=== PATIENT | male | born 1975 | race Caucasian/White ===

== ENCOUNTER 2024-02-19 11:05 | Inpatient (IN) | payer OTHER, SELFPAY ==
[2024-02-19 11:46] VITALS: BP 136/78; PULSE 113; RESP 20; TEMP 37.1; O2SAT 96; BMI 32.1
--- NOTE | 2024-02-19 11:53 | ED_ITS ---
HPI - General Adult General Chief complaint: ETOH/Substance Use Stated complaint: detox Time Seen by Provider: 02/19/24 12:29 Source: patient Mode of arrival: ambulatory Limitations: no limitations History of Present Illness HPI narrative: 48 yo male with chronic rash, HTN here with c/o drinking several hard drinks a day - no prior seizures has been vomiting at home for the last day. Has never been to detox. Brother showed up and has been trying to help him. The patient notes he feels so unwell that he finally is reaching out for help. Last drink was yesterday averages 2 to 3L a week. complaint: ETOH withdrawal Onset (ago): day(s) (yesterday ) Radiation: non-radiation Severity: severe Relieving factors: none Exacerbating factors: none Associated symptoms: loss of appetite and nausea/vomiting Treatments prior to arrival: none Related Data Home Medications ?Medication ?Instructions ?Recorded ?Confirmed gabapentin 100 mg capsule 100 mg PO DAILY PRN Pain 02/19/24 02/19/24 lisinopril 20 mg tablet 20 mg PO DAILY 02/19/24 02/19/24 Allergies Allergy/AdvReac Type Severity Reaction Status Date / Time Penicillins Allergy Mild hives Verified 02/19/24 11:51 Review of Systems 2 Review of Systems: Constitutional : No Fever, No Chills, No Fatigue ENT/Mouth : No sore throat, No Rhinorrhea Eyes: No Eye Pain, No Swelling, No Redness Cardiovascular : No Chest Pain, No SOB, No Dyspnea on Exertion Respiratory : No Cough, No Sputum Gastrointestinal : pos Nausea, pos Vomiting, No Diarrhea, No abdominal Pain Genitourinary : No Dysuria, No Urinary Frequency, No Hematuria, Musculoskeletal : No joint pain, No Myalgias, No Joint Swelling Skin : No Skin Lesions, No rash Neuro : No Weakness, No Numbness, No Dizziness, no Headache Psych : pos Anxiety/Panic, pos Depression, no SI All other systems reviewed and are negative PMFSH Past Medical History Attestation statement: The following information was validated with the patient. Source: old records reviewed Medical History HTN (hypertension) Alcohol abuse Social History Social History Alcohol intake: current Alcohol intake frequency: 3 or more drinks per day Alcohol type: hard liquor Patient Tobacco Use Status: Never used Tobacco Physical Exam ED Vital Signs: Vital Signs - 24 hr 02/19/24 11:46 02/19/24 12:57 02/19/24 15:39 Temperature 98.8 F Pulse Rate 113 H 104 H 114 H Respiratory Rate 20 13 12 Blood Pressure 136/78 136/80 120/70 Pulse Oximetry 96 99 98 Oxygen Delivery Method Room Air Room Air 02/19/24 16:12 Temperature Pulse Rate 122 H Respiratory Rate 21 H Blood Pressure 116/91 H Pulse Oximetry 96 Oxygen Delivery Method Room Air BMI result Body Mass Index 32.1 Appearance: Alert. Oriented X3. Mild acute distress. anxious appearing Eyes: Pupils equal, round and reactive to light. ENT: Pharynx dry MM with tongue fasciculations noted atraumatic Neck: Normal inspection. Neck supple. CVS: Normal heart rate and rhythm. Pulses normal. Respiratory: No respiratory distress. Breath sounds normal. Abdomen: Soft and nontender. Skin: Skin warm and dry. Normal skin color. Plaque like rash noted on back not warm or erythematous more scaly in confluent patches Extremities: No lower extremity edema. No calf ttp bruise on L upper arm Neuro: Oriented X 3. No motor deficit. No sensory deficit. tremors in both arms noted Course Course Course Narrative: RmE: 48-year-old male history of alcohol abuse presents to ED for alcohol withdrawal. Patient having tremors and feeling shaky with nausea and vomiting. Patient last drink was last night. Patient drinks 2 L of vodka a week. Charge nurse informed for patient to be brought to the ED. Labs Ativan fluids ordered Medications Administered Generic Name Dose Route Start Last Admin Trade Name Freq PRN Reason Stop Dose Admin Acetaminophen 650 mg 02/19/24 21:45 02/19/24 21:59 Acetaminophen 325 Mg Tablet PO 650 mg Q4H PRN Administration Pain, Mild (Pain Scale 1-3) Clonidine HCl 0.05 mg 02/19/24 21:00 02/19/24 21:59 Clonidine Hcl 0.1 Mg Tablet PO 0.05 mg BID CINTIA Administration Protocol Enoxaparin Sodium 40 mg 02/19/24 17:30 02/19/24 18:26 Enoxaparin Sodium 40 Mg/0.4 Ml Syringe SUBCUT 40 mg Q24H CINTIA Administration Folic Acid 1 mg 02/19/24 17:30 02/19/24 18:27 Folic Acid 1 Mg Tablet PO 1 mg DAILY CINTIA Administration Metoclopramide HCl 5 mg 02/19/24 19:15 02/19/24 19:22 Metoclopramide Hcl 10 Mg/2 Ml Vial IVPUSH 5 mg Q6H PRN Administration Nausea and Vomiting Thiamine HCl 100 mg 02/19/24 17:30 02/19/24 18:27 Thiamine Hcl 100 Mg Tablet PO 100 mg DAILY CINTIA Administration Discontinued Medications Generic Name Dose Route Start Last Admin Trade Name Freq PRN Reason Stop Dose Admin Al Hydroxide/Mg Hydroxide 30 ml 02/19/24 21:52 02/19/24 21:59 Magnesium Hydrox/Alum Hydrox 30 Ml Oral.Susp PO 02/19/24 21:53 30 ml ONCE ONE Administration Folic Acid 1 mg 02/19/24 12:57 02/19/24 13:36 Folic Acid 1 Mg Tablet PO 02/19/24 12:58 1 mg ONCE ONE Administration Sodium Chloride 1,000 mls @ 999 mls/hr 02/19/24 11:51 02/19/24 14:13 Ns IV 02/19/24 12:51 Infused .Q1H1M STA Infusion Thiamine HCl 200 mg/ Sodium 102 mls @ 204 mls/hr 02/19/24 12:29 02/19/24 13:40 Chloride IV 02/19/24 12:58 Infused ONCE ONE Infusion Magnesium Sulfate 2 gm in 50 mls @ 25 mls/hr 02/19/24 12:29 02/19/24 14:52 Magnesium Sulfate/H2o IV 02/19/24 14:28 Infused ONCE ONE Infusion Sodium Chloride 1,000 mls @ 100 mls/hr 02/19/24 13:45 02/19/24 18:42 Ns IVCONT Infused .Q10H CINTIA Infusion Lorazepam 2 mg 02/19/24 11:51 02/19/24 12:49 Lorazepam 2 Mg/Ml Vial IVPUSH 02/19/24 11:52 2 mg ONCE ONE Administration Lorazepam 2 mg 02/19/24 12:37 02/19/24 12:54 Lorazepam 2 Mg/Ml Vial IVPUSH 02/19/24 12:38 Not Given ONCE ONE Phenobarbital Sodium 360 mg 02/19/24 13:00 02/19/24 13:37 Phenobarbital Sodium 130 Mg/Ml Im Once IM 02/19/24 13:01 360 mg ONCE ONE Administration Protocol Phenobarbital Sodium 270 mg 02/19/24 16:00 02/19/24 19:06 Phenobarbital Sodium 130 Mg/Ml Vial Im Q3hx2 IM 02/19/24 19:01 270 mg Q3H CINTIA Administration Protocol Phenobarbital Sodium 130 mg 02/19/24 16:02 02/19/24 16:06 Phenobarbital Sodium 130 Mg/Ml Vial IVPUSH 02/19/24 16:03 130 mg ONCE ONE Administration Phenobarbital Sodium 130 mg 02/19/24 21:45 02/19/24 21:59 Phenobarbital Sodium 130 Mg/Ml Vial IM 02/19/24 21:46 130 mg ONCE ONE Administration Medical Decision Making Medical Decision Making MDM Narrative: 48 yo male with alcohol abuse, HTN here with n/v tremors, HTN, tachycardia, tongue fasciculations last drink yesterday and exhibiting signs of withdrawal given presentation will start on IV ativan and then order thiamine, folic acid, IVF - start on phenobarb protocol and admit. He will need careful monitoring inpatient then can be seen by addiction medicine while admitted. Differential Diagnosis Differential Diagnoses: The differential diagnosis associated with the presentation includes alcohol withdrawal, lyte abnormality Admission/Observation Consideration of admission/observation: Escalation of care including admission/observation considered admit for alcohol withdrawal and phenobarb protocol Consult Healthcare Provider Management of the patient was discussed with: Hospitalist (will admit) Lab Data [facility] Lab Attestation statement: I reviewed the patient's lab results. 02/19/24 12:03 02/19/24 17:45 Labs: Lab Results 02/19/24 02/19/24 Range/Units 12:03 14:06 WBC 9.3 (4.8-10.8) X10*3/uL RBC 3.59 L (4.60-5.80) X10*6/uL Hgb 13.1 L (14.0-18.0) g/dl Hct 37.3 L (42.0-52.0) % MCV 103.9 H (80.0-98.0) fL MCH 36.5 H (27.0-33.0) pg MCHC 35.1 (31.0-36.0) g/dl RDW 15.1 (11.0-16.0) % Plt Count 228 (160-400) X10*3/uL MPV 8.3 L (9.4-12.4) fL Immature Gran % (Auto) 0.3 (0.0-0.4) % Neut % (Auto) 81.9 H (45-73) % Lymph % (Auto) 10.8 L (20-40) % [place] % (Auto) 6.6 (2-11) % Eos % (Auto) 0.1 (0-4) % Baso % (Auto) 0.3 (0-2) % Lymph # (Auto) 1.0 L (1.2-4.9) X10*3/uL [place] # (Auto) 0.6 (0.1-1.2) X10*3/uL Eos # (Auto) 0.0 (0.0-0.4) X10*3/uL Baso # (Auto) 0.0 (0.0-0.2) X10*3/uL Abs Immat Gran (auto) 0.03 (0.00-0.03) X10*3/uL Absolute Neuts (auto) 7.6 (2.0-8.3) x10*3/uL Absolute Nucleated RBC 0.000 (0.0-0.012) X10*3/uL Nucleated RBC % (auto) 0.0 (0.0-0.2) /100WBC PT 11.6 (11.1-13.3) SEC INR 1.0 (0.9-1.1) APTT 29.4 (26.0-36.8) SEC Sodium 128 L (135-145) mmol/L Potassium 4.4 (3.3-5.1) mmol/L Chloride 93 L (96-108) mmol/L Carbon Dioxide 20 L (22-29) mmol/L Anion Gap 19 (12-20) BUN 14 (9-16) mg/dL Creatinine 1.34 (0.5-1.4) mg/dL Estim Creat Clear Calc 81.0 Estimated GFR 56 Random Glucose 112 (60-115) mg/dL Calcium 9.0 (8.4-10.2) mg/dL Magnesium 1.7 (1.6-2.6) mg/dL Total Bilirubin 2.3 H (0.0-1.0) mg/dL AST 110 H (5-37) U/L ALT 72 H (0-40) U/L Alkaline Phosphatase 101 (39-117) U/L Total Protein 8.1 H (6.5-8.0) g/dL Albumin 4.4 (3.5-5.0) g/dL Lipase 43 (8-78) U/L Urine Opiates Screen Not Detected (Not Detect) Urine Fentanyl Screen Not Detected (Not Detect) Ur Barbiturates Screen Not Detected (Not Detect) Ur Phencyclidine Scrn Not Detected (Not Detect) Ur Amphetamines Screen Not Detected (Not Detect) U Benzodiazepines Scrn Not Detected (Not Detect) Urine Cocaine Screen Not Detected (Not Detect) U Marijuana (THC) Screen Not Detected (Not Detect) Ethyl Alcohol 267 mg/dL Influenza Type A (PCR) NEGATIVE (Negative) Influenza Type B (PCR) NEGATIVE (Negative) RSV RNA Qual (PCR) NEGATIVE (Negative) SARS-CoV-2 RNA (RT-PCR) NEGATIVE (Negative) Independent Interpretation I performed an independent interpretation of an: EKG Interpretation: Rate: 105 Rhythm: sinus tachycardia [place]: normal Normal P waves. Normal LEA. Normal QRS complex. ST T wave : normal no [place] qTC: 446 prior studies: no acute ischemia The study has been interpreted contemporaneously by me. . Independent Historian Clinical information obtained from an independent historian. History obtained from or confirmed by: Other (brother) Critical Care Time Critical Care Time Critical Care Time: Yes Total Critical Care Time: 60 Attestation: IV ativan, IV magnesium, IVF, phenobarb protocol, reassessments, admission I attest to this time spent taking care of the patient Discharge Plan Discharge Clinical Impression: Acute hyponatremia, Elevated liver enzymes Alcohol withdrawal syndrome Qualifiers: Complication of substance-induced condition: uncomplicated Qualified Code(s): F 10.930 - Alcohol use, unspecified with withdrawal, uncomplicated Patient Disposition: Admitted As Inpatient Interventions: Admission Worksheet (ED) Last Done: 02/19/24 19:47 Discharge Date/Time: 02/19/24 20:46
[2024-02-19 12:07] LABS: MANUAL DIFF FLAG NO
[2024-02-19 12:09] LABS: Basophils Percent Auto 0.3 % (0-2); Eosinophils Percent Auto 0.1 % (0-4); Hematocrit 37.3 % (42.0-52.0); Hemoglobin 13.1 g/dl (14.0-18.0); Imm Gran Abs Auto 0.03 X10*3/uL (0.00-0.03); Imm Gran Pct Auto 0.3 % (0.0-0.4); Lymphocytes Percent Auto 10.8 % (20-40); Mean Corpuscular HGB Conc 35.1 g/dl (31.0-36.0); Mean Corpuscular Hemoglobin 36.5 pg (27.0-33.0); Mean Corpuscular Volume 103.9 fL (80.0-98.0); Mean Platelet Volume 8.3 fL (9.4-12.4); Monocytes Absolute Auto 0.6 X10*3/uL (0.1-1.2); Monocytes Percent Auto 6.6 % (2-11); Neutrophils Absolute Auto 7.6 x10*3/uL (2.0-8.3); Neutrophils Percent Auto 81.9 % (45-73); Platelet Count 228 X10*3/uL (160-400); Red Blood Count 3.59 X10*6/uL (4.60-5.80); Red Cell Distribution Width 15.1 % (11.0-16.0); White Blood Count 9.3 X10*3/uL (4.8-10.8)
[2024-02-19 12:14] LABS: Prothrombin Time 11.6 SEC (11.1-13.3)
[2024-02-19 12:17] LABS: Partial Thromboplastin Time 29.4 SEC (26.0-36.8)
[2024-02-19 12:23] LABS: Alanine Aminotransferase 72 U/L (0-40); Albumin Level 4.4 g/dL (3.5-5.0); Alkaline Phosphatase 101 U/L (39-117); Anion Gap 19 (12-20); Aspartate Amino Transferase 110 U/L (5-37); Bilirubin Total 2.3 mg/dL (0.0-1.0); Blood Urea Nitrogen 14 mg/dL (9-16); Carbon Dioxide 20 mmol/L (22-29); Chloride 93 mmol/L (96-108); Estimated Glomerular Filt Rate 56; Ethanol 267 mg/dL; Glucose Random 112 mg/dL (60-115); Lipase 43 U/L (8-78); Magnesium 1.7 mg/dL (1.6-2.6); Potassium 4.4 mmol/L (3.3-5.1); Sodium 128 mmol/L (135-145); Total Protein 8.1 g/dL (6.5-8.0)
--- NOTE | 2024-02-19 12:44 | ECG_ITS ---
Test Reason : QTC, VOMITING Blood Pressure : / mmHG Vent. Rate : 105 BPM Atrial Rate : 105 BPM P-R Int : 158 ms QRS Dur : 072 ms QT Int : 338 ms P-R-T Axes : 041 012 040 degrees QTc Int : 446 ms Sinus tachycardia Otherwise normal ECG No previous ECGs available Referred By: Mary Fitch Electronically Signed By:Chele Winslow
[2024-02-19] MEDS: 0.9 % Sodium Chloride 1,000 ML 999 ML IV (12:45)
[2024-02-19] MEDS: Thiamine HCL 200 MG in 0.9 % Sodium Chloride 100 ML 204 MG IV (12:49)
[2024-02-19] MEDS: LORazepam 2 MG/ML VIAL IVPUSH (12:49)
[2024-02-19] MEDS: Magnesium Sulfate/H2O 2 GM/50 ML PIGGYBACK IV (12:49)
[2024-02-19 12:57] VITALS: BP 136/80; PULSE 104; RESP 13; O2SAT 99
[2024-02-19] MEDS: Folic Acid 1 MG TABLET PO ×2 (13:36→18:27)
[2024-02-19] MEDS: PHENobarbitaL sodium 130 MG/ML IM ONCE 360 MG IM (13:37)
--- NOTE | 2024-02-19 14:08 | PC.NURSE ---
pt assisted to stand at the bedside to void, he had approx 300ml output.
[2024-02-19 14:25] LABS: Amphetamine Screen Urine Not Detected (Not Detect); Barbiturates, Urine Not Detected (Not Detect); Benzodiazepines Screen Urine Not Detected (Not Detect); Cannabinoid Screen Urine Not Detected (Not Detect); Cocaine Screen Urine Not Detected (Not Detect); Fentanyl, urine Not Detected (Not Detect); Opiate Screen Urine Not Detected (Not Detect); Phencyclidine Screen Urine Not Detected (Not Detect)
[2024-02-19 14:50] LABS: Influenza A PCR NEGATIVE (Negative); Influenza B PCR NEGATIVE (Negative); Resp Syncy Virus RNA Qual PCR NEGATIVE (Negative); SARS COV2 PCR INHOUSE NEGATIVE (Negative)
[2024-02-19 15:39] VITALS: BP 120/70; PULSE 114; RESP 12; O2SAT 98
[2024-02-19] MEDS: 0.9 % Sodium Chloride 1,000 ML 100 ML IVCONT (15:42)
[2024-02-19] MEDS: PHENobarbitaL sodium 130 MG/ML VIAL IVPUSH (16:06)
[2024-02-19 16:12] VITALS: BP 116/91; PULSE 122; RESP 21; O2SAT 96
[2024-02-19] MEDS: PHENobarbitaL sodium 130 MG/ML VIAL IM Q3Hx2 270 MG IM ×2 (17:03→19:06)
--- NOTE | 2024-02-19 17:09 | PHA.MEDREC ---
Pharmacy Consult ? Medication Reconciliation Pharmacy has completed the medication reconciliation. Spoke to patient and confirmed medication list.
--- NOTE | 2024-02-19 17:10 | PC.NURSE ---
pt continues to insist on getting up at bedside to use urinal., recommended condom cath which at this time the pt refused. pts brother attempting to assist pt at bedside. pt in red socks, encouraged pt not getting up. 2x assist with pt standing. pt moved into a hospital bed at this time for comfort. bed alarm on.
--- NOTE | 2024-02-19 17:26 | PM.IMHP ---
History of Present Illness Date of Service: 02/19/24 Attending physician on admission: Matt Grayson Chief Complaint: alcohol withdrawals 48 yo male with chronic rash, HTN here with c/o drinking several hard drinks a day, as per the patient patient drinks 3.5 L hard liquor in 1 week, he says that he is recently as well as lost his job and feeling depressed and drinking more ,no prior seizures has been vomiting at home for the last day. Has never been to detox. Brother showed up and has been trying to help him. The patient notes he feels so unwell that he finally is reaching out for help. Patient tremulous and anxious in the emergency room. Denies any new complaint of chest pain or shortness of breath or abdominal pain or fever or chills Denies any cough Denies any weakness or numbness. Lab imaging reviewed: Sodium initially was 128 at 12:00, at 17:00 it is 130 Bicarb is 18 BUN 13 creatinine 0.84, mild elevated LFTs cbc : h/h: 13.1/37.3 in ed: Patient received phenobarb IM, also received magnesium, lorazepam, IV fluid in the ED and requested admission for alcohol withdrawal. Review of Systems Review of Systems: Yes all other systems are reviewed and are negative PMFSH Medical History HTN (hypertension) Alcohol abuse Social History Alcohol intake: current Alcohol intake frequency: 3 or more drinks per day Alcohol type: hard liquor Patient Tobacco Use Status: Never used Tobacco Smoked in Last 30 Days: No Advance Directives: No Advance Directives Information Provided: Yes Nutrition Risks: No Nutritional Risk Meds Allergies Allergy/AdvReac Type Severity Reaction Status Date / Time Penicillins Allergy Mild hives Verified 02/19/24 11:51 Active Medications: Current Medications Clonidine HCl (Clonidine Hcl 0.1 Mg Tablet) 0.05 mg PO BID CINTIA; Protocol Enoxaparin Sodium (Enoxaparin Sodium 40 Mg/0.4 Ml Syringe) 40 mg SUBCUT Q24H CINTIA Folic Acid (Folic Acid 1 Mg Tablet) 1 mg PO DAILY CINTIA Sodium Chloride (Ns) 1,000 mls @ 100 mls/hr IVCONT .Q10H CINTIA Last Admin: 02/19/24 15:42 Dose: 100 mls/hr Pharmacy Consult (Consult Rx Etoh Phenob Im/Po) 1 each MISCELLANE ONCE PRN; Protocol PRN Reason: Consult order Phenobarbital (Phenobarbital 30 Mg Tablet) 60 mg PO BID [facility]; Protocol Stop: 02/21/24 21:01 Phenobarbital (Phenobarbital 30 Mg Tablet) 30 mg PO BID [facility]; Protocol Stop: 02/23/24 21:01 Phenobarbital (Phenobarbital 30 Mg Tablet) 30 mg PO DAILY [facility]; Protocol Stop: 02/25/24 09:01 Phenobarbital Sodium (Phenobarbital Sodium 130 Mg/Ml Vial Im Q3hx2) 270 mg IM Q3H CINTIA; Protocol Stop: 02/19/24 19:01 Last Admin: 02/19/24 17:03 Dose: 270 mg Sodium Chloride (0.9 % Sodium Chloride Flush 3 Ml Syringe) 3 ml IVFLUSH QSHIFT CINTIA Thiamine HCl (Thiamine Hcl 100 Mg Tablet) 100 mg PO DAILY [facility] Home Medications ?Medication ?Instructions ?Recorded ?Confirmed ?Last Taken ?Type gabapentin 100 mg capsule 100 mg PO DAILY PRN Pain 02/19/24 02/19/24 02/18/24 History lisinopril 20 mg tablet 20 mg PO DAILY 02/19/24 02/19/24 02/18/24 History Physical Exam Vital Signs and Narrative: Vital Signs: Last Vital Signs Temp 98.8 F 02/19/24 11:46 Pulse 122 H 02/19/24 16:12 Resp 21 H 02/19/24 16:12 BP 116/91 H 02/19/24 16:12 Pulse Ox 96 02/19/24 16:12 O2 Del Method Room Air 02/19/24 16:12 BMI result Body Mass Index 32.1 Appearance: Alert.? Oriented X3.? tramulous and anxious ch skin rash Eyes: Pupils equal, round and reactive to light.? Sclera nonicteric.? ENT: Pharynx normal.? Moist mucous membranes. cvs: rrr, [id number] , no murmur res: clear to auscultation ,no rhonchii or wheezing abd: no rebound or guarding ,nt, bs present. ext pulses present , no cyanosis . neuro: axo3 , nonfocal. Results Labs 02/19/24 12:03 02/19/24 17:45 Labs: Laboratory Results - last 24 hr 02/19/24 02/19/24 12:03 14:06 MCV 103.9 H MCH 36.5 H MCHC 35.1 RDW 15.1 Plt Count 228 MPV 8.3 L Immature Gran % (Auto) 0.3 Neut % (Auto) 81.9 H Lymph % (Auto) 10.8 L [place] % (Auto) 6.6 Eos % (Auto) 0.1 Baso % (Auto) 0.3 Lymph # (Auto) 1.0 L [place] # (Auto) 0.6 Eos # (Auto) 0.0 Baso # (Auto) 0.0 Abs Immat Gran (auto) 0.03 Absolute Neuts (auto) 7.6 Absolute Nucleated RBC 0.000 Nucleated RBC % (auto) 0.0 PT 11.6 INR 1.0 APTT 29.4 Anion Gap 19 Estim Creat Clear Calc 81.0 Estimated GFR 56 Random Glucose 112 Calcium 9.0 Magnesium 1.7 Total Bilirubin 2.3 H AST 110 H ALT 72 H Alkaline Phosphatase 101 Total Protein 8.1 H Albumin 4.4 Lipase 43 Urine Opiates Screen Not Detected Urine Fentanyl Screen Not Detected Ur Barbiturates Screen Not Detected Ur Phencyclidine Scrn Not Detected Ur Amphetamines Screen Not Detected U Benzodiazepines Scrn Not Detected Urine Cocaine Screen Not Detected U Marijuana (THC) Screen Not Detected Ethyl Alcohol 267 Influenza Type A (PCR) NEGATIVE Influenza Type B (PCR) NEGATIVE RSV RNA Qual (PCR) NEGATIVE SARS-CoV-2 RNA (RT-PCR) NEGATIVE Assessment and Plan (1) Elevated liver enzymes: Status: Acute (2) Acute hyponatremia: Status: Acute (3) Alcohol withdrawal syndrome: Qualifiers: Complication of substance-induced condition: uncomplicated Qualified Code(s): F10.930 - Alcohol use, unspecified with withdrawal, uncomplicated Status: Acute Plan 48 yo male with chronic rash, HTN-patient drinks 3.5 L hard liquor in 1 week, now comes with alcohol withdrawal Acute alcohol withdrawal Tremulous anxious, tachycardic Upper extremity tremors noted, denies hx of alcohol withdrawal Drink hard liquor 3-1/2 L per week on p.o. phenobarb protocol,Daily multivitamin, folic acid, Thiamine,Famotidine 20 mg p.o.,IVF,CIWA scale, added clonidine Addiction medicine consult Monitor on telemetry Addiction consult and psych consult. Hyponatremia: Probably related to decreased p.o. intake and alcohol use Serum and urine osmolality,, urine electrolytes Sodium is already improving, monitor BMP Hypertension: Continue lisinopril DVT prophylaxis: SubQ Lovenox. Patient will benefit from 2 midnight stays: Considering alcohol withdrawal-need phenobarb protocol as well as CIWA monitoring, also electrolyte abnormalities-need electrolyte monitor closely as well as workup. Above management discussed with the patient detail length he understand and in agreement with the above plan, time spent 70 minute, patient full code. Quality Stroke Does the patient have a stroke diagnosis?: No VTE Prior VTE?: No VTE Risk Level:: Medical - moderate - high VTE Device Contraindication: N/A - Device Ordered VTE Drug Contraindication: N/A - Med Ordered
[2024-02-19 18:00] LABS: Anion Gap 18 (12-20); Blood Urea Nitrogen 13 mg/dL (9-16); Calcium 8.2 mg/dL (8.4-10.2); Carbon Dioxide 18 mmol/L (22-29); Chloride 98 mmol/L (96-108); Creatinine Clr Calc Pharmacy 129.3; Estimated Glomerular Filt Rate > 60; Glucose Random 90 mg/dL (60-115); Potassium 4.2 mmol/L (3.3-5.1); Sodium 130 mmol/L (135-145)
[2024-02-19] MEDS: Enoxaparin Sodium 40 MG/0.4 ML SYRINGE SUBCUT (18:26)
[2024-02-19] MEDS: Thiamine HCL 100 MG TABLET PO (18:27)
--- NOTE | 2024-02-19 19:12 | PC.NURSE ---
Addendum entered by Kelli Cannon RN 02/19/24 19:52: Seizure pads in place. 5mg of Reglan given with positive effect. Original Note: Assumed care of pt at 19:00, pt laying in bed, attempted to eat and did vomit a moderate amount. PT tachy at 129. Dr. Grayson made aware, clear liquid diet ordered as well as Zofran. PT reports Zofran causes him a headache and request to try something other than Zofran. Dr. Grayson made aware. Plan of care ongoing.
[2024-02-19] MEDS: Metoclopramide HCl 10 MG/2 ML VIAL 5 MG IVPUSH (19:22)
[2024-02-19 19:25] LABS: Osmolality, Serum 293 mosm/kg (281-305)
[2024-02-19 19:46] VITALS: BP 144/73; PULSE 120; RESP 14; TEMP 36.3; O2SAT 93
--- NOTE | 2024-02-19 19:53 | PC.NURSE ---
Report given to GHAZALA Velarde.
[2024-02-19 20:00] VITALS: BP 137/88; PULSE 126; RESP 20; TEMP 37.1; O2SAT 93
[2024-02-19 20:07] LABS: Potassium Urine Random 24.1 mmol/L
[2024-02-19 20:30] VITALS: BMI 32.1
[2024-02-19 20:32] LABS: Osmolality Urine 436 mosm/kg (373-1093)
[2024-02-19] MEDS: Acetaminophen 325 MG TABLET 650 MG PO (21:59)
[2024-02-19] MEDS: Magnesium Hydrox/Alum Hydrox 30 ML ORAL.SUSP PO (21:59)
[2024-02-19] MEDS: PHENobarbitaL sodium 130 MG/ML VIAL IM (21:59)
[2024-02-19] MEDS: cloNIDine HCL 0.1 MG TABLET 0.05 MG PO (21:59)
[2024-02-20] VITALS (7 sets, daily range): BP systolic 133–167; BP diastolic 79–93; PULSE 91–116; RESP 18–22; TEMP 36.4–37.1; O2SAT 93–98
[2024-02-20] MEDS: PHENobarbitaL sodium 130 MG/ML VIAL IM (01:09)
[2024-02-20] MEDS: 0.9 % Sodium Chloride Flush 3 ML SYRINGE IVFLUSH ×3 (01:10→21:20)
[2024-02-20] MEDS: Acetaminophen 325 MG TABLET 650 MG PO ×2 (03:50→16:32)
[2024-02-20] MEDS: LORazepam 2 MG/ML VIAL IVPUSH (03:51)
[2024-02-20 07:46] LABS: Alanine Aminotransferase 59 U/L (0-40); Albumin Level 3.6 g/dL (3.5-5.0); Alkaline Phosphatase 87 U/L (39-117); Anion Gap 16 (12-20); Aspartate Amino Transferase 99 U/L (5-37); Blood Urea Nitrogen 12 mg/dL (9-16); Calcium 8.8 mg/dL (8.4-10.2); Carbon Dioxide 21 mmol/L (22-29); Chloride 98 mmol/L (96-108); Estimated Glomerular Filt Rate > 60; Glucose Random 88 mg/dL (60-115); Potassium 4.8 mmol/L (3.3-5.1); Sodium 130 mmol/L (135-145); Total Protein 7.1 g/dL (6.5-8.0)
--- NOTE | 2024-02-20 09:03 | MHC.CM.PN ---
CM met with Patient at bedside. Patient lives in a house with his Parents and he is functionally independent. Home/self care vs Recovery Team intervention r/t ETOH is the tentative plan and CM has initiated and will follow for dc planning. PCP is Dr. Alex Krause. Patient's Brother and Mother will transport home. Patient declined HCP.
[2024-02-20] MEDS: Thiamine HCL 100 MG TABLET PO (09:50)
[2024-02-20] MEDS: Folic Acid 1 MG TABLET PO (09:50)
[2024-02-20] MEDS: cloNIDine HCL 0.1 MG TABLET 0.05 MG PO ×2 (09:50→21:19)
[2024-02-20] MEDS: PHENobarbitaL 30 MG TABLET 60 MG PO ×2 (09:50→21:20)
--- NOTE | 2024-02-20 10:47 | P.PNIM_ITS ---
Subjective Subjective Date of Service: 02/20/24 Interval History: alcohol withdrawals Review of Systems still has tremers , anxious seems somewhat improving nausea /vomiting -vomiting improving ,but still nauseated. Physical Exam 2 Vital Signs: Vital Signs: Last Vital Signs Temp 97.6 F 02/20/24 08:00 Pulse 104 H 02/20/24 08:00 Resp 22 H 02/20/24 08:00 BP 143/88 H 02/20/24 08:00 Pulse Ox 93 02/20/24 08:00 O2 Del Method Room Air 02/20/24 08:00 BMI result Body Mass Index 32.1 Appearance: Alert.? Oriented X3.? tramulous and anxious ch skin rash cvs: rrr, [id number] , no murmur res: clear to auscultation ,no rhonchii or wheezing abd: no rebound or guarding ,nt, bs present. ext pulses present , no cyanosis . neuro: axo3 , nonfocal. Objective Data Active Medications Acetaminophen (Acetaminophen 325 Mg Tablet) 650 mg PO Q4H PRN PRN Reason: Pain, Mild (Pain Scale 1-3) Last Admin: 02/20/24 03:50 Dose: 650 mg Documented By: JULIA Clonidine HCl (Clonidine Hcl 0.1 Mg Tablet) 0.05 mg PO BID [facility]; Protocol Last Admin: 02/20/24 09:50 Dose: 0.05 mg Documented By: JEREMIAH Enoxaparin Sodium (Enoxaparin Sodium 40 Mg/0.4 Ml Syringe) 40 mg SUBCUT Q24H [facility] Last Admin: 02/19/24 18:26 Dose: 40 mg Documented By: ESSENCE Folic Acid (Folic Acid 1 Mg Tablet) 1 mg PO DAILY [facility] Last Admin: 02/20/24 09:50 Dose: 1 mg Documented By: JEREMIAH Metoclopramide HCl (Metoclopramide Hcl 10 Mg/2 Ml Vial) 5 mg IVPUSH Q6H PRN PRN Reason: Nausea and Vomiting Last Admin: 02/19/24 19:22 Dose: 5 mg Documented By: DEMETRIUS Ondansetron HCl (Ondansetron Hcl 4 Mg/2 Ml Vial) 4 mg IVPUSH Q6H PRN PRN Reason: Nausea and Vomiting Pharmacy Consult (Consult Rx Etoh Phenob Im/Po) 1 each MISCELLANE ONCE PRN; Protocol PRN Reason: Consult order Phenobarbital (Phenobarbital 30 Mg Tablet) 60 mg PO BID [facility]; Protocol Stop: 02/21/24 21:01 Last Admin: 02/20/24 09:50 Dose: 60 mg Documented By: JEREMIAH Phenobarbital (Phenobarbital 30 Mg Tablet) 30 mg PO BID [facility]; Protocol Stop: 02/23/24 21:01 Phenobarbital (Phenobarbital 30 Mg Tablet) 30 mg PO DAILY [facility]; Protocol Stop: 02/25/24 09:01 Sodium Chloride (0.9 % Sodium Chloride Flush 3 Ml Syringe) 3 ml IVFLUSH QSHIFT [facility] Last Admin: 02/20/24 09:51 Dose: 3 ml Documented By: JEREMIAH Thiamine HCl (Thiamine Hcl 100 Mg Tablet) 100 mg PO DAILY [facility] Last Admin: 02/20/24 09:50 Dose: 100 mg Documented By: JEREMIAH Labs 02/19/24 12:03 02/20/24 06:36 Labs: Laboratory Results - last 24 hr 02/19/24 02/19/24 02/19/24 12:03 14:06 17:45 MCV 103.9 H MCH 36.5 H MCHC 35.1 RDW 15.1 Plt Count 228 MPV 8.3 L Immature Gran % (Auto) 0.3 Neut % (Auto) 81.9 H Lymph % (Auto) 10.8 L [place] % (Auto) 6.6 Eos % (Auto) 0.1 Baso % (Auto) 0.3 Lymph # (Auto) 1.0 L [place] # (Auto) 0.6 Eos # (Auto) 0.0 Baso # (Auto) 0.0 Abs Immat Gran (auto) 0.03 Absolute Neuts (auto) 7.6 Absolute Nucleated RBC 0.000 Nucleated RBC % (auto) 0.0 Hold Purple Top PT 11.6 INR 1.0 APTT 29.4 Anion Gap 19 18 Estim Creat Clear Calc 81.0 129.3 Estimated GFR 56 > 60 Random Glucose 112 90 Osmolality Calcium 9.0 8.2 L D Magnesium 1.7 Total Bilirubin 2.3 H AST 110 H ALT 72 H Alkaline Phosphatase 101 Total Protein 8.1 H Albumin 4.4 Lipase 43 Urine Osmolality Ur Random Sodium Ur Random Potassium Ur Random Chloride Urine Opiates Screen Not Detected Urine Fentanyl Screen Not Detected Ur Barbiturates Screen Not Detected Ur Phencyclidine Scrn Not Detected Ur Amphetamines Screen Not Detected U Benzodiazepines Scrn Not Detected Urine Cocaine Screen Not Detected U Marijuana (THC) Screen Not Detected Ethyl Alcohol 267 Influenza Type A (PCR) NEGATIVE Influenza Type B (PCR) NEGATIVE RSV RNA Qual (PCR) NEGATIVE SARS-CoV-2 RNA (RT-PCR) NEGATIVE 02/19/24 02/19/24 02/20/24 19:03 19:52 06:36 MCV MCH MCHC RDW Plt Count MPV Immature Gran % (Auto) Neut % (Auto) Lymph % (Auto) [place] % (Auto) Eos % (Auto) Baso % (Auto) Lymph # (Auto) [place] # (Auto) Eos # (Auto) Baso # (Auto) Abs Immat Gran (auto) Absolute Neuts (auto) Absolute Nucleated RBC Nucleated RBC % (auto) Hold Purple Top SEE NOTE PT INR APTT Anion Gap 16 Estim Creat Clear Calc 141.0 Estimated GFR > 60 Random Glucose 88 Osmolality 293 Calcium 8.8 D Magnesium Total Bilirubin 3.0 H AST 99 H ALT 59 H Alkaline Phosphatase 87 Total Protein 7.1 Albumin 3.6 Lipase Urine Osmolality 436 Ur Random Sodium 79.0 Ur Random Potassium 24.1 Ur Random Chloride 63.0 Urine Opiates Screen Urine Fentanyl Screen Ur Barbiturates Screen Ur Phencyclidine Scrn Ur Amphetamines Screen U Benzodiazepines Scrn Urine Cocaine Screen U Marijuana (THC) Screen Ethyl Alcohol Influenza Type A (PCR) Influenza Type B (PCR) RSV RNA Qual (PCR) SARS-CoV-2 RNA (RT-PCR) Assessment and Plan (1) Elevated liver enzymes: Status: Acute (2) Acute hyponatremia: Status: Acute (3) Alcohol withdrawal syndrome: Status: Acute Plan 48 yo male with chronic rash, HTN-patient drinks 3.5 L hard liquor in 1 week, now comes with alcohol withdrawal Acute alcohol withdrawal(?depression might be contributing) Tremulous anxious, tachycardic received 2 extra dose of im pheno last night Upper extremity tremors noted, denies hx of alcohol withdrawal Drink hard liquor 3-1/2 L per week on p.o. phenobarb protocol,Daily multivitamin, folic acid, Thiamine,Famotidine 20 mg p.o.,IVF,CIWA scale, added clonidine Addiction consult and psych consult. nausea/vomiting sce to alcohol use ?gastritis imrpoving with hydration andcontinue famotidine,antiemtics will give trial of full liquids if tolerate -advance diet. elevated Lft's : similar range possible related to alcohol use moniter lft's if still evelated -may need further workup. Hyponatremia: Probably related to decreased p.o. intake and alcohol use sodium improving 130's Serum and urine osmolality,, urine electrolytes Sodium is already improving, monitor BMP Hypertension: Continue lisinopril DVT prophylaxis: SubQ Lovenox. ongoing hospitlisation need for 48-72 hrs stays: Considering alcohol withdrawal-need phenobarb protocol as well as CIWA monitoring, also electrolyte abnormalities-need electrolyte monitor closely as well as workup. Quality Stroke Does the patient have a stroke diagnosis?: No VTE Prior VTE?: No VTE Risk Level:: Medical - moderate - high VTE Device Contraindication: N/A - Device Ordered VTE Drug Contraindication: N/A - Med Ordered
[2024-02-20 10:58] LABS: Adenovirus F 40/41 Not Detected (Not Detect.); Astrovirus Not Detected (Not Detect.); Campylobacter Not Detected (Not Detect.); Cryptosporidium Not Detected (Not Detect.); Cyclospora cayetanensis Not Detected (Not Detect.); E. coli EAEC Not Detected (Not Detect.); E. coli EPEC Not Detected (Not Detect.); E. coli ETEC Not Detected (Not Detect.); E. coli STEC Not Detected (Not Detect.); Entamoeba histolytica Not Detected (Not Detect.); Giardia lamblia Not Detected (Not Detect.); Norovirus GI/GII Not Detected (Not Detect.); Plesiomonas shigelloides Not Detected (Not Detect.); Rotavirus A Not Detected (Not Detect.); Salmonella Not Detected (Not Detect.); Sapovirus Not Detected (Not Detect.); Shigella sp./EIEC Not Detected (Not Detect.); Vibrio Not Detected (Not Detect.); Vibrio Cholerae Not Detected (Not Detect.); Yersinia enterocolitica Not Detected (Not Detect.)
[2024-02-20] MEDS: Famotidine 20 MG TABLET PO (11:54)
--- NOTE | 2024-02-20 15:50 | P.CNPS_ITS ---
History of Present Illness Date of Service: 02/20/2024 Chief Complaint: alcohol withdrawal, hyponatremia Reason for Consult: depression Requesting physician: Matt Grayson Sources of Information: patient interviewed and chart reviewed HPI Narrative: Patient is a 48 year old male with chronic rash, HTN; here with c/o drinking several hard drinks a day, as per the patient patient drinks 3.5 L hard liquor in 1 week. Psychiatric consult placed for: depression During psychiatric assessment, pt presents calm and cooperative; alert and oriented. Pt stated, I'm here because of the drinking. I need to make a change. The depression makes me drink; work is stressful and my personal life. I'm single and 48, living with my parents . Pt reports he has been drinking 3 handles of vodka a week ; he reports this has been going on for the past three years since his divorce. He reports being able to abstain from drinking for about 4 days before drinking again. Pt reports seeing a psychiatrist in the past but currently does not have any outpatient psychiatric providers; he would like a referral. Pt reports he is not interested in a substance abuse program because I don't want to see anyone I work with or work with ; pt reports he would like to speak with addiction medicine about resources. Pt denies SI/HI/VH/AH. Pt reports he is open to starting an antidepressant; discussed risks/benefits of Mirtazapine. Past Psychiatric History: hx of outpatient psychiatrist and therapist 3 years ago . denies hx of SIB/SA. denies hx of inpatient psychiatric hospitalizations or detox. hx of zoloft ( didn't feel like it did anything ) and Wellbutrin ( made me feel sick ). 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 Substance History: Pt reports drinking three handles of vodka a week ; denies any other substance use. Trauma History: denies Diagnostics Vital Signs (24Hr): Vital Signs - 24 hr 02/19/24 16:12 02/19/24 19:46 02/19/24 20:00 Temperature 97.3 F 98.8 F Pulse Rate 122 H 120 H 126 H Respiratory Rate 21 H 14 20 Blood Pressure 116/91 H 144/73 H 137/88 Pulse Oximetry 96 93 93 Oxygen Delivery Method Room Air Room Air Room Air 02/20/24 00:00 02/20/24 03:00 02/20/24 04:00 Temperature 98.8 F 98.2 F 98.0 F Pulse Rate 116 H 110 H 110 H Respiratory Rate 20 20 20 Blood Pressure 145/83 H 146/80 H 133/79 Pulse Oximetry 97 97 Oxygen Delivery Method Room Air Room Air Room Air 02/20/24 08:00 02/20/24 12:00 Temperature 97.6 F 97.6 F Pulse Rate 104 H 91 Respiratory Rate 22 H 20 Blood Pressure 143/88 H 136/88 Pulse Oximetry 93 95 Oxygen Delivery Method Room Air Room Air BMI result Body Mass Index 32.1 Labs 02/19/24 12:03 02/20/24 06:36 Labs: Laboratory Results - last 48 hr 02/19/24 02/19/24 02/19/24 12:03 14:06 17:45 WBC 9.3 RBC 3.59 L Hgb 13.1 L Hct 37.3 L MCV 103.9 H MCH 36.5 H MCHC 35.1 RDW 15.1 Plt Count 228 MPV 8.3 L Immature Gran % (Auto) 0.3 Neut % (Auto) 81.9 H Lymph % (Auto) 10.8 L [place] % (Auto) 6.6 Eos % (Auto) 0.1 Baso % (Auto) 0.3 Lymph # (Auto) 1.0 L [place] # (Auto) 0.6 Eos # (Auto) 0.0 Baso # (Auto) 0.0 Abs Immat Gran (auto) 0.03 Absolute Neuts (auto) 7.6 Absolute Nucleated RBC 0.000 Nucleated RBC % (auto) 0.0 Hold Purple Top PT 11.6 INR 1.0 APTT 29.4 Sodium 128 L 130 L Potassium 4.4 4.2 Chloride 93 L 98 Carbon Dioxide 20 L 18 L Anion Gap 19 18 BUN 14 13 Creatinine 1.34 0.84 Estim Creat Clear Calc 81.0 129.3 Estimated GFR 56 > 60 Random Glucose 112 90 Osmolality Calcium 9.0 8.2 L D Magnesium 1.7 Total Bilirubin 2.3 H AST 110 H ALT 72 H Alkaline Phosphatase 101 Total Protein 8.1 H Albumin 4.4 Lipase 43 Urine Osmolality Ur Random Sodium Ur Random Potassium Ur Random Chloride Stl C. cayetanensis PCR Stool Rotavirus A PCR Stl Adenov F PCR Stool Astrovirus (PCR) Stool Campylobacter PCR Stool Cryptosporidium PCR Stl Sh Tox Pr E STEC PCR Stool E coli O157 PCR Stl Enterotoxigenic E PCR Stool EPEC (PCR) Stool EAEC (PCR) Stl E. histolytica PCR Stool Giardia Lamblia PCR Stl P. shigelloides PCR Stool Salmonella PCR Stool Sapovirus (PCR) Stl Shigella/EIEC PCR St Y.enterocolitica PCR Stool Vibrio (PCR) Stl Vibrio cholerae PCR Stl Norovirus GI/GII PCR Urine Opiates Screen Not Detected Urine Fentanyl Screen Not Detected Ur Barbiturates Screen Not Detected Ur Phencyclidine Scrn Not Detected Ur Amphetamines Screen Not Detected U Benzodiazepines Scrn Not Detected Urine Cocaine Screen Not Detected U Marijuana (THC) Screen Not Detected Ethyl Alcohol 267 Influenza Type A (PCR) NEGATIVE Influenza Type B (PCR) NEGATIVE RSV RNA Qual (PCR) NEGATIVE SARS-CoV-2 RNA (RT-PCR) NEGATIVE 02/19/24 02/19/24 02/20/24 19:03 19:52 06:36 WBC RBC Hgb Hct MCV MCH MCHC RDW Plt Count MPV Immature Gran % (Auto) Neut % (Auto) Lymph % (Auto) [place] % (Auto) Eos % (Auto) Baso % (Auto) Lymph # (Auto) [place] # (Auto) Eos # (Auto) Baso # (Auto) Abs Immat Gran (auto) Absolute Neuts (auto) Absolute Nucleated RBC Nucleated RBC % (auto) Hold Purple Top SEE NOTE PT INR APTT Sodium 130 L Potassium 4.8 Chloride 98 Carbon Dioxide 21 L Anion Gap 16 BUN 12 Creatinine 0.77 Estim Creat Clear Calc 141.0 Estimated GFR > 60 Random Glucose 88 Osmolality 293 Calcium 8.8 D Magnesium Total Bilirubin 3.0 H AST 99 H ALT 59 H Alkaline Phosphatase 87 Total Protein 7.1 Albumin 3.6 Lipase Urine Osmolality 436 Ur Random Sodium 79.0 Ur Random Potassium 24.1 Ur Random Chloride 63.0 Stl C. cayetanensis PCR Stool Rotavirus A PCR Stl Adenov F PCR Stool Astrovirus (PCR) Stool Campylobacter PCR Stool Cryptosporidium PCR Stl Sh Tox Pr E STEC PCR Stool E coli O157 PCR Stl Enterotoxigenic E PCR Stool EPEC (PCR) Stool EAEC (PCR) Stl E. histolytica PCR Stool Giardia Lamblia PCR Stl P. shigelloides PCR Stool Salmonella PCR Stool Sapovirus (PCR) Stl Shigella/EIEC PCR St Y.enterocolitica PCR Stool Vibrio (PCR) Stl Vibrio cholerae PCR Stl Norovirus GI/GII PCR Urine Opiates Screen Urine Fentanyl Screen Ur Barbiturates Screen Ur Phencyclidine Scrn Ur Amphetamines Screen U Benzodiazepines Scrn Urine Cocaine Screen U Marijuana (THC) Screen Ethyl Alcohol Influenza Type A (PCR) Influenza Type B (PCR) RSV RNA Qual (PCR) SARS-CoV-2 RNA (RT-PCR) 02/20/24 08:47 WBC RBC Hgb Hct MCV MCH MCHC RDW Plt Count MPV Immature Gran % (Auto) Neut % (Auto) Lymph % (Auto) [place] % (Auto) Eos % (Auto) Baso % (Auto) Lymph # (Auto) [place] # (Auto) Eos # (Auto) Baso # (Auto) Abs Immat Gran (auto) Absolute Neuts (auto) Absolute Nucleated RBC Nucleated RBC % (auto) Hold Purple Top PT INR APTT Sodium Potassium Chloride Carbon Dioxide Anion Gap BUN Creatinine Estim Creat Clear Calc Estimated GFR Random Glucose Osmolality Calcium Magnesium Total Bilirubin AST ALT Alkaline Phosphatase Total Protein Albumin Lipase Urine Osmolality Ur Random Sodium Ur Random Potassium Ur Random Chloride Stl C. cayetanensis PCR Not Detected Stool Rotavirus A PCR Not Detected Stl Adenov F 40/41 PCR Not Detected Stool Astrovirus (PCR) Not Detected Stool Campylobacter PCR Not Detected Stool Cryptosporidium PCR Not Detected Stl Sh Tox Pr E STEC PCR Not Detected Stool E coli O157 PCR Not applicable Stl Enterotoxigenic E PCR Not Detected Stool EPEC (PCR) Not Detected Stool EAEC (PCR) Not Detected Stl E. histolytica PCR Not Detected Stool Giardia Lamblia PCR Not Detected Stl P. shigelloides PCR Not Detected Stool Salmonella PCR Not Detected Stool Sapovirus (PCR) Not Detected Stl Shigella/EIEC PCR Not Detected St Y.enterocolitica PCR Not Detected Stool Vibrio (PCR) Not Detected Stl Vibrio cholerae PCR Not Detected Stl Norovirus GI/GII PCR Not Detected Urine Opiates Screen Urine Fentanyl Screen Ur Barbiturates Screen Ur Phencyclidine Scrn Ur Amphetamines Screen U Benzodiazepines Scrn Urine Cocaine Screen U Marijuana (THC) Screen Ethyl Alcohol Influenza Type A (PCR) Influenza Type B (PCR) RSV RNA Qual (PCR) SARS-CoV-2 RNA (RT-PCR) Mental Status Exam Mental Status Exam Narrative: Pt is alert and oriented; behavior is cooperative and calm; dressed in hospital attire; mood is described as depressed ; eye contact appropriate; Speech is normal rate, volume and prosody and not pressured; thought process is organized; Thought content is on tx; otherwise pertinent to relevant topics and without any delusional content, paranoid ideations or grandiosity; denies SI/HI/VH/AH. Medications Medications Current Medications Acetaminophen (Acetaminophen 325 Mg Tablet) 650 mg PO Q4H PRN PRN Reason: Pain, Mild (Pain Scale 1-3) Last Admin: 02/20/24 03:50 Dose: 650 mg Clonidine HCl (Clonidine Hcl 0.1 Mg Tablet) 0.05 mg PO BID [facility]; Protocol Last Admin: 02/20/24 09:50 Dose: 0.05 mg Enoxaparin Sodium (Enoxaparin Sodium 40 Mg/0.4 Ml Syringe) 40 mg SUBCUT Q24H [facility] Last Admin: 02/19/24 18:26 Dose: 40 mg Famotidine (Famotidine 20 Mg Tablet) 20 mg PO DAILY [facility] Last Admin: 02/20/24 11:54 Dose: 20 mg Folic Acid (Folic Acid 1 Mg Tablet) 1 mg PO DAILY [facility] Last Admin: 02/20/24 09:50 Dose: 1 mg Metoclopramide HCl (Metoclopramide Hcl 10 Mg/2 Ml Vial) 5 mg IVPUSH Q6H PRN PRN Reason: Nausea and Vomiting Last Admin: 02/19/24 19:22 Dose: 5 mg Ondansetron HCl (Ondansetron Hcl 4 Mg/2 Ml Vial) 4 mg IVPUSH Q6H PRN PRN Reason: Nausea and Vomiting Pharmacy Consult (Consult Rx Etoh Phenob Im/Po) 1 each MISCELLANE ONCE PRN; Protocol PRN Reason: Consult order Phenobarbital (Phenobarbital 30 Mg Tablet) 60 mg PO BID [facility]; Protocol Stop: 02/21/24 21:01 Last Admin: 02/20/24 09:50 Dose: 60 mg Phenobarbital (Phenobarbital 30 Mg Tablet) 30 mg PO BID [facility]; Protocol Stop: 02/23/24 21:01 Phenobarbital (Phenobarbital 30 Mg Tablet) 30 mg PO DAILY [facility]; Protocol Stop: 02/25/24 09:01 Sodium Chloride (0.9 % Sodium Chloride Flush 3 Ml Syringe) 3 ml IVFLUSH QSHIFT [facility] Last Admin: 02/20/24 09:51 Dose: 3 ml Thiamine HCl (Thiamine Hcl 100 Mg Tablet) 100 mg PO DAILY [facility] Last Admin: 02/20/24 09:50 Dose: 100 mg Allergies Allergies Allergy/AdvReac Type Severity Reaction Status Date / Time Penicillins Allergy Mild hives Verified 02/19/24 11:51 Assessment & Plan Assessment & Plan (1) MDD (major depressive disorder): Status: Acute Code(s): F32.9 - Major depressive disorder, single episode, unspecified Plan Patient is a 48 year old male with chronic rash, HTN; here with c/o drinking several hard drinks a day, as per the patient patient drinks 3.5 L hard liquor in 1 week. Psychiatric consult placed for: depression Recommendation: Consult to addiction medicine Case management referral to outpatient psychiatrist and therapist. After patient is done with active withdrawal; start Mirtazapine 7.5mg PO bedtime Total time managing care of this patient today _30___ minutes. Patient educated on: diagnosis, medication risk/benefits and substance abuse Informed Consent: understands
[2024-02-20] MEDS: Enoxaparin Sodium 40 MG/0.4 ML SYRINGE SUBCUT (17:38)
[2024-02-20] MEDS: Lidocaine 4 % Patch ADH..PATCH 1 PATCH TRANSDERMA (21:19)
[2024-02-20] MEDS: Melatonin 3 MG TABLET 6 MG PO (21:20)
[2024-02-21] VITALS (8 sets, daily range): BP systolic 110–160; BP diastolic 61–96; PULSE 78–127; RESP 18–20; TEMP 36.1–37.1; O2SAT 95–99
[2024-02-21] MEDS: Lidocaine 4 % Patch ADH..PATCH 1 PATCH TRANSDERMA (04:51)
[2024-02-21] MEDS: PHENobarbitaL sodium 130 MG/ML VIAL 65 MG IM (07:13)
[2024-02-21] MEDS: PHENobarbitaL 30 MG TABLET 60 MG PO ×2 (08:14→20:30)
[2024-02-21] MEDS: Famotidine 20 MG TABLET PO (08:15)
[2024-02-21] MEDS: cloNIDine HCL 0.1 MG TABLET 0.05 MG PO ×2 (08:15→20:30)
[2024-02-21] MEDS: Folic Acid 1 MG TABLET PO (08:15)
[2024-02-21] MEDS: Thiamine HCL 100 MG TABLET PO (08:15)
[2024-02-21] MEDS: 0.9 % Sodium Chloride Flush 3 ML SYRINGE IVFLUSH ×3 (08:19→20:34)
--- NOTE | 2024-02-21 11:27 | MHC.CM.PN ---
PT is recommending home with services; CM will follow.
--- NOTE | 2024-02-21 12:27 | P.PNIM_ITS ---
Subjective Subjective Date of Service: 02/21/24 Interval History: needed extra phenobarb in early AM Physical Exam 2 Vital Signs: Vital Signs: Last Vital Signs Temp 98.7 F 02/21/24 11:38 Pulse 94 02/21/24 11:38 Resp 18 02/21/24 11:38 BP 135/81 02/21/24 11:38 Pulse Ox 96 02/21/24 11:38 O2 Del Method Room Air 02/21/24 11:38 BMI result Body Mass Index 32.1 General: AO X 3, jittery Resp: CTA bilateral, no accessory muscles used CVS: S1,S2,RRR GI: soft, non tender, non distended Neuro: motor grossly intact, alert, tremor Psych: appropriate affect, appropriate insight Objective Data Active Medications Acetaminophen (Acetaminophen 325 Mg Tablet) 650 mg PO Q4H PRN PRN Reason: Pain, Mild (Pain Scale 1-3) Last Admin: 02/20/24 16:32 Dose: 650 mg Documented By: NOEMI Clonidine HCl (Clonidine Hcl 0.1 Mg Tablet) 0.05 mg PO BID [facility]; Protocol Last Admin: 02/21/24 08:15 Dose: 0.05 mg Documented By: MAGNOLIA Enoxaparin Sodium (Enoxaparin Sodium 40 Mg/0.4 Ml Syringe) 40 mg SUBCUT Q24H [facility] Last Admin: 02/20/24 17:38 Dose: 40 mg Documented By: RADHA Famotidine (Famotidine 20 Mg Tablet) 20 mg PO DAILY [facility] Last Admin: 02/21/24 08:15 Dose: 20 mg Documented By: MAGNOLIA Folic Acid (Folic Acid 1 Mg Tablet) 1 mg PO DAILY [facility] Last Admin: 02/21/24 08:15 Dose: 1 mg Documented By: MAGNOLIA Melatonin (Melatonin 3 Mg Tablet) 6 mg PO BEDTIME PRN PRN Reason: Insomnia Last Admin: 02/20/24 21:20 Dose: 6 mg Documented By: JULIA Metoclopramide HCl (Metoclopramide Hcl 10 Mg/2 Ml Vial) 5 mg IVPUSH Q6H PRN PRN Reason: Nausea and Vomiting Last Admin: 02/19/24 19:22 Dose: 5 mg Documented By: DEMETRIUS Ondansetron HCl (Ondansetron Hcl 4 Mg/2 Ml Vial) 4 mg IVPUSH Q6H PRN PRN Reason: Nausea and Vomiting Pharmacy Consult (Consult Rx Etoh Phenob Im/Po) 1 each MISCELLANE ONCE PRN; Protocol PRN Reason: Consult order Phenobarbital (Phenobarbital 30 Mg Tablet) 60 mg PO BID [facility]; Protocol Stop: 02/21/24 21:01 Last Admin: 02/21/24 08:14 Dose: 60 mg Documented By: MAGNOLIA Phenobarbital (Phenobarbital 30 Mg Tablet) 30 mg PO BID [facility]; Protocol Stop: 02/23/24 21:01 Phenobarbital (Phenobarbital 30 Mg Tablet) 30 mg PO DAILY [facility]; Protocol Stop: 02/25/24 09:01 Sodium Chloride (0.9 % Sodium Chloride Flush 3 Ml Syringe) [facility] Last Admin: 02/21/24 08:19 Dose: 3 ml Documented By: MAGNOLIA Thiamine HCl (Thiamine Hcl 100 Mg Tablet) 100 mg PO DAILY [facility] Last Admin: 02/21/24 08:15 Dose: 100 mg Documented By: MAGNOLIA Labs 02/19/24 12:03 02/20/24 06:36 Assessment and Plan (1) Alcohol withdrawal syndrome: Status: Acute (2) Elevated liver enzymes: Status: Acute (3) Acute hyponatremia: Status: Acute Plan 48M PMH etoh dependence, obesity, HTN, presented with etoh withdrawal symptoms Alcohol dependence with acute withdrawal and acute alcoholic hepatitis Continue phenobarb Monitor LFTs Monitor [facility] Addiction team eval Psych appreciated - plan to start Remeron after phenobarb Acute hyponatremia Improving Monitor Obesity Weight loss recommended Hypertension Continue lisinopril DVT prophylaxis: SubQ Lovenox. Full code reason for continued hospitalization: Ongoing withdrawal Quality Stroke Does the patient have a stroke diagnosis?: No VTE Prior VTE?: No VTE Risk Level:: Medical - moderate - high VTE Device Contraindication: N/A - Device Ordered VTE Drug Contraindication: N/A - Med Ordered
[2024-02-21] MEDS: Acetaminophen 325 MG TABLET 650 MG PO ×2 (15:31→21:31)
[2024-02-21] MEDS: Enoxaparin Sodium 40 MG/0.4 ML SYRINGE SUBCUT (18:16)
[2024-02-21] MEDS: Melatonin 3 MG TABLET 6 MG PO (20:29)
[2024-02-22] VITALS (7 sets, daily range): BP systolic 113–150; BP diastolic 70–95; PULSE 78–100; RESP 16–20; TEMP 36.1–37.1; O2SAT 97–98
[2024-02-22 07:06] LABS: Hematocrit 32.9 % (42.0-52.0); Hemoglobin 11.3 g/dl (14.0-18.0); Mean Corpuscular HGB Conc 34.3 g/dl (31.0-36.0); Mean Corpuscular Hemoglobin 36.1 pg (27.0-33.0); Mean Corpuscular Volume 105.1 fL (80.0-98.0); Mean Platelet Volume 10.3 fL (9.4-12.4); Platelet Count 142 X10*3/uL (160-400); Red Blood Count 3.13 X10*6/uL (4.60-5.80); Red Cell Distribution Width 14.8 % (11.0-16.0); White Blood Count 5.1 X10*3/uL (4.8-10.8)
[2024-02-22 07:35] LABS: Alanine Aminotransferase 55 U/L (0-40); Albumin Level 3.7 g/dL (3.5-5.0); Alkaline Phosphatase 83 U/L (39-117); Anion Gap 13 (12-20); Aspartate Amino Transferase 99 U/L (5-37); Bilirubin Direct 0.9 mg/dL (0.0-0.5); Bilirubin Total 1.7 mg/dL (0.0-1.0); Blood Urea Nitrogen 9 mg/dL (9-16); Calcium 9.3 mg/dL (8.4-10.2); Chloride 96 mmol/L (96-108); Creatinine Clr Calc Pharmacy 126.3; Estimated Glomerular Filt Rate > 60; Glucose Fasting 95 mg/dL (60-99); Magnesium 1.6 mg/dL (1.6-2.6); Sodium 131 mmol/L (135-145); Total Protein 6.9 g/dL (6.5-8.0)
[2024-02-22 07:43] LABS: Carbon Dioxide 25 mmol/L (22-29); Potassium 3.8 mmol/L (3.3-5.1)
[2024-02-22] MEDS: Thiamine HCL 100 MG TABLET PO (09:17)
[2024-02-22] MEDS: cloNIDine HCL 0.1 MG TABLET 0.05 MG PO ×2 (09:17→20:43)
[2024-02-22] MEDS: Folic Acid 1 MG TABLET PO (09:17)
[2024-02-22] MEDS: 0.9 % Sodium Chloride Flush 3 ML SYRINGE IVFLUSH ×3 (09:19→20:46)
[2024-02-22] MEDS: Famotidine 20 MG TABLET PO (09:20)
[2024-02-22] MEDS: PHENobarbitaL 30 MG TABLET PO ×2 (09:20→20:42)
--- NOTE | 2024-02-22 10:58 | P.PNIM_ITS ---
Subjective Subjective Date of Service: 02/22/24 Interval History: still jittery Physical Exam 2 Vital Signs: Vital Signs: Last Vital Signs Temp 97 F 02/22/24 07:58 Pulse 91 02/22/24 07:58 Resp 20 02/22/24 07:58 BP 113/70 02/22/24 07:58 Pulse Ox 97 02/22/24 07:58 O2 Del Method Room Air 02/22/24 07:58 BMI result Body Mass Index 32.1 General: AO X 3, jittery Resp: CTA bilateral, no accessory muscles used CVS: S1,S2,RRR GI: soft, non tender, non distended Neuro: motor grossly intact, alert, tremor Psych: appropriate affect, appropriate insight Objective Data Active Medications Acetaminophen (Acetaminophen 325 Mg Tablet) 650 mg PO Q4H PRN PRN Reason: Pain, Mild (Pain Scale 1-3) Last Admin: 02/21/24 21:31 Dose: 650 mg Documented By: ANKIT Clonidine HCl (Clonidine Hcl 0.1 Mg Tablet) 0.05 mg PO BID [facility]; Protocol Last Admin: 02/22/24 09:17 Dose: 0.05 mg Documented By: JIMENEZ Enoxaparin Sodium (Enoxaparin Sodium 40 Mg/0.4 Ml Syringe) 40 mg SUBCUT Q24H [facility] Last Admin: 02/21/24 18:16 Dose: 40 mg Documented By: RADHA Famotidine (Famotidine 20 Mg Tablet) 20 mg PO DAILY [facility] Last Admin: 02/22/24 09:20 Dose: 20 mg Documented By: JIMENEZ Folic Acid (Folic Acid 1 Mg Tablet) 1 mg PO DAILY [facility] Last Admin: 02/22/24 09:17 Dose: 1 mg Documented By: JIMENEZ Melatonin (Melatonin 3 Mg Tablet) 6 mg PO BEDTIME PRN PRN Reason: Insomnia Last Admin: 02/21/24 20:29 Dose: 6 mg Documented By: ANKIT Metoclopramide HCl (Metoclopramide Hcl 10 Mg/2 Ml Vial) 5 mg IVPUSH Q6H PRN PRN Reason: Nausea and Vomiting Last Admin: 02/19/24 19:22 Dose: 5 mg Documented By: DEMETRIUS Ondansetron HCl (Ondansetron Hcl 4 Mg/2 Ml Vial) 4 mg IVPUSH Q6H PRN PRN Reason: Nausea and Vomiting Pharmacy Consult (Consult Rx Etoh Phenob Im/Po) 1 each MISCELLANE ONCE PRN; Protocol PRN Reason: Consult order Phenobarbital (Phenobarbital 30 Mg Tablet) 30 mg PO BID [facility]; Protocol Stop: 02/23/24 21:01 Last Admin: 02/22/24 09:20 Dose: 30 mg Documented By: JIMENEZ Phenobarbital (Phenobarbital 30 Mg Tablet) 30 mg PO DAILY [facility]; Protocol Stop: 02/25/24 09:01 Sodium Chloride (0.9 % Sodium Chloride Flush 3 Ml Syringe) 3 ml IVFLUSH QSHIFT [facility] Last Admin: 02/22/24 09:19 Dose: 3 ml Documented By: JIMENEZ Thiamine HCl (Thiamine Hcl 100 Mg Tablet) 100 mg PO DAILY [facility] Last Admin: 02/22/24 09:17 Dose: 100 mg Documented By: JIMENEZ Labs 02/22/24 06:53 02/22/24 06:53 Labs: Laboratory Results - last 24 hr 02/22/24 06:53 MCV 105.1 H MCH 36.1 H MCHC 34.3 RDW 14.8 Plt Count 142 L D MPV 10.3 Absolute Nucleated RBC 0.000 Nucleated RBC % (auto) 0.0 Anion Gap 13 Estim Creat Clear Calc 126.3 Estimated GFR > 60 Fasting Glucose 95 Calcium 9.3 Magnesium 1.6 Total Bilirubin 1.7 H Direct Bilirubin 0.9 H AST 99 H ALT 55 H Alkaline Phosphatase 83 Total Protein 6.9 Albumin 3.7 Assessment and Plan (1) Alcohol withdrawal syndrome: Status: Acute (2) Elevated liver enzymes: Status: Acute (3) Acute hyponatremia: Status: Acute Plan 48M PMH etoh dependence, obesity, HTN, presented with etoh withdrawal symptoms Alcohol dependence with acute withdrawal and acute alcoholic hepatitis Continue phenobarb lfts improved Monitor [facility] Addiction team eval Psych appreciated - plan to start Remeron after phenobarb Acute hyponatremia Improved Obesity Weight loss recommended Hypertension Continue lisinopril DVT prophylaxis: SubQ Lovenox. Full code reason for continued hospitalization: Ongoing withdrawal Quality Stroke Does the patient have a stroke diagnosis?: No VTE Prior VTE?: No VTE Risk Level:: Medical - moderate - high VTE Device Contraindication: N/A - Device Ordered VTE Drug Contraindication: N/A - Med Ordered
[2024-02-22] MEDS: Magnesium Sulfate/H2O 2 GM/50 ML PIGGYBACK IV (15:04)
[2024-02-22] MEDS: Enoxaparin Sodium 40 MG/0.4 ML SYRINGE SUBCUT (15:44)
[2024-02-22] MEDS: Loperamide HCl 2 MG CAPSULE PO ×2 (15:44→20:42)
[2024-02-22] MEDS: Melatonin 3 MG TABLET 6 MG PO (20:42)
[2024-02-23 03:30] VITALS: BP 132/83; PULSE 75; RESP 20; TEMP 36.4; O2SAT 98
--- NOTE | 2024-02-23 07:00 | CA_ITS ---
Transthoracic Echocardiogram Patient (Last, First, Middle): Ricco Mendez, Gender: Male Date of : 1975 Age: 48 Procedure Date: 02/23/2024 Procedure Type: Transthoracic Echocardiogram Location: [facility] [place] Height: 180.34 cm Weight: 103.87 kg BSA: 2.23 m2 Heart Rate: 93 bpm BP: 141 / 93 mmHg User Experience Lead: SB Referring MD: Refugio Purcell MD Symptoms: nsvt Study Quality: Adequate ECG Rhythm: Sinus Conclusions: - Normal left ventricular size and systolic function. The visually estimated ejection fraction is between 55-60%. - Normal right ventricular cavity size and systolic function. Findings Procedure Information The quality of the study was technically difficult. The study quality is limited by patients body habitus. Left Ventricle Normal left ventricular size and systolic function. The visually estimated ejection fraction is between 55-60%. There is no evidence of regional wall motion abnormalities. Abnormal diastolic function is noted. Spectral Doppler is indicative of a pseudonormal filling pattern. E/E prime ratio is between 8 and 15 consistent with indeterminate filling pressures. There is moderate septal asymmetric hypertrophy. Right Ventricle Normal right ventricular cavity size and systolic function. Atria The left atrium is normal in size. The right atrium is normal in size. Aortic Valve Normal aortic valve structure and function. There is no aortic valve stenosis. There is no aortic valve regurgitation. Mitral Valve The mitral valve appears normal. There is no mitral valve regurgitation. There is no mitral valve stenosis. Pulmonic Valve The pulmonic valve is likely normal. Tricuspid Valve Normal tricuspid valve structure. There is no tricuspid valve regurgitation. Tricuspid regurgitation envelope is inadequate for calculation of right ventricular systolic pressure. Normal right atrial pressure. Great Vessels There is mild dilatation of the ascending aorta measuring 3.60 cm. Venous The inferior vena cava is normal in size and collapses greater than 50% with inspiration. Pericardium/Pleural There is no evidence of pericardial effusion. Prior Study Comparison No prior study available for comparison. Measurements 2D Linear Measurements IVSd: 1.39 0.6-0.9/0.6-1.0 cm LVIDd: 4.30 3.9-5.3/4.2-5.9 cm LVIDd Index: 1.93 2.4-3.2/2.2-3.1 cm/m2 LVIDs: 2.81 2.0-3.6 cm LVPWd: 0.73 0.7-1.1 cm LA Diam: 4.00 2.7-3.8/3.0-4.0 cm LAIDs Index: 1.79 1.5-2.3 cm/m2 LV Mass: 193.02 67-162/88-224 g LV Mass Index: 86.56 43-95/49-115 g/m2 LVOT Diam: 2.20 3.0+(-)1.3 cm 2D Systolic Function EF 4C: 56.90 >55% EF 2C: 54.70 >55% EF BiP: 55.80 >55% Mitral Valve MV Pk E: 0.81 MV PK A: 0.66 MV Decel Time: 157.00 E/A: 1.20 E'Lateral: 8.38 E'Medial: 6.42 E/E' Med: 12.60 E/E' Lat: 9.70 PHT: 46.00 MVA PHT: 4.78 Decel [place]: 5.17 Aortic Valve AoV Pk David: 1.26 AoV Pk Grad: 6.00 GEORGIE: 3.56 LVOT LVOT Pk David: 1.18 LVOT Mn David: 0.71 LVOT VTI: 0.21 LVOT Pk Grad: 6.00 LVOT Mn Grad: 2.00 LVOT Diam: 2.20 LVOT Area: 3.80 Diastolic Function MV Pk E: 0.81 MV Pk A: 0.66 E/A: 1.20 E'Medial: 6.42 E/E' Med: 12.60 E' Laterial: 8.38 E/E' Lat: 9.70 Right Ventricle TAPSE (mm): 18.30 TVS' David: 14.70 Tricuspid Valve RA Press: 3.00 Great Vessels Aorta Sinus of Valsalva: 3.50 2.0-3.5 cm Ao Asc: 3.60 2.1-3.4 cm Pulmonary Veins Pulm Vein S/D 1.50 Pulmonary Valve PV Pk David: 1.23 Peak PV Grad: 6.00 Updated in Other Vendor System with Status of Final Chele Winslow MD electronically signed on 02/23/2024 4:07:22 PM with status of Final
[2024-02-23 07:38] VITALS: BP 141/93; PULSE 99; RESP 20; TEMP 36.2; O2SAT 98
--- NOTE | 2024-02-23 10:11 | HO.PM.IMPN ---
Subjective Subjective Date of Service: 02/23/24 Interval History: feeling better Physical Exam Vital Signs: Vital Signs: Last Vital Signs Temp 97.1 F 02/23/24 07:38 Pulse 99 02/23/24 07:38 Resp 20 02/23/24 07:38 BP 141/93 H 02/23/24 07:38 Pulse Ox 98 02/23/24 07:38 O2 Del Method Room Air 02/23/24 07:38 BMI result Body Mass Index 32.1 General: AO X 3, nad Resp: CTA bilateral, no accessory muscles used CVS: S1,S2,RRR GI: soft, non tender, non distended Neuro: motor grossly intact, alert, Psych: appropriate affect, appropriate insight Objective Data Active Medications Acetaminophen (Acetaminophen 325 Mg Tablet) 650 mg PO Q4H PRN PRN Reason: Pain, Mild (Pain Scale 1-3) Last Admin: 02/21/24 21:31 Dose: 650 mg Documented By: ANKIT Clonidine HCl (Clonidine Hcl 0.1 Mg Tablet) 0.05 mg PO BID [facility]; Protocol Last Admin: 02/22/24 20:43 Dose: 0.05 mg Documented By: LATRICE Enoxaparin Sodium (Enoxaparin Sodium 40 Mg/0.4 Ml Syringe) 40 mg SUBCUT Q24H [facility] Last Admin: 02/22/24 15:44 Dose: 40 mg Documented By: JIMENEZ Famotidine (Famotidine 20 Mg Tablet) 20 mg PO DAILY [facility] Last Admin: 02/22/24 09:20 Dose: 20 mg Documented By: JIMENEZ Folic Acid (Folic Acid 1 Mg Tablet) 1 mg PO DAILY [facility] Last Admin: 02/22/24 09:17 Dose: 1 mg Documented By: JIMENEZ Loperamide HCl (Loperamide Hcl 2 Mg Capsule) 2 mg PO Q4H PRN PRN Reason: Diarrhea Last Admin: 02/22/24 20:42 Dose: 2 mg Documented By: LATRICE Melatonin (Melatonin 3 Mg Tablet) 6 mg PO BEDTIME PRN PRN Reason: Insomnia Last Admin: 02/22/24 20:42 Dose: 6 mg Documented By: LATRICE Metoclopramide HCl (Metoclopramide Hcl 10 Mg/2 Ml Vial) 5 mg IVPUSH Q6H PRN PRN Reason: Nausea and Vomiting Last Admin: 02/19/24 19:22 Dose: 5 mg Documented By: DEMETRIUS Ondansetron HCl (Ondansetron Hcl 4 Mg/2 Ml Vial) 4 mg IVPUSH Q6H PRN PRN Reason: Nausea and Vomiting Pharmacy Consult (Consult Rx Etoh Phenob Im/Po) 1 each MISCELLANE ONCE PRN; Protocol PRN Reason: Consult order Phenobarbital (Phenobarbital 30 Mg Tablet) 30 mg PO BID [facility]; Protocol Stop: 02/23/24 21:01 Last Admin: 02/22/24 20:42 Dose: 30 mg Documented By: LATRICE Phenobarbital (Phenobarbital 30 Mg Tablet) 30 mg PO DAILY [facility]; Protocol Stop: 02/25/24 09:01 Sodium Chloride (0.9 % Sodium Chloride Flush 3 Ml Syringe) [facility] Last Admin: 02/22/24 20:46 Dose: 3 ml Documented By: LATRICE Thiamine HCl (Thiamine Hcl 100 Mg Tablet) 100 mg PO DAILY [facility] Last Admin: 02/22/24 09:17 Dose: 100 mg Documented By: FOSTEKR Labs 02/22/24 06:53 02/22/24 06:53 Assessment and Plan (1) Alcohol withdrawal syndrome: Status: Acute (2) Elevated liver enzymes: Status: Acute (3) Acute hyponatremia: Status: Acute Plan 48M PMH etoh dependence, obesity, HTN, presented with etoh withdrawal symptoms Alcohol dependence with acute withdrawal and acute alcoholic hepatitis Continue phenobarb lfts improved Monitor [facility] - improved Addiction team Psych appreciated - plan to start Remeron after phenobarb nsvt echo acute hypomagnesemia replace Acute hyponatremia Improved Obesity Weight loss recommended Hypertension Continue lisinopril DVT prophylaxis: SubQ Lovenox. Full code reason for continued hospitalization: awaiting echo Quality Stroke Does the patient have a stroke diagnosis?: No VTE Prior VTE?: No VTE Risk Level:: Medical - moderate - high VTE Device Contraindication: N/A - Device Ordered VTE Drug Contraindication: N/A - Med Ordered
[2024-02-23] MEDS: Thiamine HCL 100 MG TABLET PO (10:14)
[2024-02-23] MEDS: PHENobarbitaL 30 MG TABLET PO (10:14)
[2024-02-23] MEDS: cloNIDine HCL 0.1 MG TABLET 0.05 MG PO (10:15)
[2024-02-23] MEDS: Famotidine 20 MG TABLET PO (10:15)
[2024-02-23] MEDS: Folic Acid 1 MG TABLET PO (10:15)
[2024-02-23] MEDS: 0.9 % Sodium Chloride Flush 3 ML SYRINGE IVFLUSH (10:19)
--- NOTE | 2024-02-23 10:21 | MHC.CM.PN ---
Per ROUNDS discussion, Patient may be medically cleared for dc today, pending ECHO. Home is the goal and CM will continue to follow.
[2024-02-23 11:17] VITALS: BP 138/78; PULSE 88; RESP 20; TEMP 36.5; O2SAT 97
--- NOTE | 2024-02-23 12:15 | MHC.RECOVRN ---
Pt has [facility] appointment on 02/28 at 4PM. Pt and CM aware.
[2024-02-23 13:32] VITALS: BP 138/78; PULSE 88; O2SAT 97
[2024-02-23 15:33] VITALS: BP 136/74; PULSE 77; RESP 20; TEMP 36.9; O2SAT 97
--- NOTE | 2024-02-23 16:18 | P.DS_ITS ---
DS: Providers Provider Date of Service: 02/23/24 Date of admission: 02/19/24 17:16 Primary care physician: Alex Krause MD Consults: 02/19/24 11:51 Consult to Care Team Stat Comment: Reason for consultation: wants detox for alcohol withdrawal 02/19/24 17:16 Addiction Medicine Routine Consulting Provider: Addiction Covering Reason for consultation: alcohol withdrawals Consult to Psychiatry Routine Consulting Provider: Psych Covering Reason for consultation: depression DS: Diagnosis Discharge Diagnosis (1) Alcohol withdrawal syndrome: Status: Acute (2) Elevated liver enzymes: Status: Acute (3) Acute hyponatremia: Status: Acute DS: Summary Hospital Course Hospital Course: from initial hpi: 48 yo male with chronic rash, HTN here with c/o drinking several hard drinks a day, as per the patient patient drinks 3.5 L hard liquor in 1 week, he says that he is recently as well as lost his job and feeling depressed and drinking more ,no prior seizures has been vomiting at home for the last day. Has never been to detox. Brother showed up and has been trying to help him. The patient notes he feels so unwell that he finally is reaching out for help. Patient tremulous and anxious in the emergency room. Denies any new complaint of chest pain or shortness of breath or abdominal pain or fever or chills Denies any cough Denies any weakness or numbness. Lab imaging reviewed: Sodium initially was 128 at 12:00, at 17:00 it is 130 Bicarb is 18 BUN 13 creatinine 0.84, mild elevated LFTs cbc : h/h: 13.1/37.3 hospital course: Patient was admitted for alcohol dependence with acute withdrawal and acute alcoholic hepatitis. He was treated with phenobarbital protocol in his withdrawal symptoms resolved. His LFTs down trended. He was seen by [facility] team and was given information. Course complicated by 5 beats of nonsustained V- tach, echocardiogram was unremarkable. He did have acute hypomagnesemia which was replaced. Patient had some mild acute hyponatremia which resolved. For obesity weight loss recommended. For hypertension was continued on lisinopril. Patient is feeling better will be discharged home. Time Attestation Discharge Coordination Time (in mins): 35 Quality: Safe Use of Opioids Does Pt have an Active Cancer Diagnosis on the Problem List?: No Quality: Stroke Does the patient have a stroke diagnosis?: No Physical Exam Vital Signs: Vital Signs: Last Vital Signs Temp 98.5 F 02/23/24 15:33 Pulse 77 02/23/24 15:33 Resp 20 02/23/24 15:33 BP 136/74 02/23/24 15:33 Pulse Ox 97 02/23/24 15:33 O2 Del Method Room Air 02/23/24 15:33 BMI result Body Mass Index 32.1 General: AO X 3, no acute distress Resp: CTA bilateral, no accessory muscles used CVS: S1,S2,RRR GI: soft, non tender, non distended Neuro: motor grossly intact, alert Psych: appropriate affect, appropriate insight Discharge Plan Discharge Anticipated Discharge Date/Time: 02/23/24 16:15 Patient Disposition: Home, Self-Care Discharge Diagnosis: eoth withdrawal Referrals: [facility] appointment is 02/29/2024 @ 4:00PM [Other] - 1 Week Alex Krause MD [Primary Care Provider] - 1 Week Discharge Medications: New lisinopril 20 mg tablet 20 mg PO DAILY Qty: 30 0RF Continued gabapentin 100 mg Capsule 100 mg PO DAILY PRN (Reason: Pain) Discontinued lisinopril 20 mg Tablet 20 mg PO DAILY Discharge Orders: Discharge Order (Routine); Ordered 02/23/24 Ordered By: Refugio Purcell Diet: no etoh Activity on Discharge: As tolerated Stand Alone Forms: Patient Portal Discharge page Print Language: Japanese Care Plan Goals: recorvery Health Concerns: etoh Plan of Treatment: avoid etoh Assessment: see above
== END 2024-02-23 15:15 | disposition home or self-care (01) | DRG 433 ==
LOC: HO.ED 13:19 → HO.EDOVER 17:22 → HO.IMC 19:43
PROVIDERS: Physician Assistant; Student in an Organized Health Care Education/Training Program; Admitting Provider Internal Medicine; Emergency Provider Emergency Medicine; PCP Internal Medicine; Visit Provider Internal Medicine
DX: K70.10 Alcoholic hepatitis without ascites (principal); E87.1 Hypo-osmolality and hyponatremia; I47.20 Ventricular tachycardia, unspecified; F10.239 Alcohol dependence with withdrawal, unspecified; E66.9 Obesity, unspecified; Z68.32 Body mass index [BMI] 32.0-32.9, adult; F32.9 Major depressive disorder, single episode, unspecified; I10 Essential (primary) hypertension; Z20.822 Contact with and (suspected) exposure to COVID-19; Y90.8 Blood alcohol level of 240 mg/100 ml or more; Z79.899 Other long term (current) drug therapy
CPT/HCPCS: 0241U; 36415; 80048; 80053; 80076; 80307; 82436; 83690; 83735; 83930; 83935; 84133; 84300; 85025; 85027; 85610; 85730; 87507; 93005; 93306; 97116; 97162; 99285; J1650; J2060; J2560; J2765; J3411; J3475

== ENCOUNTER → 2024-02-19 12:44 | Outpatient (BNV) | payer OTHER, SELFPAY ==
--- NOTE | 2024-02-23 10:31 | AM.OFFVISNUR ---
Intake Intake Visit Reasons: alcohol withdrawal, hyponatremia Allergies Penicillins Allergy (Mild, Verified 02/19/24 11:51) hives Nursing Note 02/21/24 This typewriter repairer made contact with patient in room 446 Pt sitting up in bed, no apparent distress at this time States his etoh consumption was always social until 2011 States he [place] Described a punch card the bars gave out- 99 drinks and then 100 is free, he felt this incentives He reports his ex- was a heavy etoh utilizer, and also had some psychiatric diagnoses that were overwhelming for him He reports many nights waiting up until she passed out to make sure she was safe, and ultimately saved her life when she attempted overdose with pills. This was traumatic for him and he identifies this as a triggering time that his alcohol use began to escalate He has previously trialed naltrexone approx 5 yrs ago and didn't care for it He expressed he would be willing to try it again Has previously attended AA and felt as though it was not for him, states he is an introvert and was uncomfortable speaking in front of others Alcohol use is daily, 2-3 handles of vodka (aprox 2-3 liters) weekly Curently being detoxed with phenobarb He is interested in establishing care with the [facility], and manager recovery will follow up to make intake appt VIJAYA and recovery supports information left with patient to review Coding
== END ==
PROVIDERS: Admitting Provider Internal Medicine; Emergency Provider Emergency Medicine; PCP Internal Medicine; Visit Provider Internal Medicine Cardiovascular Disease
DX: R00.0 Tachycardia, unspecified (principal)
CPT/HCPCS: 93010

== ENCOUNTER 2024-02-19 17:16 | Outpatient (BNV) | payer OTHER, SELFPAY | END 2024-02-23 07:00 | PROVIDERS: Admitting Provider Internal Medicine; Emergency Provider Emergency Medicine; PCP Internal Medicine; Visit Provider Internal Medicine Cardiovascular Disease | DX: I47.20 Ventricular tachycardia, unspecified (principal) | CPT/HCPCS: 93306 ==

== ENCOUNTER → 2024-02-19 17:16 | Outpatient (BNV) | payer OTHER, SELFPAY | PROVIDERS: Admitting Provider Internal Medicine; Emergency Provider Emergency Medicine; PCP Internal Medicine; Visit Provider Internal Medicine | DX: F10.930 Alcohol use, unspecified with withdrawal, uncomplicated (principal); R74.8 Abnormal levels of other serum enzymes; E87.1 Hypo-osmolality and hyponatremia | CPT/HCPCS: 99222; 99232; 99233; 99239 ==

== ENCOUNTER → 2024-02-19 17:16 | Outpatient (BNV) | payer OTHER, SELFPAY | PROVIDERS: Admitting Provider Internal Medicine; Emergency Provider Emergency Medicine; PCP Internal Medicine; Visit Provider Registered Nurse | DX: F32.2 Major depressive disorder, single episode, severe without psychotic features (principal); F10.10 Alcohol abuse, uncomplicated | CPT/HCPCS: 99222 ==

== ENCOUNTER 2024-02-27 16:12 | Outpatient (AMB) | payer OTHER, SELFPAY ==
[2024-02-27 16:11] VITALS: BP 138/80; PULSE 120; O2SAT 95
--- NOTE | 2024-02-27 16:11 | A.OFFVISCC_ITS ---
Vital Signs 02/27/24 16:11 BP 138/80 Blood Pressure Location Rt brachial Position Sitting Pulse 120 H Pulse Source Pulse Oximeter Pulse Oximetry (%) 95 Oxygen Delivery Method Room Air Intake Visit Reasons: MAT intake Allergies Penicillins Allergy (Mild, Verified 02/19/24 11:51) hives HPI HPI MAT intake: Details: Patient presents to establish care at the clinic Referral from [facility] D/c from hospital 3 days prior Upset because he feels he should have been d/c with a script for naltrexone PCP: Dr. 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 Thornton No hx of SI/HI No psych hospitalizations Allergic to PCN- hives Has HTN controlled with meds No pending court cases/legal history His treatment goal is to abstain from alcohol HPI Comments Details: Patient presents for MAT visit [facility] Medical History HTN (hypertension) Alcohol abuse Social History Housing: House Alcohol intake: current Alcohol intake frequency: 3 or more drinks per day Alcohol type: hard liquor Patient Tobacco Use Status: Never used Tobacco e-Cigarette/Vaping Use: Never Used Second Hand Smoke Exposure: No service: No Review of Systems Const Reports as per HPI Physical Exam Vital Signs: Last Vital Signs Pulse 120 H 02/27/24 16:11 BP 138/80 02/27/24 16:11 Pulse Ox 95 02/27/24 16:11 Oxygen Delivery Method Room Air 02/27/24 16:11 Const General: cooperative and no acute distress Resp Effort & Inspection: normal respiratory effort and able to speak in complete sentences Psych Appearance: grossly normal Mental Status: mental status grossly normal Speech and movement: Normal speech and movement present Affect: normal affect Attitude: cooperative Thought process: Normal thought process present Assessment & Plan Assessment & Plan (1) Alcohol use disorder, severe, dependence: Code(s): F10.20 - Alcohol dependence, uncomplicated Category: Medical Plan: -Start naltrexone, med education provided -Start mirtazapine for sleep, educated him to discontinue med immediately and seek higher level of care should he develop suicidal thoughts with the start of this med -Educated him on importance of taking folic acid and thiamine for cognition post alcohol -Discussed harm reduction strategies and relapse prevention -Refilled his gabapenting, discussed with him getting on a waitlist for psych prescriber, provided him with numbers for [facility] and [facility] Psych -Follow up 1 week Medications: New mirtazapine 7.5 mg PO BEDTIME 30 tabs 0RF ibuprofen 800 mg PO Q8H 30 tabs 0RF folic acid 1 mg PO DAILY 30 tabs 0RF naltrexone Take 1/2 pill first 2 days, advance to full pill if well tolerated 50 mg PO DAILY 30 tabs 0RF Changed From gabapentin 100 mg PO DAILY PRN Pain To gabapentin 100 mg PO DAILY 30 caps 0RF Pain
== END 2024-02-27 16:49 | disposition home or self-care (01) ==
PROVIDERS: PCP Internal Medicine; Visit Provider Nurse Practitioner Family
DX: F10.20 Alcohol dependence, uncomplicated (principal)
CPT/HCPCS: 99204

== ENCOUNTER → 2024-02-27 16:12 | Outpatient (BNVA) | payer OTHER, SELFPAY | PROVIDERS: PCP Internal Medicine; Visit Provider Nurse Practitioner Family ==

== ENCOUNTER 2024-03-05 18:01 | Outpatient (AMB) | payer OTHER, SELFPAY ==
--- NOTE | 2024-03-05 18:02 | MHC.AM.SUB ---
Vital Signs 03/05/24 18:15 BP 138/98 H Blood Pressure Location Lt brachial Position Sitting Respiration 16 Pulse 110 H Pulse Source Auscultation Intake Visit Reasons: MAT Visit Allergies Penicillins Allergy (Mild, Verified 02/19/24 11:51) hives Medication List - Last Reconciled 03/05/24 by Meseret Jimenez NP amlodipine 5 mg PO DAILY folic acid 1 mg PO DAILY gabapentin 100 mg PO DAILY ibuprofen 800 mg PO Q8H lisinopril 20 mg PO DAILY mirtazapine 7.5 mg PO BEDTIME naltrexone 50 mg PO DAILY HPI HPI MAT Visit: Details: Patient presents for AUD treatment and follow up States he has drank more than he intended to in the past few days. He identifies having too much free time at this time as a trigger, he is awaiting PCP clearance to return to work States all the alcohol is now gone from the house he shares with his parents, he has been hiding his alcohol use from his parents, and is feeling shame. PFSH Medical History HTN (hypertension) Alcohol abuse Social History Housing: House Alcohol intake: current Alcohol intake frequency: 3 or more drinks per day Alcohol type: hard liquor Patient Tobacco Use Status: Never used Tobacco e-Cigarette/Vaping Use: Never Used Second Hand Smoke Exposure: No service: No Review of Systems Const Reports as per HPI Physical Exam Vital Signs: Last Vital Signs Pulse 110 H 03/05/24 18:15 Resp 16 03/05/24 18:15 BP 138/98 H 03/05/24 18:15 Const General: cooperative and no acute distress Resp Effort & Inspection: normal respiratory effort Psych Appearance: grossly normal Mental Status: mental status grossly normal Speech and movement: Normal speech and movement present Affect: Sad affect present Attitude: cooperative Thought process: Normal thought process present Assessment & Plan Assessment & Plan (1) Alcohol use disorder, severe, dependence: Code(s): F10.20 - Alcohol dependence, uncomplicated Category: Medical Plan: -Clonidine added to address anxiety, reviewed with patient it would have the additional benefit to his blood pressure as an anti-hypertensive medication. -Discussed with him not to take with mirtazipine -Recovery supports discussed -Follow up 1 week Medications: New clonidine HCl 0.1 mg PO BID 30 tabs 0RF
[2024-03-05 18:15] VITALS: BP 138/98; PULSE 110; RESP 16
== END 2024-03-06 09:25 | disposition home or self-care (01) ==
PROVIDERS: PCP Internal Medicine; Visit Provider Nurse Practitioner Family
DX: F10.20 Alcohol dependence, uncomplicated (principal)
CPT/HCPCS: 99213

== ENCOUNTER → 2024-03-05 18:01 | Outpatient (BNVA) | payer OTHER, SELFPAY | PROVIDERS: PCP Internal Medicine; Visit Provider Nurse Practitioner Family ==

== ENCOUNTER 2024-03-12 17:29 | Outpatient (AMB) | payer OTHER, SELFPAY ==
--- NOTE | 2024-03-12 17:33 | MHC.AM.SUB ---
Vital Signs 03/12/24 17:44 BP 154/108 H Blood Pressure Location Rt brachial Position Sitting Respiration 16 Pulse 108 H Pulse Source Pulse Oximeter Intake Visit Reasons: MAT Visit Allergies Penicillins Allergy (Mild, Verified 02/19/24 11:51) hives HPI HPI MAT Visit: Details: Patient presents for AUD treatment and follow up He went back to work today and is happy about this Spent the weekend with his family in the [facility] States he has had very little ETOH said he bought a small bottle (quarter pint) of fireball and drank it over the space of 3-4 days Tried a THC seltzer when he was with his family and did not care for it Has felt the clonidine has been helpful for anxiety, states his blood pressure readings have also been improved since he started taking the clonidine Would like a head wrestling coach referral HPI Comments Details: Patient presents for MAT visit [facility] Medical History HTN (hypertension) Alcohol abuse Social History Housing: House Alcohol intake: current Alcohol intake frequency: 3 or more drinks per day Alcohol type: hard liquor Patient Tobacco Use Status: Never used Tobacco e-Cigarette/Vaping Use: Never Used Second Hand Smoke Exposure: No service: No Review of Systems Const Reports as per HPI Physical Exam Vital Signs: Last Vital Signs Pulse 108 H 03/12/24 17:44 Resp 16 03/12/24 17:44 BP 154/108 H 03/12/24 17:44 Const General: cooperative and no acute distress Resp Effort & Inspection: normal respiratory effort and able to speak in complete sentences Psych Appearance: grossly normal Mental Status: mental status grossly normal Speech and movement: Normal speech and movement present Affect: normal affect Attitude: cooperative Thought process: Normal thought process present Assessment & Plan Assessment & Plan (1) Alcohol use disorder, severe, dependence: Code(s): F10.20 - Alcohol dependence, uncomplicated Category: Medical Plan: -Recovery supports discussed -RN to place head wrestling coach referral -Clonidine and gabapenting refilled -Follow up 1 week Medications: Changed From gabapentin 100 mg PO DAILY 30 caps 0RF Pain To gabapentin 100 mg PO BID 60 caps 0RF Pain Refilled clonidine HCl 0.1 mg PO BID 60 tabs 0RF
[2024-03-12 17:44] VITALS: BP 154/108; PULSE 108; RESP 16
== END 2024-03-12 18:00 | disposition home or self-care (01) ==
PROVIDERS: PCP Internal Medicine; Visit Provider Nurse Practitioner Family
DX: F10.20 Alcohol dependence, uncomplicated (principal)
CPT/HCPCS: 99213

== ENCOUNTER → 2024-03-12 17:29 | Outpatient (BNVA) | payer OTHER, SELFPAY | PROVIDERS: PCP Internal Medicine; Visit Provider Nurse Practitioner Family ==

== ENCOUNTER 2024-03-21 17:16 | Outpatient (AMB) | payer OTHER, SELFPAY ==
--- NOTE | 2024-03-21 17:18 | MHC.AM.SUB ---
Intake Visit Reasons: MAT Visit Allergies Penicillins Allergy (Mild, Verified 02/19/24 11:51) hives HPI HPI MAT Visit: Details: Patient presents via telehealth Reports today was a stressful day at work Has had only a single serving (187ml) bottle of wine over the weekend when watching the game Has gotten his HTN under control, has seen his PCP and states he is being restarted on low dose adderall He is happy about this, feels the aderrall calms things down for him, states much of his alcohol use he attributes to self-medicating for anxiety Reports sleep has been good Feels the clonidine has been helpful for anxiety PFSH Medical History HTN (hypertension) Alcohol abuse Social History Housing: House Alcohol intake: current Alcohol intake frequency: 3 or more drinks per day Alcohol type: hard liquor Patient Tobacco Use Status: Never used Tobacco e-Cigarette/Vaping Use: Never Used Second Hand Smoke Exposure: No service: No Review of Systems Const Reports as per HPI Telehealth Telehealth Telehealth Platform: Telephone Location of provider rendering services: practice address Location of patient: address on file Patient Identification confirmed using: Name, : Yes Telehealth method: voice only Patient verbally consented to treatment: Yes Patient verbally consented to billing insurance company: Yes Patient informed of any privacy concerns related to visit: Yes Minutes spent on Phone/Video with Pt.: 15 Assessment & Plan Assessment & Plan (1) Alcohol use disorder, severe, dependence: Code(s): F10.20 - Alcohol dependence, uncomplicated Category: Medical Plan: -Continue naltrexone -No refills needed at this time -Recovery support discussed -Follow up 2 weeks
== END 2024-03-21 18:00 | disposition home or self-care (01) ==
PROVIDERS: PCP Internal Medicine; Visit Provider Nurse Practitioner Family
DX: F10.20 Alcohol dependence, uncomplicated (principal)
CPT/HCPCS: 99213

== ENCOUNTER → 2024-03-21 17:16 | Outpatient (BNVA) | payer OTHER, SELFPAY | PROVIDERS: PCP Internal Medicine; Visit Provider Nurse Practitioner Family ==

== ENCOUNTER 2024-04-16 15:29 | Outpatient (AMB) | payer OTHER, SELFPAY ==
--- NOTE | 2024-04-16 15:40 | A.OFFVISCC_ITS ---
Intake Visit Reasons: MAT Tele Allergies Penicillins Allergy (Mild, Verified 02/19/24 11:51) hives HPI HPI MAT Tele: Details: Patient presents via telehealth for AUD treatment and follow up Reports things have been going well for him States work has been less stressful [place] the naltrexone daily with good effect Reports occasional cravings that he manages with distraction. He has been drinking seltzers, and for his b-day his brothers bough some NA beer for them all to drink, reports it felt good to have a cold beer on a hot day with his brothers States mood has been good, that he feels happier [facility] Medical History HTN (hypertension) Alcohol abuse Social History Housing: House Alcohol intake: current Alcohol intake frequency: 3 or more drinks per day Alcohol type: hard liquor Patient Tobacco Use Status: Never used Tobacco e-Cigarette/Vaping Use: Never Used Second Hand Smoke Exposure: No service: No Review of Systems Const Reports as per HPI Telehealth Telehealth Telehealth Platform: Telephone Location of provider rendering services: practice address Location of patient: address on file Patient Identification confirmed using: Name, : Yes Telehealth method: voice only Patient verbally consented to treatment: Yes Patient verbally consented to billing insurance company: Yes Patient informed of any privacy concerns related to visit: Yes Minutes spent on Phone/Video with Pt.: 15 Assessment & Plan Assessment & Plan (1) Alcohol use disorder, severe, dependence: Code(s): F10.20 - Alcohol dependence, uncomplicated Category: Medical Plan: -Continue naltrexone -Follow up 2 weeks Medications: Refilled gabapentin 100 mg PO BID 60 caps 0RF Pain
== END 2024-04-16 15:51 | disposition home or self-care (01) ==
PROVIDERS: PCP Internal Medicine; Visit Provider Nurse Practitioner Family
DX: F10.20 Alcohol dependence, uncomplicated (principal)
CPT/HCPCS: 99212

== ENCOUNTER → 2024-04-16 15:29 | Outpatient (BNVA) | payer OTHER, SELFPAY | PROVIDERS: PCP Internal Medicine; Visit Provider Nurse Practitioner Family ==

== ENCOUNTER 2024-07-31 15:14 | Inpatient (IN) | payer OTHER, SELFPAY ==
[2024-07-31 15:34] VITALS: BP 117/77; PULSE 112; RESP 20; TEMP 36.6; O2SAT 94; BMI 36.3
--- NOTE | 2024-07-31 15:35 | ED.GENADULT ---
HPI - General Adult General Chief complaint: ETOH/Substance Use Stated complaint: [id number] bp-alc withdrawal Time Seen by Provider: 07/31/24 21:08 Source: patient Mode of arrival: ambulatory Limitations: no limitations History of Present Illness ED Provider: german GAMEZ narrative: Patient alcoholic been drinking vodka large amounts for few months was detox 03/06 stayed sober for 2 months started again drinking feel depressed. Denied any SI or HI no history of withdrawal seizures or DTs last drink was yesterday Related Data Home Medications ?Medication ?Instructions ?Recorded ?Confirmed vitamin A 2,400 mcg capsule 2,400 mcg PO DAILY 08/01/24 08/01/24 vitamin B complex 1 tab PO DAILY 08/01/24 08/01/24 Previous Rx's ?Medication ?Instructions ?Recorded lisinopril 20 mg tablet 20 mg PO DAILY #30 tabs 02/23/24 ibuprofen 800 mg tablet 800 mg PO Q8H #30 tabs 02/27/24 clonidine HCl 0.1 mg tablet 0.1 mg PO BID #180 tabs 03/13/24 folic acid 1 mg tablet 1 mg PO DAILY #90 tabs 03/20/24 mirtazapine 7.5 mg tablet 7.5 mg PO BEDTIME #90 tabs 03/20/24 naltrexone 50 mg tablet 50 mg PO DAILY #30 tabs 03/29/24 gabapentin 100 mg capsule 100 mg PO BID Pain #60 caps 04/16/24 Allergies Allergy/AdvReac Type Severity Reaction Status Date / Time Penicillins Allergy Mild hives Verified 07/31/24 15:38 Review of Systems Review of Systems: Yes all other systems are reviewed and are negative [facility] Past Medical History Medical History HTN (hypertension) Alcohol abuse Social History Social History Household Members: Family Housing: House Do you presently have visiting nurse or other home services: No Alcohol intake: current Alcohol intake frequency: 3 or more drinks per day Alcohol type: hard liquor Patient Tobacco Use Status: Never used Tobacco e-Cigarette/Vaping Use: Never Used Second Hand Smoke Exposure: No service: No Physical Exam ED Vital Signs: Vital Signs - 24 hr 07/31/24 15:34 Temperature 97.8 F Pulse Rate 112 H Respiratory Rate 20 Blood Pressure 117/77 Pulse Oximetry 94 Oxygen Delivery Method Room Air BMI result Body Mass Index 36.3 Appearance: Alert. Oriented X3. No acute distress. Eyes: PERRLA, No Nystagmus ENT: Pharynx normal. Oral Mucosa moist Neck: Normal inspection. Neck supple. CVS: Normal heart rate and rhythm. Pulses normal. Respiratory: No respiratory distress. Equal air entry bilateral, no wheezing/rales/rhonchi Abdomen: Soft and nontender. Bowel sounds are present, no mass palpable, no CVA tenderness Skin: Skin warm and dry. Normal skin color. Normal skin turgor. Extremities: No lower extremity edema. No calf tenderness Neuro: Oriented X 3. No motor deficit. No sensory deficit.No cerebellar signs , cranial nerves II-XII intact tremors++ Course Course Course Narrative: This is a rapid medical exam performed by Onel Raymond NP: Additional HPI, ROS, PE not included below will be deferred to primary provider. Patient is a 49-year-old male with history of alcohol use disorder, MDD presenting with complaint of weakness, low BP, had not drank alcohol for 2 months, but recently relapsed, last drink was last night. Looking for help with detox. Plan: labs Medications Administered Generic Name Dose Route Start Last Admin Trade Name Freq PRN Reason Stop Dose Admin Acetaminophen 650 mg 08/01/24 01:08 08/01/24 08:17 Acetaminophen 325 Mg Tablet PO 650 mg Q6H PRN Administration Pain, Mild (Pain Scale 1-3), fever or headache Clonidine HCl 0.1 mg 08/01/24 21:00 08/01/24 20:39 Clonidine Hcl 0.1 Mg Tablet PO 0.1 mg BID CINTIA Administration Protocol Enoxaparin Sodium 40 mg 08/01/24 09:00 08/01/24 08:17 Enoxaparin Sodium 40 Mg/0.4 Ml Syringe SUBCUT 40 mg Q24H CINTIA Administration Famotidine 20 mg 08/01/24 09:00 08/01/24 20:40 Famotidine 20 Mg Tablet PO 20 mg BID CINTIA Administration Folic Acid 1 mg 08/01/24 09:00 08/01/24 08:18 Folic Acid 1 Mg Tablet PO 08/04/24 08:59 1 mg DAILY CINTIA Administration Gabapentin 100 mg 08/01/24 21:00 08/01/24 20:40 Gabapentin 100 Mg Capsule PO 100 mg BID CINTIA Administration Magnesium Oxide 400 mg 08/01/24 09:00 08/01/24 08:18 Magnesium Oxide 400 Mg Tablet PO 400 mg DAILY CINTIA Administration Melatonin 6 mg 08/01/24 01:08 08/01/24 23:46 Melatonin 3 Mg Tablet PO 6 mg BEDTIME PRN Administration Insomnia Mirtazapine 7.5 mg 08/01/24 21:00 08/01/24 20:39 Mirtazapine 7.5 Mg Tablet PO 7.5 mg BEDTIME CINTIA Administration Phenobarbital 60 mg 08/01/24 09:00 08/01/24 20:39 Phenobarbital 30 Mg Tablet PO 08/02/24 21:01 60 mg BID CINTIA Administration Protocol Sodium Chloride 3 ml 08/01/24 08:00 08/01/24 20:40 0.9 % Sodium Chloride Flush 3 Ml Syringe IVFLUSH 3 ml QSHIFT CINTIA Administration Thiamine HCl 100 mg 08/01/24 09:00 08/01/24 08:17 Thiamine Hcl 100 Mg Tablet PO 100 mg DAILY CINTIA Administration Discontinued Medications Generic Name Dose Route Start Last Admin Trade Name Kalpeshq PRN Reason Stop Dose Admin Gabapentin 100 mg 08/01/24 09:00 08/01/24 08:18 Gabapentin 100 Mg Capsule PO 100 mg BID CINTIA Administration Sodium Chloride 1,000 mls @ 999 mls/hr 07/31/24 21:14 07/31/24 22:00 Ns IV 07/31/24 22:14 Infused .Q1H1M ONE Infusion Magnesium Sulfate 2 gm in 50 mls @ 150 mls/hr 07/31/24 21:14 07/31/24 22:05 Magnesium Sulfate/H2o IV 07/31/24 21:33 Infused ONCE ONE Infusion Thiamine HCl 100 mg/ Sodium 101 mls @ 202 mls/hr 08/01/24 01:10 08/01/24 02:45 Chloride IV 08/01/24 01:39 Infused NOW STA Infusion Dextrose/Sodium Chloride 1,000 mls @ 100 mls/hr 08/01/24 01:15 08/01/24 13:35 D5ns IVCONT 08/01/24 10:35 Infused .Q10H CINTIA Infusion Lisinopril 10 mg 08/01/24 09:00 08/01/24 08:18 Lisinopril 10 Mg Tablet PO 10 mg DAILY CINTIA Administration Protocol Lorazepam 2 mg 07/31/24 21:14 07/31/24 21:44 Lorazepam 2 Mg/Ml Vial IVPUSH 07/31/24 21:15 2 mg ONCE ONE Administration Multivitamins/Vitamin C 1 tab 08/01/24 09:00 08/01/24 08:18 Multivitamin Tablet PO 1 tab DAILY CINTIA Administration Phenobarbital Sodium 300 mg 07/31/24 22:00 07/31/24 23:25 Phenobarbital Sodium 130 Mg/Ml Im Once IM 07/31/24 22:01 300 mg ONCE ONE Administration Protocol Phenobarbital Sodium 225 mg 08/01/24 01:00 08/01/24 03:23 Phenobarbital Sodium 130 Mg/Ml Vial Im Q3hx2 IM 08/01/24 04:01 225 mg Q3H CINTIA Administration Protocol Phenobarbital Sodium 65 mg 08/01/24 10:30 08/01/24 10:41 Phenobarbital Sodium 130 Mg/Ml Vial IM 08/01/24 10:31 65 mg ONCE ONE Administration Medical Decision Making Medical Decision Making MDM Narrative: Patient's alcohol abuse in withdrawal with hypomagnesemia which was replaced admit patient for alcohol withdrawal on phenobarbital protocol Differential Diagnosis Differential Diagnoses: The differential diagnosis associated with the presentation includes Admission/Observation Consideration of admission/observation: Escalation of care including admission/observation considered Consult Healthcare Provider Management of the patient was discussed with: Hospitalist Lab Data [facility] Lab Attestation statement: I reviewed the patient's lab results. 08/01/24 07:23 08/01/24 07:23 Labs: Lab Results 07/31/24 Range/Units 19:29 WBC 15.3 H (4.8-10.8) X10*3/uL RBC 4.17 L D (4.60-5.80) X10*6/uL Hgb 13.2 L (14.0-18.0) g/dl Hct 40.0 L D (42.0-52.0) % MCV 95.9 (80.0-98.0) fL MCH 31.7 (27.0-33.0) pg MCHC 33.0 (31.0-36.0) g/dl RDW 15.3 (11.0-16.0) % Plt Count 199 D (160-400) X10*3/uL MPV 9.5 (9.4-12.4) fL Immature Gran % (Auto) 0.6 H (0.0-0.4) % Neut % (Auto) 89.4 H (45-73) % Lymph % (Auto) 4.3 L (20-40) % [place] % (Auto) 5.4 (2-11) % Eos % (Auto) 0.0 (0-4) % Baso % (Auto) 0.3 (0-2) % Lymph # (Auto) 0.7 L (1.2-4.9) X10*3/uL [place] # (Auto) 0.8 (0.1-1.2) X10*3/uL Eos # (Auto) 0.0 (0.0-0.4) X10*3/uL Baso # (Auto) 0.0 (0.0-0.2) X10*3/uL Abs Immat Gran (auto) 0.09 H (0.00-0.03) X10*3/uL Absolute Neuts (auto) 13.7 H (2.0-8.3) x10*3/uL Absolute Nucleated RBC 0.000 (0.0-0.012) X10*3/uL Nucleated RBC % (auto) 0.0 (0.0-0.2) /100WBC PT 12.6 (11.1-13.3) SEC INR 1.0 (0.9-1.1) Sodium 135 (135-145) mmol/L Potassium 4.5 (3.3-5.1) mmol/L Chloride 95 L (96-108) mmol/L Carbon Dioxide 20 L (22-29) mmol/L Anion Gap 25 H (12-20) BUN 11 (9-16) mg/dL Creatinine 1.09 (0.5-1.4) mg/dL Estim Creat Clear Calc 104.7 Estimated GFR > 60 Random Glucose 136 H (60-115) mg/dL Calcium 9.2 (8.4-10.2) mg/dL Magnesium 1.5 L (1.6-2.6) mg/dL Total Bilirubin 2.8 H (0.0-1.0) mg/dL AST 198 H (5-37) U/L ALT 76 H (0-40) U/L Alkaline Phosphatase 116 (39-117) U/L Total Protein 8.0 (6.5-8.0) g/dL Albumin 3.9 (3.5-5.0) g/dL Ethyl Alcohol < 10 mg/dL Influenza Type A (PCR) NEGATIVE (Negative) Influenza Type B (PCR) NEGATIVE (Negative) RSV RNA Qual (PCR) NEGATIVE (Negative) SARS-CoV-2 RNA (RT-PCR) NEGATIVE (Negative) Discharge Plan Discharge Clinical Impression: Alcohol withdrawal syndrome Qualifiers: Complication of substance-induced condition: uncomplicated Qualified Code(s): F10.930 - Alcohol use, unspecified with withdrawal, uncomplicated Patient Disposition: Admitted As Inpatient Interventions: Admission Worksheet (ED) Last Done: 08/01/24 02:27 Discharge Date/Time: 08/01/24 05:55
--- NOTE | 2024-07-31 19:24 | MHC.EDTECH ---
Patient unable to provide urine sample. States he is super denydrated .
[2024-07-31 19:34] LABS: MANUAL DIFF FLAG NO
[2024-07-31 19:49] LABS: Basophils Percent Auto 0.3 % (0-2); Hemoglobin 13.2 g/dl (14.0-18.0); Imm Gran Abs Auto 0.09 X10*3/uL (0.00-0.03); Imm Gran Pct Auto 0.6 % (0.0-0.4); Lymphocytes Absolute Auto 0.7 X10*3/uL (1.2-4.9); Lymphocytes Percent Auto 4.3 % (20-40); Mean Corpuscular Hemoglobin 31.7 pg (27.0-33.0); Mean Corpuscular Volume 95.9 fL (80.0-98.0); Mean Platelet Volume 9.5 fL (9.4-12.4); Monocytes Absolute Auto 0.8 X10*3/uL (0.1-1.2); Monocytes Percent Auto 5.4 % (2-11); Neutrophils Absolute Auto 13.7 x10*3/uL (2.0-8.3); Neutrophils Percent Auto 89.4 % (45-73); Platelet Count 199 X10*3/uL (160-400); Red Blood Count 4.17 X10*6/uL (4.60-5.80); Red Cell Distribution Width 15.3 % (11.0-16.0); White Blood Count 15.3 X10*3/uL (4.8-10.8)
[2024-07-31 20:03] LABS: Alanine Aminotransferase 76 U/L (0-40); Albumin Level 3.9 g/dL (3.5-5.0); Alkaline Phosphatase 116 U/L (39-117); Anion Gap 25 (12-20); Aspartate Amino Transferase 198 U/L (5-37); Bilirubin Total 2.8 mg/dL (0.0-1.0); Blood Urea Nitrogen 11 mg/dL (9-16); Calcium 9.2 mg/dL (8.4-10.2); Carbon Dioxide 20 mmol/L (22-29); Chloride 95 mmol/L (96-108); Creatinine Clr Calc Pharmacy 104.7; Estimated Glomerular Filt Rate > 60; Ethanol < 10 mg/dL; Glucose Random 136 mg/dL (60-115); Magnesium 1.5 mg/dL (1.6-2.6); Potassium 4.5 mmol/L (3.3-5.1); Sodium 135 mmol/L (135-145)
[2024-07-31 20:05] LABS: Prothrombin Time 12.6 SEC (11.1-13.3)
[2024-07-31 20:27] LABS: Influenza A PCR NEGATIVE (Negative); Influenza B PCR NEGATIVE (Negative); Resp Syncy Virus RNA Qual PCR NEGATIVE (Negative); SARS COV2 PCR INHOUSE NEGATIVE (Negative)
--- OUTSIDE RECORDS SUMMARY | 2024-07-31 20:58 | XMS_ITS | Continuity of Care Document ---
Author Organization [facility] Blaise Banda Abhay lt Address [address] [place] [address]- Care Team Providers Care General Store Manager Name Role Phone Alex Krause MD Primary Care Physician [phone] Encounter [facility] Date(s): 04/17/23 - 05/17/23 [facility] Adult [address] [place] [address]- Attending Physician: Admtr, Ar8 Admitting Physician: Admtr, Ar8 Referring Physician: Admtr, Ar8 Allergies, Adverse Reactions, Alerts Substance Reaction Severity Status penicillin Hives Active Immunizations Given and Recorded Vaccine Date Status Refusal Reason tetanus-diphtheria toxoids (Td) 03/13/23 Given influenza virus vaccine, inactivated 07/28/22 Gino rded SARS-CoV-2 (COVID-19) mRNA BNT-162b2 vac 10/30/21 Recorded SARS-CoV-2 (COVID-19) mRNA BNT-162b2 vac 01/08/21 Recorded SARS-CoV-2 (COVID-19) mRNA BNT-162b2 vac 12/18/20 Recorded diphtheria/tetanus/pertussis, acel(DTaP) 12/27/12 Recorded Medications Famotidine = 20 mg, By Mouth, Daily, 0 Refills, Maintenance, 11/03/21 18:20:00 EST, Partial fill upon patient request if the prescription is for a schedule II opioid drug. Start Date: 11/03/21 Status: Ordered Gabapentin = 100 mg, By Mouth, PRN Sleep, 0 Refills, Maintenance, 11/03/21 18:18:00 EST, Partial fill upon patient request if the prescription is for a schedule II opioid drug. Start Date: 11/03/21 Status: Ordered lisinopril 20 mg oral tablet 20 mg, 1, tablet, By Mouth, Daily, # 90 tablet, Refills 3, Tot. Refills 3, Maintenance, 03/13/23 9:44:00 EDT, Route to Pharmacy Electronically, [facility]/pharmacy #[id number], Partial fill upon patient request if the prescription is for a schedule II opioid drug.... Start Date: 03/13/23 Stop Date: 03/07/24 Status: Ordered Wellbutrin XL 150 mg/24 hours oral tablet, extended release 1 tablet = 150 mg, By Mouth, Every 24 hours, # 90 tablet, 3 Refills, Maintenance, 03/13/23 9:45:00 EDT, ER Tablet, [facility]/pharmacy #[id number], Partial fill upon patient request if the prescription is for a schedule II opioid drug., 181, cm, 03/13/23 9:37:00 E... Start Date: 03/13/23 Status: Ordered Problem List Condition Confirmation Course Effective Dates Status Health St atus Informant Anxiety Confirmed Active ADD (attention deficit disorder) Confirmed Active Crohn disease Confirmed Active Alcohol use Confirmed Active Primary hypertension Confirmed Active GERD without esophagitis Confirmed Active Hx of insomnia Confirmed Active Elevated LFTs Confirmed Active Bilateral low back pain with right-sided sciatica Confirmed Active Depression, major, in partial remission Confirmed Active Hyperlipemia, mixed Confirmed Active Tinea versicolor Confirmed Active Severe obesity (BMI 35.0-39.9) with comorbidity Confirmed Active Social History Social History Type Response Smoking Status Never (less than 100 in lifetime) entered on: 03/13/23 Sex Patient Care team information Care Team Personnel Name: Meseret Nguyễn RN Position: S RN Supv Member Role: Primary Care Nurse Name: Alex Krause MD Position: S Physician - Primary Care Member Role: PCP Address: Address: [address] [place] [id number]- Name: Keyla Jang RN Position: S RN Member Role: Primary Care Nurse Care Team Related Persons Name: CANDACE DIAS Address: home [address] [place] [id number] Name: LEXI DIAS
--- OUTSIDE RECORDS SUMMARY | 2024-07-31 20:58 | XMS_ITS | Continuity of Care Document ---
Author Organization [facility] ter Address [address] [place] [id number]- Care Team Providers Care Systems Integration Manager Name Role Phone Not on Staff, PCP Primary Care Physician Unavail able [place] [facility] [place] 11/08/21 - 02/19/[address] [address]- Attending Physician: Ken Tipton MD Admitting Physician: Ken Tipton MD Allergies, Adverse Reactions, Alerts Substance Reaction Severity Status penicillin Hives Active Medications Adderall 20 mg oral tablet 1 tablet = 20 mg, By Mouth, Daily in AM, 0 Refills, Maintenance, 11/03/21 18:16:00 EST, Partial fill upon patient request if the prescription is for a schedule II opioid drug. Start Date: 11/03/21 Status: Ordered Atenolol = 50 mg, By Mouth, Daily, 0 Refills, Maintenance, 11/03/21 18:16:00 EST, Partial fill upon patient request if the prescription is for a schedule II opioid drug. Start Date: 11/03/21 Status: Ordered Chlorthalidone = 10 mg, By Mouth, Daily, 0 Refills, Maintenance, 11/03/21 18:17:00 EST, Partial fill upon patient request if the prescription is for a schedule II opioid drug. Start Date: 11/03/21 Status: Ordered Famotidine = 20 mg, By Mouth, Daily, [...] 20 mg, 1, tablet, By Mouth, Daily, Refills 0, Maintenance, 11/03/21 18:16:00 EST, Partial fill uponpatient request if the prescription is for a schedule II opioid drug. Start Date: 11/03/21 Status: Ordered [id number] with Electrolytes (Eqv-NuLYTELY) oral powder for reconstitution See Instructions, Please follow instructions from GI; NOT the instructions in the package insert., # 1 kit, 0 Refills, Maintenance, 11/05/21 15:30:00 EST, [facility]/pharmacy #[id number], Okay to substitute with any gallon bowel prep., Please follow instructions f... Start Date: 11/05/21 Status: Ordered Problem List Condition Effective Dates Status Health Status Inform ant Obese class I(Confirmed) Active Social History Social History Type Response Smoking Status Never (less than 100 in lifetime) entered on: 11/03/21 Sex
--- OUTSIDE RECORDS SUMMARY | 2024-07-31 20:58 | XMS_ITS | Continuity of Care Document ---
Author Organization [facility] Abhay Address [address] [place] [address]- Care Team Providers Care Guide Plant Name Role Phone Alex Krause MD Primary Care Physician [phone] [place] [facility] [place] 05/18/24 [facility] Adult [address] [place] [address]- Allergies, Adverse Reactions, Alerts Substance Reaction Severity Status penicillin Hives Active Immunizations Given and Recorded Vaccine Date Status Refusal Reason hepatitis B adult vaccine 03/19/24 Given Hepatitis A Adult Vaccine 03/19/24 Given tetanus-diphtheria toxoids (Td) 03/13/23 Given influenza virus vaccine, inactivated 07/28/22 Gino rded SARS-CoV-2 (COVID-19) mRNA BNT-162b2 vac 10/30/21 Recorded SARS-CoV-2 (COVID-19) mRNA BNT-162b2 vac 01/08/21 Recorded SARS-CoV-2 (COVID-19) mRNA BNT-162b2 vac 12/18/20 Recorded diphtheria/tetanus/pertussis, acel(DTaP) 12/27/12 Recorded Medications Adderall XR 20 mg oral capsule, extended release 1 capsule = 20 mg, By Mouth, Daily, # 30 tablet, 0 Refills, Maintenance, 03/19/24 12:24:00 EDT, [facility]aps[facility], [id number], Partial fill upon patient request if the prescription is for a scheduleII opioid drug., 181, cm, 03/19/24 11:48:00 EDT, He... Start Date: 03/19/24 Status: Ordered amLODIPine 5 mg oral tablet 5 mg, 1, tablet, By Mouth, Daily, # 90 tablet, Refills 3, Tot. Refills 3, Maintenance, 03/04/24 9:14:00 EDT, Route to Pharmacy Electronically, [facility]/pharmacy #[id number], Partial fill upon patient request ifthe prescription is for a schedule II opioid drug.,... Start Date: 03/04/24 Status: Ordered cloNIDine 0.1 mg oral tablet 0.1 mg, 1, tablet, By Mouth, 2 times a day, # 60 tablet, Refills 0, Maintenance, 03/19/24 12:11:00 EDT, Partial fill upon patient request if the prescription is for a schedule II opioid drug. Start Date: 03/19/24 Status: Ordered Famotidine = 20 mg, By Mouth, Daily, 0 Refills, Maintenance, 11/03/21 18:20:00 EST, Partial fill upon patient request if the prescription is for a schedule II opioid drug. Start Date: 11/03/21 Status: Ordered Folic Acid Daily, 0 Refills, Maintenance, 03/04/24 8:51:00 EDT, Partial fill upon patient request if the prescription is for a schedule II opioid drug. Start Date: 03/04/24 Status: Ordered Gabapentin = 100 mg, By Mouth, 2 times a day, 0 Refills, Maintenance, 11/03/21 18:18:00 EST, Partial fill uponpatient request if the prescription is for a schedule II opioid drug. Start Date: 11/03/21 Status: Ordered lisinopril 20 mg oral tablet 1, tablet, By Mouth, Daily, # 90 tablet, Refills 1, Maintenance, 04/18/24 11:57:00 EDT, Route to Pharmacy Electronically, [facility] STORE [id number], 181, cm, 03/19/24 11:48:00 EDT, Height Start Date: 04/18/24 Status: Ordered mirtazapine 7.5 mg oral tablet 2 tablet = 15 mg, By Mouth, Daily at bedtime, 0 Refills, Maintenance, 03/04/24 8:51:00 EDT, Partialfill upon patient request if the prescription is for a schedule II opioid drug. Start Date: 03/04/24 Status: Ordered Naltrexone Daily, 0 Refills, Maintenance, 03/04/24 8:51:00 EDT, Partial fill upon patient request if the prescription is for a schedule II opioid drug. Start Date: 03/04/24 Status: Ordered Problem List Condition Confirmation Course [...] remission Confirmed Active Hyperlipemia, mixed Confirmed Active Obese class I Confirmed Active Neuropathy, peripheral Confirmed Active Tinea versicolor Confirmed Active Social History Social History Type Response Smoking Status Never (less than 100 in lifetime) entered on: 03/13/23 Sex Patient Care team information Care Team Personnel Name: Meseret Nguyễn RN Position: [facility] RN Supv Member Role: Primary Care Nurse Name: Keyla Craig RN Position: [facility] RN Member Role: Primary Care Nurse Name: Alex Krause MD Position: [facility] Physician - Primary Care Member Role: PCP Address: Address: [address] [place] [phone]- [place] Care Team Related Persons Name: CANDACE DIAS Address: home [address] [place] [id number] Name: LEXI DIAS
--- OUTSIDE RECORDS SUMMARY | 2024-07-31 20:58 | XMS_ITS | Continuity of Care Document ---
Author Organization [facility] Abhay lt Address [address] [place] [address]- Care Team Providers Care Director Of Marketing Operations Name Role Phone Alex Krause MD Primary Care Physician [phone] [place] [facility] [place] 04/23/24 - 05/23/24 [facility] Adult [address] [place] [address]- Allergies, Adverse Reactions, Alerts Substance Reaction Severity [...] Maintenance, 03/19/24 12:24:00 EDT, [facility], [id number], Partial fill upon patient request if the prescription is for a scheduleII opioid drug., 181, cm, 03/19/24 11:48:00 EDT, He... Start Date: 03/19/24 Status: Ordered amLODIPine 5 mg oral tablet 5 mg, 1, tablet, By Mouth, Daily, # 90 tablet, Refills 3, Tot. Refills 3, Maintenance, 03/04/24 9:14:00 EDT, Route to Pharmacy Electronically, [facility]/pharmacy #[id number], Partial fill upon patient request ifthe [...] 04/18/24 11:57:00 EDT, Route to Pharmacy Electronically, [facility] STORE [id number], 181, cm, 03/19/24 11:48:00 EDT, Height Start [...] Team Personnel Name: Meseret Nguyễn RN Position: [facility] RN Supv Member Role: Primary Care Nurse Name: Keyla Craig RN Position: [facility] RN Member Role: Primary Care Nurse Name: Alex Krause MD Position: [facility] Physician - Primary Care Member Role: PCP Address: Address: [address] [place] [address]- [place] Care Team Related Persons Name: CANDACE DIAS Address: home [address] [place] [address] Name: LEXI DIAS
--- OUTSIDE RECORDS SUMMARY | 2024-07-31 20:58 | XMS_ITS | Continuity of Care Document ---
Author Organization [facility] Banda Abhay lt Address [address] [place] [address]- Care Team Providers Care Manager Business Management Name Role Phone Alex Krause MD Primary Care Physician Encounter [facility] Date(s): 03/13/23 - 05/17/23 [facility] Adult [address] [place] [address]- Attending Physician: Alex Krause MD Allergies, Adverse Reactions, Alerts Substance Reaction [...] 03/13/23 9:44:00 EDT, Route to Pharmacy Electronically, [facility]/pharmacy #[id number], Partial fill upon patient request if the prescription is for a schedule II opioid drug.... Start Date: 03/13/23 Stop Date: 03/07/24 Status: Ordered Wellbutrin XL 150 mg/24 hours oral tablet, extended release 1 tablet = 150 mg, By Mouth, Every 24 hours, # 90 tablet, 3 Refills, Maintenance, 03/13/23 9:45:00 EDT, ER Tablet, [facility]/pharmacy #[id number], Partial fill upon patient request if [...] Team Personnel Name: Meseret Nguyễn RN Position: [facility] RN Supv Member Role: Primary Care Nurse Name: Alex Krause MD Position: S Physician - Primary Care Member Role: PCP Address: Address: [address] [place] [address]- Name: Keyla Jang RN Position: S RN Member Role: Primary Care Nurse Care Team Related Persons Name: CANDACE DIAS Address: home [address] [place] [id number] Name: LEXI DIAS
--- OUTSIDE RECORDS SUMMARY | 2024-07-31 20:58 | XMS_ITS | Continuity of Care Document ---
Author Organization [facility] lt Address [address] [place] [address]- Care Team Providers Care Bluing Oven Tender Name Role Phone Alex Krause MD Primary Care Physician Encounter [place] Date(s): 03/04/24 - 03/11/24 [facility] Adult [address] [place] [address]- Encounter Diagnosis Alcohol use(Discharge Diagnosis) - 03/04/24 ADD (attention deficit disorder)(Discharge Diagnosis) - 03/04/24 Primary hypertension(Discharge Diagnosis) - 03/04/24 Attending Physician: Alex Krause MD Referring Physician: Alex Krause MD Allergies, Adverse Reactions, Alerts Substance Reaction Severity Status penicillin Hives Active Immunizations Given and Recorded Vaccine Date Status Refusal Reason tetanus-diphtheria toxoids (Td) 03/13/23 Given influenza virus vaccine, inactivated 07/28/22 Gino rded SARS-CoV-2 (COVID-19) mRNA BNT-162b2 vac 10/30/21 Recorded SARS-CoV-2 (COVID-19) mRNA BNT-162b2 vac 01/08/21 Recorded SARS-CoV-2 (COVID-19) mRNA BNT-162b2 vac 12/18/20 Recorded diphtheria/tetanus/pertussis, acel(DTaP) 12/27/12 Recorded Medications amLODIPine 5 mg oral tablet 5 mg, 1, tablet, By Mouth, Daily, # 90 tablet, Refills 3, Tot. Refills 3, Maintenance, 03/04/24 9:14:00 EDT, Route to Pharmacy Electronically, [facility]/pharmacy #[id number], Partial fill upon patient request ifthe prescription is for a schedule II opioid drug.,... Start Date: 03/04/24 Status: Ordered Famotidine = 20 mg, By [...] 03/13/23 9:44:00 EDT, Route to Pharmacy Electronically, [facility]/pharmacy #[id number], Partial fill upon patient request if the prescription is for a schedule II opioid drug.... Start Date: 03/13/23 Stop Date: 03/07/24 Status: Ordered mirtazapine 7.5 mg oral tablet [...] Confirmation Course Effective Dates Status Health St at Informant Anxiety Confirmed Active ADD (attention deficit disorder) Confirmed Active Crohn disease Confirmed Active Alcohol use Confirmed Active Primary hypertension Confirmed Active GERD without esophagitis Confirmed Active Hx of insomnia Confirmed Active Elevated LFTs Confirmed Active Bilateral low back pain with right-sided sciatica Confirmed Active Depression, major, in partial remission Confirmed Active Hyperlipemia, mixed Confirmed Active Neuropathy, peripheral Confirmed Active Tinea versicolor Confirmed Active Severe obesity (BMI 35.0-39.9) with comorbidity Confirmed Active Diagnosis Diagnosis Type Effective Dates Health Status Clinical Service Informant Alcohol use Discharge Diagnosis 03/04/24 ADD (attention deficit disorder) Discharge Diagnosis 03/04/24 Primary hypertension Discharge Diagnosis 03/04/24 Vital Signs Most recent to oldest [Reference Range]: 1 2 Height 181 cm (03/04/24 8:53 AM) 181 cm (03/04/24 8:44 AM) Oxygen Saturation [94-100 %] 98 % (03/04/24 8:44 AM) Pulse Rate [55-90 bpm] 125 bpm *H* (03/04/24 8:44 AM) Blood Pressure [90-138/55-84 mm Hg] 157/ 93mm Hg *H* (03/04/24 8:53 AM) 164/80mm Hg *H* (03/04/24 8:44 AM) Mode of Delivery (Oxygen) Room air (03/04/24 8:44 AM) Blood pressure sites Arm, left (03/04/24 8:53 AM) Arm, left (03/04/24 8:44 AM) Weight Obtained Via Standing scale (03/04/24 8:44 AM) Social History Social History Type Response Smoking Status Never (less than 100 in lifetime) entered on: 03/13/23 Sex Note * Kelli Almanza: PERFORM, SIGN, VERIFY Event Display: Patient Education/Instruction Authored Date: [id number] [facility] Clinical Summary Name CANDACE DIAS Age 48 Years 1975 PCP [phone] Visit Date 03/04/2024 08:27:00 Additional Instructions: Scheduled Appointments?? Future Appointments ?No Future Appointments Scheduled Follow-Up Instructions ?? With: Address: When: Alex Krause MD In 2 weeks Diagnosis Other specified behavioral and emotional disorders with onset usually occurring in childhood and adolescence; Essential (primary) hypertension; Polyneuropathy, unspecified; Other specified health status Medications: Please continue your medications until treatment is completed or stopped by your provider. Discuss any questions related to medications with your provider. New Medications [id number] [address], [place] [id number], [phone] Amlodipine (amLODIPine 5 mg oral tablet) 1 tab(s) Oral Daily. Refills: 3. Next Dose: Medications to Continue with No Changes These medications were not printed or sent to your pharmacy Famotidine 20 Milligram Oral Daily. Next Dose: Folic Acid Daily. Next Dose: Gabapentin 100 Milligram Oral as needed Sleep. Next Dose: Lisinopril (lisinopril 20 mg oral tablet) 1 tab(s) Oral Daily for 90 Days. Refills: 3. Next Dose: Mirtazapine (mirtazapine 7.5 mg oral tablet) 2 tab(s) Oral Daily at Bedtime. Next Dose: Naltrexone Daily. Next Dose: No Longer Take the Following Medications BuPROpion (Wellbutrin XL 150 mg/24 hours oral tablet, extended release) 1 tab(s) Oral every 24 hours. Refills: 3. Allergy Info:?? penicillin Medications Given This Visit Future Orders ?No future orders Future Orders ?Comprehensive Metabolic Panel? Order Date:03/04/24?- Complete within?CBC? Order Date:03/04/24?- Complete within?Direct LDL? Order Date:03/04/24?- Complete within?Hepatitis C Ab? Order Date:03/04/24?- Complete within?Thyroid Panel? Order Date:03/04/24?- Complete within?Syphilis Testing formerly ordered as RPR? Order Date:03/04/24?- Complete within?Vitamin B12 Level? Order Date:03/04/24?- Complete within?DARRIUS Screen? Order Date:03/04/24?- Complete within?Sedimentation Rate? Order Date:03/04/24?- Complete within?Folate Level? Order Date:03/04/24?- Complete within?Protein Electrophoresis? Order Date:03/04/24?- Complete within?Lyme Disease Ab Screen? Order Date:03/04/24?- Complete within?Iron + Iron Binding Capacity? Order Date:03/04/24?- Complete within?Ceruloplasmin? Order Date:03/04/24?- Complete within?Hepatitis B Surface Antigen? Order Date:03/04/24?- Complete within?Anti-HAV IgG? Order Date:03/04/24?- Complete within?Anti-HBS Quant? Order Date:03/04/24?- Complete within? Vital Signs Height 181 cm Weight BMI Blood Pressure 157 mm Hg/93 mm Hg Temperature Pulse Rate 125 bpm Respiratory Rate 02 Sat Mode of Delivery 98 %/Room air You can now view a summary of your hospital visit from the comfort of your home through a free online portal called [employer]. [employer] is a website that allows you to securely view your medical information including discharge summary, medications and follow-up visits. ??You can alsosend a secure electronic message to your doctor???s office to request appointments, renew medications or just ask a question. You can enroll at [email or web address] or register during your next office visit. Disclaimer:?? The information provided is of a general nature and is intended to be used in conjunction with the recommendations and advice of your health care practitioner. ??Every effort has been made to ensure that the information provided is accurate and complete at the time it is provided to you however, as your needs change, or, as new ??information becomes available, different or additional instructions may be required. If you have questions, please consult with your primary care provider or pharmacist, as appropriate. ??This information is not intended to serve as substitution for assessment and evaluation by a qualified health care provider. If you do not have a primary care provider, you may find a [facility] provider by calling [facility] [employer] at [phone]. [facility], in keeping with [facility] guidance, no longer requires face masks for staff, patientsor visitors in most situations. Similar to time spent indoors at other locations, there is the chance that you were exposed to respiratory viruses during your time with us (such as flu or COVID-19).? If you develop symptoms concerning for a viral respiratory infection, please seek testing (and treatment if indicated) from your medical provider or home test kit. For information about the plan of care including goals and instructions for your diagnosis, please see the patient education orders section of this document. Patient Education Materials?? The content of this educational material or handout may have been modified, supplemented, or adapted from its original content and format to support your individualized medical care. Patient Care team information Care Team Personnel Name: Meseret Nguyễn RN Position: [facility] RN Supv Member Role: Primary Care Nurse Name: Keyla Craig RN Position: [facility] RN Member Role: Primary Care Nurse Name: Alex Krause MD Position: [facility] Physician - Primary Care Member Role: PCP Address: Address: [address] [place] [address]- Care Team Related Persons Name: CANDACE DIAS Address: home [address] [place] [address] Name: LEXI DIAS
--- OUTSIDE RECORDS SUMMARY | 2024-07-31 20:58 | XMS_ITS | Continuity of Care Document ---
Author Organization [facility] B[facility] Abhay lt Address [address] [place] [address]- Care Team Providers Care Class B Driver Name Role Phone Alex Krause MD Primary Care Physician [facility] Date(s): 03/19/24 - 03/26/24 [facility] Adult [address] [place] [address]- Encounter Diagnosis ADD (attention deficit disorder)(Discharge Diagnosis) - 03/19/24 Hyperlipemia, mixed(Discharge Diagnosis) - 03/19/24 Primary hypertension(Discharge Diagnosis) - 03/19/24 Attending Physician: Alex Krause MD Allergies, Adverse [...] Maintenance, 03/19/24 12:24:00 EDT, [id number] Partial fill upon patient request if the prescription is for a scheduleII opioid drug., 181, cm, 03/19/24 11:48:00 EDT, He... Start Date: 03/19/24 Status: Ordered amLODIPine 5 mg oral tablet 5 mg, 1, tablet, By Mouth, Daily, # 90 tablet, Refills 3, Tot. Refills 3, Maintenance, 03/04/24 9:14:00 EDT, Route to Pharmacy Electronically, [facility]/pharmacy #[id number], Partial fill upon patient request ifthe [...] 03/13/23 9:44:00 EDT, Route to Pharmacy Electronically, [facility]/pharmacy #[id number], Partial fill upon patient request if [...] peripheral Confirmed Active Tinea versicolor Confirmed Active Diagnosis Diagnosis Type Effective Dates Health Status Clinical Service Informant ADD (attention deficit disorder) Discharge Diagnosis 03/19/24 Hyperlipemia, mixed Discharge Diagnosis 03/19/24 Primary hypertension Discharge Diagnosis 03/19/24 Vital Signs Most recent to oldest [Reference Range]: 1 Height 181 cm (03/19/24 11:48 AM) Weight 114.1 kg (03/19/24 11:48 AM) Oxygen Saturation [94-100 %] 98 % (03/19/24 11:48 AM) Pulse Rate [55-90 bpm] 110 bpm *H* (03/19/24 11:48 AM) Body Mass Index [18.5-24.99 kg/m2] 34.83 kg/m2 *>HHI* (03/19/24 11:48 AM) Blood Pressure [90-138/55-84 mm Hg] 110/ 72mm Hg (03/19/24 11:48 AM) Mode of Delivery (Oxygen) Room air (03/19/24 11:48 AM) Blood pressure sites Arm, left (03/19/24 11:48 AM) Weight Obtained Via Standing scale (03/19/24 11:48 AM) Social History Social History Type Response Smoking Status Never (less than 100 in lifetime) entered on: 03/13/23 Sex Patient Care team information Care Team Personnel Name: Meseret Nguyễn RN Position: [facility] RN Supv Member Role: Primary Care Nurse Name: Keyla Craig RN Position: S RN Member Role: Primary Care Nurse Name: Alex Krause MD Position: [facility] Physician - Primary Care Member Role: PCP Address: Address: [address] [place] [address] [place] [address]- Care Team Related Persons Name: CANDACE DIAS Address: home [address] [place] [address] Name: LEXI DIAS
--- OUTSIDE RECORDS SUMMARY | 2024-07-31 20:58 | XMS_ITS | Continuity of Care Document ---
Author Organization [facility] Abhay lt Address [address] [place] [address]- Care Team Providers Care Travel Writer Name Role Phone Alex Krause MD Primary Care Physician [phone] [place] [facility] [place] 04/25/24 - 05/25/24 [facility] Adult [address] [place] [address]- Attending Physician: Admtr, Ar8 Admitting Physician: Admtr, [...] Maintenance, 03/19/24 12:24:00 EDT, [id number] Partial fill upon patient request if the prescription is for a scheduleII opioid drug., 181, cm, 03/19/24 11:48:00 EDT, He... Start Date: 03/19/24 Status: Ordered amLODIPine 5 mg oral tablet 5 mg, 1, tablet, By Mouth, Daily, # 90 tablet, Refills 3, Tot. Refills 3, Maintenance, 03/04/24 9:14:00 EDT, Route to Pharmacy Electronically, [facility]/pharmacy #[id number], Partial fill upon patient request ifthe [...] 04/18/24 11:57:00 EDT, Route to Pharmacy Electronically, [facility] STORE [id number], 181, cm, 03/19/24 11:48:00 EDT, Height Start [...] lifetime) entered on: 03/13/23 Sex Note * Jaci Raza RN: PERFORM, SIGN, VERIFY, SIGN Jaci Raza RN: SIGN, MODIFY Jaci Raza RN: HECTOR Krause MD, Alex Mackenzie: SIGN Event Display: Case Management Discharge Plan Authored Date: [id number] Patient: CANDACE DIAS Age: 48 years Sex: Male : 1975 Associated Diagnoses: None Author: Jaci Raza RN Care Management Discharge Call Note Admit date 02/19/2024 Discharge date 02/19/2024 Date of contact 02/27/2024 Diagnosis ETOH Withdrawal If patient went for emergency services was this patient referred? Referred by self [facility] D/C Notes in cis. Discharge instructions were reviewed with the patient? Yes Medication reconciliation performed Yes Looks like you were recently discharged from the hospital (ED), how are you feeling? Pt report's; He is doing well and feels fine . From: Jaci Raza RN To: Debbie COELLO, Yanelis Perdomo; Shani West; Sent: 02/27/2024 12:31:04 EDT Subject: ERF this week go back to work forms? Caller Name: CANDACE DIAS; Caller Number: C Called pt. TCM Note complete. went to [facility] ED on 02/18 for ETOH withdrawal. pt report's he wants to go back to work. dropped off forms at our office few days ago was told may take 7 days.. wants to expedite . I feel fine want to go back to work'. Pt report's he called our office and was already alexi with [employer] on 03/04. Pt want s to be seen sooner for ERF if that will expedite his return to work. I don't see any OV ERF this week. Milady kindly assist. I am off on . Thank you Please tell me the problem or condition that brought you to the hospital (ED)? ETOH withdrawal sx Do you know what to do in case of an emergency? yes Were you given any prescriptions to fill? Yes. Do you understand how to take your medication? Yes Other diagnostic tests/procedures ordered/recommended? see PCP Do you have an appointment already scheduled with your PCP? Yes Is date appropriate: Yes. Are you able to get to that appointment: Yes. Appointment scheduled? Date 03/04/2024 Home Care Services requested? No Have there been any changes in your condition since discharge? No Do you have someone at home that is able to help you? No Is there anything else that you need addressed before your follow up appointment? No * Jaci Raza RN: PERFORM Event Display: Case Management Discharge Plan Authored Date: [id number] Addendum by Jaci Raza RN on March 01, 2024 14:11:22 EDT Noted. Thank you. Addendum by Nila Foster on March 01, 2024 14:09:36 EDT spoke to patient, re scheduled to 03/04/2024 @ 8:30 Addendum by Yanelis Lewis NP on March 01, 2024 14:01:20 EDT From: Yanelis Lewis NP To: Jaci Raza RN; [place] [facility] Adult - Admin; Sent: 03/01/2024 14:01:20 EDT Subject: RE: IPF ? Caller Name: CANDACE DIAS; Caller Number: C I believe [facility] has an opening on Monday??? Patient Care team information Care Team Personnel Name: Meseret Nguyễn RN Position: [facility] RN Supv Member Role: Primary Care Nurse Name: Keyla Craig RN Position: [facility] RN Member Role: Primary Care Nurse Name: Nelida LOPEZ, Alex Mackenzie Position: [facility] Physician - Primary Care Member Role: PCP Address: Address: [address] [place] [address]- [place] Care Team Related Persons Name: CANDACE DIAS Address: home [address] [place] [address] Name: LEXI DIAS
--- OUTSIDE RECORDS SUMMARY | 2024-07-31 20:58 | XMS_ITS | Continuity of Care Document ---
Author Organization [facility] Medicine Address [address] [place] [address]- Care Team Providers Care Tying Machine Operator Lumber Name Role Phone Alex Krause MD Primary Care Physician Encounter [facility] Date(s): 02/26/24 - 03/27/[address] [address] Allergies, Adverse Reactions, Alerts Substance Reaction Severity [...] Refills, Maintenance, 03/19/24 12:24:00 EDT, ER Capsule, [facility]/pharmacy #[id number], Partial fill upon patient request if the prescription is for a scheduleII opioid drug., 181, cm, 03/19/24 11:48:00 EDT, He... Start Date: 03/19/24 Status: Ordered amLODIPine 5 mg oral tablet 5 mg, 1, tablet, By Mouth, Daily, # 90 tablet, Refills 3, Tot. Refills 3, Maintenance, 03/04/24 9:14:00 EDT, Route to Pharmacy Electronically, [facility]/pharmacy #[id number], Partial fill upon patient [...] 03/13/23 9:44:00 EDT, Route to Pharmacy Electronically, [facility]/pharmacy #[id number], Partial fill upon patient [...] Team Personnel Name: Meseret Nguyễn RN Position: [facility] RN Supv Member Role: Primary Care Nurse Name: Keyla Craig RN Position: [facility] RN Member Role: Primary Care Nurse Name: Alex Krause MD Position: [facility] Physician - Primary Care Member Role: PCP Address: Address: [address] [place] [address]- Care Team Related Persons Name: CANDACE DIAS Address: home [address] [place] [id number] Name: LEXI DIAS
--- OUTSIDE RECORDS SUMMARY | 2024-07-31 20:58 | XMS_ITS | Continuity of Care Document ---
Author Organization [facility] Solo [facility]hay lt Address [address] [place] [address]- Care Team Providers Care Ip Architect Name Role Phone Alex Krause MD Primary Care Physician [place] [facility] [place] 04/23/24 - 05/23/24 [facility] Adult [address] [place] [address]- Allergies, Adverse Reactions, Alerts Substance Reaction Severity [...] Maintenance, 03/19/24 12:24:00 EDT, [facility], [id number], Partial fill upon patient request if the prescription is for a scheduleII opioid drug., 181, cm, 03/19/24 11:48:00 EDT, He... Start Date: 03/19/24 Status: Ordered amLODIPine 5 mg oral tablet 5 mg, 1, tablet, By Mouth, Daily, # 90 tablet, Refills 3, Tot. Refills 3, Maintenance, 03/04/24 9:14:00 EDT, Route to Pharmacy Electronically, [facility]/pharmacy #[id number], Partial fill upon patient request [...] 04/18/24 11:57:00 EDT, Route to Pharmacy Electronically, [facility] STORE [id number], 181, cm, 03/19/24 11:48:00 EDT, Height Start [...] Team Personnel Name: Meseret Nguyễn RN Position: [facility] RN Supv Member Role: Primary Care Nurse Name: Keyla Craig RN Position: [facility] RN Member Role: Primary Care Nurse Name: Alex Krause MD Position: [facility] Physician - Primary Care Member Role: PCP Address: Address: [address] [place] [address]- [place] Care Team Related Persons Name: CANDACE DIAS Address: home [address] [place] [id number] Name: LEXI DIAS
--- OUTSIDE RECORDS SUMMARY | 2024-07-31 20:58 | XMS_ITS | Continuity of Care Document ---
Author Organization [facility] ter Address [address] [place] [address]- Care Team Providers Care Prorate Clerk Name Role Phone Not on Staff, PCP Primary Care Physician Unavail able Encounter [facility] [place] Date(s): 11/04/21 - 11/08/[address] [address]- Discharge Disposition: A-D/C Home Attending Physician: Marisela Barry MD Admitting Physician: Marisela Barry MD Referring Physician: Not on Staff, Referring MD Allergies, Adverse Reactions, Alerts Substance Reaction [...] opioid drug. Start Date: 11/03/21 Status: Ordered Dilaudid Inj 0.5 mg, Injection, IV Push Slowly, Every 4 hours, PRN for Pain , Severe, Routine, 11/04/21 9:41:00 EST Start Date: 11/04/21 Stop Date: 11/08/21 Status: Discontinued Famotidine = 20 mg, By Mouth, Daily, [...] opioid drug. Start Date: 11/03/21 Status: Ordered levoFLOXacin 750 mg oral tablet 1 tablet = 750 mg, By Mouth, Every 24 hours, for 8 days, # 8 tablet, 0 Refills, Acute 11/16/21 9:10:00 EST, 11/08/21 9:10:00 EST, Tablet, [facility], Partial fill upon patient request if the prescription is for a schedule II opioid drug.... Start Date: 11/08/21 Stop Date: 11/16/21 Status: Ordered lisinopril 20 mg oral tablet 20 mg, 1, tablet, By Mouth, Daily, Refills 0, Maintenance, 11/03/21 18:16:00 EST, Partial fill uponpatient request if the prescription is for a schedule II opioid drug. Start Date: 11/03/21 Status: Ordered metroNIDAZOLE 500 mg oral tablet 1 tablet = 500 mg, By Mouth, Every 8 hours, for 8 days, # 24 tablet, 0 Refills, Acute 11/16/21 9:08:00 EST, 11/08/21 9:08:00 EST, Tablet, [facility], Partial fill upon patient request if the prescription is for a schedule II opioid drug.... Start Date: 11/08/21 Stop Date: 11/16/21 Status: Ordered PEG-3350 with Electrolytes (Eqv-NuLYTELY) oral powder for reconstitution See Instructions, Please follow instructions from GI; NOT the instructions in the package insert., # 1 kit, 0 Refills, Maintenance, 11/05/21 15:30:00 EST, [facility]/pharmacy #[id number], Okay to substitute with any gallon bowel prep., Please follow instructions f... Start Date: 11/05/21 Status: Ordered Problem List Condition Effective Dates Status Health Status Inform ant Obese class I(Confirmed) Active Results Orders for Microbiology Reports Name Date Blood Culture 11/04/21 Microbiology Reports TEST:Blood Culture STATUS:Unauthenticated BODY SITE: SOURCE:Blood COLLECTED DATE/TIME:11/04/21 3:18 AM Blood Culture SPECIMEN DESCRIPTION : BLOOD SPECIAL REQUESTS : NONE CULTURE : NO GROWTH 4 DAYS REPORT STATUS : PRELIMINARY REPORT Radiology Reports * Exam Date Time Procedure Performing Provider Status 11/04/21 3:32 AM Chest Portable Keturah Taylor; Auth (Verified) Notes: (Chest Portable) Reason For Exam: Line Placement RESULT: Chest Portable Chest Portable Reason: Line Placement COMPARISON: 11/03/2021. FINDINGS: LINES AND TUBES: Left PICC line with tip in the SVC at the level of the cavoatrial junction. LUNGS AND PLEURA: Minimal decrease in mild right basilar consolidation/airspace disease. Persistent left basilar atelectasis. Normal pulmonary vascularity. No pleural effusion. No pneumothorax. HEART, MEDIASTINUM AND AVILA: Unchanged. BONES AND SOFT TISSUES: Unchanged. IMPRESSION: 1. Left PICC line with tip in the SVC at the level of the cavoatrial junction. 2. Minimal decrease in mild right basilar consolidation/airspace disease. Left basilar atelectasis. I have personally reviewed the images and I agree with this report. WSN: [id number] Ordering Physician: Geoff Harris Dictated By: Geoff Eddy MD Dictated Date/Time: 11/04/21 7:50 am Reviewed By: Mumtaz Ruelas MD Signed By: Mumtaz Ruelas MD Signed Date/Time: 11/04/21 7:55 am Transcribed By: HARRY Transcribed Date/Time: 11/04/21 7:44 am Vital Signs Most recent to oldest [Reference Range]: 1 2 3 Height 181 cm (11/07/21 11:21 AM) 181 cm (11/07/21 8:36 AM) 181 cm (11/07/21 2:20 AM) Weight 105.6 kg (11/04/21 12:26 AM) Oxygen Saturation [94-100 %] 95 % (11/08/21 10:00 AM) 99 % (11/08/21 10:00 AM) 100 % (11/08/21 6:00 AM) Pulse Rate [55-90 bpm] 111 bpm *H* (11/08/21 10:00 AM) 100 bpm *H* (11/08/21 10:00 AM) 92 bpm *H* (11/08/21 6:00 AM) Body Mass Index [18.5-24.99] 32.23 *>HHI* (11/04/21 12:26 AM) Blood Pressure [90-138/55-84 mm Hg] 125/99mm Hg (11/08/21 10:00 AM) 147/87mm Hg *H* (11/08/21 6:00 AM) 113/74mm Hg (11/08/21 2:00 AM) Respiratory Rate [16-30 br/min] 18 br/min (11/08/21 10:26 AM) 17 br/min (11/08/21 6:33 AM) 18 br/min (11/08/21 6:00 AM) Temperature [96.8-100.4 DegF] 98.1 DegF (11/08/21 10:00 AM) 98.0 DegF (11/08/21 6:00 AM) 98.0 DegF (11/08/21 2:00 AM) Mode of Delivery (Oxygen) Room air (11/08/21 10:00 AM) Room air (11/08/21 6:00 AM) Room air (11/08/21 2:00 AM) Blood pressure sites Arm, left (11/08/21 6:00 AM) Arm, left (11/08/21 2:00 AM) Arm, left (11/07/21 10:00 PM) Temperature Route Oral (11/08/21 10:00 AM) Oral (11/08/21 6:00 AM) Oral (11/08/21 2:00 AM) Dry Weight 105.6 kg (11/04/21 12:26 AM) Weight Obtained Via Bed scale (11/04/21 12:26 AM) Dry Weight Obtained Via Bed scale (11/04/21 12:26 AM) Social History Social History Type Response Smoking Status Never (less than 100 in lifetime) entered on: 11/03/21 Sex
--- OUTSIDE RECORDS SUMMARY | 2024-07-31 20:58 | XMS_ITS | Continuity of Care Document ---
Author Organization [facility] Address [address] [place] [address]- Care Team Providers Care Manager Neonatal Name Role Phone Alex Krause MD Primary Care Physician Encounter [facility] Date(s): 03/13/23 - 03/20/23 [facility] Adult [address] [place] [address]- Encounter Diagnosis Severe obesity (BMI 35.0-39.9) with comorbidity(Discharge Diagnosis) - 03/13/23 GERD without esophagitis(Discharge Diagnosis) - 03/13/23 Attending Physician: Alex Krause MD Allergies, Adverse [...] 9:44:00 EDT, [id number] Partial fill upon patient request if the prescription is for a schedule II opioid drug.... 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 Vital Signs Most recent to oldest [Reference Range]: 1 2 Height 181 cm (03/13/23 9:37 AM) 181 cm (03/13/23 9:18 AM) Weight 118.5 kg (03/13/23 9:18 AM) Oxygen Saturation [94-100 %] 98 % (03/13/23 9:18 AM) Pulse Rate [55-90 bpm] 123 bpm *H* (03/13/23 9:18 AM) Body Mass Index [18.5-24.99 kg/m2] 36.17 kg/m2 *>HHI* (03/13/23 9:18 AM) Blood Pressure [90-138/55-84 mm Hg] 130/ 86mm Hg (03/13/23 9:37 AM) Mode of Delivery (Oxygen) Room air (03/13/23 9:18 AM) Weight Obtained Via Standing scale (03/13/23 9:18 AM) Social History Social History Type Response Smoking Status Never (less than 100 in lifetime) entered on: 03/13/23 Sex Patient Care team information Care Team Personnel Name: Meseret Nguyễn RN Position: S RN Supv Member Role: Primary Care Nurse Name: Alex Krause MD Position: S Primary Care Physician Member Role: PCP Address: Address: [address] [place] [address]- Name: Keyla Jang RN Position: S RN Member Role: Primary Care Nurse Care Team Related Persons Name: CANDACE DIAS Address: home [address] [place] [id number] Name: LEXI DIAS
--- OUTSIDE RECORDS SUMMARY | 2024-07-31 20:58 | XMS_ITS | Continuity of Care Document ---
Author Organization [facility] al Address [address] [place] [address]- Care Team Providers Care Program Scheduler Name Role Phone Not on Staff, PCP Primary Care Physician Unavail able Encounter [facility] Date(s): 11/03/21 - 11/04/21 [facility] [address] [place] [address]- Encounter Diagnosis Septic shock(Final) - 11/03/21 Discharge Disposition: Transferred to [facility]-term general hospit Attending Physician: Bradley Davidson MD Admitting Physician: Bradley Davidson MD Referring Physician: Not on Staff, Referring [...] opioid drug. Start Date: 11/03/21 Status: Ordered FENTanyl Inj 50 mcg, Injection, IV Push Slowly, Once, STAT, 11/03/21 20:53:00 EST, Stop date 11/03/21 20:53:00 EST Start Date: 11/03/21 Stop Date: 11/03/21 Status: Completed Gabapentin = 100 mg, By Mouth, PRN [...] opioid drug. Start Date: 11/03/21 Status: Ordered Problem List Condition Effective Dates Status Health Status Inform ant Obese class I(Confirmed) Active Results Orders for Microbiology Reports Name Date Blood Culture 11/03/21 Blood Culture #2 11/03/21 Microbiology Reports TEST:Blood Culture STATUS:Unauthenticated BODY SITE: SOURCE:Blood COLLECTED DATE/TIME:11/03/21 6:22 PM Blood Culture SPECIMEN DESCRIPTION : BLOOD SPECIAL REQUESTS : NONE CULTURE : NO GROWTH AFTER 24 HOURS REPORT STATUS : PRELIMINARY REPORT TEST:Blood Culture, Second Order STATUS:Unauthenticated BODY SITE: SOURCE:Blood COLLECTED DATE/TIME:11/03/21 6:22 PM Blood Culture, Second Order SPECIMEN DESCRIPTION : BLOOD SPECIAL REQUESTS : NONE CULTURE : NO GROWTH AFTER 24 HOURS REPORT STATUS : PRELIMINARY REPORT Radiology Reports * Exam Date Time Procedure Performing Provider Status 11/03/21 9:12 PM Chest Portable Veronica Lucas T; Auth (Verified) Notes: (Chest Portable) Reason For Exam: Shortness of Breath RESULT: Chest Portable Chest Portable Hx of Present Illness: Pt reports Rt Lower Rt upper abd pain since Monday. Pt states that he quit drinking alcohol around that time as well (was drinking 2L vodka per week up until then). Pt states one episode of diarrhea. Denies any nausea vomiting. States hypothermic since; Reason: Shortness of Breath; Clinical Question(s): CHF COMPARISON: None. FINDINGS: Mild left basilar airspace disease is likely atelectasis. Mild right basilar consolidation and airspace disease may be due to small effusion and/or atelectasis. IMPRESSION: See above WSN: [id number] Ordering Physician: Bradley Davidson Dictated By: Jeffry Burk MD Dictated Date/Time: 11/03/21 9:40 pm Reviewed By: Jeffry Burk MD Signed By: Jeffry Burk MD Signed Date/Time: 11/03/21 9:40 pm Transcribed By: HARRY Transcribed Date/Time: 11/03/21 9:39 pm Vital Signs Most recent to oldest [Reference Range]: 1 2 3 Height 180 cm (11/03/21 9:02 PM) 180 cm (11/03/21 6:08 PM) Weight 104.5 kg (11/03/21 9:02 PM) 104.5 kg (11/03/21 6:08 PM) Oxygen Saturation [94-100 %] 96 % (11/03/21 10:36 PM) 94 % (11/03/21 9:02 PM) 92 % *L* (11/03/21 6:33 PM) Pulse Rate [55-90 bpm] 92 bpm *H* (11/03/21 10:36 PM) 84 bpm (11/03/21 9:02 PM) 77 bpm (11/03/21 6:08 PM) Body Mass Index [18.5-24.99] 32.25 *>HHI* (11/03/21 9:02 PM) Blood Pressure [90-138/55-84 mm Hg] 105/76mm Hg (11/03/21 10:36 PM) 101/69mm Hg (11/03/21 9:15 PM) 95/75mm Hg (11/03/21 9:02 PM) Respiratory Rate [16-30 br/min] 22 br/min (11/03/21 10:36 PM) 18 br/min (11/03/21 9:47 PM) 20 br/min (11/03/21 9:17 PM) Temperature [96.8-100.4 DegF] 98.2 DegF (11/03/21 9:02 PM) 97.9 DegF (11/03/21 6:33 PM) 95.6 DegF *L* (11/03/21 6:08 PM) Liters per Minute 2 L/min (11/03/21 10:36 PM) 2 L/min (11/03/21 9:02 PM) Mode of Delivery (Oxygen) Nasal cannula (11/03/21 10:36 PM) Nasal cannula (11/03/21 9:02 PM) Room air (11/03/21 6:33 PM) Blood pressure sites Arm, right (11/03/21 10:36 PM) Arm, right (11/03/21 9:15 PM) Arm, right (11/03/21 9:02 PM) Temperature Route Rectal (11/03/21 9:02 PM) Oral (11/03/21 6:33 PM) Rectal (11/03/21 6:08 PM) Dry Weight 104.5 kg (11/03/21 9:02 PM) 104.5 kg (11/03/21 6:08 PM) Weight Obtained Via Patient/family state d (11/03/21 6:08 PM) Dry Weight Obtained Via Patient/family s tated (11/03/21 6:08 PM) Social History Social History Type Response Smoking Status Never (less than 100 in lifetime) entered on: 11/03/21 Sex
[2024-07-31] MEDS: 0.9 % Sodium Chloride 1,000 ML 999 ML IV (21:31)
[2024-07-31] MEDS: LORazepam 2 MG/ML VIAL IVPUSH (21:44)
[2024-07-31] MEDS: Magnesium Sulfate/H2O 2 GM/50 ML PIGGYBACK IV (21:44)
[2024-07-31 22:57] VITALS: BP 142/97; PULSE 106; RESP 18; TEMP 36.6; O2SAT 94
[2024-07-31] MEDS: PHENobarbitaL sodium 130 MG/ML IM ONCE 300 MG IM (23:25)
[2024-07-31 23:54] VITALS: BP 126/84; PULSE 103; RESP 16; O2SAT 95
[2024-08-01] VITALS (9 sets, daily range): BP systolic 116–161; BP diastolic 63–89; PULSE 77–115; RESP 16–20; TEMP 36.2–37; O2SAT 92–99; BMI 35.3
--- NOTE | 2024-08-01 01:15 | P.HPHOSP_ITS ---
History of Present Illness Date of Service: 08/01/24 Attending physician on admission: Magalis Freeman Chief Complaint: Withdrawal symptoms Ricco Mendez this is a pleasant 49 years old man with past medical history significant for alcohol abuse and essential hypertension presents to the emergency department complaining of tremulousness, anxiety and nausea. He feels that he is withdrawing from alcohol. He denied any headache, acute visual disturbances, vomiting, chest pain, shortness of breath or diarrhea. He does complain of some discomfort to the right upper quadrant. No fever or chills reported. He drinks large quantities of vodka daily, last time he drank was this morning. Denied tobacco smoking, marijuana use or illicit drug use. Patient mentioned that he has been taking naltrexone but feels this not helping to quit alcohol abuse. In the ED, he was found to have stable vital signs and for mild tachycardia. Blood workup is remarkable for leukocytosis of 15.3, hemoglobin 13.1 and platelet tablets 199. There are no significant electrolyte imbalances except for hypomagnesemia of 1.5. CO2 is 20, BUN 11 and creatinine 1.09. Glucose 136. LFTs are elevated. ETOH level < 10. ED tx: NS 1 L bolus, magnesium 2 g IV, lorazepam 2 mg IV, phenobarbital 300 mg IM. Review of Systems 2 Review of Systems: All 12 systems were reviewed and normal except as noted in HPI. [facility] Medical History HTN (hypertension) Alcohol abuse Social History Housing: House Alcohol intake: current Alcohol intake frequency: 3 or more drinks per day Alcohol type: hard liquor Patient Tobacco Use Status: Never used Tobacco Smoked in Last 30 Days: No e-Cigarette/Vaping Use: Never Used Second Hand Smoke Exposure: No Use of substances other than those prescribed or required for medical reasons: No Advance Directives: No Advance Directives Information Provided: No service: No Meds Allergies Allergy/AdvReac Type Severity Reaction Status Date / Time Penicillins Allergy Mild hives Verified 07/31/24 15:38 Active Medications: Current Medications Acetaminophen (Acetaminophen 325 Mg Tablet) 650 mg PO Q6H PRN PRN Reason: Pain, Mild (Pain Scale 1-3), fever or headache Enoxaparin Sodium (Enoxaparin Sodium 40 Mg/0.4 Ml Syringe) 40 mg SUBCUT Q24H [facility] Famotidine (Famotidine 20 Mg Tablet) 20 mg PO BID [facility] Folic Acid (Folic Acid 1 Mg Tablet) 1 mg PO DAILY [facility] Stop: 08/04/24 08:59 Thiamine HCl 100 mg/ Sodium (Chloride) 101 mls @ 202 mls/hr IV NOW STA Stop: 08/01/24 01:39 Dextrose/Sodium Chloride (D5ns) 1,000 mls @ 100 mls/hr IVCONT .Q10H [facility] Stop: 08/02/24 01:14 Magnesium Hydroxide (Milk Of Magnesia 30 Ml Oral.Susp) 30 ml PO DAILY PRN PRN Reason: Constipation Melatonin (Melatonin 3 Mg Tablet) 6 mg PO BEDTIME PRN PRN Reason: Insomnia Pharmacy Consult (Consult Rx Etoh Phenob Im/Po) 1 each MISCELLANE ONCE PRN; Protocol PRN Reason: Consult order Phenobarbital (Phenobarbital 30 Mg Tablet) 60 mg PO BID [facility]; Protocol Stop: 08/02/24 21:01 Phenobarbital (Phenobarbital 30 Mg Tablet) 30 mg PO BID [facility]; Protocol Stop: 08/04/24 21:01 Phenobarbital (Phenobarbital 30 Mg Tablet) 30 mg PO DAILY [facility]; Protocol Stop: 08/06/24 09:01 Phenobarbital Sodium (Phenobarbital Sodium 130 Mg/Ml Vial Im Q3hx2) 225 mg IM Q3H [facility]; Protocol Stop: 08/01/24 04:01 Prochlorperazine Edisylate (Prochlorperazine Edisylate 10 Mg/2 Ml Vial) 5 mg IVPUSH Q4H PRN PRN Reason: Nausea and Vomiting Sodium Chloride (0.9 % Sodium Chloride Flush 3 Ml Syringe) 3 ml IVFLUSH QSHIFT [facility] Thiamine HCl (Thiamine Hcl 100 Mg Tablet) 100 mg PO DAILY [facility] Home Medications ?Medication ?Instructions ?Recorded ?Confirmed ?Last Taken ?Type amlodipine 5 mg tablet 5 mg PO DAILY 03/05/24 03/05/24 Unknown History Physical Exam 2 Vital Signs and Narrative: Vital Signs: Last Vital Signs Temp 97.9 F 07/31/24 22:57 Pulse 103 H 07/31/24 23:54 Resp 16 07/31/24 23:54 BP 126/84 07/31/24 23:54 Pulse Ox 95 07/31/24 23:54 O2 Del Method Room Air 07/31/24 23:54 BMI result Body Mass Index 36.3 Constitutional - Awake and Alert, No apparent distress. Pleasant. Cooperative. HEENT - PERRL, EOMI. Normal sclerae. Dry oral mucosa. Heart - S1S2, RRR, No murmur. Lungs - Normal lung expansion, Normal respiratory effort, No respiratory distress, CTA bilaterally Abdomen - NT / ND; +BS; No rebound or guarding Extremities - no calf tenderness bilaterally, no swelling Musculoskeletal - Normal inspection, normal ROM Skin - Warm/Dry Neurological - Alert & oriented x3. No focal weakness grossly noted. Psychological - Depressed affect Results Labs 07/31/24 19:29 07/31/24 19:29 Labs: Laboratory Results - last 24 hr 07/31/24 19:29 MCV 95.9 MCH 31.7 MCHC 33.0 RDW 15.3 Plt Count 199 D MPV 9.5 Immature Gran % (Auto) 0.6 H Neut % (Auto) 89.4 H Lymph % (Auto) 4.3 L Jewell % (Auto) 5.4 Eos % (Auto) 0.0 Baso % (Auto) 0.3 Lymph # (Auto) 0.7 L Jewell # (Auto) 0.8 Eos # (Auto) 0.0 Baso # (Auto) 0.0 Abs Immat Gran (auto) 0.09 H Absolute Neuts (auto) 13.7 H Absolute Nucleated RBC 0.000 Nucleated RBC % (auto) 0.0 PT 12.6 INR 1.0 Anion Gap 25 H Estim Creat Clear Calc 104.7 Estimated GFR > 60 Random Glucose 136 H Calcium 9.2 Magnesium 1.5 L Total Bilirubin 2.8 H AST 198 H ALT 76 H Alkaline Phosphatase 116 Total Protein 8.0 Albumin 3.9 Ethyl Alcohol < 10 Influenza Type A (PCR) NEGATIVE Influenza Type B (PCR) NEGATIVE RSV RNA Qual (PCR) NEGATIVE SARS-CoV-2 RNA (RT-PCR) NEGATIVE Assessment and Plan (1) Hypomagnesemia: Status: Acute (2) Alcohol withdrawal syndrome: Qualifiers: Complication of substance-induced condition: uncomplicated Qualified Code(s): F10.930 - Alcohol use, unspecified with withdrawal, uncomplicated Status: Acute (3) Elevated liver enzymes: Status: Acute Plan Ricco Mendez this is a 49 y/o man admitted with: * Alcohol withdrawal syndrome. Admit to hospitalist service. CIWA every 4 hours. Continue phenobarbital protocol. Start thiamine with folic acid, thiamine and multivitamins. IV fluids, D5. Additional medicine consult. Check urine drug screen. * Elevated LFTs. Secondary to alcohol abuse. Continue to monitor. * Leukocytosis, likely secondary to dehydration due to alcohol abuse. No evidence of acute infectious process. Continue IV fluids. Continue to monitor WBC count. * Hypomagnesemia. Received MgSO4 2 g IV in Ed. Magnesium oxide 400mg p.o. daily. Continue to monitor Mg level. * Essential hypertension. Continue lisinopril. * Neuropathy. Continue gabapentin. DVT prophylaxis: Lovenox Code status: Full Patient will need hospitalization for at least 2 midnights Quality Stroke Does the patient have a stroke diagnosis?: No VTE Prior VTE?: No VTE Risk Level:: Medical - moderate - high VTE Device Contraindication: Treatment Not Indicated VTE Drug Contraindication: N/A - Med Ordered
--- OUTSIDE RECORDS SUMMARY | 2024-08-01 01:15 | XMS_ITS | Continuity of Care Document ---
Author Organization [facility] Solo Abhay lt Address [address] [place] [address]- Care Team Providers Care Billing Checker Name Role Phone Alex Krause MD Primary Care Physician [phone] Encounter [facility] Date(s): 03/19/24 - 05/25/24 [facility] Adult [address] [place] [address]- Attending Physician: Alex Krause MD Allergies, Adverse [...] Maintenance, 03/19/24 12:24:00 EDT, [id number] Partial fill upon patient request if the prescription is for a scheduleII opioid drug., 181, cm, 03/19/24 11:48:00 EDT, He... Start Date: 03/19/24 Status: Ordered amLODIPine 5 mg oral tablet 5 mg, 1, tablet, By Mouth, Daily, # 90 tablet, Refills 3, Tot. Refills 3, Maintenance, 03/04/24 9:14:00 EDT, Route to Pharmacy Electronically, [facility]/pharmacy #[id number], Partial fill upon patient request ifthe [...] 04/18/24 11:57:00 EDT, Route to Pharmacy Electronically, [facility] STORE [id number], 181, cm, 03/19/24 11:48:00 EDT, Height Start [...] Team Personnel Name: Meseret Nguyễn RN Position: [facility] RN Supv Member Role: Primary Care Nurse Name: Keyla Craig RN Position: [facility] RN Member Role: Primary Care Nurse Name: Alex Krause MD Position: [facility] Physician - Primary Care Member Role: PCP Address: Address: [address] [place] [address] [place] Care Team Related Persons Name: CANDACE DIAS Address: home [address] [place] [address] Name: LEXI DIAS
[2024-08-01] MEDS: PHENobarbitaL sodium 130 MG/ML VIAL IM Q3Hx2 225 MG IM ×2 (02:01→03:23)
[2024-08-01] MEDS: Thiamine HCL 100 MG in 0.9 % Sodium Chloride 100 ML 202 MG IV (02:01)
--- NOTE | 2024-08-01 02:47 | PC.NURSE ---
Patient is alert and oriented x3, he denies any pain at present. Patient medicated per JAN. 20 G IV line in left hand is patent. Patient requires supervision with ambulation/transfers d/t weakness. Skin is intact. Patitn currently resting in a stretcher bed, eyes closed, RR 18, even chest wall rise and fall. Plan of care ongoing.
[2024-08-01] MEDS: Dextrose 5 % and 0.9 % NaCl 1,000 ML 100 ML IVCONT (03:17)
--- NOTE | 2024-08-01 03:55 | PC.NURSE ---
Pt arrived to the floor approx 0305 from the ED on a stretcher. He ambulated from the stretcher to bed w/stby assist. He requested a walker d/t neuropathy in BL feet. Pt oriented to room and call rodriguez which is within reach, bed alarm is on, pt instructed to call for help going to bathroom, urinal within reach. UA needed, informed to let someone know so it jamil be collected. IVF running. See MAR for med adminstration.
[2024-08-01 07:40] LABS: MANUAL DIFF FLAG NO
[2024-08-01 07:43] LABS: Basophils Percent Auto 0.3 % (0-2); Eosinophils Percent Auto 0.1 % (0-4); Hematocrit 33.4 % (42.0-52.0); Hemoglobin 10.9 g/dl (14.0-18.0); Imm Gran Abs Auto 0.03 X10*3/uL (0.00-0.03); Imm Gran Pct Auto 0.4 % (0.0-0.4); Lymphocytes Absolute Auto 1.1 X10*3/uL (1.2-4.9); Lymphocytes Percent Auto 14.4 % (20-40); Mean Corpuscular HGB Conc 32.6 g/dl (31.0-36.0); Mean Corpuscular Hemoglobin 31.4 pg (27.0-33.0); Mean Corpuscular Volume 96.3 fL (80.0-98.0); Mean Platelet Volume 9.4 fL (9.4-12.4); Monocytes Absolute Auto 0.7 X10*3/uL (0.1-1.2); Monocytes Percent Auto 9.3 % (2-11); Neutrophils Absolute Auto 5.5 x10*3/uL (2.0-8.3); Neutrophils Percent Auto 75.5 % (45-73); Platelet Count 127 X10*3/uL (160-400); Red Blood Count 3.47 X10*6/uL (4.60-5.80); Red Cell Distribution Width 15.4 % (11.0-16.0); White Blood Count 7.3 X10*3/uL (4.8-10.8)
[2024-08-01] MEDS: Enoxaparin Sodium 40 MG/0.4 ML SYRINGE SUBCUT (08:17)
[2024-08-01] MEDS: Thiamine HCL 100 MG TABLET PO (08:17)
[2024-08-01] MEDS: Acetaminophen 325 MG TABLET 650 MG PO (08:17)
[2024-08-01 08:18] LABS: Alanine Aminotransferase 55 U/L (0-40); Albumin Level 3.1 g/dL (3.5-5.0); Alkaline Phosphatase 91 U/L (39-117); Anion Gap 13 (12-20); Aspartate Amino Transferase 136 U/L (5-37); Bilirubin Total 2.7 mg/dL (0.0-1.0); Blood Urea Nitrogen 12 mg/dL (9-16); Calcium 8.4 mg/dL (8.4-10.2); Carbon Dioxide 27 mmol/L (22-29); Chloride 99 mmol/L (96-108); Creatinine Clr Calc Pharmacy 132.4; Estimated Glomerular Filt Rate > 60; Glucose Random 122 mg/dL (60-115); Magnesium 1.8 mg/dL (1.6-2.6); Potassium 3.4 mmol/L (3.3-5.1); Sodium 136 mmol/L (135-145); Total Protein 6.1 g/dL (6.5-8.0)
[2024-08-01] MEDS: lisinopriL 10 MG TABLET PO (08:18)
[2024-08-01] MEDS: Folic Acid 1 MG TABLET PO (08:18)
[2024-08-01] MEDS: Multivitamin TABLET 1 TAB PO (08:18)
[2024-08-01] MEDS: PHENobarbitaL 30 MG TABLET 60 MG PO ×2 (08:18→20:39)
[2024-08-01] MEDS: Famotidine 20 MG TABLET PO ×2 (08:18→20:40)
[2024-08-01] MEDS: Gabapentin 100 MG CAPSULE PO ×2 (08:18→20:40)
[2024-08-01] MEDS: Magnesium Oxide 400 MG TABLET PO (08:18)
--- NOTE | 2024-08-01 09:22 | MHC.CM.PN ---
Patient lives in a home w/ parents. Functionally independent. Denies use of DME or services. PCP Alex Krause MD Reports he has an HCP naming his brother Bradley as HCA. Copy requested. His brother may be able to bring it in. DP: Dx ETOH W/D. Goal is home self care vs recovery team intervention. Brother to transport. CM will continue to follow.
--- NOTE | 2024-08-01 09:28 | PHA.MEDREC ---
Addendum entered by Leeroy Ellison RPh 08/01/24 10:21: Med rec was reviewed by [facility]. Original Note: Pharmacy Consult ? Medication Reconciliation Pharmacy has completed the medication reconciliation. Spoke to patient to confirm med list. Patient was able to confirm all his medications. Patient says he no longer takes Amlodipine 5 mg. He states he doesn't take all his medication like he should and hasn't took any medication in a few days.
[2024-08-01] MEDS: PHENobarbitaL sodium 130 MG/ML VIAL 65 MG IM (10:41)
[2024-08-01] MEDS: 0.9 % Sodium Chloride Flush 3 ML SYRINGE IVFLUSH ×2 (15:43→20:40)
--- NOTE | 2024-08-01 16:01 | PM.EVENT ---
Event Note Date of Service: 08/01/24 Event Note: Patient was admitted for alcohol withdrawal Still tremulous and anxious CIWA scales is around 9 Physical exam as per H and P Assessment and plan as per H and P Alcohol withdrawal-added another dose of phenobarb dose, continue CIWA scale and phenobarb protocol Hypomagnesemia repleted and resolved Time Spent With Patient Time: Total time managing care of this patient today ____ minutes.
--- NOTE | 2024-08-01 16:24 | MHC.RECOVRN ---
AUDIT-C Brief Intervention Pt had positive screen for unhealthy alcohol use on admission, subsequently met with t/w to discuss alcohol use and recovery supports/options. Pt voices concern regarding alcohol use and is aware that drinking at unhealthy levels is known to increase risk of alcohol related health problems. Pt reports 1 pint of vodka daily. Pt expresses how alcohol use has impacted health, including negative impact on work,health and life. Discussed risk reduction strategies including drinking below the recommended limit. Provided pt with written resources including information on inpatient and outpatient treatment, VIJAYA, harm reduction, and recovery coaching. Pt plans to follow up with [facility] who he is already established with upon discharge. Pt provided with t/w contact information if questions or concerns arise. Denies other questions or concerns at this time.
[2024-08-01] MEDS: Mirtazapine 7.5 MG TABLET PO (20:39)
[2024-08-01] MEDS: cloNIDine HCL 0.1 MG TABLET PO (20:39)
[2024-08-01] MEDS: Melatonin 3 MG TABLET 6 MG PO (23:46)
[2024-08-02 03:46] VITALS: BP 114/73; PULSE 91; RESP 18; TEMP 36.7; O2SAT 95
[2024-08-02 04:00] VITALS: O2SAT 98
[2024-08-02 06:30] LABS: Appearance Urine Clear; Color Urine Orange; Glucose Urine UA Negative (Negative); Leukocyte Esterase Urine Trace (Negative); Nitrite Urine Positive (Negative); Specific Gravity - Urine 1.025 (1.005-1.025); UMIC TRIGGER UACC YES; Urine Blood Negative (Negative); Urine Ketones Trace mg/dL (Negative); Urine Protein 30 (1+) mg/dL (Neg-Trace)
[2024-08-02 06:35] LABS: Bacteria Urine None Seen (None Seen); Hyaline Casts Urine 0-2 /LPF (0-2); RBC Urine 0-2 /HPF (0-2); Squamous Epithelial Cell Urine 0-2 /HPF (0-2); UACC Culture Trigger YES; WBC Urine 0-5 /HPF (0-5)
[2024-08-02 06:52] LABS: Amphetamine Screen Urine Not Detected (Not Detect); Barbiturates, Urine POSITIVE (Not Detect); Benzodiazepines Screen Urine Not Detected (Not Detect); Buprenorphine Scr Not Detected (Not Detect); Cannabinoid Screen Urine Not Detected (Not Detect); Cocaine Screen Urine Not Detected (Not Detect); Fentanyl, urine Not Detected (Not Detect); Methadone Screen, Urine Not Detected (Not Detect); Opiate Screen Urine Not Detected (Not Detect); Oxycodone Screen Urine Not Detected (Not Detect); Phencyclidine Screen Urine Not Detected (Not Detect)
--- NOTE | 2024-08-02 07:47 | HO.PM.IMPN ---
Subjective Subjective Date of Service: 08/02/24 Interval History: alcohol withdrawals Physical Exam Vital Signs: Vital Signs: Last Vital Signs Temp 98.1 F 08/02/24 03:46 Pulse 91 08/02/24 03:46 Resp 18 08/02/24 03:46 BP 114/73 08/02/24 03:46 Pulse Ox 98 08/02/24 04:00 O2 Del Method Room Air 08/02/24 04:00 BMI result Body Mass Index 35.3 Objective Data Active Medications Acetaminophen (Acetaminophen 325 Mg Tablet) 650 mg PO Q6H PRN PRN Reason: Pain, Mild (Pain Scale 1-3), fever or headache Last Admin: 08/01/24 08:17 Dose: 650 mg Documented By: KENDRICK Clonidine HCl (Clonidine Hcl 0.1 Mg Tablet) 0.1 mg PO BID [facility]; Protocol Last Admin: 08/01/24 20:39 Dose: 0.1 mg Documented By: DIEGO Enoxaparin Sodium (Enoxaparin Sodium 40 Mg/0.4 Ml Syringe) 40 mg SUBCUT Q24H [facility] Last Admin: 08/01/24 08:17 Dose: 40 mg Documented By: KENDRICK Famotidine (Famotidine 20 Mg Tablet) 20 mg PO BID [facility] Last Admin: 08/01/24 20:40 Dose: 20 mg Documented By: DIEGO Folic Acid (Folic Acid 1 Mg Tablet) 1 mg PO DAILY [facility] Stop: 08/04/24 08:59 Last Admin: 08/01/24 08:18 Dose: 1 mg Documented By: KENDRICK Folic Acid (Folic Acid 1 Mg Tablet) 1 mg PO DAILY [facility] Gabapentin (Gabapentin 100 Mg Capsule) 100 mg PO BID [facility] Last Admin: 08/01/24 20:40 Dose: 100 mg Documented By: DIEGO Lisinopril (Lisinopril 20 Mg Tablet) 20 mg PO DAILY [facility]; Protocol Magnesium Hydroxide (Milk Of Magnesia 30 Ml Oral.Susp) 30 ml PO DAILY PRN PRN Reason: Constipation Magnesium Oxide (Magnesium Oxide 400 Mg Tablet) 400 mg PO DAILY [facility] Last Admin: 08/01/24 08:18 Dose: 400 mg Documented By: KENDRICK Melatonin (Melatonin 3 Mg Tablet) 6 mg PO BEDTIME PRN PRN Reason: Insomnia Last Admin: 08/01/24 23:46 Dose: 6 mg Documented By: DIEGO Mirtazapine (Mirtazapine 7.5 Mg Tablet) 7.5 mg PO BEDTIME [facility] Last Admin: 08/01/24 20:39 Dose: 7.5 mg Documented By: DIEGO Multivitamins/Vitamin C (Multivitamin Tablet) 1 tab PO DAILY [facility] Naltrexone HCl (Naltrexone Hcl 50 Mg Tablet) 50 mg PO DAILY [facility] Pharmacy Consult (Consult Rx Etoh Phenob Im/Po) 1 each MISCELLANE ONCE PRN; Protocol PRN Reason: Consult order Phenobarbital (Phenobarbital 30 Mg Tablet) 60 mg PO BID [facility]; Protocol Stop: 08/02/24 21:01 Last Admin: 08/01/24 20:39 Dose: 60 mg Documented By: DIEGO Phenobarbital (Phenobarbital 30 Mg Tablet) 30 mg PO BID [facility]; Protocol Stop: 08/04/24 21:01 Phenobarbital (Phenobarbital 30 Mg Tablet) 30 mg PO DAILY [facility]; Protocol Stop: 08/06/24 09:01 Prochlorperazine Edisylate (Prochlorperazine Edisylate 10 Mg/2 Ml Vial) 5 mg IVPUSH Q4H PRN PRN Reason: Nausea and Vomiting Sodium Chloride (0.9 % Sodium Chloride Flush 3 Ml Syringe) 3 ml IVFLUSH QSHIFT [facility] Last Admin: 08/01/24 20:40 Dose: 3 ml Documented By: DIEGO Thiamine HCl (Thiamine Hcl 100 Mg Tablet) 100 mg PO DAILY [facility] Last Admin: 08/01/24 08:17 Dose: 100 mg Documented By: CINDYAC Labs 08/01/24 07:23 08/01/24 07:23 Labs: Laboratory Results - last 24 hr 08/01/24 08/02/24 07:23 06:17 Anion Gap 13 Estim Creat Clear Calc 132.4 Estimated GFR > 60 Random Glucose 122 H Calcium 8.4 D Magnesium 1.8 Total Bilirubin 2.7 H AST 136 H ALT 55 H Alkaline Phosphatase 91 Total Protein 6.1 L Albumin 3.1 L Urine Color [place] A Urine Appearance Clear Urine pH 6.0 Ur Specific [place] 1.025 Urine Protein 30 (1+) H Urine Glucose (UA) Negative Urine Ketones Trace Urine Blood Negative Urine Nitrite Positive H Ur Leukocyte Esterase Trace H Urine RBC 0-2 Urine WBC 0-5 Ur Squamous Epith Cells 0-2 Urine Bacteria None Seen Hyaline Casts 0-2 Urine Opiates Screen Not Detected Ur Buprenorphine Scrn Not Detected Ur Oxycodone Screen Not Detected Urine Methadone Screen Not Detected Urine Fentanyl Screen Not Detected Ur Barbiturates Screen POSITIVE H Ur Phencyclidine Scrn Not Detected Ur Amphetamines Screen Not Detected U Benzodiazepines Scrn Not Detected Urine Cocaine Screen Not Detected U Marijuana (THC) Screen Not Detected Assessment and Plan (1) Alcohol withdrawal syndrome: Status: Acute (2) Elevated liver enzymes: Status: Acute Plan 48M PMH etoh dependence, obesity, HTN, presented with etoh withdrawal symptoms Alcohol dependence with acute withdrawal and acute alcoholic hepatitis Continue phenobarb lfts improved Monitor [facility] Addiction team acute hypomagnesemia replace Obesity Weight loss recommended Hypertension Continue lisinopril DVT prophylaxis: SubQ Lovenox. Full code reason for continued hospitalization: awaiting echo Quality Stroke Does the patient have a stroke diagnosis?: No VTE Prior VTE?: No VTE Risk Level:: Medical - moderate - high VTE Device Contraindication: Treatment Not Indicated VTE Drug Contraindication: N/A - Med Ordered
[2024-08-02 08:00] VITALS: BP 125/73; PULSE 107; RESP 16; TEMP 37.3; O2SAT 94
[2024-08-02] MEDS: 0.9 % Sodium Chloride Flush 3 ML SYRINGE IVFLUSH (09:15)
[2024-08-02] MEDS: Folic Acid 1 MG TABLET PO (09:16)
[2024-08-02] MEDS: Enoxaparin Sodium 40 MG/0.4 ML SYRINGE SUBCUT (09:16)
[2024-08-02] MEDS: Multivitamin TABLET 1 TAB PO (09:16)
[2024-08-02] MEDS: Thiamine HCL 100 MG TABLET PO (09:16)
[2024-08-02] MEDS: PHENobarbitaL 30 MG TABLET 60 MG PO (09:16)
[2024-08-02] MEDS: Gabapentin 100 MG CAPSULE PO (09:17)
[2024-08-02] MEDS: cloNIDine HCL 0.1 MG TABLET PO (09:17)
[2024-08-02] MEDS: Naltrexone HCl 50 MG TABLET PO (09:17)
[2024-08-02] MEDS: lisinopriL 20 MG TABLET PO (09:17)
[2024-08-02] MEDS: Magnesium Oxide 400 MG TABLET PO (09:17)
[2024-08-02] MEDS: Famotidine 20 MG TABLET PO (09:17)
[2024-08-02 12:00] VITALS: BP 104/55; PULSE 102; RESP 20; TEMP 36.7; O2SAT 94
--- NOTE | 2024-08-02 13:43 | PM.DS ---
DS: Providers Provider Date of Service: 08/02/24 Date of admission: 08/01/24 01:08 Date of discharge: 08/02/24 Primary care physician: Alex Krause MD Consults: 08/01/24 01:12 Addiction Medicine Routine Consulting Provider: Addiction Covering Reason for consultation: Alcohol withdrawal Has provider been notified: No Attending physician on discharge: Matt Grayson Discharging clinician: Matt Grayson DS: Diagnosis Discharge Diagnosis (1) Alcohol withdrawal syndrome: Status: Acute (2) Elevated liver enzymes: Status: Acute DS: Summary Hospital Course Hospital Course: 49 years old man with past medical history significant for alcohol abuse and essential hypertension presents to the emergency department complaining of tremulousness, anxiety and nausea. He feels that he is withdrawing from alcohol. He denied any headache, acute visual disturbances, vomiting, chest pain, shortness of breath or diarrhea. He does complain of some discomfort to the right upper quadrant. No fever or chills reported. He drinks large quantities of vodka daily, last time he drank was this morning. Denied tobacco smoking, marijuana use or illicit drug use. Patient mentioned that he has been taking naltrexone but feels this not helping to quit alcohol abuse. In the ED, he was found to have stable vital signs and for mild tachycardia. Blood workup is remarkable for leukocytosis of 15.3, hemoglobin 13.1 and platelet tablets 199. There are no significant electrolyte imbalances except for hypomagnesemia of 1.5. CO2 is 20, BUN 11 and creatinine 1.09. Glucose 136. LFTs are elevated. ETOH level < 10. ED tx: NS 1 L bolus, magnesium 2 g IV, lorazepam 2 mg IV, phenobarbital 300 mg IM. hospital course: Patient patient was admitted for alcohol withdrawal, elevated LFTs, leukocytosis and hypomagnesemia: Patient was started on phenobarb protocol, magnesium repleted and resolved.alcohol withdrawal improved with phenobarbital. Leukocytosis seems reactive thought to be reactive to dehydration-patient denies any respiratory or urinary or any abdominal complaints. UA is nitrate positive but no pyuria or bacteriuria.Leukocytosis improved with hydration. Lft's imrpoving -seems possible related to alcohol use,moniter Lft's outpatient. plan: Patient was strongly advised to abstain from alcohol use. Monitor renal function electrolytes and LFTs outpatient. Above management discussed with the patient in detail length he understand in agreement with the above plan, time spent 40 minute. Time Attestation Total time managing care of this patient today: 40 mintues. Discharge Coordination Time (in mins): 40 min Quality: Safe Use of Opioids Does Pt have an Active Cancer Diagnosis on the Problem List?: No Quality: Stroke Does the patient have a stroke diagnosis?: No Physical Exam Vital Signs: Vital Signs: Last Vital Signs Temp 98.1 F 08/02/24 12:00 Pulse 102 H 08/02/24 12:00 Resp 20 08/02/24 12:00 BP 104/55 L 08/02/24 12:00 Pulse Ox 94 08/02/24 12:00 O2 Del Method Room Air 08/02/24 12:00 BMI result Body Mass Index 35.3 Appearance: Alert.? Oriented X3.? cvs: rrr, [id number] , no murmur res: clear to auscultation ,no rhonchii or wheezing abd: no rebound or guarding ,nt, bs present. ext pulses present , no cyanosis . neuro: axo3 , nonfocal. DS: Data Data Completed and Pending Completed studies during hospitalization [Text1]: Procedures Detoxification Services for Substance Abuse Treatment (02/19/24) Labs on day of discharge: Laboratory Results - last 24 hr 08/02/24 06:17 Urine Color [place] A Urine Appearance Clear Urine pH 6.0 Ur Specific [place] 1.025 Urine Protein 30 (1+) H Urine Glucose (UA) Negative Urine Ketones Trace Urine Blood Negative Urine Nitrite Positive H Ur Leukocyte Esterase Trace H Urine RBC 0-2 Urine WBC 0-5 Ur Squamous Epith Cells 0-2 Urine Bacteria None Seen Hyaline Casts 0-2 Urine Opiates Screen Not Detected Ur Buprenorphine Scrn Not Detected Ur Oxycodone Screen Not Detected Urine Methadone Screen Not Detected Urine Fentanyl Screen Not Detected Ur Barbiturates Screen POSITIVE H Ur Phencyclidine Scrn Not Detected Ur Amphetamines Screen Not Detected U Benzodiazepines Scrn Not Detected Urine Cocaine Screen Not Detected U Marijuana (THC) Screen Not Detected Discharge Plan Discharge Anticipated Discharge Date/Time: 08/02/24 13:36 Patient Disposition: Home, Self-Care Discharge Diagnosis: alcohol withdrawals symptoms,hypomagnesemia Referrals: Alex Krause MD [Primary Care Provider] - 1 Week Discharge Medications: Continued clonidine HCl 0.1 mg tablet 0.1 mg PO BID Qty: 180 0RF folic acid 1 mg tablet 1 mg PO DAILY Qty: 90 1RF mirtazapine 7.5 mg tablet 7.5 mg PO BEDTIME Qty: 90 1RF naltrexone 50 mg tablet 50 mg PO DAILY Qty: 30 3RF vitamin A 2,400 mcg Capsule 2,400 mcg PO DAILY vitamin B complex Tablet 1 tab PO DAILY lisinopril 20 mg tablet 20 mg PO DAILY Qty: 30 0RF gabapentin 100 mg capsule 100 mg PO BID Qty: 60 0RF ibuprofen 800 mg tablet 800 mg PO Q8H Qty: 30 0RF Discharge Orders: Discharge Order (Routine); Ordered 08/02/24 Ordered By: Matt Grayson Diet: Advance to usual diet Activity on Discharge: As tolerated Stand Alone Forms: Patient Portal Discharge page Print Language: [place] Care Plan Goals: Patient patient was admitted for alcohol withdrawal, elevated LFTs, leukocytosis and hypomagnesemia: Patient was started on phenobarb protocol, magnesium repleted and resolved.alcohol withdrawal improved with phenobarbital. Leukocytosis seems reactive thought to be reactive to dehydration-patient denies any respiratory or urinary or any abdominal complaints. UA is nitrate positive but no pyuria or bacteriuria.Leukocytosis improved with hydration. Lft's imrpoving -seems possible related to alcohol use,moniter Lft's outpatient. Health Concerns: as above. Plan of Treatment: Patient was strongly advised to abstain from alcohol use. Monitor renal function electrolytes and LFTs outpatient. Assessment: as above.
--- NOTE | 2024-08-02 13:58 | MHC.CM.PN ---
Pt is medically cleared for discharge home self-care, pt has arranged his own transport home.
== END 2024-08-02 14:31 | disposition home or self-care (01) | DRG 897 ==
LOC: HO.ED 21:08 → HO.EDOVER 08-01 01:14 → HO.S3 08-01 01:37
PROVIDERS: Registered Nurse Emergency; Admitting Provider Internal Medicine; Emergency Provider Internal Medicine; PCP Internal Medicine; Visit Provider Internal Medicine
DX: F10.139 Alcohol abuse with withdrawal, unspecified (principal); E83.42 Hypomagnesemia; I10 Essential (primary) hypertension; G62.9 Polyneuropathy, unspecified; Z20.822 Contact with and (suspected) exposure to COVID-19; Z79.899 Other long term (current) drug therapy
CPT/HCPCS: 0241U; 36415; 80053; 80307; 81001; 83735; 85025; 85610; 87086; 99285; J1650; J2060; J2560; J3411; J3475

== ENCOUNTER → 2024-08-01 01:08 | Outpatient (BNV) | payer OTHER, SELFPAY | PROVIDERS: Admitting Provider Internal Medicine; Emergency Provider Internal Medicine; PCP Internal Medicine; Visit Provider Internal Medicine | DX: R74.8 Abnormal levels of other serum enzymes (principal); F10.930 Alcohol use, unspecified with withdrawal, uncomplicated | CPT/HCPCS: 99223; 99239; 99499 ==

== ENCOUNTER 2024-10-01 10:48 | Inpatient (IN) | payer BC, SELFPAY ==
[2024-10-01] VITALS (19 sets, daily range): BP systolic 62–124; BP diastolic 49–102; PULSE 97–121; RESP 18–35; TEMP 36.4–37.2; O2SAT 90–100; BMI 37.3
--- NOTE | ~2024-10-01 | XR_ITS ---
EXAMINATION: XR CHEST CLINICAL INFORMATION: f/u right pleural effusion COMPARISON: X-ray dated October 03, 2024. TECHNIQUE: Frontal view of the chest was obtained. FINDINGS: Linear opacity right lower hemithorax. Confluent opacity in the right perihilar region with a negative silhouette sign. No gross pneumothorax. XR/XR chest 1V IMPRESSION: No gross change versus slight worsening airspace disease, right lung. Electronically signed by: Ravinder Cruz MD 10/04/2024 08:14 AM [facility]
--- NOTE | ~2024-10-01 | XR_ITS ---
EXAMINATION: XR CHEST CLINICAL INFORMATION: Status post chest tube placement. COMPARISON: Chest radiograph dated 10/04/2024. TECHNIQUE: Frontal view of the chest was obtained. FINDINGS: Right lung volume loss is redemonstrated. Right basilar airspace opacities and possible trace pleural effusion, new/increased when compared to the prior examination. No pneumothorax. No left-sided airspace consolidation or effusion. Stable cardiomediastinal silhouette. XR/XR chest 1V IMPRESSION: 1. Right lung volume loss with right basilar airspace opacities and possible trace pleural effusion, new/increased when compared to the prior examination. 2. No left-sided airspace consolidation or effusion. Electronically signed by: Paul Pierson MD 10/06/2024 03:04 PM [facility]
--- NOTE | ~2024-10-01 | CT_ITS ---
EXAMINATION: CT CHEST, ABDOMEN AND PELVIS WITHOUT CONTRAST CLINICAL INFORMATION: abdominal pain hypotension COMPARISON: CT chest abdomen pelvis performed earlier today at 12:44 PM TECHNIQUE: Multidetector volumetric imaging was performed from the thoracic inlet through the pubic symphysis without IV contrast. Sagittal and coronal reformatted images were obtained on the technologist's workstation. This CT examination was performed using dose optimization techniques as appropriate, variously including the following: *Automated exposure control *Adjustment of mA and/or kV according to patient size (this includes techniques or standardized protocols for targeted exams where dose is matched to indication/reason for exam; i.e. extremities or head) *Use of iterative reconstruction technique DLP: 591 mGy-cm FINDINGS: CHEST: Lungs and Pleura: Since the prior study, a large bore chest tube has been placed on the right. There is mild subcutaneous emphysema. The large previously seen pleural effusion is no longer present. There is a tiny pneumothorax. There is airspace disease in the reexpanded right lung which was completely collapsed previously, compressed by the large effusion. Findings could represent reexpansion pulmonary edema. The left lung is clear. No left pleural effusion. Mediastinum: The mediastinum is normal. The central vascular structures are unremarkable. No hilar or mediastinal lymphadenopathy. Pericardium/Pleura: No significant effusion. No pleural mass or thickening. Coronary artery calcium: Minimal Chest Wall/Axilla: Unremarkable ABDOMEN/PELVIS: Peritoneal Space: No significant free air or free fluid identified. Liver, gallbladder and bile ducts: Enlarged measuring 19 cm in greatest length with decreased attenuation consistent with hepatic steatosis. No focal hepatic lesion or biliary ductal dilatation is present. The gallbladder is distended. Some minimal streaky changes are present in the right anterior pararenal space abutting the gallbladder. No gallstones are seen. Pancreas: The pancreas appears unremarkable aside from some probably adjacent mild streaky changes in the fat adjacent to the pancreatic head and the anterior pararenal space. Would correlate with serum lipase for pancreatitis, although felt to be unlikely Spleen: Unremarkable. Motion artifact obscures the top of the spleen Adrenal Glands: Unremarkable Kidneys and Ureters: The kidneys are normal in size, shape, and attenuation. No hydronephrosis, hydroureter, or calculi seen. No perinephric stranding. Bladder: Unremarkable Gastrointestinal Tract: The small and large bowel are unremarkable. The appendix is not seen but there is no evidence of appendicitis. Abdominal Wall: No significant hernia is appreciated. Small bilateral inguinal hernias containing only fat. Lymph Nodes: No lymphadenopathy. Vascular: The aorta appears normal.. The IVC appears unremarkable. PELVIC VISCERA: Mildly prominent prostate at 47 mL. Normal seminal vesicles OSSEUS STRUCTURES: Minimal degenerative changes are noted in the spine. No bony destructive lesions are seen. CT/CT abdomen pelvis wo IV con IMPRESSION: 1. Interval placement of right-sided chest tube with resolution of previously seen large pleural effusion. There is a tiny pneumothorax. 2. There is airspace disease in the reexpanded right lung which could represent reexpansion pulmonary edema. 3. Enlarged fatty liver. 4. Distended gallbladder with some minimal streaky changes in the right anterior pararenal space abutting the gallbladder and pancreatic head. Would correlate with serum lipase for pancreatitis and right upper quadrant ultrasound for gallbladder disease, although felt to be unlikely. 5. Other incidental findings as described above. Fleischner guidelines were followed. Electronically signed by: Justin Pfeiffer MD 10/01/2024 07:39 PM [facility]
--- NOTE | ~2024-10-01 | US_ITS ---
EXAMINATION: US ABDOMEN LIMITED CLINICAL INFORMATION: Right upper quadrant pain.. COMPARISON: Correlated to CT dated October 01, 2024. TECHNIQUE: Real-time imaging of the right upper quadrant abdominal viscera using grayscale and color Doppler technique. FINDINGS: PANCREAS: No peripancreatic fluid collections. LIVER: Measures 18 cm. Increased echotexture. No nodular surface. No gross solid or cystic lesion detected by the certified nuclear medicine technologist . No intrahepatic biliary ductal dilatation. GALLBLADDER: Fluid-filled. No pericholecystic fluid collection or gallbladder wall thickening. COMMON BILE DUCT: 4 mm. RIGHT KIDNEY: 11 cm. Normal echotexture. There is a 8mm anechoic lesion in the anterior upper pole/midportion without flow on color Doppler interrogation.. No hydronephrosis. Normal flow on color Doppler interrogation of the renal hilum. FREE FLUID: None. US/US abdomen limited IMPRESSION: No cholelithiasis. Hepatomegaly and steatosis versus hepatocellular disease. No hydronephrosis, right kidney. 8 mm cyst, right kidney. No ascites. Electronically signed by: Ravinder Cruz MD 10/02/2024 09:54 AM EST
--- NOTE | ~2024-10-01 | XR_ITS ---
EXAMINATION: XR CHEST CLINICAL INFORMATION: SOB COMPARISON: None available. TECHNIQUE: 2 views of the chest were obtained. FINDINGS: Complete opacification right hemithorax with blunting of the air, the right mainstem bronchus. Cardiomediastinal silhouette is midline. No pneumothorax. Osseous structures are grossly intact. XR/XR chest 2V IMPRESSION: Concerning mucous plug versus obstructing airway of the right mainstem bronchus resulting in atelectatic right lung. Recommend IV contrast enhanced CT chest. Electronically signed by: Ravinder Cruz MD 10/01/2024 12:09 PM EST
--- NOTE | ~2024-10-01 | CT_ITS ---
EXAMINATION: CT HEAD WITHOUT CONTRAST CLINICAL INFORMATION: fall, unknown head strike COMPARISON: None available. TECHNIQUE: Contiguous axial imaging was performed from the skull base to vertex without intravenous administration of contrast. This CT examination was performed using dose optimization techniques as appropriate, variously including the following: *Automated exposure control *Adjustment of mA and/or kV according to patient size (this includes techniques or standardized protocols for targeted exams where dose is matched to indication/reason for exam; i.e. extremities or head) *Use of iterative reconstruction technique DLP: 771 mGy-cm FINDINGS: Bony calvarium is intact. Skull base is intact. No acute intracranial hemorrhage, mass effect, midline shift, hydrocephalus or herniation. Cortes-white matter differentiation is normal. Posterior cranial fossa contents demonstrated no acute intracranial hemorrhage or mass effect. There is a 6 mm round hyperdensity in the anterior third ventricle near the foramen Monro. Multifocal patchy deep periventricular white matter hypodensities more conspicuous in the right parietal deep white matter. No air-fluid levels in the included paranasal sinuses. Tympanic cavities and mastoid cells are aerated. CT/CT head/brain wo IV con IMPRESSION: No acute fracture, bony calvarium. No acute intracranial hemorrhage. 6 mm colloid cyst, anterior third ventricle. Probable small vessel occlusive disease. Electronically signed by: Ravinder Cruz MD 10/01/2024 01:50 PM EST
--- NOTE | ~2024-10-01 | XR_ITS ---
EXAMINATION: XR CHEST CLINICAL INFORMATION: sob, chest tube out COMPARISON: 10/02/2024 TECHNIQUE: Frontal view of the chest was obtained. FINDINGS: Right sided chest tubes have been removed. No pneumothorax is seen. A small amount of subcutaneous emphysema persists. Improving bilateral atelectasis. XR/XR chest 1V IMPRESSION: No pneumothorax status post chest tube removal. Improving atelectasis. Electronically signed by: Justin Pfeiffer MD 10/04/2024 10:24 AM [facility]
--- NOTE | ~2024-10-01 | XR_ITS ---
EXAMINATION: XR CHEST CLINICAL INFORMATION: sob COMPARISON: Chest radiograph dated October 01, 2024 at 3:04 PM. TECHNIQUE: Frontal view of the chest was obtained. FINDINGS: The cardiac silhouette remains stable in size and configuration. The right-sided chest tube appears similar in position. Stable patchy opacities are noted throughout the right lung. There is a small pleural effusion which persists. There is a small right-sided pneumothorax. The left lung is well aerated. No left-sided pneumothorax or pleural effusion. XR/XR chest 1V IMPRESSION: Stable appearance of the heart and lungs. The right chest tube is unchanged in position. Patchy opacities throughout the right lung are unchanged. There is a small right pleural effusion and a small right pneumothorax. Electronically signed by: Matt Galaviz DO 10/01/2024 06:59 PM [facility]
--- NOTE | ~2024-10-01 | XR_ITS ---
EXAMINATION: XR CHEST CLINICAL INFORMATION: sob COMPARISON: X-ray dated October 01, 2024 at 4:14 PM TECHNIQUE: Frontal view of the chest was obtained. FINDINGS: Confluent opacity right lower hemithorax. Pulmonary reticular pattern bilaterally. Small right-sided pneumothorax cannot be excluded. Right-sided chest tube tip towards the medial right hemithorax. Subcutaneous emphysema along the chest tube track.. Heart silhouette appears prominent and unchanged. XR/XR chest 1V IMPRESSION: Worsening airspace disease right lung versus asymmetric pulmonary edema. CT chest from same day demonstrated a small right-sided pneumothorax. Electronically signed by: Ravinder Cruz MD 10/01/2024 11:23 PM [facility]
--- NOTE | ~2024-10-01 | CT_ITS ---
EXAMINATION: CT ABDOMEN AND PELVIS WITH CONTRAST CLINICAL INFORMATION: Status post fall. COMPARISON: None available. TECHNIQUE: Multidetector volumetric images were obtained from the superior aspect of the liver through the pubic symphysis following administration 85 mL of Omnipaque 350 intravenous contrast. Sagittal and coronal reformatted images were obtained on the technologist's workstation. Oral contrast: No This CT examination was performed using dose optimization techniques as appropriate, variously including the following: *Automated exposure control *Adjustment of mA and/or kV according to patient size (this includes techniques or standardized protocols for targeted exams where dose is matched to indication/reason for exam; i.e. extremities or head) *Use of iterative reconstruction technique DLP: 1110 mGy-cm FINDINGS: LUNG BASES: Right-sided pleural effusion, large volume. Likely collapsed partially depicted right lung. LIVER, GALLBLADDER, AND BILIARY TREE: Liver measures 20 cm. Decreased enhancement pattern the main portal vein and hepatic veins and intrahepatic portion of the IVC is patent. No gross focal mass. Pericholecystic edema pattern. No gross gallbladder wall thickening. No intrahepatic or extrahepatic biliary ductal dilatation. PANCREAS: No focal pancreatic mass. No main pancreatic ductal dilatation. No peripancreatic fluid collection. SPLEEN: 8 cm. No focal mass. ADRENAL GLANDS: No nodular lesions. KIDNEYS AND URETERS: No hydronephrosis. No gross renal mass. BLADDER: Fluid-filled. GASTROINTESTINAL TRACT: Stool within the right hemicolon. No intestinal obstruction pattern. No pneumatosis intestinalis. Terminal ileum is normal. I do not see the appendix. Trace of edema/fluid in the right paracolic gutter. No pneumoperitoneum. ABDOMINAL WALL: Small fat-containing umbilical hernia and diastases abdominal rectus muscles. Fat-containing inguinal hernias, moderate volume. LYMPH NODES: No gross lymphadenopathy, retroperitoneal or mesenteric. VASCULAR: No aneurysm or dissection, abdominal aorta. Calcified plaques in the abdominal aorta wall and iliac arteries. PELVIC VISCERA: Small prostate gland. Seminal vesicles are not enlarged. OSSEOUS STRUCTURES: Grade 1 anterolisthesis L4-5 on a degenerative basis resulting in bilateral neuroforamina narrowing. CT/CT abdomen pelvis w IV con IMPRESSION: Right-sided effusion, large volume and likely collapsed right lung. Acute cholecystitis versus hepatocellular disease. No intestinal obstruction pattern. Fleischner guidelines were followed. Electronically signed by: Ravinder Cruz MD 10/01/2024 01:45 PM EST [facility]
--- NOTE | ~2024-10-01 | XR_ITS ---
EXAMINATION: XR CHEST CLINICAL INFORMATION: Follow-up pneumothorax COMPARISON: Chest x-ray on 10/01/2024 TECHNIQUE: Frontal view of the chest was obtained. FINDINGS: HEART & VASCULARITY: There are normal cardiac size and pulmonary vascularity. LUNGS: Lungs are hypoinflated. The right lung is opacified by extensive bandlike and consolidative alveolar densities effacing the right hemidiaphragm and right lateral costophrenic angle. Streaky horizontal densities are seen in the left lung base. No pneumothorax is seen on plain x-ray. Right lateral lung base thoracostomy tube is seen with the tip ending in medial right lung base. Subcutaneous surgical emphysema is seen in right lateral lower chest wall surrounding the thoracostomy tube. BONES: Bony skeleton is intact. XR/XR chest 1V IMPRESSION: 1. Interval marked increase in moderate lower lung airspace disease and development of left lung base streaky horizontal atelectasis. 2. No interval change in position of Right lateral lung base thoracostomy tube with the tip ending in medial right lung base. No definite pneumothorax could be seen on plain x-ray. 3. Unchanged mild surgical emphysema in right lateral lower chest wall. Electronically signed by: Yvette Ferris MD 10/02/2024 07:20 AM [facility]
--- NOTE | ~2024-10-01 | CT_ITS ---
EXAMINATION: CT CERVICAL SPINE WITHOUT CONTRAST CLINICAL INFORMATION: [Fall. COMPARISON: None available. TECHNIQUE: Contiguous axial images through the cervical spine from the skull base to the thoracic inlet using 3 mm collimation with bone and soft tissue algorithm. Sagittal and coronal reformatted images acquired. This CT examination was performed using dose optimization techniques as appropriate, variously including the following: *Automated exposure control *Adjustment of mA and/or kV according to patient size (this includes techniques or standardized protocols for targeted exams where dose is matched to indication/reason for exam; i.e. extremities or head) *Use of iterative reconstruction technique DLP: 659 mGy-cm FINDINGS: Limited by patient's motion artifact. Craniocervical junction appears intact. C1 is intact. C2 is intact. C3 is grossly intact. C4 is grossly intact. C5 is grossly intact. C6 is grossly intact. C7 is grossly intact. Marginal osteophyte formation and decreased intervertebral disc height with endplate sclerosis at C5-6, C6-7 and to a lesser extent C4-5. Reverse curvature apex at C5. No gross prevertebral compartment hematoma. There is a retropharyngeal trajectory of the left carotid artery. Right-sided pleural effusion, large volume. Tympanic cavities and mastoid cells are aerated. CT/CT cervical spine wo IV con IMPRESSION: Limited by patient's motion artifact. Multilevel spondylosis without gross acute fracture or traumatic-related listhesis. Right-sided pleural effusion, large volume. Fleischner guidelines were followed. Electronically signed by: Ravinder Cruz MD 10/01/2024 01:56 PM [facility]
--- NOTE | ~2024-10-01 | XR_ITS ---
EXAMINATION: XR FOOT, LEFT CLINICAL INFORMATION: pain, injury COMPARISON: None available. TECHNIQUE: AP, lateral, and oblique views of the left foot. FINDINGS: No acute cortical disruption or malalignment. No lytic or blastic lesions. No subcutaneous emphysema. No metallic or radiopaque foreign body. XR/XR foot LT min 3V IMPRESSION: No acute fracture or dislocation. Electronically signed by: Ravinder Cruz MD 10/01/2024 12:10 PM [facility]
--- NOTE | ~2024-10-01 | XR_ITS ---
EXAMINATION: XR CHEST CLINICAL INFORMATION: right pleural effusion COMPARISON: X-ray dated October 02, 2024 at 2:55 AM TECHNIQUE: Frontal view of the chest was obtained. FINDINGS: Patchy opacity right lower hemithorax. Right-sided chest tube remains in the right lower hemithorax with tip towards the medial right lower hemithorax. No gross pneumothorax. XR/XR chest 1V IMPRESSION: No gross pneumothorax. Stable position right-sided chest tube. Slight increased interstitial edema versus airspace disease. Electronically signed by: Ravinder Cruz MD 10/02/2024 09:57 AM EST [facility]
--- NOTE | ~2024-10-01 | CT_ITS ---
EXAMINATION: CT CHEST WITH CONTRAST CLINICAL INFORMATION: Status post fall. COMPARISON: None available. TECHNIQUE: Multidetector volumetric CT imaging of the chest was obtained after the administration of 85 mL of Omnipaque 350 intravenous contrast without reported immediate adverse reactions. Axial MIP volume rendering provided. Sagittal and coronal reformatted images were obtained. This CT examination was performed using dose optimization techniques as appropriate, variously including the following: *Automated exposure control *Adjustment of mA and/or kV according to patient size (this includes techniques or standardized protocols for targeted exams where dose is matched to indication/reason for exam; i.e. extremities or head) *Use of iterative reconstruction technique DLP: 546 mGy-cm FINDINGS: Right-sided pleural effusion, large volume. The overall Hounsfield units measurements are in the range of -20 the - 40 Hounsfield units. Collapsed right lung. There is a loculated gas trapping lung parenchyma at the superior margin of the right pulmonary hilum and slightly above the right mainstem bronchus and above and lateral to the azygos arch. (Image #19). No thoracic aortic aneurysm or dissection. Normal enhancement within the main pulmonary artery and its main left and right branches. No IV contrast extravasation. There is no shifting of the cardiomediastinal structures to the left. No pneumothorax. No pleural effusion in the left hemithorax. No hemothorax. No hemopericardium. No pneumomediastinum. No aneurysm or dissection, thoracic aorta. Multilevel thoracic spondylosis. No acute fracture or listhesis in the axial skeleton. No acute cortical disruption within the ribs. Scapula is intact bilaterally. I do not see an enhancing mass in the mediastinum or the lung parenchyma no or in the right-sided pleural effusion. . CT/CT chest w IV con IMPRESSION: Right-sided pleural effusion versus chylothorax, large volume. Collapsed right lung with a focal gas trapping lung parenchyma. No acute rib fracture. . Fleischner guidelines were followed. Electronically signed by: Ravinder Cruz MD 10/01/2024 02:16 PM [facility]
--- NOTE | ~2024-10-01 | XR_ITS ---
EXAMINATION: XR CHEST CLINICAL INFORMATION: chest tube COMPARISON: X-ray dated October 01, 2024 at 11:59 AM.. TECHNIQUE: Frontal view of the chest was obtained. FINDINGS: Right-sided chest tube. Is not fully depicted in the exam probably in the medial right lower hemithorax. There is a questionable small to moderate volume right-sided pneumothorax. There is improved aeration of right lung. The cardiomediastinal silhouette is midline. The left lung is aerated XR/XR chest 1V IMPRESSION: Right-sided chest tube placed in the medial right lower hemithorax with the decreased volume of the right-sided pleural effusion improved aeration right lung and questionable small to moderate volume right-sided pneumothorax. Electronically signed by: Ravinder Cruz MD 10/01/2024 03:50 PM [facility]
--- NOTE | 2024-10-01 10:54 | ED_ITS ---
HPI - General Adult General Chief complaint: ETOH/Substance Use Stated complaint: ETOH WITHDRAWAL PER EMS Time Seen by Provider: 10/01/24 10:53 Source: patient and EMS Mode of arrival: EMS Limitations: no limitations History of Present Illness ED Provider: Corrie Fonseca PA-C HPI narrative: Patient is a 49 year old assigned male at with a history of MDD and alcohol use disorder presenting to the emergency department today with alcohol intoxication, nausea, vomiting, and left foot pain. Patient states that he has been trying to cut back on his drinking but continues to drink daily. Patient states that he would like help with detox. Patient states that he fell a few months ago and has had left foot pain ever since. Patient denies any dizziness, lightheadedness, abdominal pain, fever, chills, blurry vision, double vision, loss of vision, chest pain, difficulty breathing, shortness of breath, back pain, night sweats, pain with urination, increased urinary frequency, increased urinary urgency, blood in his urine or stool, syncope or a near syncopal episode, bowel incontinence, bladder incontinence, or any other complaints at this time. Relieving factors: none Exacerbating factors: none Associated symptoms: nausea/vomiting Treatments prior to arrival: none Related Data Home Medications ?Medication ?Instructions ?Recorded ?Confirmed vitamin A 2,400 mcg capsule 2,400 mcg PO DAILY 08/01/24 08/01/24 vitamin B complex 1 tab PO DAILY 08/01/24 08/01/24 Previous Rx's ?Medication ?Instructions ?Recorded lisinopril 20 mg tablet 20 mg PO DAILY #30 tabs 02/23/24 ibuprofen 800 mg tablet 800 mg PO Q8H #30 tabs 02/27/24 folic acid 1 mg tablet 1 mg PO DAILY #90 tabs 03/20/24 mirtazapine 7.5 mg tablet 7.5 mg PO BEDTIME #90 tabs 03/20/24 naltrexone 50 mg tablet 50 mg PO DAILY #30 tabs 03/29/24 clonidine HCl 0.1 mg tablet 0.1 mg PO BID #180 tabs 08/02/24 gabapentin 100 mg capsule 100 mg PO BID Pain #60 caps 08/02/24 Allergies Allergy/AdvReac Type Severity Reaction Status Date / Time Penicillins Allergy Mild hives Verified 10/01/24 11:05 Review of Systems 2 Constitutional: Constitutional: Reports no additional constitutional complaints, Denies chills, Denies fever(s) and Denies night sweats Eyes: Eyes: Reports no additional eye complaints, Denies blurry vision, Denies change in vision, Denies diplopia, Denies eye discharge, Denies loss of vision and Denies eye pain ENT: Denies dizziness Cardiovascular: Cardiovascular: Reports no additional cardiovascular complaints, Denies chest pain, Denies lightheadedness, Denies Loss of Consciousness and Denies dyspnea Respiratory: Respiratory: Reports no additional respiratory complaints and Denies dyspnea Gastrointestinal: Gastrointestinal: Reports no additional gastrointestinal complaints, Denies abdominal pain, Denies melena, Denies hematochezia, Denies change in bowel habits, Denies change in stool character, Reports nausea and Reports vomiting Genitourinary: Genitourinary: Reports no additional male genitourinary complaints, Denies hematuria, Denies oliguria, Denies difficulty urinating, Denies dysuria, Denies urinary frequency, Denies urinary hesitancy, Denies urinary incontinence and Denies urinary urgency Musculoskeletal: Musculoskeletal: Reports no additional musculoskeletal complaints, Denies numbness and Denies tingling Comments: left foot pain Neurologic: Denies dizziness, Denies loss of vision, Denies numbness and Denies tingling Psychiatric: Psychiatric: Reports no additional psychiatric complaints Endocrine: Endocrine: Reports no additional endocrine complaints Hematologic/Lymphatic: Hematologic/Lymphatic: Reports no additional hematologic/lymphatic complaints Allergic/Immunologic: Allergic/Immunologic: Reports no additional allergic/immunologic complaints [facility] Past Medical History Attestation statement: The following information was validated with the patient. Source: old records reviewed and nursing notes reviewed Medical History HTN (hypertension) Alcohol abuse Social History Social History Household Members: Family Housing: House Do you presently have visiting nurse or other home services: No Alcohol intake: current Alcohol intake frequency: 3 or more drinks per day Alcohol type: hard liquor Patient Tobacco Use Status: Never used Tobacco Smoked in Last 30 Days: No e-Cigarette/Vaping Use: Never Used Second Hand Smoke Exposure: No Use of substances other than those prescribed or required for medical reasons: No Advance Directives: No Advance Directives Information Provided: Yes service: No Physical Exam ED Vital Signs: Vital Signs - 24 hr 10/01/24 11:01 10/01/24 14:48 Temperature 97.5 F Pulse Rate 110 H 107 H Respiratory Rate 24 H 20 Blood Pressure 124/102 H Pulse Oximetry 95 91 L Oxygen Delivery Method Nasal Cannula Nasal Cannula Oxygen Flow Rate 2 BMI result Body Mass Index 37.3 Const General: cooperative, no acute distress, alert and awake Nutritional Appearance: well nourished Orientation/consciousness: patient oriented x3 Limitations: no limitations HENMT Head: Yes normal to inspection and Yes atraumatic Ears: hearing grossly normal bilaterally and external ears normal General nose exam: Normal external nose present, no nasal discharge noted and no epistaxis Face and sinus: Yes normal facial exam, No abrasion and No laceration Mouth: Normal oral and palatal mucosa present, no drooling and no muffled voice Eyes General: appearance normal, both eyes and all related structures Periorbital: periorbital findings normal Eyelids: Yes eyelids normal Conjunctivae: conjunctivae normal Pupils: Equal, round and reactive pupils present EOM: EOMs intact bilaterally Neck Neck: Yes normal visual inspection, Yes full ROM and Yes no lymphadenopathy Chest Chest palpation & inspection: normal inspection of the chest Resp Effort & Inspection: normal respiratory effort and able to speak in complete sentences Auscultation: diminished lung sounds on the right throughout Cardio Rate: tachycardic Rhythm: regular rhythm GI Inspection: Yes normal to inspection Neuro General: patient oriented x3 and moves all extremities Cranial nerves: Yes Equal, round and reactive pupils present Cognition (Neuro): normal cognition Extrem General: Yes normal to inspection, Yes full ROM and Yes capillary refill normal Psych Appearance: grossly normal Mental Status: mental status grossly normal Affect: normal affect Attitude: cooperative Thought process: Normal thought process present Thought content: Normal thought content present Insight: Good insight present (Psych) Medications Administered Discontinued Medications Generic Name Dose Route Start Last Admin Trade Name Kalpeshq PRN Reason Stop Dose Admin Ceftriaxone Sodium 1 gm 10/01/24 13:20 10/01/24 13:45 Ceftriaxone Sodium 1 Gm Vial IVPUSH 10/01/24 13:21 1 gm ONCE ONE Administration Hydromorphone HCl 1 mg 10/01/24 14:06 10/01/24 14:37 Hydromorphone Hcl 1 Mg/Ml Syringe IVPUSH 10/01/24 14:07 1 mg ONCE ONE Administration Protocol Sodium Chloride 1,000 mls @ 999 mls/hr 10/01/24 12:15 10/01/24 12:53 Ns IV 10/01/24 13:15 999 mls/hr .Q1H1M CINTIA Administration Iohexol 85 ml 10/01/24 12:45 10/01/24 12:45 Iohexol 350 Mg/Ml 75 Ml Infus..Btl IV 10/01/24 12:46 85 ml ONCE ONE Administration Lidocaine HCl 30 ml 10/01/24 14:06 10/01/24 14:44 Lidocaine Hcl 1 % Mpf 30 Ml Vial SUBCUT 10/01/24 14:07 30 ml ONCE ONE Administration Protocol Lorazepam 1 mg 10/01/24 14:06 10/01/24 14:38 Lorazepam 2 Mg/Ml Vial IVPUSH 10/01/24 14:07 1 mg ONCE ONE Administration Medical Decision Making Medical Decision Making [facility] Narrative: Patient is a 49 year old assigned male at with a history of MDD and alcohol use disorder presenting to the emergency department today with alcohol intoxication, nausea, vomiting, and left foot pain. Patient's physical exam was as noted in the physical exam portion of this note. Patient was satting at 90% on RA upon arrival. Patient's blood work showed a ethanol of 421, WBC count of 12.7, CR of 2.33, AST of 157, ALT of 60, and an alk phos of 161. Patient's chest x-ray showed mucous plug versus obstructing airway of the right mainstem bronchus resulting in atelectactic right lung. Patient's left foot x-ray showed no acute process. Patient's CT of the head and c-spine showed no acute process. Patient's chest CT showed a large pleural effusion. Patient's CT abd/pelvis showed the large right pleural effusion as well. I consulted with the thoracic surgeon who came down and placed a right sided chest tube from which 2.5 liters of fluid was removed. Given patient's clinical presentation, hypoxia, tachycardia, and elevated WBC count, I gave IV ceftriaxone. Patient is afebrile and I am not suspicious for sepsis (@1545). I spoke to the hospitalist team who agreed to admission for alcohol withdrawal, MARCELINO, and large right pleural effusion requiring chest tube. I explained my physical exam findings as well as all test results to the patient and the patient's brother. I answered all questions asked by the patient and the patient's brother. Patient and the patient's brother verbalized agreement and understanding with this treatment plan and admission. Differential Diagnosis Differential Diagnoses: The differential diagnosis associated with the presentation includes Pleural effusion Hypoxia Alcohol abuse / use Falls MARCELINO Admission/Observation Consideration of admission/observation: Escalation of care including admission/observation considered Patient admitted. Consult Healthcare Provider Management of the patient was discussed with: Hospitalist (agreed to admission as noted in the MDM Rationale portion of this note) and Sculpture Conservator (spoke to the thoracic surgeon as noted in the MDM Rationale portion of this note) Lab Data [facility] Lab Attestation statement: I reviewed the patient's lab results. My interpretation of these results are in the MDM Rationale portion of this note. 10/01/24 11:17 10/01/24 11:17 Labs: Lab Results 10/01/24 10/01/24 Range/Units 11:17 13:02 WBC 12.7 H (4.8-10.8) X10*3/uL RBC 4.25 L D (4.60-5.80) X10*6/uL Hgb 13.8 L D (14.0-18.0) g/dl Hct 40.4 L D (42.0-52.0) % MCV 95.1 (80.0-98.0) fL MCH 32.5 (27.0-33.0) pg MCHC 34.2 (31.0-36.0) g/dl RDW 16.8 H (11.0-16.0) % Plt Count 194 D (160-400) X10*3/uL MPV 9.0 L (9.4-12.4) fL Immature Gran % (Auto) 0.3 (0.0-0.4) % Neut % (Auto) 74.7 H (45-73) % Lymph % (Auto) 15.0 L (20-40) % [place] % (Auto) 9.1 (2-11) % Eos % (Auto) 0.3 (0-4) % Baso % (Auto) 0.6 (0-2) % Lymph # (Auto) 1.9 (1.2-4.9) X10*3/uL [place] # (Auto) 1.2 (0.1-1.2) X10*3/uL Eos # (Auto) 0.0 (0.0-0.4) X10*3/uL Baso # (Auto) 0.1 (0.0-0.2) X10*3/uL Abs Immat Gran (auto) 0.04 H (0.00-0.03) X10*3/uL Absolute Neuts (auto) 9.5 H (2.0-8.3) x10*3/uL Absolute Nucleated RBC 0.000 (0.0-0.012) X10*3/uL Nucleated RBC % (auto) 0.0 (0.0-0.2) /100WBC Sodium 135 (135-145) mmol/L Potassium 3.7 (3.3-5.1) mmol/L Chloride 100 (96-108) mmol/L Carbon Dioxide 18 L (22-29) mmol/L Anion Gap 21 H (12-20) BUN 11 (9-16) mg/dL Creatinine 2.33 H (0.5-1.4) mg/dL Estim Creat Clear Calc 48.2 Estimated GFR 30 Random Glucose 151 H (60-115) mg/dL Calcium 8.3 L (8.4-10.2) mg/dL Magnesium 1.9 (1.6-2.6) mg/dL Total Bilirubin 0.8 (0.0-1.0) mg/dL AST 157 H (5-37) U/L ALT 60 H (0-40) U/L Alkaline Phosphatase 161 H (39-117) U/L Total Protein 5.8 L (6.5-8.0) g/dL Albumin 2.8 L (3.5-5.0) g/dL Ethyl Alcohol 421 H* mg/dL Blood Type O Positive Antibody Screen NEGATIVE Independent Interpretation I performed an independent interpretation of an: Plain X-Ray and CT Scan Interpretation: My interpretation is in agreement with the radiologist's impression of these imaging studies. L EXAMINATION: XR FOOT, LEFT CLINICAL INFORMATION: pain, injury COMPARISON: None available. TECHNIQUE: AP, lateral, and oblique views of the left foot. FINDINGS: No acute cortical disruption or malalignment. No lytic or blastic lesions. No subcutaneous emphysema. No metallic or radiopaque foreign body. XR/XR foot LT min 3V IMPRESSION: No acute fracture or dislocation. Electronically signed by: Ravinder Cruz MD 10/01/2024 12:10 PM EST RP Dictated By: Ravinder Agudelo MD Signed By: Electronically signed by Ravinder Troncoso MD 10/01/24 1210 EXAMINATION: XR CHEST CLINICAL INFORMATION: SOB COMPARISON: None available. TECHNIQUE: 2 views of the chest were obtained. FINDINGS: Complete opacification right hemithorax with blunting of the air, the right mainstem bronchus. Cardiomediastinal silhouette is midline. No pneumothorax. Osseous structures are grossly intact. XR/XR chest 2V IMPRESSION: Concerning mucous plug versus obstructing airway of the right mainstem bronchus resulting in atelectatic right lung. Recommend IV contrast enhanced CT chest. Electronically signed by: Ravinder Cruz MD 10/01/2024 12:09 PM EST RP Dictated By: Ravinder Agudelo MD Signed By: Electronically signed by Ravinder Troncoso MD 10/01/24 1209 EXAMINATION: CT CERVICAL SPINE WITHOUT CONTRAST CLINICAL INFORMATION: [Fall. COMPARISON: None available. TECHNIQUE: Contiguous axial images through the cervical spine from the skull base to the thoracic inlet using 3 mm collimation with bone and soft tissue algorithm. Sagittal and coronal reformatted images acquired. This CT examination was performed using dose optimization techniques as appropriate, variously including the following: *Automated exposure control *Adjustment of mA and/or kV according to patient size (this includes techniques or standardized protocols for targeted exams where dose is matched to indication/reason for exam; i.e. extremities or head) *Use of iterative reconstruction technique DLP: 659 mGy-cm FINDINGS: Limited by patient's motion artifact. Craniocervical junction appears intact. C1 is intact. C2 is intact. C3 is grossly intact. C4 is grossly intact. C5 is grossly intact. C6 is grossly intact. C7 is grossly intact. Marginal osteophyte formation and decreased intervertebral disc height with endplate sclerosis at C5-6, C6-7 and to a lesser extent C4-5. Reverse curvature apex at C5. No gross prevertebral compartment hematoma. There is a retropharyngeal trajectory of the left carotid artery. Right-sided pleural effusion, large volume. Tympanic cavities and mastoid cells are aerated. CT/CT cervical spine wo IV con IMPRESSION: Limited by patient's motion artifact. Multilevel spondylosis without gross acute fracture or traumatic-related listhesis. Right-sided pleural effusion, large volume. Fleischner guidelines were followed. Electronically signed by: Ravinder Cruz MD 10/01/2024 01:56 PM [facility] [place] Dictated By: Ravinder Agudelo MD Signed By: Electronically signed by Ravinder Troncoso MD 10/01/24 1356 EXAMINATION: CT CHEST WITH CONTRAST CLINICAL INFORMATION: Status post fall. COMPARISON: None available. TECHNIQUE: Multidetector volumetric CT imaging of the chest was obtained after the administration of 85 mL of Omnipaque 350 intravenous contrast without reported immediate adverse reactions. Axial MIP volume rendering provided. Sagittal and coronal reformatted images were obtained. This CT examination was performed using dose optimization techniques as appropriate, variously including the following: *Automated exposure control *Adjustment of mA and/or kV according to patient size (this includes techniques or standardized protocols for targeted exams where dose is matched to indication/reason for exam; i.e. extremities or head) *Use of iterative reconstruction technique DLP: 546 mGy-cm FINDINGS: Right-sided pleural effusion, large volume. The overall Hounsfield units measurements are in the range of -20 the - 40 Hounsfield units. Collapsed right lung. There is a loculated gas trapping lung parenchyma at the superior margin of the right pulmonary hilum and slightly above the right mainstem bronchus and above and lateral to the azygos arch. (Image #19). No thoracic aortic aneurysm or dissection. Normal enhancement within the main pulmonary artery and its main left and right branches. No IV contrast extravasation. There is no shifting of the cardiomediastinal structures to the left. No pneumothorax. No pleural effusion in the left hemithorax. No hemothorax. No hemopericardium. No pneumomediastinum. No aneurysm or dissection, thoracic aorta. Multilevel thoracic spondylosis. No acute fracture or listhesis in the axial skeleton. No acute cortical disruption within the ribs. Scapula is intact bilaterally. I do not see an enhancing mass in the mediastinum or the lung parenchyma no or in the right-sided pleural effusion. CT/CT chest w IV con IMPRESSION: Right-sided pleural effusion versus chylothorax, large volume. Collapsed right lung with a focal gas trapping lung parenchyma. No acute rib fracture. Fleischner guidelines were followed. Electronically signed by: Ravinder Cruz MD 10/01/2024 02:16 PM [facility] [place] Dictated By: Ravinder Agudelo MD Signed By: Electronically signed by Ravinder Troncoso MD 10/01/24 1416 EXAMINATION: CT HEAD WITHOUT CONTRAST CLINICAL INFORMATION: fall, unknown head strike COMPARISON: None available. TECHNIQUE: Contiguous axial imaging was performed from the skull base to vertex without intravenous administration of contrast. This CT examination was performed using dose optimization techniques as appropriate, variously including the following: *Automated exposure control *Adjustment of mA and/or kV according to patient size (this includes techniques or standardized protocols for targeted exams where dose is matched to indication/reason for exam; i.e. extremities or head) *Use of iterative reconstruction technique DLP: 771 mGy-cm FINDINGS: Bony calvarium is intact. Skull base is intact. No acute intracranial hemorrhage, mass effect, midline shift, hydrocephalus or herniation. Cortes-white matter differentiation is normal. Posterior cranial fossa contents demonstrated no acute intracranial hemorrhage or mass effect. There is a 6 mm round hyperdensity in the anterior third ventricle near the foramen Monro. Multifocal patchy deep periventricular white matter hypodensities more conspicuous in the right parietal deep white matter. No air-fluid levels in the included paranasal sinuses. Tympanic cavities and mastoid cells are aerated. CT/CT head/brain wo IV con IMPRESSION: No acute fracture, bony calvarium. No acute intracranial hemorrhage. 6 mm colloid cyst, anterior third ventricle. Probable small vessel occlusive disease. Electronically signed by: Ravinder Cruz MD 10/01/2024 01:50 PM [facility] [place] Dictated By: Ravinder Agudelo MD Signed By: Electronically signed by Ravinder Troncoso MD 10/01/24 1350 EXAMINATION: CT ABDOMEN AND PELVIS WITH CONTRAST CLINICAL INFORMATION: Status post fall. COMPARISON: None available. TECHNIQUE: Multidetector volumetric images were obtained from the superior aspect of the liver through the pubic symphysis following administration 85 mL of Omnipaque 350 intravenous contrast. Sagittal and coronal reformatted images were obtained on the technologist's workstation. Oral contrast: No This CT examination was performed using dose optimization techniques as appropriate, variously including the following: *Automated exposure control *Adjustment of mA and/or kV according to patient size (this includes techniques or standardized protocols for targeted exams where dose is matched to indication/reason for exam; i.e. extremities or head) *Use of iterative reconstruction technique DLP: 1110 mGy-cm FINDINGS: LUNG BASES: Right-sided pleural effusion, large volume. Likely collapsed partially depicted right lung. LIVER, GALLBLADDER, AND BILIARY TREE: Liver measures 20 cm. Decreased enhancement pattern the main portal vein and hepatic veins and intrahepatic portion of the IVC is patent. No gross focal mass. Pericholecystic edema pattern. No gross gallbladder wall thickening. No intrahepatic or extrahepatic biliary ductal dilatation. PANCREAS: No focal pancreatic mass. No main pancreatic ductal dilatation. No peripancreatic fluid collection. SPLEEN: 8 cm. No focal mass. ADRENAL GLANDS: No nodular lesions. KIDNEYS AND URETERS: No hydronephrosis. No gross renal mass. BLADDER: Fluid-filled. GASTROINTESTINAL TRACT: Stool within the right hemicolon. No intestinal obstruction pattern. No pneumatosis intestinalis. Terminal ileum is normal. I do not see the appendix. Trace of edema/fluid in the right paracolic gutter. No pneumoperitoneum. ABDOMINAL WALL: Small fat-containing umbilical hernia and diastases abdominal rectus muscles. Fat-containing inguinal hernias, moderate volume. LYMPH NODES: No gross lymphadenopathy, retroperitoneal or mesenteric. VASCULAR: No aneurysm or dissection, abdominal aorta. Calcified plaques in the abdominal aorta wall and iliac arteries. PELVIC VISCERA: Small prostate gland. Seminal vesicles are not enlarged. OSSEOUS STRUCTURES: Grade 1 anterolisthesis L4-5 on a degenerative basis resulting in bilateral neuroforamina narrowing. CT/CT abdomen pelvis w IV con IMPRESSION: Right-sided effusion, large volume and likely collapsed right lung. Acute cholecystitis versus hepatocellular disease. No intestinal obstruction pattern. Fleischner guidelines were followed. Electronically signed by: Ravinder Cruz MD 10/01/2024 01:45 PM [facility] [place] Dictated By: Ravinder Agudelo MD Signed By: Electronically signed by Ravinder Troncoso MD 10/01/24 9630 Radiology Impression Discussion of test interpretation with radiology: I have reviewed the radiologist's reading. Independent Historian Clinical information obtained from an independent historian. History obtained from or confirmed by: EMS (EMS provided additional history and confirmed the history provided by the patient.) and Other (Patient's brother provided additional history and confirmed the history provided by the patient.) Critical Care Time Critical Care Time Critical Care Time: Yes Total Critical Care Time: 64 Attestation: I spent 64 minutes of Critical Care Time with this patient. This does not include time spent on separately reported billable procedures. Discharge Plan Discharge Clinical Impression: Alcohol withdrawal, Pleural effusion, right, Hypoxia, Fall Patient Disposition: Admitted As Inpatient Prescriptions: No Action folic acid 1 mg tablet 1 mg PO DAILY Qty: 90 1RF mirtazapine 7.5 mg tablet 7.5 mg PO BEDTIME Qty: 90 1RF naltrexone 50 mg tablet 50 mg PO DAILY Qty: 30 3RF vitamin A 2,400 mcg Capsule 2,400 mcg PO DAILY vitamin B complex Tablet 1 tab PO DAILY clonidine HCl 0.1 mg tablet 0.1 mg PO BID Qty: 180 0RF gabapentin 100 mg capsule 100 mg PO BID Qty: 60 0RF lisinopril 20 mg tablet 20 mg PO DAILY Qty: 30 0RF ibuprofen 800 mg tablet 800 mg PO Q8H Qty: 30 0RF Print Language: Rw[place]an
[2024-10-01 11:22] LABS: MANUAL DIFF FLAG NO
[2024-10-01 11:27] LABS: Basophils Absolute Auto 0.1 X10*3/uL (0.0-0.2); Basophils Percent Auto 0.6 % (0-2); Eosinophils Percent Auto 0.3 % (0-4); Hematocrit 40.4 % (42.0-52.0); Hemoglobin 13.8 g/dl (14.0-18.0); Imm Gran Abs Auto 0.04 X10*3/uL (0.00-0.03); Imm Gran Pct Auto 0.3 % (0.0-0.4); Lymphocytes Absolute Auto 1.9 X10*3/uL (1.2-4.9); Mean Corpuscular HGB Conc 34.2 g/dl (31.0-36.0); Mean Corpuscular Hemoglobin 32.5 pg (27.0-33.0); Mean Corpuscular Volume 95.1 fL (80.0-98.0); Monocytes Absolute Auto 1.2 X10*3/uL (0.1-1.2); Monocytes Percent Auto 9.1 % (2-11); Neutrophils Absolute Auto 9.5 x10*3/uL (2.0-8.3); Neutrophils Percent Auto 74.7 % (45-73); Platelet Count 194 X10*3/uL (160-400); Red Blood Count 4.25 X10*6/uL (4.60-5.80); Red Cell Distribution Width 16.8 % (11.0-16.0); White Blood Count 12.7 X10*3/uL (4.8-10.8)
[2024-10-01 11:51] LABS: Alanine Aminotransferase 60 U/L (0-40); Albumin Level 2.8 g/dL (3.5-5.0); Anion Gap 21 (12-20); Aspartate Amino Transferase 157 U/L (5-37); Bilirubin Total 0.8 mg/dL (0.0-1.0); Blood Urea Nitrogen 11 mg/dL (9-16); Calcium 8.3 mg/dL (8.4-10.2); Carbon Dioxide 18 mmol/L (22-29); Chloride 100 mmol/L (96-108); Creatinine Clr Calc Pharmacy 48.2; Estimated Glomerular Filt Rate 30; Ethanol 421 mg/dL; Glucose Random 151 mg/dL (60-115); Magnesium 1.9 mg/dL (1.6-2.6); Potassium 3.7 mmol/L (3.3-5.1); Sodium 135 mmol/L (135-145); Total Protein 5.8 g/dL (6.5-8.0)
--- NOTE | 2024-10-01 12:39 | PC.NURSE ---
transferred from ed 15 to ed 4, currently in CT
[2024-10-01] MEDS: iohexoL 350 MG/ML 75 ML INFUS..BTL 85 ML IV (12:45)
[2024-10-01] MEDS: 0.9 % Sodium Chloride 1,000 ML 999 ML IV ×2 (12:53→16:45)
[2024-10-01] MEDS: cefTRIAXone sodium 1 GM VIAL IVPUSH (13:45)
[2024-10-01] MEDS: HYDROmorphone HCl 1 MG/ML SYRINGE IVPUSH (14:37)
[2024-10-01] MEDS: LORazepam 2 MG/ML VIAL 1 MG IVPUSH (14:38)
[2024-10-01] MEDS: Lidocaine HCl 1 % MPF 30 ML VIAL SUBCUT (14:44)
--- NOTE | 2024-10-01 14:51 | PC.NURSE ---
Surgeon / PA at bedside to place chest tube. Consent obtained, placed on 2 liters 02. Medicated prior to procedure per mar
[2024-10-01 14:59] LABS: Alkaline Phosphatase 161 U/L (39-117)
--- NOTE | 2024-10-01 15:10 | PC.NURSE ---
Chest tube tolerated well, immediate output of 2.5 liters. Brother aware
--- NOTE | 2024-10-01 15:17 | PC.NURSE ---
1st chest tube container full- transported to lab by Dr. Talavera for fluids testing
--- NOTE | 2024-10-01 15:29 | HO.THORCONS ---
Documented by User: Suma Thornton PA-C 10/01/24 15:45 History of Present Illness Consult details Consult date: 10/01/24 Requesting physician: Corrie Fonseca Narrative: Ricco Mendez is a 49 year old male a history of MDD and alcohol use disorder who presented to the ED with multiple complaints including nausea, vomiting, fatigue. He reports he has been feeling poorly for months now, maybe dating back to February with complaints of generalized weakness and fatigue. He also reports shortness of breath over the past two months with walking up stairs, walking into work from the parking lot which is a short distance. He attributed this all to his ETOH use. This morning he just was sick of not feeling well and presented for evaluation. He reports drinking 1L of fireball a day. He was previously hospitalized for ETOH withdrawal twice. He reports he never had seizures, required intubation. He reports a fall 4 days ago getting out of bed where he fell onto his knees and hands. Denies hitting head or chest. Work up in the ED CBC, BMP, LFTs which showed an MARCELINO and transaminitis. Imaging included chest CT which showed large right pleural effusion with a collapsed right lung. Thoracic surgery was therefore consulted. He reports a mild nonproductive cough for a few days. He denies fever, chills, abd pain, chest pain. He previously smoked 2PPD but quit in 2012. Review of Systems Constitutional: Constitutional: Denies chills, Denies fever(s) and Reports malaise ENT: Denies dizziness Cardiovascular: Cardiovascular: Denies chest pain and Reports dyspnea on exertion Respiratory: Respiratory: Reports dyspnea on exertion Gastrointestinal: Gastrointestinal: Reports as per HPI Integumentary/Breasts: Skin/Breast: Reports rash and Denies jaundice Neurologic: Denies dizziness [facility] Past Medical History Medical History HTN (hypertension) Alcohol abuse Social History Social History Household Members: Family Housing: House Do you presently have visiting nurse or other home services: No Alcohol intake: current Alcohol intake frequency: 3 or more drinks per day Alcohol type: hard liquor Patient Tobacco Use Status: Never used Tobacco Smoked in Last 30 Days: No e-Cigarette/Vaping Use: Never Used Second Hand Smoke Exposure: No Use of substances other than those prescribed or required for medical reasons: No Advance Directives: No Advance Directives Information Provided: Yes service: No Meds Allergies Allergy/AdvReac Type Severity Reaction Status Date / Time Penicillins Allergy Mild hives Verified 10/01/24 11:05 Home Medications ?Medication ?Instructions ?Recorded ?Confirmed ?Last Taken ?Type vitamin A 2,400 mcg capsule 2,400 mcg PO DAILY 08/01/24 10/01/24 1 Week Ago History ~09/24/24 vitamin B complex 1 tab PO DAILY 08/01/24 10/01/24 1 Week Ago History ~09/24/24 magnesium oxide 400 mg PO DAILY 10/01/24 10/01/24 1 Week Ago History ~09/24/24 mirtazapine 7.5 mg tablet 7.5 mg PO BEDTIME PRN Depression 10/01/24 10/01/24 1 Week Ago History ~09/24/24 [id number] 300 mcg-K 60 1 tab PO DAILY 10/01/24 10/01/24 1 Week Ago History mcg-lycop 600 mcg-lutein 300 mcg ~09/24/24 tablet (Centrum Silver Men) Physical Exam Vital Signs: Vital Signs: Last Vital Signs Temp 97.5 F 10/01/24 11:01 Pulse 107 H 10/01/24 14:48 Resp 20 10/01/24 14:48 BP 124/102 H 10/01/24 11:01 Pulse Ox 91 L 10/01/24 14:48 O2 Del Method Nasal Cannula 10/01/24 14:48 O2 Flow Rate 2 10/01/24 14:48 Oxygen Flow Rate 2 10/01/24 11:01 BMI result Body Mass Index 37.3 Const: General: cooperative, comfortable and alert; No acute distress Orientation/consciousness: patient oriented x3 Neck: Neck: Yes trachea midline and Yes no JVD Resp: Effort & Inspection: normal respiratory effort, able to speak in complete sentences, no respiratory distress, tachypneic and no use of accessory muscles Cardio: Rate: tachycardic Skin: General skin exam: no jaundice Neuro: General: patient oriented x3 and moves all extremities Results Labs 10/01/24 11:17 10/01/24 11:17 Labs: Abnormal lab results 10/01/24 Range/Units 11:17 WBC 12.7 H (4.8-10.8) X10*3/uL RBC 4.25 L D (4.60-5.80) X10*6/uL Hgb 13.8 L D (14.0-18.0) g/dl Hct 40.4 L D (42.0-52.0) % RDW 16.8 H (11.0-16.0) % MPV 9.0 L (9.4-12.4) fL Neut % (Auto) 74.7 H (45-73) % Lymph % (Auto) 15.0 L (20-40) % Abs Immat Gran (auto) 0.04 H (0.00-0.03) X10*3/uL Absolute Neuts (auto) 9.5 H (2.0-8.3) x10*3/uL Carbon Dioxide 18 L (22-29) mmol/L Anion Gap 21 H (12-20) Creatinine 2.33 H (0.5-1.4) mg/dL Random Glucose 151 H (60-115) mg/dL Calcium 8.3 L (8.4-10.2) mg/dL AST 157 H (5-37) U/L ALT 60 H (0-40) U/L Alkaline Phosphatase 161 H (39-117) U/L Total Protein 5.8 L (6.5-8.0) g/dL Albumin 2.8 L (3.5-5.0) g/dL Ethyl Alcohol 421 H* mg/dL Short CBC 10/01/24 Range/Units 11:17 WBC 12.7 H (4.8-10.8) X10*3/uL Hgb 13.8 L D (14.0-18.0) g/dl Hct 40.4 L D (42.0-52.0) % Plt Count 194 D (160-400) X10*3/uL BMP 10/01/24 11:17 Sodium 135 Potassium 3.7 Chloride 100 Carbon Dioxide 18 L BUN 11 Creatinine 2.33 H Calcium 8.3 L Liver Function 10/01/24 Range/Units 11:17 Total Bilirubin 0.8 (0.0-1.0) mg/dL AST 157 H (5-37) U/L ALT 60 H (0-40) U/L Alkaline Phosphatase 161 H (39-117) U/L Albumin 2.8 L (3.5-5.0) g/dL All other labs normal. Imaging Abdomen CT scan report/results: report reviewed and image reviewed CT scan - chest: report reviewed and image reviewed Assessment and Plan (1) Pleural effusion, right: Status: Acute Plan Ricco Mendez is a 49 year old male a history of MDD and alcohol use disorder with very large right pleural effusion, collapse of right lung on imaging. It was recommended to proceed with right chest tube placement at bedside. Patient and brother are in agreement. This was performed uneventfully. Please see procedure note. Right lung is almost completely up on post procedure film. Cont chest tube to suction for now. Repeat CXR in AM. Effusion of etiology is unclear- possibly infectious, hepatic hydrothorax, malignant. Pleural studies have been ordered. Procedures Date of Service Date of Service: 10/01/24 Documented by User: David Iniguez MD 10/01/24 17:18 [facility] Past Medical History Medical History HTN (hypertension) Alcohol abuse Social History Social History Household Members: Family Housing: House Do you presently have visiting nurse or other home services: No Alcohol intake: current Alcohol intake frequency: 3 or more drinks per day Alcohol type: hard liquor Patient Tobacco Use Status: Never used Tobacco Smoked in Last 30 Days: No e-Cigarette/Vaping Use: Never Used Second Hand Smoke Exposure: No Use of substances other than those prescribed or required for medical reasons: No Advance Directives: No Advance Directives Information Provided: Yes service: No Meds Allergies Allergy/AdvReac Type Severity Reaction Status Date / Time Penicillins Allergy Mild hives Verified 10/01/24 11:05 Home Medications ?Medication ?Instructions ?Recorded ?Confirmed ?Last Taken ?Type vitamin A 2,400 mcg capsule 2,400 mcg PO DAILY 08/01/24 10/01/24 1 Week Ago History ~09/24/24 vitamin B complex 1 tab PO DAILY 08/01/24 10/01/24 1 Week Ago History ~09/24/24 magnesium oxide 400 mg PO DAILY 10/01/24 10/01/24 1 Week Ago History ~09/24/24 mirtazapine 7.5 mg tablet 7.5 mg PO BEDTIME PRN Depression 10/01/24 10/01/24 1 Week Ago History ~09/24/24 [id number]-[id number] 300 mcg-K 60 1 tab PO DAILY 10/01/24 10/01/24 1 Week Ago History mcg-lycop 600 mcg-lutein 300 mcg ~09/24/24 tablet (Centrum Silver Men) Results Labs 10/01/24 11:17 10/01/24 11:17 Assessment and Plan (1) Pleural effusion, right: Status: Acute Plan Ricco Mendez is a 49 year old male a history of MDD and alcohol use disorder with very large right pleural effusion, collapse of right lung on imaging. It was recommended to proceed with right chest tube placement at bedside. Patient and brother are in agreement. This was performed uneventfully. Please see procedure note. Right lung is almost completely up on post procedure film. Cont chest tube to suction for now. Repeat CXR in AM. Effusion of etiology is unclear- possibly infectious, hepatic hydrothorax, malignant. Pleural fluid studies have been ordered. As noted Procedures Date of Service Date of Service: 10/01/24
--- NOTE | 2024-10-01 15:42 | P.HPHOSP_ITS ---
History of Present Illness Date of Service: 10/01/24 Patient is a 49 year old male with a history of MDD and alcohol use disorder presenting to the emergency department today with alcohol intoxication, nausea, vomiting, and left foot pain. Patient states that he has been trying to cut back on his drinking but continues to drink daily. Apparently he fell a few month ago and has had pain to his left foot every since. Patient denies any dizziness, lightheadedness, abdominal pain, fever, chills, blurry vision, double vision, loss of vision, chest pain, difficulty breathing, shortness of breath, back pain, night sweats, pain with urination, increased urinary frequency, increased urinary urgency, blood in his urine or stool, syncope or a near syncopal episode, bowel incontinence, bladder incontinence, or any other complaints at this time. Abdominal and pelvic CT showed right-sided large volume effusion with collapsed right lung, he is status post thoracentesis with removal of 1 0.5 L of serous fluid and placement of right-sided chest tube. His oxygen saturation was noted to be 91% and improved after being placed on 2 L with nasal cannula. He was noted to have mildly decreased white blood cell count 12.7, creatinine 2.33, AST 157, ALT 60, total bilirubin 0.8, albumin 2.8, ethyl alcohol level 421. In the ER, he was given 1 L of IV fluid, ceftriaxone, Dilaudid, lorazepam, phenobarbital. Will admit patient for further management and treatment of pleural effusion. Review of Systems 2 Review of Systems: Denies any recent fever chills or decrease in appetite respiratory see HPI cardiovascular denied chest pain gastrointestinal denies any dysphagia abdominal pain nausea vomiting or diarrhea genitourinary denies any dysuria frequency or hematuria musculoskeletal denies any joint pain or swelling neuropsych denies any weakness or seizures all other systems reviewed are negative [facility] Medical History HTN (hypertension) Alcohol abuse Social History Household Members: Family Housing: House Do you presently have visiting nurse or other home services: No Alcohol intake: current Alcohol intake frequency: 3 or more drinks per day Alcohol type: hard liquor Patient Tobacco Use Status: Never used Tobacco Smoked in Last 30 Days: No e-Cigarette/Vaping Use: Never Used Second Hand Smoke Exposure: No Use of substances other than those prescribed or required for medical reasons: No Advance Directives: No Advance Directives Information Provided: Yes service: No Meds Allergies Allergy/AdvReac Type Severity Reaction Status Date / Time Penicillins Allergy Mild hives Verified 10/01/24 11:05 Home Medications ?Medication ?Instructions ?Recorded ?Confirmed ?Last Taken ?Type vitamin A 2,400 mcg capsule 2,400 mcg PO DAILY 08/01/24 10/01/24 1 Week Ago History ~09/24/24 vitamin B complex 1 tab PO DAILY 08/01/24 10/01/24 1 Week Ago History ~09/24/24 magnesium oxide 400 mg PO DAILY 10/01/24 10/01/24 1 Week Ago History ~09/24/24 mirtazapine 7.5 mg tablet 7.5 mg PO BEDTIME PRN Depression 10/01/24 10/01/24 1 Week Ago History ~09/24/24 pfvcpjqf-[id number] 300 mcg-K 60 1 tab PO DAILY 10/01/24 10/01/24 1 Week Ago History mcg-lycop 600 mcg-lutein 300 mcg ~09/24/24 tablet (Centrum Silver Men) Physical Exam 2 Vital Signs and Narrative: Vital Signs: Last Vital Signs Temp 97.5 F 10/01/24 11:01 Pulse 107 H 10/01/24 14:48 Resp 20 10/01/24 14:48 BP 124/102 H 10/01/24 11:01 Pulse Ox 91 L 10/01/24 14:48 O2 Del Method Nasal Cannula 10/01/24 14:48 O2 Flow Rate 2 10/01/24 14:48 Oxygen Flow Rate 2 10/01/24 11:01 BMI result Body Mass Index 37.3 Appearing in no acute distress head is normocephalic atraumatic eyes pupils are PERRLA sclera is anicteric mouth throat mucous membranes are intact and moist neck is supple no lymphadenopathy, no JVD noted lung sounds are clear to auscultation heart regular rate rhythm, clear S1, S2 positive bowel sounds, abdomen is soft, nontender neuro patient is alert x3, no focal deficits Results Labs 10/01/24 11:17 10/01/24 11:17 Labs: Laboratory Results - last 24 hr 10/01/24 10/01/24 11:17 13:02 MCV 95.1 MCH 32.5 MCHC 34.2 RDW 16.8 H Plt Count 194 D MPV 9.0 L Immature Gran % (Auto) 0.3 Neut % (Auto) 74.7 H Lymph % (Auto) 15.0 L Wilkin % (Auto) 9.1 Eos % (Auto) 0.3 Baso % (Auto) 0.6 Lymph # (Auto) 1.9 Wilkin # (Auto) 1.2 Eos # (Auto) 0.0 Baso # (Auto) 0.1 Abs Immat Gran (auto) 0.04 H Absolute Neuts (auto) 9.5 H Absolute Nucleated RBC 0.000 Nucleated RBC % (auto) 0.0 Anion Gap 21 H Estim Creat Clear Calc 48.2 Estimated GFR 30 Random Glucose 151 H Calcium 8.3 L Magnesium 1.9 Total Bilirubin 0.8 AST 157 H ALT 60 H Alkaline Phosphatase 161 H Total Protein 5.8 L Albumin 2.8 L Ethyl Alcohol 421 H* Blood Type O Positive Antibody Screen NEGATIVE Imaging Radiologist's Impressions: Impressions Foot X-Ray 10/01/24 11:09 IMPRESSION: No acute fracture or dislocation. Electronically signed by: Ravinder Cruz MD 10/01/2024 12:10 PM EST RP Chest X-Ray 10/01/24 11:12 IMPRESSION: Concerning mucous plug versus obstructing airway of the right mainstem bronchus resulting in atelectatic right lung. Recommend IV contrast enhanced CT chest. Electronically signed by: Ravinder Cruz MD 10/01/2024 12:09 PM EST RP Cervical Spine CT 10/01/24 12:03 IMPRESSION: Limited by patient's motion artifact. Multilevel spondylosis without gross acute fracture or traumatic-related listhesis. Right-sided pleural effusion, large volume. Fleischner guidelines were followed. Electronically signed by: Ravinder Cruz MD 10/01/2024 01:56 PM EST RP Chest CT 10/01/24 12:03 IMPRESSION: Right-sided pleural effusion versus chylothorax, large volume. Collapsed right lung with a focal gas trapping lung parenchyma. No acute rib fracture. . Fleischner guidelines were followed. Electronically signed by: Ravinder Cruz MD 10/01/2024 02:16 PM EST RP Head CT 10/01/24 12:03 IMPRESSION: No acute fracture, bony calvarium. No acute intracranial hemorrhage. 6 mm colloid cyst, anterior third ventricle. Probable small vessel occlusive disease. Electronically signed by: Ravinder Cruz MD 10/01/2024 01:50 PM EST RP Abdomen/Pelvis CT 10/01/24 12:31 IMPRESSION: Right-sided effusion, large volume and likely collapsed right lung. Acute cholecystitis versus hepatocellular disease. No intestinal obstruction pattern. Fleischner guidelines were followed. Electronically signed by: Ravinder Cruz MD 10/01/2024 01:45 PM EST RP Assessment and Plan Plan 49 year old man admitted with large pleural effusion Pleural effusion patient presented with sob CT found large right pleural effusion s/p thoracentesis with chest tube placed, 1.5 L of serous fluid CT surgery following Rocephin empirically Oxygen supplementation to keep oxygen saturation greater than 90% MARCELINO Likely secondary to alcohol intake, dehydration and poor nutrition IV fluids If no improvement seen consult Nephrology Alcohol intoxication concern for withdrawal started on phenobarbital while in the ER Hypoalbuminemia Secondary to alcohol abuse and liver disease Albumin x2 leukocytosis mild Tachycardia and tachypnea likely secondary to pleural effusion Chronic transaminitis secondary to alcohol use normocytic anemia chronic monitor DVT prophylaxis with pneumatic compression boots Full code
--- NOTE | 2024-10-01 15:45 | PCN2_ITS ---
Brief Operative Note Date of procedure: 10/01/24 Pre-op diagnosis: right pleural effusion Post-op diagnosis: same Procedure: The risks and benefits, alternatives were discussed with the patient and signed consent was obtained by patient and brother. The patient was positioned laterally. Site for placement at right anterolateral chest was marked. This area was then prepped with betadine and draped in the usual sterile fashion. 25 mL of 1% lidocaine was used for local anesthesia of the skin and subcutaneous tissues. A skin incision was made using a 10 blade measuring approximately 2 cm. This was carried down into the subcutaneous tissues and then dissected down to the intercostal space with a metzenbaum scissor. The pleural cavity was carefully entered with the eric and a valentin was then used to dilate the space and insert the 28F angled chest tube. It was then connected to the pleurvac with immediate evacuation of around 1.5L of serous fluid. The chest tube was then secured to the skin with a silk suture and the incision was closed with three single in terrupted sutures. A sterile dressing was applied over the site. The patient tolerated the procedure well. No immediate complications. Post procedure film ordered. Anesthesia: local Surgeon: Suma Thornton Estimated blood loss (mL): 2 Pathology: other (pleural fluid) Condition: stable Disposition: no change
--- NOTE | 2024-10-01 15:47 | PC.NURSE ---
per Dr. Talavera leave chest tube on continuous suction
[2024-10-01] MEDS: Albumin Human 25 % 100 ML IV ×4 (16:45→19:24)
--- NOTE | 2024-10-01 17:07 | PHA.MEDREC ---
Addendum entered by Corine Amezcua RPh 10/01/24 17:19: Reviewed by [facility] Original Note: Pharmacy Consult ? Medication Reconciliation Pharmacy has completed the medication reconciliation. Patient confirmed he has not been very compliant with his medications and states he lost his insurance in the last few months due to loosing one of his jobs but he states she got a new job and new insurance though them. She states he has not taken the Folic Acid 1mg tab in a few weeks and keeps forgetting to take it . He confirmed he was taking the Gabapentin 100mg tabs but ran out 2-3 weeks and states when he was taking it he was not getting much relief on it. He confirmed he has been taking Mirtazapine 7.5mg tabs 1 at bedtime as needed for his depression. He confirmed he has not taken any medication in about a week due to running low on some and he didnt want to fully run out.
[2024-10-01] MEDS: PHENobarbitaL sodium 130 MG/ML IM ONCE 292 MG IM (17:10)
[2024-10-01 17:27] LABS: MN% 80.9 %; PMN% 19.1 %; RBC Pleural Fluid < 0.002 X10*6/uL
[2024-10-01 17:40] LABS: Neutrophils Pleural Fluid 15 %
[2024-10-01 17:41] LABS: BF Shift QC OK YES; Lymphocytes Pleural Fluid 43 %; Other Cells Plerual Fl 42 %
--- NOTE | 2024-10-01 17:58 | PC.NURSE ---
Approximately 4:30pm this RN checking patients vitals. Patient hypotensive when BP checked in both arms. Patient pale but otherwise asymptomatic. Provider ntoified, IV fluids started via pressure bags, placed in trendelenburg position. Albumin initiated. Brought to CT. Chest tube with total output of 3090mls output at this time. Dressing at site of insertion intact. Chest tube remains to suction. Patient reports withdrawl symptoms, vomited x1 small amount of stomach bile , medicated per jan. Brother at bedside
--- NOTE | 2024-10-01 18:16 | ECG_ITS ---
Test Reason : cp Blood Pressure : / mmHG Vent. Rate : 120 BPM Atrial Rate : 120 BPM P-R Int : 152 ms QRS Dur : 078 ms QT Int : 310 ms P-R-T Axes : 039 027 023 degrees QTc Int : 438 ms Sinus tachycardia Low voltage QRS Borderline ECG When compared with ECG of 19-FEB-2024 12:55, No significant change was found Referred By: Catrina Ty Electronically Signed By:GOMEZ DRIVER MD
--- NOTE | 2024-10-01 18:19 | PC.NURSE ---
Provider aware of elevated HR, ekg ordered. Also aware that there is no tidaling in chest tube- stating that tube was placed for fluids drainage and to not see tidaling is okay.
--- NOTE | 2024-10-01 18:34 | PC.NURSE ---
Patient alert and oriented, reports feeling much better, vss.
[2024-10-01] MEDS: ondansetron HCL 4 MG/2 ML VIAL IVPUSH (18:49)
--- NOTE | 2024-10-01 18:54 | PC.NURSE ---
Patient shaky , vomiting. Provider at bedside to assess. Medicated with zofran per mariangel
[2024-10-01] MEDS: PHENobarbitaL sodium 130 MG/ML VIAL IM Q3Hx2 219 MG IM ×2 (19:31→22:36)
--- NOTE | 2024-10-01 21:49 | PC.NURSE ---
MD notified of patients oxygenation status and BP. Placed on high flow.
[2024-10-02] VITALS (16 sets, daily range): BP systolic 109–144; BP diastolic 62–95; PULSE 109–125; RESP 13–34; TEMP 36.4–37.4; O2SAT 91–100; BMI 36.0
--- NOTE | 2024-10-02 00:03 | P.HPCC_ITS ---
History of Present Illness Date of Service: 10/01/24 <VARIL Garcia - Last Filed: 10/02/24 19:52> Attending physician on admission: Sudhir Serra <AVRIL Garcia - Last Filed: 10/02/24 19:52> Chief Complaint: Eoth intox, Pleural efussion post chest tube, tachycardia, hypotension < AVRIL Garcia - Last Filed: 10/02/24 19:52> Patient is a 49 year old male with a history of alcoholism, depression, hypertension, transaminitis, medical noncompliance.? Patient had presented to emergency room complaints of nausea, vomiting in the setting of being intoxicated with alcohol, he also complains of 6/10 left foot pain in a throbbing manner stating that he might have twisted his ankle.? He is not sure when or how the mechanism of injury occurred.? Stated that he is trying to cut down on alcohol he does acknowledge experiencing a fall about a month ago but can not recollect a specific injuries or loss of consciousness. ? In the emergency room, the patient had a variety of images including Abdominal and pelvic CT showed right-sided large volume effusion with collapsed right lung, thoracic surgery was consulted and he is now status post thoracentesis with removal of 1 0.5 L of serous fluid and placement of right-sided chest tube. His oxygen saturation was noted to be 91% and improved after being placed on 2 L with nasal cannula. ?His white blood cell count 12.7, creatinine 2.33, AST 157, ALT 60, total bilirubin 0.8, albumin 2.8, ethyl alcohol level 421. He was treated with 1 L of IV fluid, ceftriaxone, Dilaudid, lorazepam, phenobarbital. Although initially the patient was going to be admitted to the floor, the patient had become hypotensive and has remained in the emergency room for several hours without being able to compensate for his blood pressure, he had also become somewhat hypoxic and his on high-flow nasal cannula 40 liters/minute. He currently denies any further complaints. Repeat chest x-ray showed worsening airspace disease in the right lung versus asymmetric pulmonary edema. Previous CT had shown small right-sided pneumothorax. Not only the patient is hypotensive but he is also tachypneic, tachycardic and there is concern that he may have a worsening pneumothorax versus post re- expansion pulmonary edema in addition to his acute alcohol intoxication which places him at risk of eminent withdrawal. The patient will be transferred to the ICU for further care. <AVRIL Garcia - Last Filed: 10/02/24 19:52> Review of Systems 2 Review of Systems: Yes Unobtainable due to mental status <AVRIL Garcia - Last Filed: 10/02/24 19:52> PMF Past Medical History Medical History: Medical History HTN (hypertension) Alcohol abuse <AVRIL Garcia - Last Filed: 10/02/24 19:52> Social History Social History: Social History Household Members: Family Housing: House Do you presently have visiting nurse or other home services: No Alcohol intake: current Alcohol intake frequency: 3 or more drinks per day Alcohol type: hard liquor Patient Tobacco Use Status: Former Tobacco user Tobacco use type: Cigarette Cigarette Packs Per Day: 2 Cigarettes Per Day: 40.0 Years Smoked: 20 Smoked in Last 30 Days: No e-Cigarette/Vaping Use: Never Used Patient Interested in Nicotine Replacement: No Patient Given Instructions on How to Stop Smoking: No Second Hand Smoke Exposure: No Use of substances other than those prescribed or required for medical reasons: No Currently Displaying Signs/Symptoms of Drug Intoxication Withdrawal: No Any prior treatment program specific to substance use: No Have you been hit, kicked, punched, or otherwise hurt by someone within the past year? If so, by whom?: No Do you feel safe in your current relationship?: No Current Relationship Is there a partner from a previous relationship who is making you feel unsafe now?: No Are you made to feel afraid or neglected: No Advance Directives: No Advance Directives Information Provided: Yes Do you have a plan to hurt others: No Plan Recently lost weight without trying: No service: No <AVRIL Garcia - Last Filed: 10/02/24 19:52> Meds Allergies/Adverse reactions: Allergies Allergy/AdvReac Type Severity Reaction Status Date / Time Penicillins Allergy Mild hives Verified 10/01/24 11:05 <AVRIL Garcia - Last Filed: 10/02/24 19:52> Active Medications: Current Medications Folic Acid (Folic Acid 1 Mg Tablet) 1 mg PO DAILY [facility] Albumin Human (Kedbumin 25 %) 100 mls @ 133.333 mls/hr IV Q1H [facility] Stop: 10/02/24 01:29 Multivitamins/Vitamin C (Multivitamin Tablet) 1 tab PO DAILY [facility] Omeprazole (Omeprazole 20 Mg Capsule.Dr) 20 mg PO DAILY@0630 [facility] Pharmacy Consult (Consult Rx Etoh Phenob Im/Po) 1 each MISCELLANE ONCE PRN; Protocol PRN Reason: Consult order Phenobarbital (Phenobarbital 15 Mg Tablet) 45 mg PO BID [facility] Stop: 10/03/24 21:01 Phenobarbital (Phenobarbital 30 Mg Tablet) 30 mg PO BID [facility] Stop: 10/05/24 21:01 Phenobarbital (Phenobarbital 15 Mg Tablet) 15 mg PO DAILY [facility] Stop: 10/07/24 09:01 Thiamine HCl (Thiamine Hcl 100 Mg Tablet) 100 mg PO DAILY [facility] <AVRIL Garcia - Last Filed: 10/02/24 19:52> Home medications: Home Medications ?Medication ?Instructions ?Recorded ?Confirmed ?Last Taken ?Type vitamin A 2,400 mcg capsule 2,400 mcg PO DAILY 08/01/24 10/01/24 1 Week Ago History ~09/24/24 vitamin B complex 1 tab PO DAILY 08/01/24 10/01/24 1 Week Ago History ~09/24/24 magnesium oxide 400 mg PO DAILY 10/01/24 10/01/24 1 Week Ago History ~09/24/24 mirtazapine 7.5 mg tablet 7.5 mg PO BEDTIME PRN Depression 10/01/24 10/01/24 1 Week Ago History ~09/24/24 flyprnqs-hn-cxcsn 300 mcg-K 60 1 tab PO DAILY 10/01/24 10/01/24 1 Week Ago History mcg-lycop 600 mcg-lutein 300 mcg ~09/24/24 tablet (Centrum Silver Men) <AVRIL Garcia - Last Filed: 10/02/24 19:52> Physical Exam 2 Vital Signs: Vital Signs: Last Vital Signs Temp 98.9 F 10/01/24 18:55 Pulse 116 H 10/01/24 22:36 Resp 25 H 10/01/24 23:59 BP 94/64 10/01/24 22:36 Pulse Ox 100 10/01/24 22:36 O2 Del Method High Flow Nasal C annula 10/01/24 22:36 O2 Flow Rate 40 10/01/24 22:36 Oxygen Flow Rate 2 10/01/24 11:01 BMI result Body Mass Index 37.3 <AVRIL Garcia - Last Filed: 10/02/24 19:52> PHYSICAL EXAM: VS: ?94/64, 116, 35, 94% on high-flow oxygen at 40 L General:? Alert, shaky nervous Skin:?see right chest under lung; otherwise Intact, no lesions, edema, erythema, clubbing or cyanosis.? No ulcers. HEENT:? Head is normocephalic, atraumatic, pupils equal round reactive to light Cardiac:? Clear S1-S2, no murmurs rubs or gallops. Pulmonary: ?Right-sided chest tube in place with clean, dry, intact surroundings.? Diminished lung sounds bilaterally with crackles at both bases but with very little air movement of air on the right lung. Abdomen:? Protuberant, positive bowel sounds in all 4 quadrants.? Soft, nontender, no rebound or guarding.? Musculoskeletal:? Moving all 4 extremities upon request a major joints, there is no crepitus or tenderness.? The strength is 5/5 bilaterally and throughout all 4 extremities.? There is no leg edema , no calf tenderness , no leg asymmetry.? Gait not assessed at this point. Neurologic:? As above,No focal deficits noted. Vascular:? 2+ pulses upper and lower extremities distally. Less than 2nd capillary refill of the finger and toes bilaterally <AVRIL Garcia - Last Filed: 10/02/24 19:52> Results Labs CBC and Chem 7: 10/02/24 04:28 10/02/24 04:28 <AVRIL Garcia - Last Filed: 10/02/24 19:52> Labs: Laboratory Results - last 24 hr 10/01/24 10/01/24 10/01/24 11:17 13:02 Unknown MCV 95.1 MCH 32.5 MCHC 34.2 RDW 16.8 H Plt Count 194 D MPV 9.0 L Immature Gran % (Auto) 0.3 Neut % (Auto) 74.7 H Lymph % (Auto) 15.0 L [place] % (Auto) 9.1 Eos % (Auto) 0.3 Baso % (Auto) 0.6 Lymph # (Auto) 1.9 [place] # (Auto) 1.2 Eos # (Auto) 0.0 Baso # (Auto) 0.1 Abs Immat Gran (auto) 0.04 H Absolute Neuts (auto) 9.5 H Absolute Nucleated RBC 0.000 Nucleated RBC % (auto) 0.0 Anion Gap 21 H Estim Creat Clear Calc 48.2 Estimated GFR 30 Random Glucose 151 H Calcium 8.3 L Magnesium 1.9 Total Bilirubin 0.8 AST 157 H ALT 60 H Alkaline Phosphatase 161 H Total Protein 5.8 L Albumin 2.8 L Pleural WBC 0.430 Pleural RBC < 0.002 Pleural Neutrophils 15 Pleural Lymphocytes 43 Pleural Other Cells 42 Ethyl Alcohol 421 H* Blood Type O Positive Antibody Screen NEGATIVE <AVRIL Garcia - Last Filed: 10/02/24 19:52> Imaging Radiologist's Impressions: Impressions Foot X-Ray 10/01/24 11:09 IMPRESSION: No acute fracture or dislocation. Electronically signed by: Ravinder Cruz MD 10/01/2024 12:10 PM EST RP Chest X-Ray 10/01/24 11:12 IMPRESSION: Concerning mucous plug versus obstructing airway of the right mainstem bronchus resulting in atelectatic right lung. Recommend IV contrast enhanced CT chest. Electronically signed by: Ravinder Cruz MD 10/01/2024 12:09 PM EST RP Cervical Spine CT 10/01/24 12:03 IMPRESSION: Limited by patient's motion artifact. Multilevel spondylosis without gross acute fracture or traumatic-related listhesis. Right-sided pleural effusion, large volume. Fleischner guidelines were followed. Electronically signed by: Ravinder Cruz MD 10/01/2024 01:56 PM EST RP Chest CT 10/01/24 12:03 IMPRESSION: Right-sided pleural effusion versus chylothorax, large volume. Collapsed right lung with a focal gas trapping lung parenchyma. No acute rib fracture. . Fleischner guidelines were followed. Electronically signed by: Ravinder Cruz MD 10/01/2024 02:16 PM EST RP Head CT 10/01/24 12:03 IMPRESSION: No acute fracture, bony calvarium. No acute intracranial hemorrhage. 6 mm colloid cyst, anterior third ventricle. Probable small vessel occlusive disease. Electronically signed by: Ravinder Cruz MD 10/01/2024 01:50 PM EST RP Abdomen/Pelvis CT 10/01/24 12:31 IMPRESSION: Right-sided effusion, large volume and likely collapsed right lung. Acute cholecystitis versus hepatocellular disease. No intestinal obstruction pattern. Fleischner guidelines were followed. Electronically signed by: Ravinder Cruz MD 10/01/2024 01:45 PM EST RP Chest X-Ray 10/01/24 15:15 IMPRESSION: Right-sided chest tube placed in the medial right lower hemithorax with the decreased volume of the right-sided pleural effusion improved aeration right lung and questionable small to moderate volume right-sided pneumothorax. Electronically signed by: Ravinder Cruz MD 10/01/2024 03:50 PM EST RP Chest X-Ray 10/01/24 16:16 IMPRESSION: Stable appearance of the heart and lungs. The right chest tube is unchanged in position. Patchy opacities throughout the right lung are unchanged. There is a small right pleural effusion and a small right pneumothorax. Electronically signed by: Matt Galaviz DO 10/01/2024 06:59 PM EST RP Chest CT 10/01/24 16:25 IMPRESSION: 1. Interval placement of right-sided chest tube with resolution of previously seen large pleural effusion. There is a tiny pneumothorax. 2. There is airspace disease in the reexpanded right lung which could represent reexpansion pulmonary edema. 3. Enlarged fatty liver. 4. Distended gallbladder with some minimal streaky changes in the right anterior pararenal space abutting the gallbladder and pancreatic head. Would correlate with serum lipase for pancreatitis and right upper quadrant ultrasound for gallbladder disease, although felt to be unlikely. 5. Other incidental findings as described above. Fleischner guidelines were followed. Electronically signed by: Justin Pfeiffer MD 10/01/2024 07:39 PM EST RP Abdomen/Pelvis CT 10/01/24 16:26 IMPRESSION: 1. Interval placement of right-sided chest tube with resolution of previously seen large pleural effusion. There is a tiny pneumothorax. 2. There is airspace disease in the reexpanded right lung which could represent reexpansion pulmonary edema. 3. Enlarged fatty liver. 4. Distended gallbladder with some minimal streaky changes in the right anterior pararenal space abutting the gallbladder and pancreatic head. Would correlate with serum lipase for pancreatitis and right upper quadrant ultrasound for gallbladder disease, although felt to be unlikely. 5. Other incidental findings as described above. Fleischner guidelines were followed. Electronically signed by: Justin Pfeiffer MD 10/01/2024 07:39 PM EST RP Chest X-Ray 10/01/24 22:04 IMPRESSION: Worsening airspace disease right lung versus asymmetric pulmonary edema. CT chest from same day demonstrated a small right-sided pneumothorax. Electronically signed by: Ravinder Cruz MD 10/01/2024 11:23 PM EST RP <AVRIL Garcia - Last Filed: 10/02/24 19:52> Assessment and Plan (1) Pleural effusion, right: Status: Acute <AVRIL Garcia - Last Filed: 10/02/24 19:52> (2) Hypoxia: Status: Acute <AVRIL Garcia - Last Filed: 10/02/24 19:52> ASSESSMENT: 1.? Acute alcohol intoxication 2.? Large right pleural effusion status post thoracentesis and chest tube placement 3.? Postprocedural re-expansion pulmonary edema 4.? Acute kidney injury (multifactorial likely dehydration, KEYUR inhibitor and volume losses) 5.? Hypoalbuminemia 6.? Alcoholic transaminitis 7.? Reactive versus infectious leukocytosis 8.? Reactive tachypnea and tachycardia 9.? Normocytic anemia likely related to alcohol cell destruction and chronic disease 10.? Postprocedural hypotension likely due to thoracentesis and volume depletion 11.? Small right-sided pneumothorax postprocedural 12.? Enlarged fatty liver 13.? Gallbladder changes in need of further evaluation PLAN OF CARE: Patient will be admitted to the ICU, monitor vital signs, I's and O's, patient is already on a phenobarbital protocol, will monitor CIWA closely and treat as needed with librium po, will give him albumin to increase oncotic pressure, with subsequent diuresis.? Will hold KEYUR.? Thus far I do not see any evidence of sepsis. Patient's chest tube appears to have been successful in treating the pleural effusion, fluids are pending for analysis and diagnostic studies, however the tube appears to be too far in close to the mediastinum, this will need to be pulled back about 4-5 cm and will obtain postprocedural imaging. We will continue to avoid any other nephrotoxins and repeat laboratories, order sputum culture and Gram stain given that there is a possibility the patient has a concomitant pneumonia vs intrabdominal GB issue; will put him on Cefepime for Gram-negative organism coverage.? I will add multivitamin, thiamine, folic acid. Will order right upper quadrant ultrasound to better assess the condition of his liver and this regard other possible gallbladder disease.? We will add lipase studies to the workup. of note, upon reviewing the chest x-ray, the chest tube tip appeared to be near the mediastinum, the area was cleaned with chlorhexidine, sterile fashion was kept, dressing and sutures removed, the tube was pulled back 5 cm and sutured back in place with new dressing applied. Chest x-ray to follow in the morning. GI prophylaxis:? Prilosec p.o. DVT prophylaxis:? Given recent procedure and risk of bleeding will place him on pneumatic stockings only. Critical care time used for critical evaluation of this patient, diagnosis, treatment and coordination of care, review her records and documentation TOTAL CRITICAL CARE TIME? 60? MIN upon evaluation and admission to the critical care unit, formulate in critical care time in management, lab review, review of images, stabilizing respiratory status, stabilizing hemodynamics status, readjusting the chest tube, discussion and coordination with consultants, completely separate from any procedures performed. . Patient's care was discussed in detail with Dr. Serra.? He is aware of all the above as well as the plan of care for this patient. <AVRIL Garcia - Last Filed: 10/02/24 19:52> ASSESSMENT: 1.? Acute alcohol intoxication 2.? Large right pleural effusion status post thoracentesis and chest tube placement 3.? Postprocedural re-expansion pulmonary edema 4.? Acute kidney injury (multifactorial likely dehydration, KEYUR inhibitor and volume losses) 5.? Hypoalbuminemia 6.? Alcoholic transaminitis 7.? Reactive versus infectious leukocytosis 8.? Reactive tachypnea and tachycardia 9.? Normocytic anemia likely related to alcohol cell destruction and chronic disease 10.? Postprocedural hypotension likely due to thoracentesis and volume depletion 11.? Small right-sided pneumothorax postprocedural 12.? Enlarged fatty liver 13.? Gallbladder changes in need of further evaluation PLAN OF CARE: Patient will be admitted to the ICU, monitor vital signs, I's and O's, patient is already on a phenobarbital protocol, will monitor CIWA closely and treat as needed with librium po, will give him albumin to increase oncotic pressure, with subsequent diuresis.? Will hold KEYUR.? Thus far I do not see any evidence of sepsis. Patient's chest tube appears to have been successful in treating the pleural effusion, fluids are pending for analysis and diagnostic studies, however the tube appears to be too far in close to the mediastinum, this will need to be pulled back about 4-5 cm and will obtain postprocedural imaging. We will continue to avoid any other nephrotoxins and repeat laboratories, order sputum culture and Gram stain given that there is a possibility the patient has a concomitant pneumonia vs intrabdominal GB issue; will put him on Cefepime for Gram-negative organism coverage.? I will add multivitamin, thiamine, folic acid. Will order right upper quadrant ultrasound to better assess the condition of his liver and this regard other possible gallbladder disease.? We will add lipase studies to the workup. of note, upon reviewing the chest x-ray, the chest tube tip appeared to be near the mediastinum, the area was cleaned with chlorhexidine, sterile fashion was kept, dressing and sutures removed, the tube was removed 5 cm and sutured back in place with new dressing applied. Chest x-ray to follow in the morning. GI prophylaxis:? Prilosec p.o. DVT prophylaxis:? Given recent procedure and risk of bleeding will place him on pneumatic stockings only. Critical care time used for critical evaluation of this patient, diagnosis, treatment and coordination of care, review her records and documentation TOTAL CRITICAL CARE TIME? 60? MIN upon evaluation and admission to the critical care unit, formulate in critical care time in management, lab review, review of images, stabilizing respiratory status, stabilizing hemodynamics status, readjusting the chest tube, discussion and coordination with consultants, completely separate from any procedures performed. . Patient's care was discussed in detail with Dr. Serra.? He is aware of all the above as well as the plan of care for this patient. <Sudhir Serra MD - Last Filed: 10/02/24 16:52> Total time managing care of this patient today: 60 minutes. <Sudhir Serra MD - Last Filed: 10/02/24 16:52>
[2024-10-02] MEDS: Albumin Human 25 % 100 ML 133.33 ML IV ×2 (00:44→01:49)
[2024-10-02 01:59] LABS: Lipase 61 U/L (8-78)
[2024-10-02] MEDS: chlordiazePOXIDE HCl 25 MG CAPSULE 50 MG PO (02:38)
[2024-10-02] MEDS: cefEPime HCl 1 GM in 0.9 % Sodium Chloride 50 ML IV ×3 (02:43→18:04)
[2024-10-02 04:37] LABS: VBG Base Excess -3.2 mmol/L; VBG HCO3 19 mmol/L (22-26); VBG pCO2 27 mmHg; VBG pH 7.45 (7.32-7.43); VBG pO2 68 mmHg
[2024-10-02 04:46] LABS: Venous Blood Gas Refer to POC result
[2024-10-02 04:58] LABS: MANUAL DIFF FLAG NO
[2024-10-02 05:00] LABS: Basophils Percent Auto 0.3 % (0-2); Hematocrit 34.4 % (42.0-52.0); Hemoglobin 11.6 g/dl (14.0-18.0); Imm Gran Abs Auto 0.03 X10*3/uL (0.00-0.03); Imm Gran Pct Auto 0.3 % (0.0-0.4); Lymphocytes Absolute Auto 0.7 X10*3/uL (1.2-4.9); Lymphocytes Percent Auto 7.9 % (20-40); Mean Corpuscular HGB Conc 33.7 g/dl (31.0-36.0); Mean Corpuscular Hemoglobin 32.3 pg (27.0-33.0); Mean Corpuscular Volume 95.8 fL (80.0-98.0); Mean Platelet Volume 9.7 fL (9.4-12.4); Monocytes Absolute Auto 0.6 X10*3/uL (0.1-1.2); Monocytes Percent Auto 7.3 % (2-11); Neutrophils Absolute Auto 7.3 x10*3/uL (2.0-8.3); Neutrophils Percent Auto 84.2 % (45-73); Platelet Count 100 X10*3/uL (160-400); Red Blood Count 3.59 X10*6/uL (4.60-5.80); Red Cell Distribution Width 16.6 % (11.0-16.0); White Blood Count 8.6 X10*3/uL (4.8-10.8)
[2024-10-02 05:20] LABS: Alanine Aminotransferase 32 U/L (0-40); Albumin Level 4.2 g/dL (3.5-5.0); Alkaline Phosphatase 100 U/L (39-117); Anion Gap 21 (12-20); Aspartate Amino Transferase 108 U/L (5-37); Bilirubin Total 2.3 mg/dL (0.0-1.0); Blood Urea Nitrogen 12 mg/dL (9-16); Calcium 8.2 mg/dL (8.4-10.2); Carbon Dioxide 18 mmol/L (22-29); Chloride 104 mmol/L (96-108); Creatinine Clr Calc Pharmacy 80.5; Estimated Glomerular Filt Rate 55; Glucose Random 102 mg/dL (60-115); Magnesium 1.4 mg/dL (1.6-2.6); Phosphorus 2.6 mg/dL (2.7-4.5); Potassium 4.9 mmol/L (3.3-5.1); Sodium 138 mmol/L (135-145); Total Protein 6.2 g/dL (6.5-8.0)
[2024-10-02] MEDS: Omeprazole 20 MG CAPSULE.DR PO (05:34)
[2024-10-02] MEDS: Magnesium Sulfate/H2O 2 GM/50 ML PIGGYBACK IV (05:38)
[2024-10-02] MEDS: Sodium,Potassium Phosphates POWD.PACK 2 PACKET PO (05:57)
--- NOTE | 2024-10-02 06:43 | PC.NURSE ---
Patient admitted from ED, alert and oriented. Patient with scoring high on CIWA scale, PA notified and one time dose librium given. Right mid-axillary chest tube with large amount of drainage, dressing removed, chest tube placement adjusted by PA, and occlusive dressing applied. Patient updated on plan of care.
--- NOTE | 2024-10-02 07:37 | PC.RT ---
Pt found to have removed HFNC by RN, RT called, pt noted 94% on RA. HFNC on standby, pt in no distress.
--- NOTE | 2024-10-02 07:39 | PM.PNTS ---
Subjective Subjective Date of Service: 10/02/24 Interval history: Patient currently in ICU for continued restorative measures. Chest tube still putting out significant serous fluid. Patient has marked improvement of his respiratory symptoms. Physical Exam Vital Signs: Vital Signs: Last Vital Signs Temp 99.0 F 10/02/24 03:56 Pulse 123 H 10/02/24 07:00 Resp 27 H 10/02/24 07:00 BP 144/95 H 10/02/24 07:00 Pulse Ox 93 10/02/24 07:00 O2 Del Method High Flow Nasal C annula 10/02/24 07:00 O2 Flow Rate 40 10/02/24 07:00 FiO2 45 10/02/24 07:00 Oxygen Flow Rate 40 10/02/24 01:24 BMI result Body Mass Index 36.0 Chest: Other: Chest tube intact. Pleur-evac with several 100 cc of serous fluid. No obvious air leak demonstrated. Procedures Date of Service Date of Service: 10/02/24 Progress Note: A&P Assessment and plan (1) Pleural effusion, right: Status: Acute (2) MDD (major depressive disorder): Status: Acute (3) Fall: Status: Acute Plan At present, continue current therapy. Encourage incentive spirometry, out of bed. Pleural fluid cytology and cultures sent last night and still pending. A.m. chest x-ray demonstrates resolution of effusion. Time Spent With Patient Time: Total time managing care of this patient today ____ minutes. Quality Stroke Does the patient have a stroke diagnosis?: No VTE Prior VTE?: No VTE Risk Level:: Medical - moderate - high VTE Device Contraindication: N/A - Device Ordered VTE Drug Contraindication: N/A - Med Ordered
[2024-10-02 09:29] LABS: Albumin Pleural Fluid 2.4; Glucose Pleural Fluid 132; LDH Pleural Fluid 151
[2024-10-02 09:30] LABS: Amylase Pleural Fluid 64
[2024-10-02 09:31] LABS: pH Pleural Fluid 7.46
[2024-10-02] MEDS: PHENobarbitaL 15 MG TABLET 45 MG PO ×2 (09:49→20:29)
[2024-10-02] MEDS: Multivitamin TABLET 1 TAB PO (09:50)
[2024-10-02] MEDS: Folic Acid 1 MG TABLET PO (09:52)
[2024-10-02] MEDS: Thiamine HCL 100 MG TABLET PO (09:52)
[2024-10-02] MEDS: chlordiazePOXIDE HCl 25 MG CAPSULE PO (14:03)
[2024-10-02 14:44] LABS: Amphetamine Screen Urine Not Detected (Not Detect); Barbiturates, Urine POSITIVE (Not Detect); Benzodiazepines Screen Urine Not Detected (Not Detect); Buprenorphine Scr Not Detected (Not Detect); Cannabinoid Screen Urine Not Detected (Not Detect); Cocaine Screen Urine Not Detected (Not Detect); Fentanyl, urine Not Detected (Not Detect); Methadone Screen, Urine Not Detected (Not Detect); Opiate Screen Urine Not Detected (Not Detect); Oxycodone Screen Urine Not Detected (Not Detect); Phencyclidine Screen Urine Not Detected (Not Detect)
--- NOTE | 2024-10-02 14:46 | PM.EVENT ---
Event Note Date of Service: 10/02/24 Event Note: ICU downgrade for large pleural effusion with hypotension. CT in place Time Spent With Patient Time: Total time managing care of this patient today ____ minutes.
--- NOTE | 2024-10-02 14:50 | MHC.CM.PN ---
Met with pt to review d/c planning needs: pt resides w/parents: has no services or DME. Dr. Krause, HCP at home: copy requested. Pt states family will transport pt to home. CARE team to see for ETOH use.
[2024-10-03] MEDS: cefEPime HCl 1 GM in 0.9 % Sodium Chloride 50 ML IV ×3 (01:47→17:42)
[2024-10-03 03:05] VITALS: BP 122/81; PULSE 112; RESP 18; TEMP 36.6; O2SAT 99
[2024-10-03] MEDS: Omeprazole 20 MG CAPSULE.DR PO (05:51)
[2024-10-03 07:28] VITALS: BP 133/92; PULSE 116; RESP 18; TEMP 36.2; O2SAT 97
--- NOTE | 2024-10-03 08:09 | PM.PNTS ---
Subjective Subjective Date of Service: 10/03/24 <Suma Thornton PA-C - Last Filed: 10/03/24 08:15> 10/03/24 <David Iniguez MD - Last Filed: 10/03/24 10:36> Interval history: Leaking around chest tube site. Feels ok, improved. <Suma Thornton PA-C - Last Filed: 10/03/24 08:15> Physical Exam Vital Signs: Vital Signs: Last Vital Signs Temp 97.2 F 10/03/24 07:28 Pulse 116 H 10/03/24 07:28 Resp 18 10/03/24 07:28 BP 133/92 H 10/03/24 07:28 Pulse Ox 97 10/03/24 07:28 O2 Del Method Room Air 10/03/24 07:28 O2 Flow Rate 2 10/02/24 10:00 FiO2 45 10/02/24 07:00 Oxygen Flow Rate 40 10/02/24 01:24 BMI result Body Mass Index 36.0 <Suma Thornton PA-C - Last Filed: 10/03/24 08:15> Const: General: comfortable, no acute distress and alert <VIK Valdez Last Filed: 10/03/24 08:15> Orientation/consciousness: patient oriented x3 <Suma Thornton PA-C - Last Filed: 10/03/24 08:15> Chest: Other: right lateral chest tube in place pleurvac with serous output no air leak <Suma Thornton PA-C - Last Filed: 10/03/24 08:15> Resp: Effort & Inspection: normal respiratory effort, able to speak in complete sentences, not tachypneic and no use of accessory muscles <Suma Thornton PA-C - Last Filed: 10/03/24 08:15> Skin: General skin exam: no rashes or lesions noted <VIK Valdez Last Filed: 10/03/24 08:15> Neuro: General: patient oriented x3 and moves all extremities <VIK Valdez Last Filed: 10/03/24 08:15> Procedures Date of Service Date of Service: 10/03/24 <Suma Thornton PA-C - Last Filed: 10/03/24 08:15> 10/03/24 <David Iniguez MD - Last Filed: 10/03/24 10:36> Progress Note: A&P Assessment and plan (1) Pleural effusion, right: Status: Acute <Suma Thornton PA-C - Last Filed: 10/03/24 08:15> (2) Alcohol withdrawal: Status: Acute <Suma Thornton PA-C - Last Filed: 10/03/24 08:15> Assessment and Plan: Incidentally found to have large right pleural effusion on imaging. S/p right chest tube placement. About 600cc over 24hrs. VSS. Chest tube in place with no air leak. Can place to water seal. Continue to monitor output. Hopefully remove chest tube tomorrow morning if output downtrends. Encouraged OOB/ambulation. <Suma Thornton PA-C - Last Filed: 10/03/24 08:15> Incidentally found to have large right pleural effusion on imaging. S/p right chest tube placement. About 600cc over 24hrs. VSS. Chest tube in place with no air leak. Can place to water seal. Continue to monitor output. Hopefully remove chest tube tomorrow morning if output downtrends. Encouraged OOB/ambulation. As noted above <David Iniguez MD - Last Filed: 10/03/24 10:36> Time Spent With Patient Time: Total time managing care of this patient today ____ minutes. <Suma Thornton PA-C - Last Filed: 10/03/24 08:15> Quality Stroke Does the patient have a stroke diagnosis?: No <Suma Thornton PA-C - Last Filed: 10/03/24 08:15> VTE Prior VTE?: No <VIK Valdez Last Filed: 10/03/24 08:15> VTE Risk Level:: Medical - moderate - high <VIK Valdez Last Filed: 10/03/24 08:15> VTE Device Contraindication: N/A - Device Ordered <VIK Valdez Last Filed: 10/03/24 08:15> VTE Drug Contraindication: N/A - Med Ordered <Suma Thornton PA-C - Last Filed: 10/03/24 08:15>
--- NOTE | 2024-10-03 08:11 | PC.NURSE ---
Assumed care of pt at 06:45, at approximately 0730 pt reporting chest tube site leaking. Upon assessment chest tube dressing has moderate amount of straw color drainage, gown wet, and drainage on bed sheets. Pt reports no S&S of respiratory distress, o2 97% on room air, LS dim. Dr. Iniguez and PA at bedside for morning rounds. MD disconnected chest tube from wall suction and instructed for pt to remain on water seal only. PA instructed this RN to change dressing site with xeroform covered by gauze then ABD and cover with silk tape. Pt tolerated dressing change well, denies pain at this time.
[2024-10-03] MEDS: Thiamine HCL 100 MG TABLET PO (09:31)
[2024-10-03] MEDS: PHENobarbitaL 15 MG TABLET 45 MG PO ×2 (09:31→19:48)
[2024-10-03] MEDS: Multivitamin TABLET 1 TAB PO (09:31)
[2024-10-03] MEDS: Folic Acid 1 MG TABLET PO (09:31)
[2024-10-03 13:42] LABS: Hematocrit 37.2 % (42.0-52.0); Hemoglobin 12.6 g/dl (14.0-18.0); Mean Corpuscular HGB Conc 33.9 g/dl (31.0-36.0); Mean Corpuscular Hemoglobin 32.5 pg (27.0-33.0); Mean Corpuscular Volume 95.9 fL (80.0-98.0); Mean Platelet Volume 10.6 fL (9.4-12.4); Red Blood Count 3.88 X10*6/uL (4.60-5.80); Red Cell Distribution Width 16.8 % (11.0-16.0); White Blood Count 10.2 X10*3/uL (4.8-10.8)
[2024-10-03 13:44] LABS: Platelet Count 96 X10*3/uL (160-400)
[2024-10-03 14:04] LABS: Alanine Aminotransferase 40 U/L (0-40); Albumin Level 3.7 g/dL (3.5-5.0); Alkaline Phosphatase 109 U/L (39-117); Anion Gap 16 (12-20); Aspartate Amino Transferase 131 U/L (5-37); Bilirubin Direct 1.4 mg/dL (0.0-0.5); Bilirubin Total 3.4 mg/dL (0.0-1.0); Blood Urea Nitrogen 18 mg/dL (9-16); Calcium 8.4 mg/dL (8.4-10.2); Carbon Dioxide 21 mmol/L (22-29); Chloride 101 mmol/L (96-108); Creatinine Clr Calc Pharmacy 114.9; Estimated Glomerular Filt Rate > 60; Glucose Random 130 mg/dL (60-115); Magnesium 1.6 mg/dL (1.6-2.6); Potassium 4.1 mmol/L (3.3-5.1); Sodium 134 mmol/L (135-145)
--- NOTE | 2024-10-03 15:13 | HO.PM.IMPN ---
Subjective Subjective Date of Service: 10/03/24 Interval History: seen and examined this morning follow up for etoh withdrawal, pleural effusion chest tube in place denies withdrawal symptoms Review of Systems Review of Systems: Yes all other systems are reviewed and are negative Constitutional Constitutional: Denies chills and Denies fever(s) Cardiovascular Cardiovascular: Denies chest pain, Denies palpitations and Denies dyspnea Respiratory Respiratory: Denies cough and Denies dyspnea Gastrointestinal Gastrointestinal: Denies abdominal pain, Denies nausea and Denies vomiting Endocrine Endocrine: Denies palpitations Physical Exam Vital Signs: Vital Signs: Last Vital Signs Temp 97.2 F 10/03/24 07:28 Pulse 116 H 10/03/24 07:28 Resp 18 10/03/24 07:28 BP 133/92 H 10/03/24 07:28 Pulse Ox 97 10/03/24 07:28 O2 Del Method Room Air 10/03/24 07:28 O2 Flow Rate 2 10/02/24 10:00 FiO2 45 10/02/24 07:00 Oxygen Flow Rate 40 10/02/24 01:24 BMI result Body Mass Index 36.0 Const: General: cooperative, no acute distress, alert and awake Nutritional Appearance: average body habitus Orientation/consciousness: patient oriented x3 Resp: Other: right lateral chest tube in place with serous drainage Effort & Inspection: normal respiratory effort, able to speak in complete sentences, no respiratory distress and no use of accessory muscles Cardio: Rate: tachycardic GI: Inspection: No distended Palpation (GI): Soft to palpation and nontender Neuro: General: patient oriented x3, moves all extremities and CN's II-XI intact bilaterally Extrem: General: Yes no pedal edema Objective Data Active Medications Folic Acid (Folic Acid 1 Mg Tablet) 1 mg PO DAILY [facility] Last Admin: 10/03/24 09:31 Dose: 1 mg Documented By: ANIKA Cefepime HCl 1 gm/ Sodium (Chloride) 50 mls @ 100 mls/hr IV Q8H [facility] Last Infusion: 10/03/24 12:02 Dose: Infused Documented By: ANIKA Multivitamins/Vitamin C (Multivitamin Tablet) 1 tab PO DAILY [facility] Last Admin: 10/03/24 09:31 Dose: 1 tab Documented By: ANIKA Omeprazole (Omeprazole 20 Mg Lisa.) 20 mg PO DAILY@0630 [facility] Last Admin: 10/03/24 05:51 Dose: 20 mg Documented By: NABILA Pharmacy Consult (Consult Rx Etoh Phenob Im/Po) 1 each MISCELLANE ONCE PRN; Protocol PRN Reason: Consult order Phenobarbital (Phenobarbital 15 Mg Tablet) 45 mg PO BID [facility] Stop: 10/03/24 21:01 Last Admin: 10/03/24 09:31 Dose: 45 mg Documented By: ANIKA Phenobarbital (Phenobarbital 30 Mg Tablet) 30 mg PO BID [facility] Stop: 10/05/24 21:01 Phenobarbital (Phenobarbital 15 Mg Tablet) 15 mg PO DAILY [facility] Stop: 10/07/24 09:01 Thiamine HCl (Thiamine Hcl 100 Mg Tablet) 100 mg PO DAILY [facility] Last Admin: 10/03/24 09:31 Dose: 100 mg Documented By: ANIKA Labs 10/03/24 12:50 10/03/24 12:50 Labs: Laboratory Results - last 24 hr 10/03/24 12:50 MCV 95.9 MCH 32.5 MCHC 33.9 RDW 16.8 H Plt Count 96 L MPV 10.6 Absolute Nucleated RBC 0.000 Nucleated RBC % (auto) 0.0 Anion Gap 16 Estim Creat Clear Calc 114.9 Estimated GFR > 60 Random Glucose 130 H Calcium 8.4 Magnesium 1.6 Total Bilirubin 3.4 H Direct Bilirubin 1.4 H AST 131 H ALT 40 Alkaline Phosphatase 109 Total Protein 6.0 L Albumin 3.7 Microbiology Microbiology Results: Microbiology 10/01/24 Unknown Gram Stain - Final Thoracentesis Fluid Anaerobic Culture - Preliminary No growth to date. Body Fluid Culture - Preliminary No growth to date. Assessment and Plan (1) Alcohol withdrawal: Status: Acute (2) Pleural effusion, right: Status: Acute Plan this is a 49-year-old male with history of alcohol use disorder, depression, hypertension, medical noncompliance who presented to the emergency department with nausea and vomiting found to have large volume pleural effusion with collapsed right lung status post right chest tube placement admitted downgraded from the medical floor 10/02 large right pleural effusion s/p right chest tube placement -1.5L of serious fluid removed on placement of chest tube exudative by lights criteria. gram stain no organisms seen, no growth to date on culture; pathology pending repeat CXR ordered for AM thoracic surgery following empiric cefepime started in ICU, no evidence of active infection at this time. likely d/c in am post procedural hypotension due to fluid shifts/volume depletion resolved alcohol use disorder with alcohol withdrawal continue phenobarbital protocol continue thiamine, folic acid, multi-vitamin resume po mag replacement Addiction medicine consult pending Elevated LFTs abdominal US negative for GB pathology Hepatomegaly and steatosis versus hepatocellular disease on CT bili up, transaminitis improving Gi consult pending sinus tachycardia CIWA low, does not appear to be actively withdrawing at this time possible reflex tachycardia from stopping clonidine check thyroid function will resume clonidine thrombocytopenia likely due to etoh use follow CBC HTN hold lisinopril MARCELINO resolved hypomagnesemia Improved with replacement dvt ppx - SCDs patient requires ongoing inpatient stay for management of pleural effusion with chest tube placement, elevated LFTs and specialist evaluation Quality Stroke Does the patient have a stroke diagnosis?: No VTE Prior VTE?: No VTE Risk Level:: Medical - moderate - high VTE Device Contraindication: N/A - Device Ordered VTE Drug Contraindication: N/A - Med Ordered
[2024-10-03 15:44] VITALS: BP 125/82; RESP 18; TEMP 36; O2SAT 97
--- NOTE | 2024-10-03 16:43 | PM.GICN ---
History of Present Illness Data of Consult Service Date: 10/03/24 Requesting physician: Kiera Brand Primary Care Provider: Alex Krause MD [facility] Reason for consult: Elevated LFTs 49 YM with history of alcohol use disorder, depression, hypertension, medical noncompliance admitted ICU at [facility] on 10/02/24 with nausea and vomiting. Labs on admission showed white blood cell count 12.7, creatinine 2.33, AST 157, ALT 60, total bilirubin 0.8, albumin 2.8, ethyl alcohol level 421. Chest, abdominal and pelvic CT showed right-sided large volume effusion with collapsed right lung. Thoracic surgery was consulted and pt had thoracentesis with removal of 1 0.5 L of serous fluid and placement of right-sided chest tube. Pt transferred to the medical floor 10/02 10/03 Chest tube pulled out accidentally and was not replaced since pt denied sob. o2 sat high 90s. Pt reports he was told he had elevated LFTs a few years ago. He has been drinking 1.5 litres of hard liquor every 3 days for the past 20 years He has been through an outpt treatment program to quit drinking and remained sober for a few months. Pt complains of fatihue, occasional heartburn and intermittent diarrhea. He denies dysphagia, melena or hematochezia. Pt admits to snoring and denies sleep apnea He denies being on anticoagulation or using aspirin or nonsteroidals. He quitted smoking 21 years ago after smoking 2 PPD x 20 yrs. 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 A paternal grandfather was an alcoholic. Pt denies having an EGD or a colonoscopy in the past. 10/01/[address] SCAN SHOWED: 1. Interval placement of right-sided chest tube with resolution of previously seen large pleural effusion. There is a tiny pneumothorax. 2. There is airspace disease in the reexpanded right lung which could represent reexpansion pulmonary edema. 3. Enlarged fatty liver. 4. Distended gallbladder with some minimal streaky changes in the right anterior pararenal space abutting the gallbladder and pancreatic head. Would correlate with serum lipase for pancreatitis and right upper quadrant ultrasound for gallbladder disease, although felt to be unlikely. Review of Systems Review of Systems: Yes all other systems are reviewed and are negative PMFSH Past Medical History Medical History HTN (hypertension) Alcohol abuse Social History Social History Household Members: Family Housing: House Do you presently have visiting nurse or other home services: No Alcohol intake: current Alcohol intake frequency: 3 or more drinks per day Alcohol type: hard liquor Patient Tobacco Use Status: Former Tobacco user Tobacco use type: Cigarette Cigarette Packs Per Day: 2 Cigarettes Per Day: 40.0 Years Smoked: 20 e-Cigarette/Vaping Use: Never Used Second Hand Smoke Exposure: No service: No Meds Allergies Allergy/AdvReac Type Severity Reaction Status Date / Time Penicillins Allergy Mild hives Verified 10/01/24 11:05 Active Medications: Current Medications Clonidine HCl (Clonidine Hcl 0.1 Mg Tablet) 0.1 mg PO BID [facility]; Protocol Clonidine HCl (Clonidine Hcl 0.1 Mg Tablet) 0.1 mg PO ONCE ONE Stop: 10/03/24 16:46 Folic Acid (Folic Acid 1 Mg Tablet) 1 mg PO DAILY [facility] Last Admin: 10/03/24 09:31 Dose: 1 mg Cefepime HCl 1 gm/ Sodium (Chloride) 50 mls @ 100 mls/hr IV Q8H [facility] Last Infusion: 10/03/24 12:02 Dose: Infused Magnesium Oxide (Magnesium Oxide 400 Mg Tablet) 400 mg PO DAILY [facility] Multivitamins/Vitamin C (Multivitamin Tablet) 1 tab PO DAILY [facility] Last Admin: 10/03/24 09:31 Dose: 1 tab Omeprazole (Omeprazole 20 Mg Capsule.Dr) 20 mg PO DAILY@0630 [facility] Last Admin: 10/03/24 05:51 Dose: 20 mg Pharmacy Consult (Consult Rx Etoh Phenob Im/Po) 1 each MISCELLANE ONCE PRN; Protocol PRN Reason: Consult order Phenobarbital (Phenobarbital 15 Mg Tablet) 45 mg PO BID [facility] Stop: 10/03/24 21:01 Last Admin: 10/03/24 09:31 Dose: 45 mg Phenobarbital (Phenobarbital 30 Mg Tablet) 30 mg PO BID [facility] Stop: 10/05/24 21:01 Phenobarbital (Phenobarbital 15 Mg Tablet) 15 mg PO DAILY [facility] Stop: 10/07/24 09:01 Thiamine HCl (Thiamine Hcl 100 Mg Tablet) 100 mg PO DAILY [facility] Last Admin: 11/21/24 09:31 Dose: 100 mg Home Medications ?Medication ?Instructions ?Recorded ?Confirmed ?Last Taken ?Type vitamin A 2,400 mcg capsule 2,400 mcg PO DAILY 08/01/24 10/01/24 1 Week Ago History ~09/24/24 vitamin B complex 1 tab PO DAILY 08/01/24 10/01/24 1 Week Ago History ~09/24/24 magnesium oxide 400 mg PO DAILY 10/01/24 10/01/24 1 Week Ago History ~09/24/24 mirtazapine 7.5 mg tablet 7.5 mg PO BEDTIME PRN Depression 10/01/24 10/01/24 1 Week Ago History ~09/24/24 [id number] 300 mcg-K 60 1 tab PO DAILY 10/01/24 10/01/24 1 Week Ago History mcg-lycop 600 mcg-lutein 300 mcg ~09/24/24 tablet (Centrum Silver Men) Physical Exam Vital Signs: Vital Signs: Last Vital Signs Temp 96.8 F 10/03/24 15:44 Pulse 116 H 10/03/24 07:28 Resp 18 10/03/24 15:44 BP 125/82 10/03/24 15:44 Pulse Ox 97 10/03/24 15:44 O2 Del Method Room Air 10/03/24 15:44 O2 Flow Rate 2 10/02/24 10:00 FiO2 45 10/02/24 07:00 Oxygen Flow Rate 40 10/02/24 01:24 BMI result Body Mass Index 36.0 Const: General: no acute distress, anxious and ill appearing Nutritional Appearance: obese Orientation/consciousness: patient oriented x3 HEENT: Head: Yes normal to inspection Ears: hearing grossly normal bilaterally Eyes: Sclerae: sclerae normal Pupils: Equal, round and reactive pupils present Neck: Neck: Yes normal visual inspection Chest: Chest palpation & inspection: normal inspection of the chest Resp: Effort & Inspection: normal respiratory effort Auscultation: clear to auscultation bilaterally Cardio: Palpation: normal PMI Rate: regular rate Rhythm: regular rhythm Heart sounds: S1 normal heart sound present, S2 normal heart sound present and no murmurs GI: Inspection: Yes obesity Palpation (GI): Soft to palpation, nontender and No hepatosplenomegaly present Auscultation: normal bowel sounds Rectal Exam - Male: Yes deferred Skin: General skin exam: no rashes or lesions noted Neuro: General: patient oriented x3, gait normal and moves all extremities Cranial nerves: Yes Equal, round and reactive pupils present Psych: Appearance: grossly normal Mental Status: mental status grossly normal Results Labs 10/04/24 05:47 10/04/24 05:47 Labs: Short CBC 10/03/24 Range/Units 12:50 WBC 10.2 (4.8-10.8) X10*3/uL Hgb 12.6 L (14.0-18.0) g/dl Hct 37.2 L (42.0-52.0) % Plt Count 96 L (160-400) X10*3/uL BMP 10/03/24 12:50 Sodium 134 L Potassium 4.1 Chloride 101 Carbon Dioxide 21 L BUN 18 H Creatinine 0.96 Calcium 8.4 Liver Function 10/03/24 Range/Units 12:50 Total Bilirubin 3.4 H (0.0-1.0) mg/dL Direct Bilirubin 1.4 H (0.0-0.5) mg/dL AST 131 H (5-37) U/L ALT 40 (0-40) U/L Alkaline Phosphatase 109 (39-117) U/L Albumin 3.7 (3.5-5.0) g/dL Microbiology Microbiology Results: Microbiology 10/01/24 Unknown Thoracentesis Fluid Gram Stain - Final 10/01/24 Unknown Thoracentesis Fluid Anaerobic Culture - Preliminary No growth to date. 10/01/24 Unknown Thoracentesis Fluid Body Fluid Culture - Preliminary No growth to date. Assessment and Plan (1) Elevated liver enzymes: Status: Acute (2) Hydrothorax: Status: Acute (3) Alcohol use disorder, severe, dependence: Status: Acute Plan 49 YM with history of alcohol use disorder, depression, hypertension, medical noncompliance admitted ICU at [facility] on 10/02/24 with nausea and vomiting found to have large volume pleural effusion with collapsed right lung status post right chest tube placement admitted downgraded from the medical floor 10/02 Labs on admission showed white blood cell count 12.7, creatinine 2.33, AST 157, ALT 60, total bilirubin 0.8, albumin 2.8, ethyl alcohol level 421. Abd CT scan showed enlarged fatty liver with a distended GB Resolution of rt pleural effusion after Chest tube placement. Pleural fluid analysis was cw transudate and SAAG ratio was >1.1 Preliminary culture results - negative LFTs are improving. 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 MELD score is 10 RECOMMENDATIONS: 1. Agree with CIWA protocol and PO Omeprazole. 2. Low sodium diet and start Furosemide 20 mg and Spironolactone 50 mg daily 3. Check Hep B and C serologies, iron studies, DARRIUS - added to am labs 4. Echocardiogram to rule out cardiomyopathy related to ETOH abuse 5. Pt planning to enroll in ETOH rehab to help him quit drinking Pt advised to call the GI clinic to [facility]: Patients who are severely symptomatic should undergo a therapeutic thoracentesis followed by management with a sodium-restricted diet and diuretics ([email or web address] the [email or web address]?search=[email or web address]+[email or web address]&[email or web address]&source=see_link?40 mg and?[email or web address] the [email or web address]+[email or web address]&source=see_link?100 mg daily to start). Patients who are mildly to moderately symptomatic can be treated initially with sodium restriction and diuretics. Management options for patients who are refractory to sodium restriction and diuretics include serial thoracenteses, transjugular intrahepatic portosystemic shunt (TIPS) placement, pleurodesis, thoracoscopic surgery to repair diaphragmatic defects, and liver transplantation. Procedures Date of Service Date of Service: 10/04/24
[2024-10-03 17:01] VITALS: BP 138/84; PULSE 115; RESP 20; O2SAT 96
--- NOTE | 2024-10-03 17:01 | PC.NURSE ---
At approximately 16:48 pts chest tube became dislodged. Pt reporting minimal chest discomfort at this time with inhalation and exhalation. Occlusive dressing applied immediately. Vitals as follows, HR 115, RR 20, BP 138/84, o2 96% on room air. MD Iniguez called, per MD Apply occlusive dressing xeroform, gauze, and silk tape all 4 sides covered, STAT CXR ordered, per MD Iniguez was planning on removing chest tube tomorrow AM. AVRIL Brand and MD Smith at bedside to assess pt. Pt states he feels ok, denies SOB, does not appear to be in any respiratory distress at this time. Tele and continuous o2 ordered.
[2024-10-03] MEDS: cloNIDine HCL 0.1 MG TABLET PO (17:42)
[2024-10-03 17:44] LABS: TSH reflex Free T4 3.89 uIU/mL (0.32-4.0)
[2024-10-03 17:58] VITALS: BMI 35.0
[2024-10-03 18:06] VITALS: O2SAT 96
[2024-10-03 19:26] VITALS: BP 101/58; PULSE 116; RESP 20; TEMP 36.6; O2SAT 98
[2024-10-04 02:39] VITALS: BP 113/63; PULSE 106; RESP 18; TEMP 36.4; O2SAT 96
[2024-10-04] MEDS: cefEPime HCl 1 GM in 0.9 % Sodium Chloride 50 ML IV ×2 (02:47→10:22)
[2024-10-04] MEDS: Omeprazole 20 MG CAPSULE.DR PO (05:13)
--- NOTE | 2024-10-04 05:43 | MHC.PIE ---
p; pt noted with chest tube site dsg soaking, note; chest tube was disconnected on previous shift, abd pad was taped with silk tape on all 4 sides per md at that time. note; no crepitus noted, o2 sat stable at 96 on RA at this time. i; dsg site reinforced e; will cont to monitor
[2024-10-04 07:35] VITALS: BP 124/81; PULSE 105; RESP 16; TEMP 36.2; O2SAT 97
[2024-10-04 07:36] LABS: Hematocrit 33.1 % (42.0-52.0); Mean Corpuscular HGB Conc 33.2 g/dl (31.0-36.0); Mean Corpuscular Hemoglobin 31.9 pg (27.0-33.0); Mean Corpuscular Volume 95.9 fL (80.0-98.0); Red Blood Count 3.45 X10*6/uL (4.60-5.80); Red Cell Distribution Width 16.7 % (11.0-16.0); White Blood Count 7.1 X10*3/uL (4.8-10.8)
[2024-10-04 07:37] LABS: Platelet Count 81 X10*3/uL (160-400)
[2024-10-04 08:00] VITALS: BMI 35.7
[2024-10-04 08:03] LABS: Alanine Aminotransferase 36 U/L (0-40); Albumin Level 2.9 g/dL (3.5-5.0); Alkaline Phosphatase 90 U/L (39-117); Anion Gap 12 (12-20); Aspartate Amino Transferase 123 U/L (5-37); Bilirubin Direct 1.2 mg/dL (0.0-0.5); Bilirubin Total 2.5 mg/dL (0.0-1.0); Blood Urea Nitrogen 18 mg/dL (9-16); Calcium 7.7 mg/dL (8.4-10.2); Carbon Dioxide 24 mmol/L (22-29); Chloride 101 mmol/L (96-108); Estimated Glomerular Filt Rate > 60; Glucose Random 90 mg/dL (60-115); Potassium 3.9 mmol/L (3.3-5.1); Sodium 133 mmol/L (135-145); Total Protein 4.8 g/dL (6.5-8.0)
[2024-10-04] MEDS: cloNIDine HCL 0.1 MG TABLET PO (08:24)
[2024-10-04] MEDS: Multivitamin TABLET 1 TAB PO (08:25)
[2024-10-04] MEDS: Folic Acid 1 MG TABLET PO (08:25)
[2024-10-04] MEDS: Thiamine HCL 100 MG TABLET PO (08:25)
[2024-10-04] MEDS: PHENobarbitaL 30 MG TABLET PO ×2 (08:25→20:40)
[2024-10-04] MEDS: Magnesium Oxide 400 MG TABLET PO (08:25)
[2024-10-04 09:15] LABS: Magnesium 1.7 mg/dL (1.6-2.6)
--- NOTE | 2024-10-04 11:38 | PM.PNTS ---
Subjective Subjective Date of Service: 10/04/24 Interval history: Apparently the chest tube tubing was wrapped around his leg and when he moved his leg, the chest tube became dislodged last night. Occlusive dressing placed. Denies shortness of breath this morning. Physical Exam Vital Signs: Vital Signs: Last Vital Signs Temp 97.1 F 10/04/24 07:35 Pulse 105 H 10/04/24 07:35 Resp 16 10/04/24 07:35 BP 124/81 10/04/24 07:35 Pulse Ox 97 10/04/24 07:35 O2 Del Method Room Air 10/04/24 07:35 O2 Flow Rate 2 10/02/24 10:00 FiO2 45 10/02/24 07:00 Oxygen Flow Rate 40 10/02/24 01:24 BMI result Body Mass Index 35.7 Const: General: comfortable, no acute distress and alert Orientation/consciousness: patient oriented x3 Chest: Other: chest tube site dressing saturated with serous output Resp: Effort & Inspection: normal respiratory effort, no respiratory distress, not tachypneic and no use of accessory muscles Skin: General skin exam: no rashes or lesions noted Neuro: General: patient oriented x3 and moves all extremities Procedures Date of Service Date of Service: 10/04/24 Progress Note: A&P Assessment and plan (1) Pleural effusion, right: Status: Acute (2) Hypoxia: Status: Acute (3) Alcohol withdrawal: Status: Acute Plan Incidentally found to have large right pleural effusion on imaging. S/p right chest tube placement which apparently became dislodged last night. CXR shows no air space and minimal residual fluid. Hold off on replacement as effusion has essentially resolved. He however is having drainage at the site. Will therefore place a few sutures to close site to reduce drainage. To be performed at bedside later. Patient was placed in lateral position. The skin was prepped with Betadine. 10cc 1% lidocaine local anesthesia was then infiltrated around the chest tube site. Three simple interrupted silk sutures were placed in the skin with good approximation of the incision site. Sterile dressing placed. The patient tolerated this well. He was instructed on local wound care and will return in 1 week in the office. Time Spent With Patient Time: Total time managing care of this patient today ____ minutes. Quality Stroke Does the patient have a stroke diagnosis?: No VTE Prior VTE?: No VTE Risk Level:: Medical - moderate - high VTE Device Contraindication: N/A - Device Ordered VTE Drug Contraindication: N/A - Med Ordered
--- NOTE | 2024-10-04 14:06 | P.PNIM_ITS ---
Subjective Subjective Date of Service: 10/04/24 Interval History: seen and examined this morning follow up for pleural effusion chest tube accidentally pulled out chest tube. no sob Review of Systems Review of Systems: Yes all other systems are reviewed and are negative Constitutional Constitutional: Denies chills and Denies fever(s) Eyes Eyes: Reports no additional eye complaints, Denies blurry vision, Denies change in vision, Denies diplopia, Denies eye discharge, Denies loss of vision and Denies eye pain ENT Ears, Nose, Mouth, and Throat: Denies dizziness Cardiovascular Cardiovascular: Denies chest pain, Denies palpitations and Denies dyspnea Respiratory Respiratory: Denies cough and Denies dyspnea Gastrointestinal Gastrointestinal: Denies abdominal pain Genitourinary Genitourinary: Reports no additional male genitourinary complaints, Denies hematuria, Denies oliguria, Denies difficulty urinating, Denies dysuria, Denies urinary frequency, Denies urinary hesitancy, Denies urinary incontinence and Denies urinary urgency Musculoskeletal Musculoskeletal: Reports no additional musculoskeletal complaints, Denies numbness and Denies tingling Integumentary/Breasts Skin/Breast: Reports rash and Denies jaundice Neurologic Neurologic: Denies dizziness, Denies loss of vision, Denies numbness and Denies tingling Psychiatric Psychiatric: Reports no additional psychiatric complaints Endocrine Endocrine: Denies palpitations Hematologic/Lymphatic Hematologic/Lymphatic: Reports no additional hematologic/lymphatic complaints Allergic/Immunologic Allergic/Immunologic: Reports no additional allergic/immunologic complaints Physical Exam 2 Vital Signs: Vital Signs: Last Vital Signs Temp 97.1 F 10/04/24 07:35 Pulse 105 H 10/04/24 07:35 Resp 16 10/04/24 07:35 BP 124/81 10/04/24 07:35 Pulse Ox 97 10/04/24 07:35 O2 Del Method Room Air 10/04/24 07:35 O2 Flow Rate 2 10/02/24 10:00 FiO2 45 10/02/24 07:00 Oxygen Flow Rate 40 10/02/24 01:24 BMI result Body Mass Index 35.7 Const: General: cooperative, no acute distress, alert and awake Nutritional Appearance: average body habitus Orientation/consciousness: patient oriented x3 Chest: Other: chest tube out; site with dressing saturated with serous drainage Resp: Effort & Inspection: normal respiratory effort, able to speak in complete sentences, no respiratory distress and no use of accessory muscles Cardio: Rate: tachycardic GI: Inspection: No distended Palpation (GI): Soft to palpation and nontender Neuro: General: patient oriented x3, moves all extremities and CN's II-XI intact bilaterally Extrem: General: Yes no pedal edema Objective Data Active Medications Clonidine HCl (Clonidine Hcl 0.1 Mg Tablet) 0.1 mg PO BID [facility]; Protocol Last Admin: 10/04/24 08:24 Dose: 0.1 mg Documented By: HUSSAIN Folic Acid (Folic Acid 1 Mg Tablet) 1 mg PO DAILY [facility] Last Admin: 10/04/24 08:25 Dose: 1 mg Documented By: HUSSAIN Magnesium Oxide (Magnesium Oxide 400 Mg Tablet) 400 mg PO DAILY [facility] Last Admin: 10/04/24 08:25 Dose: 400 mg Documented By: HUSSAIN Multivitamins/Vitamin C (Multivitamin Tablet) 1 tab PO DAILY [facility] Last Admin: 10/04/24 08:25 Dose: 1 tab Documented By: HUSSAIN Omeprazole (Omeprazole 20 Mg Capsule.Dr) 20 mg PO DAILY@0630 [facility] Last Admin: 10/04/24 05:13 Dose: 20 mg Documented By: NABILA Pharmacy Consult (Consult Rx Etoh Phenob Im/Po) 1 each MISCELLANE ONCE PRN; Protocol PRN Reason: Consult order Phenobarbital (Phenobarbital 30 Mg Tablet) 30 mg PO BID [facility] Stop: 10/05/24 21:01 Last Admin: 10/04/24 08:25 Dose: 30 mg Documented By: HUSSAIN Phenobarbital (Phenobarbital 15 Mg Tablet) 15 mg PO DAILY [facility] Stop: 10/07/24 09:01 Thiamine HCl (Thiamine Hcl 100 Mg Tablet) 100 mg PO DAILY [facility] Last Admin: 10/04/24 08:25 Dose: 100 mg Documented By: HUSSAIN Labs 10/04/24 05:47 10/04/24 05:47 Labs: Laboratory Results - last 24 hr 10/03/24 10/04/24 10/04/24 12:50 05:47 08:35 MCV 95.9 MCH 31.9 MCHC 33.2 RDW 16.7 H Plt Count 81 L MPV 11.0 Absolute Nucleated RBC 0.000 Nucleated RBC % (auto) 0.0 Anion Gap 12 Estim Creat Clear Calc 131.0 Estimated GFR > 60 Random Glucose 90 Calcium 7.7 L D Magnesium 1.7 Total Bilirubin 2.5 H Direct Bilirubin 1.2 H AST 123 H ALT 36 Alkaline Phosphatase 90 Total Protein 4.8 L Albumin 2.9 L TSH 3.89 Microbiology Microbiology Results: Microbiology 10/01/24 Unknown Gram Stain - Final Thoracentesis Fluid Anaerobic Culture - Preliminary No growth to date. Body Fluid Culture - Final No growth after 2 days 10/01/24 Unknown Direct Acid Fast Bacilli Smear - Final Pleural Fluid Assessment and Plan (1) Alcohol withdrawal: Status: Acute (2) Pleural effusion, right: Status: Acute Plan this is a 49-year-old male with history of alcohol use disorder, depression, hypertension, medical noncompliance who presented to the emergency department with nausea and vomiting found to have large volume pleural effusion with collapsed right lung status post right chest tube placement admitted downgraded from the medical floor 10/02 large right pleural effusion s/p right chest tube placement -1.5L of serious fluid removed on placement of chest tube exudative by lights criteria. gram stain no organisms seen, no growth to date on culture; pathology negative for malignant cells pt Inadvertently pulled out chest tube on 10/03, repeat imaging essentially unchaged thoracic surgery following empiric cefepime started in ICU,likely empiric to cover for possible pneumonia, will transition to po abx post procedural hypotension due to fluid shifts/volume depletion resolved alcohol use disorder with alcohol withdrawal continue phenobarbital protocol continue thiamine, folic acid, multi-vitamin resume po mag replacement Addiction medicine consult pending Elevated LFTs abdominal US negative for GB pathology Hepatomegaly and steatosis versus hepatocellular disease on CT overall trending down Gi consult pending sinus tachycardia CIWA low, does not appear to be actively withdrawing at this time TSH wnl possible reflex tachycardia from stopping clonidine, clonidine resumed and HR improving thrombocytopenia likely due to etoh use, trending down follow CBC HTN hold lisinopril MARCELINO resolved hypomagnesemia Improved with replacement continue baseline po replacement dvt ppx - SCDs patient requires ongoing inpatient stay for management of pleural effusion with chest tube placement, elevated LFTs and specialist evaluation Quality Stroke Does the patient have a stroke diagnosis?: No VTE Prior VTE?: No VTE Risk Level:: Medical - moderate - high VTE Device Contraindication: N/A - Device Ordered VTE Drug Contraindication: N/A - Med Ordered
--- NOTE | 2024-10-04 15:17 | HO.ADDICTCON ---
History of Present Illness Date of Service: 10/04/24 Chief Complaint: reexpansion Puld edema, hypotension, ETOH intox Reason for Consult: AUD Sources of Information: patient interviewed and chart reviewed Additional Sources of Information: brother present HPI Narrative: Patient is a 49 year old male with MDD, AUD, who presented to [facility] ED c/o nausea and vomiting. In ED found to have pleural effusion-chest tube and thoracentisis, admitted and also being treated for alcohol withdrawal At time of admission ETOH level 421. Seen in room 345. Patient's brother present at time of interview. Patient, awake, and alert. Laying in bed, ill appearing. Patient inquiring about options for treatment of AUD. Reports that he was previously prescribed Naltrexone and did not find that helpful He acknowledges that aside from medication, he engaged in no other recovery oriented supports. Discussed medications role in recovery, and benefits of additional supports. Patient states that he is unable to engage in any type of inpatient treatment due to his job. He states he started a new job about a month ago. Discussed IOP as a possibility, and provided names of local facilities. Patient and brother reporting that he feels alcohol is often driven by depressive sx. AUDIT-C Brief Intervention Pt had positive screen for unhealthy alcohol use on admission, subsequently met with t/w to discuss alcohol use and recovery supports/options. This writer editor met with patient to discuss current alcohol use and concerns related to increased risk of alcohol related problems.? Patient acknowledges impact of alcohol on overall health. Interested in resources for treatment following discharge Past Psychiatric History: hx of outpatient psychiatrist and therapist 3 years ago . denies hx of SIB/SA. denies hx of inpatient psychiatric hospitalizations or detox. hx of zoloft ( didn't feel like it did anything ) and Wellbutrin ( made me feel sick ). Review of Systems Constitutional: Reports as per HPI, Reports difficulty sleeping, Reports lethargy and Reports malaise Diagnostics Vital Signs (24Hr): Vital Signs - 24 hr 10/03/24 15:44 10/03/24 17:01 10/03/24 18:06 Temperature 96.8 F Pulse Rate 115 H Respiratory Rate 18 20 Blood Pressure 125/82 138/84 Pulse Oximetry 97 96 96 Oxygen Delivery Method Room Air Room Air Room Air 10/03/24 19:26 10/04/24 02:39 10/04/24 07:35 Temperature 97.8 F 97.5 F 97.1 F Pulse Rate 116 H 106 H 105 H Respiratory Rate 20 18 16 Blood Pressure 101/58 L 113/63 124/81 Pulse Oximetry 98 96 97 Oxygen Delivery Method Room Air Room Air Room Air BMI result Body Mass Index 35.7 Labs 10/04/24 05:47 10/04/24 05:47 Labs: Laboratory Results - last 48 hr 10/03/24 10/04/24 10/04/24 12:50 05:47 08:35 WBC 10.2 7.1 RBC 3.88 L 3.45 L Hgb 12.6 L 11.0 L Hct 37.2 L 33.1 L MCV 95.9 95.9 MCH 32.5 31.9 MCHC 33.9 33.2 RDW 16.8 H 16.7 H Plt Count 96 L 81 L MPV 10.6 11.0 Absolute Nucleated RBC 0.000 0.000 Nucleated RBC % (auto) 0.0 0.0 Sodium 134 L 133 L Potassium 4.1 3.9 Chloride 101 101 Carbon Dioxide 21 L 24 Anion Gap 16 12 BUN 18 H 18 H Creatinine 0.96 0.83 Estim Creat Clear Calc 114.9 131.0 Estimated GFR > 60 > 60 Random Glucose 130 H 90 Calcium 8.4 7.7 L D Magnesium 1.6 1.7 Total Bilirubin 3.4 H 2.5 H Direct Bilirubin 1.4 H 1.2 H AST 131 H 123 H ALT 40 36 Alkaline Phosphatase 109 90 Total Protein 6.0 L 4.8 L Albumin 3.7 2.9 L TSH 3.89 Imaging Radiology Impressions: ITS Impressions Foot X-Ray 10/01/24 11:09 IMPRESSION: No acute fracture or dislocation. Electronically signed by: Ravinder Cruz MD 10/01/2024 12:10 PM EST RP Chest X-Ray 10/01/24 11:12 IMPRESSION: Concerning mucous plug versus obstructing airway of the right mainstem bronchus resulting in atelectatic right lung. Recommend IV contrast enhanced CT chest. Electronically signed by: Ravinder Cruz MD 10/01/2024 12:09 PM EST RP Cervical Spine CT 10/01/24 12:03 IMPRESSION: Limited by patient's motion artifact. Multilevel spondylosis without gross acute fracture or traumatic-related listhesis. Right-sided pleural effusion, large volume. Fleischner guidelines were followed. Electronically signed by: Ravinder Cruz MD 10/01/2024 01:56 PM EST RP Chest CT 10/01/24 12:03 IMPRESSION: Right-sided pleural effusion versus chylothorax, large volume. Collapsed right lung with a focal gas trapping lung parenchyma. No acute rib fracture. . Fleischner guidelines were followed. Electronically signed by: Ravinder Cruz MD 10/01/2024 02:16 PM EST RP Head CT 10/01/24 12:03 IMPRESSION: No acute fracture, bony calvarium. No acute intracranial hemorrhage. 6 mm colloid cyst, anterior third ventricle. Probable small vessel occlusive disease. Electronically signed by: Ravinder Cruz MD 10/01/2024 01:50 PM EST RP Abdomen/Pelvis CT 10/01/24 12:31 IMPRESSION: Right-sided effusion, large volume and likely collapsed right lung. Acute cholecystitis versus hepatocellular disease. No intestinal obstruction pattern. Fleischner guidelines were followed. Electronically signed by: Ravinder Cruz MD 10/01/2024 01:45 PM EST RP Chest X-Ray 10/01/24 15:15 IMPRESSION: Right-sided chest tube placed in the medial right lower hemithorax with the decreased volume of the right-sided pleural effusion improved aeration right lung and questionable small to moderate volume right-sided pneumothorax. Electronically signed by: Ravinder Cruz MD 10/01/2024 03:50 PM EST RP Chest X-Ray 10/01/24 16:16 IMPRESSION: Stable appearance of the heart and lungs. The right chest tube is unchanged in position. Patchy opacities throughout the right lung are unchanged. There is a small right pleural effusion and a small right pneumothorax. Electronically signed by: Matt Galaviz DO 10/01/2024 06:59 PM EST RP Chest CT 10/01/24 16:25 IMPRESSION: 1. Interval placement of right-sided chest tube with resolution of previously seen large pleural effusion. There is a tiny pneumothorax. 2. There is airspace disease in the reexpanded right lung which could represent reexpansion pulmonary edema. 3. Enlarged fatty liver. 4. Distended gallbladder with some minimal streaky changes in the right anterior pararenal space abutting the gallbladder and pancreatic head. Would correlate with serum lipase for pancreatitis and right upper quadrant ultrasound for gallbladder disease, although felt to be unlikely. 5. Other incidental findings as described above. Fleischner guidelines were followed. Electronically signed by: Justin Pfeiffer MD 10/01/2024 07:39 PM EST RP Abdomen/Pelvis CT 10/01/24 16:26 IMPRESSION: 1. Interval placement of right-sided chest tube with resolution of previously seen large pleural effusion. There is a tiny pneumothorax. 2. There is airspace disease in the reexpanded right lung which could represent reexpansion pulmonary edema. 3. Enlarged fatty liver. 4. Distended gallbladder with some minimal streaky changes in the right anterior pararenal space abutting the gallbladder and pancreatic head. Would correlate with serum lipase for pancreatitis and right upper quadrant ultrasound for gallbladder disease, although felt to be unlikely. 5. Other incidental findings as described above. Fleischner guidelines were followed. Electronically signed by: Justin Pfeiffer MD 10/01/2024 07:39 PM EST RP Chest X-Ray 10/01/24 22:04 IMPRESSION: Worsening airspace disease right lung versus asymmetric pulmonary edema. CT chest from same day demonstrated a small right-sided pneumothorax. Electronically signed by: Ravinder Cruz MD 10/01/2024 11:23 PM EST RP Chest X-Ray 10/02/24 02:58 IMPRESSION: 1. Interval marked increase in moderate lower lung airspace disease and development of left lung base streaky horizontal atelectasis. 2. No interval change in position of Right lateral lung base thoracostomy tube with the tip ending in medial right lung base. No definite pneumothorax could be seen on plain x-ray. 3. Unchanged mild surgical emphysema in right lateral lower chest wall. Electronically signed by: Yvette Ferris MD 10/02/2024 07:20 AM EST RP Chest X-Ray 10/02/24 07:00 IMPRESSION: No gross pneumothorax. Stable position right-sided chest tube. Slight increased interstitial edema versus airspace disease. Electronically signed by: Ravinder Cruz MD 10/02/2024 09:57 AM EST RP Abdomen Ultrasound 10/02/24 07:35 IMPRESSION: No cholelithiasis. Hepatomegaly and steatosis versus hepatocellular disease. No hydronephrosis, right kidney. 8 mm cyst, right kidney. No ascites. Electronically signed by: Ravinder Cruz MD 10/02/2024 09:54 AM EST RP Chest X-Ray 10/03/24 16:45 IMPRESSION: No pneumothorax status post chest tube removal. Improving atelectasis. Electronically signed by: Justin Pfeiffer MD 10/04/2024 10:24 AM EST RP Chest X-Ray 10/04/24 07:54 IMPRESSION: No gross change versus slight worsening airspace disease, right lung. Electronically signed by: Ravinder Cruz MD 10/04/2024 08:14 AM EST RP Mental Status Exam Mental Status Exam Level of Consciousness: Awake and Appropriate Patient Behavior: Appropriate Mood Description: Calm and Blunted Affect Description: Calm and Blunted Medications Medications Current Medications Cefuroxime Axetil (Cefuroxime Axetil 500 Mg Tablet) 500 mg PO BID [facility] Clonidine HCl (Clonidine Hcl 0.1 Mg Tablet) 0.1 mg PO BID [facility]; Protocol Last Admin: 10/04/24 08:24 Dose: 0.1 mg Doxycycline Monohydrate (Doxycycline Monohydrate 100 Mg Capsule) 100 mg PO BID [facility] Folic Acid (Folic Acid 1 Mg Tablet) 1 mg PO DAILY [facility] Last Admin: 10/04/24 08:25 Dose: 1 mg Magnesium Oxide (Magnesium Oxide 400 Mg Tablet) 400 mg PO DAILY [facility] Last Admin: 10/04/24 08:25 Dose: 400 mg Multivitamins/Vitamin C (Multivitamin Tablet) 1 tab PO DAILY [facility] Last Admin: 10/04/24 08:25 Dose: 1 tab Omeprazole (Omeprazole 20 Mg Capsule.) 20 mg PO DAILY@0630 [facility] Last Admin: 10/04/24 05:13 Dose: 20 mg Pharmacy Consult (Consult Rx Etoh Phenob Im/Po) 1 each MISCELLANE ONCE PRN; Protocol PRN Reason: Consult order Phenobarbital (Phenobarbital 30 Mg Tablet) 30 mg PO BID [facility] Stop: 10/05/24 21:01 Last Admin: 10/04/24 08:25 Dose: 30 mg Phenobarbital (Phenobarbital 15 Mg Tablet) 15 mg PO DAILY [facility] Stop: 10/07/24 09:01 Thiamine HCl (Thiamine Hcl 100 Mg Tablet) 100 mg PO DAILY [facility] Last Admin: 10/04/24 08:25 Dose: 100 mg Allergies Allergies Allergy/AdvReac Type Severity Reaction Status Date / Time Penicillins Allergy Mild hives Verified 10/01/24 11:05 Assessment & Plan Assessment & Plan (1) Alcohol use disorder, severe, dependence: Status: Acute Code(s): F10.20 - Alcohol dependence, uncomplicated Assessment and Plan: provided names of IOP in the area as requested. Patient and brother wanted to read about them will follow up after the weekend--patient still not medically clear follow up on possibility of VIJAYA again Total time managing care of this patient today __40__ minutes. PMFSH Past Medical History Medical History HTN (hypertension) Alcohol abuse Social History Social History Household Members: Family Housing: House Do you presently have visiting nurse or other home services: No Alcohol intake: current Alcohol intake frequency: 3 or more drinks per day Alcohol type: hard liquor Patient Tobacco Use Status: Former Tobacco user Tobacco use type: Cigarette Cigarette Packs Per Day: 2 Cigarettes Per Day: 40.0 Years Smoked: 20 e-Cigarette/Vaping Use: Never Used Second Hand Smoke Exposure: No service: No
[2024-10-04 15:27] VITALS: BP 105/60; PULSE 115; RESP 13; TEMP 35.9; O2SAT 96
--- NOTE | 2024-10-04 16:00 | CA_ITS ---
Transthoracic Echocardiogram Patient (Last, First, Middle): Ricco Mendez, Gender: Male Date of : 1975 Age: 49 Procedure Date: 10/04/2024 Procedure Type: Transthoracic Echocardiogram Location: S3E Height: 177.8 cm Weight: 112.95 kg BSA: 2.29 m2 Heart Rate: bpm BP: 105 / 60 mmHg [employer] Fishing Tool Technician: JUSTINE Referring MD: Kiera MACKENZIE Assistant Service Manager: Nicolas Castañeda MD Symptoms: pleural effusion Study Quality: Fair ECG Rhythm: Sinus Conclusions: - 1. Normal LV ejection fraction of 60 65% with mild LVH with impaired relaxation filling pattern 2. Normal cardiac valvular Dopplers 3. Normal RV systolic pressure with normal right atrial pressures Findings Left Ventricle Normal left ventricular size and systolic function. There is mildly increased left ventricular wall thickness. The visually estimated ejection fraction is between 60-65%. Regional wall motion abnormalities can not be excluded due to suboptimal endocardial definition. Spectral Doppler is indicative of an impaired relaxation filling pattern. E/E prime ratio is between 8 and 15 consistent with indeterminate filling pressures. Right Ventricle Normal right ventricular cavity size. Atria The left atrium is normal in size. There is lipomatous hypertrophy of the interatrial septum. Interatrial shunt cannot be excluded. The right atrium was not well visualized. Aortic Valve The aortic valve structure and function is likely normal. There is no aortic valve stenosis. There is no aortic valve regurgitation. Mitral Valve Likely normal mitral valve structure and function. There is trace mitral valve regurgitation. There is no mitral valve stenosis. Pulmonic Valve The pulmonic valve was not well visualized. Tricuspid Valve Likely normal tricuspid valve structure and function. There is trace tricuspid valve regurgitation. The right ventricular systolic pressure is normal. The right ventricular systolic pressure is 24 mmHg. Normal right atrial pressure. There is no evidence of pulmonary hypertension. Great Vessels The aorta was not well visualized. The pulmonary artery was not well visualized. There is no dilatation of the ascending aorta measuring 2.90 cm. Venous The inferior vena cava is normal in size and collapses greater than 50% with inspiration. Pericardium/Pleural The pericardium was not well visualized. Measurements 2D Linear Measurements IVSd: 1.33 0.6-0.9/0.6-1.0 cm LVIDd: 4.54 3.9-5.3/4.2-5.9 cm LVIDd Index: 1.98 2.4-3.2/2.2-3.1 cm/m2 LVIDs: 3.37 2.0-3.6 cm LVPWd: 1.30 0.7-1.1 cm Ao Root: 3.20 2.1-3.5 cm LA Diam: 3.60 2.7-3.8/3.0-4.0 cm LAIDs Index: 1.57 1.5-2.3 cm/m2 LV Mass: 286.03 67-162/88-224 g LV Mass Index: 124.90 43-95/49-115 g/m2 LVOT Diam: 2.60 3.0+(-)1.3 cm 2D Systolic Function EF 4C: 66.30 >55% EF 2C: 66.10 >55% EF BiP: 63.90 >55% Mitral Valve MV Pk E: 0.62 MV PK A: 0.67 MV Decel Time: 128.00 E/A: 0.90 E'Lateral: 5.98 E'Medial: 5.55 E/E' Med: 11.20 E/E' Lat: 10.40 PHT: 37.00 MVA PHT: 5.95 Decel [place]: 4.88 Aortic Valve AoV Pk David: 1.27 AoV Mn David: 0.83 AoV VTI: 0.22 AoV Pk Grad: 6.00 Aov Mn Grad: 3.00 GEORGIE Cont.VTI: 4.55 LVOT LVOT Pk David: 1.09 LVOT Mn David: 0.74 LVOT VTI: 0.19 LVOT Pk Grad: 5.00 LVOT Mn Grad: 2.00 LVOT Diam: 2.60 LVOT Area: 5.31 Diastolic Function MV Pk E: 0.62 MV Pk A: 0.67 E/A: 0.90 E'Medial: 5.55 E/E' Med: 11.20 E' Laterial: 5.98 E/E' Lat: 10.40 Right Ventricle TAPSE (mm): 17.00 TVS' David: 12.00 Tricuspid Valve TR Pk David: 2.29 TR Pk Grad: 21.00 RA Press: 3.00 RVSP: 24.00 Great Vessels Aorta Ao Root-2D: 3.20 2.0-3.7 cm Ao Asc: 2.90 2.1-3.4 cm Pulmonary Valve PV Pk David: 0.97 Peak PV Grad: 4.00 Updated in Other Vendor System with Status of Final Nicolas Castañeda MD electronically signed on 10/05/2024 9:49:13 AM with status of Final
[2024-10-04 16:39] VITALS: BP 116/52; PULSE 112; RESP 18; TEMP 36.6; O2SAT 95
[2024-10-04] MEDS: Furosemide 20 MG TABLET PO (17:09)
[2024-10-04 19:29] VITALS: BP 100/56; PULSE 111; RESP 16; TEMP 36.1; O2SAT 96
[2024-10-04] MEDS: cefuroxime axetiL 500 MG TABLET PO (20:40)
[2024-10-04] MEDS: Doxycycline Monohydrate 100 MG CAPSULE PO (20:40)
[2024-10-05 03:17] VITALS: BP 113/68; PULSE 100; RESP 16; TEMP 36.2; O2SAT 96
[2024-10-05] MEDS: Omeprazole 20 MG CAPSULE.DR PO (05:21)
[2024-10-05 07:42] VITALS: BP 102/66; PULSE 94; RESP 16; TEMP 36.1; O2SAT 98
[2024-10-05 08:00] VITALS: BMI 35.7
[2024-10-05 08:10] LABS: INTERNATIONAL NORM RATIO 1.3 (0.9-1.1)
[2024-10-05 08:32] LABS: Iron 73 mcg/dL (45-160); Percent Iron Saturation 57 % (15-50); Total Iron Binding Capacity 129 mcg/dL (228-428); Unsaturated Iron Binding 56 ug/dL
[2024-10-05] MEDS: Spironolactone 25 MG TABLET 50 MG PO (08:44)
[2024-10-05] MEDS: cloNIDine HCL 0.1 MG TABLET PO (08:45)
[2024-10-05] MEDS: PHENobarbitaL 30 MG TABLET PO ×2 (08:45→19:58)
[2024-10-05] MEDS: Magnesium Oxide 400 MG TABLET PO (08:46)
[2024-10-05] MEDS: Multivitamin TABLET 1 TAB PO (08:46)
[2024-10-05] MEDS: Folic Acid 1 MG TABLET PO (08:46)
[2024-10-05] MEDS: Doxycycline Monohydrate 100 MG CAPSULE PO ×2 (08:46→19:58)
[2024-10-05] MEDS: cefuroxime axetiL 500 MG TABLET PO ×2 (08:46→19:58)
[2024-10-05] MEDS: Furosemide 20 MG TABLET PO (08:46)
[2024-10-05] MEDS: Thiamine HCL 100 MG TABLET PO (08:47)
[2024-10-05 08:49] LABS: HBc Num1 0.16 S/CO (0.00-0.79); HBsAGNum1 0.39 S/CO (0.00-0.99); Hepatitis B Core Antibody Nonreactive (Nonreactive); Hepatitis B Surface Antigen Negative (Negative); ~HepC Num1 0.09 S/CO (0.00-0.79); ~Hepatitis B Surface Antibody NONREACTIVE (Nonreactive); ~Hepatitis C Antibody Nonreactive (Nonreactive)
[2024-10-05 09:46] LABS: Ferritin 2515 ng/mL (20-250)
--- NOTE | 2024-10-05 09:48 | HO.PM.IMPN ---
Subjective Subjective Date of Service: 10/05/24 Interval History: seen and examined this morning follow up for pleural effusion chest tube out Review of Systems Review of Systems: Yes all other systems are reviewed and are negative Constitutional Constitutional: Denies chills and Denies fever(s) Eyes Eyes: Reports no additional eye complaints, Denies blurry vision, Denies change in vision, Denies diplopia, Denies eye discharge, Denies loss of vision and Denies eye pain ENT Ears, Nose, Mouth, and Throat: Denies dizziness Cardiovascular Cardiovascular: Denies chest pain, Denies palpitations and Denies dyspnea Respiratory Respiratory: Denies cough and Denies dyspnea Gastrointestinal Gastrointestinal: Denies abdominal pain Genitourinary Genitourinary: Reports no additional male genitourinary complaints, Denies hematuria, Denies oliguria, Denies difficulty urinating, Denies dysuria, Denies urinary frequency, Denies urinary hesitancy, Denies urinary incontinence and Denies urinary urgency Musculoskeletal Musculoskeletal: Reports no additional musculoskeletal complaints, Denies numbness and Denies tingling Integumentary/Breasts Skin/Breast: Reports rash and Denies jaundice Neurologic Neurologic: Denies dizziness, Denies loss of vision, Denies numbness and Denies tingling Psychiatric Psychiatric: Reports no additional psychiatric complaints Endocrine Endocrine: Denies palpitations Hematologic/Lymphatic Hematologic/Lymphatic: Reports no additional hematologic/lymphatic complaints Allergic/Immunologic Allergic/Immunologic: Reports no additional allergic/immunologic complaints Physical Exam Vital Signs: Vital Signs: Last Vital Signs Temp 96.9 F 10/05/24 07:42 Pulse 94 10/05/24 07:42 Resp 16 10/05/24 07:42 BP 102/66 10/05/24 07:42 Pulse Ox 98 10/05/24 07:42 O2 Del Method Room Air 10/05/24 07:42 O2 Flow Rate 2 10/02/24 10:00 FiO2 45 10/02/24 07:00 Oxygen Flow Rate 40 10/02/24 01:24 BMI result Body Mass Index 35.7 Appearing in no acute distress lung sounds are clear to auscultation heart regular rate rhythm, clear S1, S2 positive bowel sounds, abdomen is soft, nontender neuro patient is alert x3, no focal deficits Objective Data Active Medications Cefuroxime Axetil (Cefuroxime Axetil 500 Mg Tablet) 500 mg PO BID CINTIA Last Admin: 10/05/24 08:46 Dose: 500 mg Documented By: NIMA Clonidine HCl (Clonidine Hcl 0.1 Mg Tablet) 0.1 mg PO DAILY COUNTS INCLUDE 234 BEDS AT THE [facility]; Protocol Last Admin: 10/05/24 08:45 Dose: 0.1 mg Documented By: NIMA Doxycycline Monohydrate (Doxycycline Monohydrate 100 Mg Capsule) 100 mg PO BID COUNTS INCLUDE 234 BEDS AT THE [facility] Last Admin: 10/05/24 08:46 Dose: 100 mg Documented By: NIMA Folic Acid (Folic Acid 1 Mg Tablet) 1 mg PO DAILY COUNTS INCLUDE 234 BEDS AT THE [facility] Last Admin: 10/05/24 08:46 Dose: 1 mg Documented By: NMIA Furosemide (Furosemide 20 Mg Tablet) 20 mg PO DAILY COUNTS INCLUDE 234 BEDS AT THE [facility]; Protocol Last Admin: 10/05/24 08:46 Dose: 20 mg Documented By: NIMA Magnesium Oxide (Magnesium Oxide 400 Mg Tablet) 400 mg PO DAILY COUNTS INCLUDE 234 BEDS AT THE [facility] Last Admin: 10/05/24 08:46 Dose: 400 mg Documented By: NIMA Multivitamins/Vitamin C (Multivitamin Tablet) 1 tab PO DAILY COUNTS INCLUDE 234 BEDS AT THE [facility] Last Admin: 10/05/24 08:46 Dose: 1 tab Documented By: NIMA Omeprazole (Omeprazole 20 Mg Capsule.) 20 mg PO DAILY@0630 COUNTS INCLUDE 234 BEDS AT THE [facility] Last Admin: 10/05/24 05:21 Dose: 20 mg Documented By: HERANN Pharmacy Consult (Consult Rx Etoh Phenob Im/Po) 1 each MISCELLANE ONCE PRN; Protocol PRN Reason: Consult order Phenobarbital (Phenobarbital 30 Mg Tablet) 30 mg PO BID COUNTS INCLUDE 234 BEDS AT THE [facility] Stop: 10/05/24 21:01 Last Admin: 10/05/24 08:45 Dose: 30 mg Documented By: NIMA Phenobarbital (Phenobarbital 15 Mg Tablet) 15 mg PO DAILY COUNTS INCLUDE 234 BEDS AT THE [facility] Stop: 10/07/24 09:01 Spironolactone (Spironolactone 25 Mg Tablet) 50 mg PO DAILY COUNTS INCLUDE 234 BEDS AT THE [facility]; Protocol Last Admin: 10/05/24 08:44 Dose: 50 mg Documented By: NIMA Thiamine HCl (Thiamine Hcl 100 Mg Tablet) 100 mg PO DAILY COUNTS INCLUDE 234 BEDS AT THE [facility] Last Admin: 10/05/24 08:47 Dose: 100 mg Documented By: NIMA Labs 10/04/24 05:47 10/04/24 05:47 Labs: Laboratory Results - last 24 hr 10/05/24 10/05/24 06:10 06:11 PT 15.0 H INR 1.3 H Iron 73 TIBC 129 L % Saturation 57 H Unsat Iron Binding 56 Ferritin 2515 H Microbiology Microbiology Results: Microbiology 10/01/24 Unknown Gram Stain - Final Thoracentesis Fluid Anaerobic Culture - Preliminary No growth to date. Body Fluid Culture - Final No growth after 2 days 10/01/24 Unknown Direct Acid Fast Bacilli Smear - Final Pleural Fluid Assessment and Plan (1) Alcohol withdrawal: Status: Acute (2) Pleural effusion, right: Status: Acute Plan this is a 49-year-old male with history of alcohol use disorder, depression, hypertension, medical noncompliance who presented to the emergency department with nausea and vomiting found to have large volume pleural effusion with collapsed right lung status post right chest tube placement admitted downgraded from the medical floor 10/02 large right pleural effusion s/p right chest tube placement -1.5L of serious fluid removed on placement of chest tube exudative by lights criteria. gram stain no organisms seen, no growth to date on culture; pathology negative for malignant cells pt Inadvertently pulled out chest tube on 10/03, repeat imaging essentially unchanged thoracic surgery following empiric cefepime started in ICU,likely empiric to cover for possible pneumonia, will transition to po abx post procedural hypotension due to fluid shifts/volume depletion resolved alcohol use disorder with alcohol withdrawal continue phenobarbital protocol continue thiamine, folic acid, multi-vitamin resume po mag replacement Addiction medicine consult pending Elevated LFTs abdominal US negative for GB pathology Hepatomegaly and steatosis versus hepatocellular disease on CT overall trending down Gi consult pending sinus tachycardia CIWA low, does not appear to be actively withdrawing at this time TSH wnl possible reflex tachycardia from stopping clonidine, clonidine resumed and HR improving thrombocytopenia likely due to etoh use, trending down follow CBC HTN hold lisinopril MARCELINO resolved hypomagnesemia Improved with replacement continue baseline po replacement dvt ppx - SCDs patient requires ongoing inpatient stay for management of pleural effusion with chest tube placement, elevated LFTs and specialist evaluation Quality Stroke Does the patient have a stroke diagnosis?: No VTE Prior VTE?: No VTE Risk Level:: Medical - moderate - high VTE Device Contraindication: N/A - Device Ordered VTE Drug Contraindication: N/A - Med Ordered
--- NOTE | 2024-10-05 10:58 | PM.PNTS ---
Subjective Subjective Date of Service: 10/05/24 Interval history: Patient was no respiratory issues or complaints. Chest tube site no leakage status post suturing site yesterday. Physical Exam Vital Signs: Vital Signs: Last Vital Signs Temp 96.9 F 10/05/24 07:42 Pulse 94 10/05/24 07:42 Resp 16 10/05/24 07:42 BP 102/66 10/05/24 07:42 Pulse Ox 98 10/05/24 07:42 O2 Del Method Room Air 10/05/24 07:42 O2 Flow Rate 2 10/02/24 10:00 FiO2 45 10/02/24 07:00 Oxygen Flow Rate 40 10/02/24 01:24 BMI result Body Mass Index 35.7 Chest: Other: Chest tube site clean dry and intact no evidence of oozing or drainage. Procedures Date of Service Date of Service: 10/05/24 Progress Note: A&P Assessment and plan (1) Pleural effusion, right: Status: Acute Plan At present, no acute thoracic surgical issues. Patient can follow-up in office in 1 week's time for suture removal. Time Spent With Patient Time: Total time managing care of this patient today ____ minutes. Quality Stroke Does the patient have a stroke diagnosis?: No VTE Prior VTE?: No VTE Risk Level:: Medical - moderate - high VTE Device Contraindication: N/A - Device Ordered VTE Drug Contraindication: N/A - Med Ordered
--- NOTE | 2024-10-05 12:38 | MHC.CM.PN ---
Addendum entered by Malathi Foley 10/06/24 14:34: [facility] IS ACCEPTING PENDING DCS AND FACE TO FACE WITH WOUND CARE ORDERS PTS BROTHER WILL TRANSPORT Addendum entered by Malathi Foley 10/06/24 14:25: PT NOW SAYS HE WOULD LIKE VNA SERVICES HE SAYS HE SPOKE TO FAMILY AND THEY DO NOT FEEL COMFORTABLE ASSISTING AND HE IS UNABLE TO REACH EASILY CM HAS MESSAGED [facility], PTS PREFERRED AGENCY, [facility]IA [facility] AND [facility], AWAITING RESPONSE Original Note: CM MET WITH PT TO DISCUSS DC PLANNING HE IS AWARE [facility] WAS RECOMMENDED FOR DRESSING CHANGES HOWEVER WILL HAVE A LARGE COPAY AND THEREFORE DECLINES SERVICES PT ALSO REPORTS HE HAS MANY FRIENDS WHO ARE NURSES AND WILL ASSIST HIM IF NEEDED PT WILL NEED SUPPLIES AT DC DCP: HOME NO SERVICES VIA PRIVATE TRANSPORT
[2024-10-05 15:41] VITALS: BP 95/55; PULSE 90; RESP 20; TEMP 36.6; O2SAT 96
[2024-10-05 19:38] VITALS: BP 94/53; PULSE 108; RESP 18; TEMP 36.2; O2SAT 97
[2024-10-05 23:29] LABS: CDiff Gene PCR NEGATIVE (Negative)
[2024-10-06 03:01] VITALS: BP 109/71; PULSE 100; RESP 18; TEMP 36.1; O2SAT 98
[2024-10-06] MEDS: Omeprazole 20 MG CAPSULE.DR PO (05:04)
[2024-10-06 08:00] VITALS: BP 118/77; PULSE 110; RESP 18; TEMP 36.1; O2SAT 98; BMI 35.8
[2024-10-06] MEDS: cloNIDine HCL 0.1 MG TABLET PO (08:15)
[2024-10-06] MEDS: Furosemide 20 MG TABLET PO (08:15)
[2024-10-06] MEDS: Spironolactone 25 MG TABLET 50 MG PO (08:15)
[2024-10-06] MEDS: Thiamine HCL 100 MG TABLET PO (08:16)
[2024-10-06] MEDS: cefuroxime axetiL 500 MG TABLET PO (08:16)
[2024-10-06] MEDS: Magnesium Oxide 400 MG TABLET PO (08:16)
[2024-10-06] MEDS: PHENobarbitaL 15 MG TABLET PO (08:16)
[2024-10-06] MEDS: Doxycycline Monohydrate 100 MG CAPSULE PO (08:16)
[2024-10-06] MEDS: Folic Acid 1 MG TABLET PO (08:16)
[2024-10-06] MEDS: Multivitamin TABLET 1 TAB PO (08:16)
[2024-10-06 09:31] LABS: Anion Gap 11 (12-20); Blood Urea Nitrogen 15 mg/dL (9-16); Calcium 8.2 mg/dL (8.4-10.2); Carbon Dioxide 25 mmol/L (22-29); Chloride 99 mmol/L (96-108); Estimated Glomerular Filt Rate > 60; Glucose Random 109 mg/dL (60-115); Potassium 3.6 mmol/L (3.3-5.1); Sodium 131 mmol/L (135-145)
[2024-10-06 09:46] LABS: PLT CLUMP 1
[2024-10-06 09:48] LABS: Hematocrit 35.7 % (42.0-52.0); Mean Corpuscular HGB Conc 33.6 g/dl (31.0-36.0); Mean Corpuscular Hemoglobin 32.6 pg (27.0-33.0); Mean Platelet Volume 10.7 fL (9.4-12.4); Red Blood Count 3.68 X10*6/uL (4.60-5.80); Red Cell Distribution Width 16.7 % (11.0-16.0)
[2024-10-06 09:50] LABS: Platelet Count 124 X10*3/uL (160-400); White Blood Count 10.7 X10*3/uL (4.8-10.8)
--- NOTE | 2024-10-06 11:06 | PM.DS ---
DS: Providers Provider Date of Service: 10/06/24 Date of admission: 10/01/24 23:34 Primary care physician: Alex Krause MD Consults: 10/03/24 15:16 Addiction Medicine Routine Consulting Provider: Addiction Covering Reason for consultation: etoh use disorder; withdrawal Has provider been notified: No 10/03/24 16:12 Consult to Gastroenterology Routine Consulting Provider: Denise Antoine Reason for consultation: elevated LFTs ?etoh liver dz Has provider been notified: No DS: Diagnosis Discharge Diagnosis (1) Pleural effusion, right: Status: Acute DS: Summary Hospital Course Hospital Course: History and physical as per admitting provider. Patient is a 49 year old male with a history of alcoholism, depression, hypertension, transaminitis, medical noncompliance.? Patient had presented to emergency room complaints of nausea, vomiting in the setting of being intoxicated with alcohol, he also complains of 6/10 left foot pain in a throbbing manner stating that he might have twisted his ankle.? He is not sure when or how the mechanism of injury occurred.? Stated that he is trying to cut down on alcohol he does acknowledge experiencing a fall about a month ago but can not recollect a specific injuries or loss of consciousness. In the emergency room, the patient had a variety of images including Abdominal and pelvic CT showed right-sided large volume effusion with collapsed right lung, thoracic surgery was consulted and he is now status post thoracentesis with removal of 1 0.5 L of serous fluid and placement of right-sided chest tube. His oxygen saturation was noted to be 91% and improved after being placed on 2 L with nasal cannula. ?His white blood cell count 12.7, creatinine 2.33, AST 157, ALT 60, total bilirubin 0.8, albumin 2.8, ethyl alcohol level 421. He was treated with 1 L of IV fluid, ceftriaxone, Dilaudid, lorazepam, phenobarbital. Although initially the patient was going to be admitted to the floor, the patient had become hypotensive and has remained in the emergency room for several hours without being able to compensate for his blood pressure, he had also become somewhat hypoxic and his on high-flow nasal cannula 40 liters/minute. He currently denies any further complaints. Repeat chest x-ray showed worsening airspace disease in the right lung versus asymmetric pulmonary edema. Previous CT had shown small right-sided pneumothorax.Not only the patient is hypotensive but he is also tachypneic, tachycardic and there is concern that he may have a worsening pneumothorax versus post re-expansion pulmonary edema in addition to his acute alcohol intoxication which places him at risk of eminent withdrawal. The patient will be transferred to the ICU for further care large right pleural effusion s/p right chest tube placement. -1.5L of serious fluid removed on placement of chest tube, exudative by lights criteria. gram stain no organisms seen, no growth to date on culture; pathology negative for malignant cells. pt Inadvertently pulled out chest tube on 10/03, repeat imaging essentially unchanged Treated with empiric cefepime started in ICU,likely empiric to cover for possible pneumonia, continue 2 more days of oral antibiotics. post procedural hypotension , due to fluid shifts/volume depletion. resolved alcohol use disorder with alcohol withdrawal. Treated with phenobarbital, thiamine, folic acid, multivitamin, oral magnesium replacement. Continue naltrexone at home Elevated LFTs. Secondary to alcohol abuse. abdominal US negative for GB pathology. sinus tachycardia. CIWA low, did not appear to be actively withdrawing during hospitalization thrombocytopenia. Secondary to alcohol abuse, stable HTN blood pressure on the lower side, we will stop lisinopril for home use. Monitor blood pressures and follow up with primary care provider for close management. MARCELINO resolved hypomagnesemia Improved with replacement. continue baseline po replacement Peripheral neuropathy. Gabapentin 100 mg b.i.d. Time Attestation Discharge Coordination Time (in mins): 40 Quality: Safe Use of Opioids Does Pt have an Active Cancer Diagnosis on the Problem List?: No Quality: Stroke Does the patient have a stroke diagnosis?: No Physical Exam Vital Signs: Vital Signs: Last Vital Signs Temp 96.9 F 10/06/24 08:00 Pulse 110 H 10/06/24 08:00 Resp 18 10/06/24 08:00 BP 118/77 10/06/24 08:00 Pulse Ox 98 10/06/24 08:00 O2 Del Method Room Air 10/06/24 08:00 O2 Flow Rate 2 10/02/24 10:00 FiO2 45 10/02/24 07:00 Oxygen Flow Rate 40 10/02/24 01:24 BMI result Body Mass Index 35.8 Appearing in no acute distress head is normocephalic atraumatic eyes pupils are PERRLA sclera is anicteric mouth throat mucous membranes are intact and moist neck is supple no lymphadenopathy, no JVD noted lung sounds are clear to auscultation heart regular rate rhythm, clear S1, S2 positive bowel sounds, abdomen is soft, nontender neuro patient is alert x3, no focal deficits DS: Data Data Completed and Pending Completed studies during hospitalization [Text1]: Procedures Detoxification Services for Substance Abuse Treatment (08/01/24) Labs on day of discharge: Laboratory Results - last 24 hr 10/05/24 10/06/24 21:52 08:45 WBC 10.7 RBC 3.68 L Hgb 12.0 L Hct 35.7 L MCV 97.0 MCH 32.6 MCHC 33.6 RDW 16.7 H Plt Count 124 L D MPV 10.7 Absolute Nucleated RBC 0.000 Nucleated RBC % (auto) 0.0 Sodium 131 L Potassium 3.6 Chloride 99 Carbon Dioxide 25 Anion Gap 11 L BUN 15 Creatinine 1.00 Estim Creat Clear Calc 110.0 Estimated GFR > 60 Random Glucose 109 Calcium 8.2 L D C. difficile Tox B Gene NEGATIVE Discharge Plan Discharge Anticipated Discharge Date/Time: 10/06/24 10:55 Patient Disposition: Home Health Service Discharge Diagnosis: Right pleural effusion Chest tube placement Postprocedure hypertension Alcohol use disorder Elevated LFTs Referrals: Alex Krause MD [Primary Care Provider] - 1 Week David Iniguez MD [Physician] - 1 Week Discharge Medications: New doxycycline monohydrate 100 mg Capsule 100 mg PO BID Qty: 4 0RF omeprazole 20 mg Capsule,Delayed Release(Dr/Ec) 20 mg PO DAILY@0630 Qty: 30 0RF folic acid 1 mg Tablet 1 mg PO DAILY Qty: 30 0RF cefuroxime axetil 500 mg Tablet 500 mg PO BID Qty: 4 0RF thiamine mononitrate (vit B1) 100 mg Tablet 100 mg PO DAILY Qty: 30 0RF gabapentin 100 mg capsule 100 mg PO BID Qty: 60 0RF Continued vitamin A 2,400 mcg Capsule 2,400 mcg PO DAILY vitamin B complex Tablet 1 tab PO DAILY clonidine HCl 0.1 mg tablet 0.1 mg PO BID Qty: 180 0RF Centrum Silver Men [id number] mcg Tablet 1 tab PO DAILY magnesium oxide 400 mg magnesium Tablet 400 mg PO DAILY mirtazapine 7.5 mg tablet 7.5 mg PO BEDTIME PRN (Reason: Depression) naltrexone 50 mg tablet 50 mg PO DAILY Qty: 30 3RF Discontinued lisinopril 20 mg tablet 20 mg PO DAILY Qty: 30 0RF Discharge Orders: Discharge Order (Routine); Ordered 10/06/24 Ordered By: Ansley Dwyer Diet: Advance to usual diet Activity on Discharge: No heavy lifting Stand Alone Forms: Patient Portal Discharge page Print Language: Indonesian Activity Restrictions/Additional Instructions: VNA services for chest tube site care. May shower . No strenuous activities Care Plan Goals: Do not drink alcohol, seek outpatient resources for assistance with this Health Concerns: Right pleural effusion Chest tube placement Postprocedure hypertension Alcohol use disorder Elevated LFTs Plan of Treatment: Follow-up with primary care provider as needed Take all medications as prescribed Assessment: See discharge summary
--- NOTE | 2024-10-06 14:09 | PC.NURSE ---
Pt dressing changed. Dressing came off with ADLs. Slight drainage noted from CT Site.
--- NOTE | 2024-10-06 14:40 | P.F2F_ITS ---
Service Date Service Date: 10/06/24 Encounter Date of encounter: 10/06/24 Reasons for Services Signs and symptoms assessed: pleural effusion pneumothorax s/p chest tube (right) Reason for senior living: CV/CP assess and/or care and wound care (VNA services for chest tube site care. May shower . No strenuous activities. gauze and tape ) Homebound: Leaving the home is medically contraindicated at this time without the asist of a device and/or another person due th the listed conditions above and below. Reason homebound: weakness related to hospital stay Certification: Based on the above findings, I certify that this patient is confined to the home and needs intermittent senior living care, physical therapy and/or speech therapy, or continues to need occupational therapy. The patient is under my care, and I have initiated the establishment of the plan of care. The patient will be followed by a physician who will periodically review the plan of care. Time Spent With Patient Time: Total time managing care of this patient today ____ minutes.
[2024-10-06] MEDS: Loperamide HCl 2 MG CAPSULE 4 MG PO (14:42)
--- NOTE | 2024-10-06 15:19 | PC.NURSE ---
Pt called and notified to have a follow up CXR in two Days per Provider, PT states understanding.
[2024-10-08 08:44] LABS: Anti Nuclear Antibody Screen NEGATIVE (NEGATIVE)
== END 2024-10-06 15:14 | disposition home health service (06) | DRG 143 ==
LOC: HO.ED 15:56 → HO.EDOVER 23:38 → HO.ICU 23:47 → HO.S3 10-02 13:39
PROVIDERS: Internal Medicine Critical Care Medicine; Internal Medicine Gastroenterology; Physician Assistant Medical; Physician Assistant Surgical; Admitting Provider Physician Assistant Medical; Emergency Provider Emergency Medicine; PCP Internal Medicine; Visit Provider Nurse Practitioner Acute Care
DX: J95.811 Postprocedural pneumothorax (principal); K72.10 Chronic hepatic failure without coma; N17.9 Acute kidney failure, unspecified; K76.6 Portal hypertension; D63.1 Anemia in chronic kidney disease; J90 Pleural effusion, not elsewhere classified; K70.0 Alcoholic fatty liver; D69.59 Other secondary thrombocytopenia; F10.239 Alcohol dependence with withdrawal, unspecified; I10 Essential (primary) hypertension; J98.19 Other pulmonary collapse; E83.42 Hypomagnesemia; E86.0 Dehydration; F32.9 Major depressive disorder, single episode, unspecified; I95.81 Postprocedural hypotension; Y90.8 Blood alcohol level of 240 mg/100 ml or more; Z91.199 Patient's noncompliance with other medical treatment and regimen due to unspecified reason; F10.229 Alcohol dependence with intoxication, unspecified; Z87.891 Personal history of nicotine dependence; Z79.899 Other long term (current) drug therapy
CPT/HCPCS: 36415; 70450; 71045; 71046; 71250; 71260; 72125; 73630; 74176; 74177; 76705; 80048; 80053; 80076; 80307; 82042; 82150; 82728; 82803; 82945; 83540; 83615; 83690; 83735; 83986; 84100; 84157; 84443; 85025; 85027; 85610; 86038; 86704; 86706; 86803; 86850; 86900; 86901; 87070; 87073; 87102; 87116; 87205; 87206; 87340; 87493; 87507; 88112; 88305; 89051; 93005; 93306; 99285; J0692; J0696; J1171; J2003; J2060; J2405; J2560; J3475; P9047; Q9957; Q9967

== ENCOUNTER → 2024-10-01 11:09 | Outpatient (BNV) | payer OTHER, SELFPAY | PROVIDERS: Emergency Provider Emergency Medicine; PCP Internal Medicine; Visit Provider Radiology Diagnostic Radiology | DX: R10.11 Right upper quadrant pain (principal); J90 Pleural effusion, not elsewhere classified; Z04.89 Encounter for examination and observation for other specified reasons; M79.672 Pain in left foot | CPT/HCPCS: 70450; 71045; 71046; 71260; 72125; 73630; 74177 ==

== ENCOUNTER → 2024-10-01 11:19 | Outpatient (BNV) | payer OTHER, SELFPAY | PROVIDERS: Emergency Provider Emergency Medicine; PCP Internal Medicine; Visit Provider Physician Assistant Surgical | DX: J90 Pleural effusion, not elsewhere classified (principal) | CPT/HCPCS: 32551; 99223; 99232; 99233 ==

== ENCOUNTER → 2024-10-01 18:16 | Outpatient (BNV) | payer SELFPAY | PROVIDERS: Admitting Provider Physician Assistant Medical; Emergency Provider Emergency Medicine; PCP Internal Medicine; Visit Provider Internal Medicine Cardiovascular Disease | DX: R00.0 Tachycardia, unspecified (principal) | CPT/HCPCS: 93010 ==

== ENCOUNTER 2024-10-01 23:34 | Outpatient (BNV) | payer BC, SELFPAY | END 2024-10-04 07:00 | PROVIDERS: Admitting Provider Physician Assistant Medical; Emergency Provider Emergency Medicine; PCP Internal Medicine; Visit Provider Radiology Diagnostic Radiology | DX: J98.4 Other disorders of lung (principal) | CPT/HCPCS: 71045 ==

== ENCOUNTER 2024-10-01 23:34 | Outpatient (BNV) | payer OTHER, SELFPAY | END 2024-10-02 07:00 | PROVIDERS: Admitting Provider Physician Assistant Medical; Emergency Provider Emergency Medicine; PCP Internal Medicine; Visit Provider Radiology Diagnostic Radiology | DX: N28.1 Cyst of kidney, acquired (principal); I31.39 Other pericardial effusion (noninflammatory); Z97.8 Presence of other specified devices | CPT/HCPCS: 71045; 76705 ==

== ENCOUNTER 2024-10-01 23:34 | Outpatient (BNV) | payer BC, SELFPAY | END 2024-10-04 16:00 | PROVIDERS: Admitting Provider Physician Assistant Medical; Emergency Provider Emergency Medicine; PCP Internal Medicine; Visit Provider Internal Medicine Cardiovascular Disease | DX: I31.39 Other pericardial effusion (noninflammatory) (principal); I51.89 Other ill-defined heart diseases | CPT/HCPCS: 93306 ==

== ENCOUNTER → 2024-10-01 23:34 | Outpatient (BNV) | payer SELFPAY | PROVIDERS: Admitting Provider Physician Assistant Medical; Emergency Provider Emergency Medicine; PCP Internal Medicine; Visit Provider Physician Assistant Medical | DX: J96.01 Acute respiratory failure with hypoxia (principal); J90 Pleural effusion, not elsewhere classified | CPT/HCPCS: 99291 ==

== ENCOUNTER → 2024-10-01 23:34 | Outpatient (BNV) | payer BC, SELFPAY | PROVIDERS: Admitting Provider Physician Assistant Medical; Emergency Provider Emergency Medicine; PCP Internal Medicine; Visit Provider Nurse Practitioner Psychiatric/Mental Health | DX: F10.20 Alcohol dependence, uncomplicated (principal) | CPT/HCPCS: 99222 ==

== ENCOUNTER → 2024-10-01 23:34 | Outpatient (BNV) | payer BC, SELFPAY | PROVIDERS: Admitting Provider Physician Assistant Medical; Emergency Provider Emergency Medicine; PCP Internal Medicine; Visit Provider Internal Medicine Gastroenterology | DX: R74.01 Elevation of levels of liver transaminase levels (principal); J94.8 Other specified pleural conditions; F10.20 Alcohol dependence, uncomplicated | CPT/HCPCS: 99222 ==

== ENCOUNTER → 2024-10-01 23:34 | Outpatient (BNV) | payer BC, SELFPAY | PROVIDERS: Admitting Provider Physician Assistant Medical; Emergency Provider Emergency Medicine; PCP Internal Medicine; Visit Provider Nurse Practitioner Acute Care | DX: J90 Pleural effusion, not elsewhere classified (principal); F10.939 Alcohol use, unspecified with withdrawal, unspecified | CPT/HCPCS: 99232; 99499 ==

== ENCOUNTER 2024-10-07 00:47 | Emergency (ER) | payer BC, SELFPAY ==
[2024-10-07] VITALS (10 sets, daily range): BP systolic 85–117; BP diastolic 55–88; PULSE 86–113; RESP 14–27; TEMP 36.6–36.8; O2SAT 95–98; BMI 38.7
--- NOTE | 2024-10-07 | ECG_ITS ---
Test Reason : SOB Blood Pressure : / mmHG Vent. Rate : 105 BPM Atrial Rate : 105 BPM P-R Int : 152 ms QRS Dur : 076 ms QT Int : 338 ms P-R-T Axes : 000 049 014 degrees QTc Int : 446 ms Sinus tachycardia Otherwise normal ECG When compared with ECG of 01-OCT-2024 19:03, No significant change was found Referred By: Generic ED Physician Electronically Signed By:CECELIA PEÑA
--- NOTE | ~2024-10-07 | CT_ITS ---
EXAMINATION: CT ANGIOGRAM CHEST CLINICAL INFORMATION: Shortness of breath. Recent right pleural effusion. COMPARISON: Chest 10/07/2024, 10/06/2024, 10/04/2024, 10/03/2024, 10/02/2024. CT chest 10/01/2024. TECHNIQUE: Multiple axial images were obtained through the chest after the administration of 65 mL of Omnipaque 350 intravenous contrast. Extensive vascular post-processing including two-dimensional and three-dimensional reformatted images were created and reviewed on an independent workstation. This CT examination was performed using dose optimization techniques as appropriate, variously including the following: *Automated exposure control *Adjustment of mA and/or kV according to patient size (this includes techniques or standardized protocols for targeted exams where dose is matched to indication/reason for exam; i.e. extremities or head) *Use of iterative reconstruction technique DLP: 335 mGy-cm FINDINGS: Pulmonary arterial system: High density intravenous contrast opacification of the pulmonary chill system is noted. No intraluminal filling defects are noted in the visualized pulmonary arterial system to suggest the presence of pulmonary emboli. Main and central pulmonary arteries are normal in caliber. Thoracic aorta: Normal caliber. Mediastinum: No lymphadenopathy. Mild focal calcific atherosclerotic plaque partially visualized in the region of the origin of the left anterior descending coronary artery though findings are obscured from precise visualization by motion artifact. No pericardial thickening or abnormal pericardial fluid collections. Lungs and pleura: Small dependent layering low density right pleural effusion is present (-10 Hounsfield units). Findings are associated with mild compressive atelectasis of the right lower pulmonary lobe. No pulmonary consolidation is identified. No pneumothoraces. Resting wall: Mild diffuse reticulation and scattered soft tissue emphysema is present in the right lateral thoracic wall. Inflammatory changes of the right serratus anterior muscle. No soft tissue fluid collections noted. Of note, portions of the right lateral thoracic wall are excluded from the imaged field of view. Osseous structures: No rib fractures identified. No suspicious skeletal lesions noted. Incidentally visualized abdominal structures: Eventration of the right hemidiaphragm. No subphrenic fluid collections identified. CT/CT angio chest PE protocol IMPRESSION: *CT pulmonary angiogram negative for pulmonary emboli. *Trace dependent layering low density right pleural effusion and mild associated compressive atelectasis of the right lung. *Mild inflammatory changes of the right lateral thoracic wall with mild scattered soft tissue emphysema. Findings likely relate to a recently discontinued thoracostomy tube. *Mild focal calcific plaque in the region of the origin of the left anterior descending coronary artery. *Eventration of the right hemidiaphragm unchanged compared with 10/01/2024. VTE: Negative Electronically signed by: Salo Cerna MD 10/07/2024 04:25 AM [facility]
--- NOTE | ~2024-10-07 | XR_ITS ---
EXAMINATION: XR CHEST CLINICAL INFORMATION: sob COMPARISON: Chest radiograph 10/06/2024. Chest radiograph 10/04/2024. Chest radiograph 10/02/2024. TECHNIQUE: Frontal view of the chest was obtained. FINDINGS: Normal appearance of the cardiomediastinal structures. Minimal blunting of the right costophrenic sulcus. Small number of scattered horizontally oriented coarse reticular opacities within the right lung base. No pneumothoraces. No focal pulmonary consolidation. XR/XR chest 1V IMPRESSION: Trace right pleural effusion and mild right base atelectasis similar findings present 10/06/2024. Electronically signed by: Salo Cerna MD 10/07/2024 01:30 AM [facility]
[2024-10-07 01:22] LABS: Partial Thromboplastin Time 34.8 SEC (26.0-36.8)
[2024-10-07 01:40] LABS: Basophils Percent Auto 0.4 % (0-2); Eosinophils Absolute Auto 0.2 X10*3/uL (0.0-0.4); Hematocrit 36.6 % (42.0-52.0); Hemoglobin 12.2 g/dl (14.0-18.0); Imm Gran Abs Auto 0.06 X10*3/uL (0.00-0.03); Imm Gran Pct Auto 0.6 % (0.0-0.4); Lymphocytes Absolute Auto 1.8 X10*3/uL (1.2-4.9); Lymphocytes Percent Auto 17.1 % (20-40); MANUAL DIFF FLAG NO; Mean Corpuscular HGB Conc 33.3 g/dl (31.0-36.0); Mean Corpuscular Hemoglobin 32.7 pg (27.0-33.0); Mean Corpuscular Volume 98.1 fL (80.0-98.0); Mean Platelet Volume 9.9 fL (9.4-12.4); Monocytes Percent Auto 9.6 % (2-11); Neutrophils Absolute Auto 7.3 x10*3/uL (2.0-8.3); Neutrophils Percent Auto 70.3 % (45-73); Platelet Count 119 X10*3/uL (160-400); Red Blood Count 3.73 X10*6/uL (4.60-5.80); Red Cell Distribution Width 16.9 % (11.0-16.0); White Blood Count 10.3 X10*3/uL (4.8-10.8)
--- NOTE | 2024-10-07 01:45 | ED_ITS ---
HPI - General Adult General Chief complaint: General Medical Stated complaint: plurainfusion yesterday, wound leak, diff breathin Time Seen by Provider: 10/07/24 01:45 History of Present Illness ED Provider: Shari GAMEZ narrative: The patient is a 49-year-old male who was recently hospitalized for a large pleural effusion. The patient has had problems with alcoholism. He presented to the emergency room 6 days ago on October 01 with alcohol intoxication, nausea, vomiting, and shortness of breath. He was found to have a large right- sided pleural effusion. Ultimately a chest tube was placed. He was hospitalized from October 01 through October 06. Was discharged yesterday afternoon. His chest tube has been removed on October 04. There were sutures placed at the site of the chest tube insertion. The patient was discharged on cefuroxime and doxycycline. The patient says he was not feeling that bad this afternoon when he was discharged. However he says that since getting home he developed a cough and some sense of shortness of breath. He also noticed that there has been a lot of fluid leaking from the site of the chest tube insertion. This seems to be clear fluid. He was not having a leakage of fluid prior to leaving the hospital. He has not had a fever. Apparently the actual decision for him to come to the hospital occurred when he asked his father, with whom he lives, to bring him a pulse oximeter. The father apparently looked for a pulse oximeter but could not find it. The father then called the brother (who was not at the home) in a bit of a panic that he could not find the pulse oximeter. The brother then called 911. Related Data Home Medications ?Medication ?Instructions ?Recorded ?Confirmed vitamin A 2,400 mcg capsule 2,400 mcg PO DAILY 08/01/24 10/01/24 vitamin B complex 1 tab PO DAILY 08/01/24 10/01/24 magnesium oxide 400 mg PO DAILY 10/01/24 10/01/24 mirtazapine 7.5 mg tablet 7.5 mg PO BEDTIME PRN Depression 10/01/24 10/01/24 [id number]-dz-[id number] 300 mcg-K 60 1 tab PO DAILY 10/01/24 10/01/24 mcg-lycop 600 mcg-lutein 300 mcg tablet (Centrum Silver Men) Previous Rx's ?Medication ?Instructions ?Recorded clonidine HCl 0.1 mg tablet 0.1 mg PO BID #180 tabs 08/02/24 cefuroxime axetil 500 mg tablet 500 mg PO BID #4 tabs 10/06/24 doxycycline monohydrate 100 mg 100 mg PO BID #4 caps 10/06/24 capsule folic acid 1 mg tablet 1 mg PO DAILY #30 tabs 10/06/24 gabapentin 100 mg capsule 100 mg PO BID #60 caps 10/06/24 naltrexone 50 mg tablet 50 mg PO DAILY #30 tabs 10/06/24 omeprazole 20 mg capsule,delayed 20 mg PO DAILY@0630 #30 caps 10/06/24 release thiamine mononitrate (vit B1) 100 100 mg PO DAILY #30 tabs 10/06/24 mg tablet Allergies Allergy/AdvReac Type Severity Reaction Status Date / Time Penicillins Allergy Mild hives Verified 10/07/24 01:17 Review of Systems 2 Review of Systems: Yes all other systems are reviewed and are negative [facility] Past Medical History Medical History HTN (hypertension) Alcohol abuse Social History Social History Household Members: Family Housing: House Do you presently have visiting nurse or other home services: No Alcohol intake: current Alcohol intake frequency: other Alcohol type: beer Patient Tobacco Use Status: Former Tobacco user Tobacco use type: Cigarette Cigarette Packs Per Day: 2 Cigarettes Per Day: 40.0 Years Smoked: 20 e-Cigarette/Vaping Use: Never Used Second Hand Smoke Exposure: No service: No Physical Exam ED Vital Signs: Vital Signs - 24 hr 10/07/24 01:13 10/07/24 02:22 10/07/24 03:31 Temperature 97.8 F 98.1 F Pulse Rate 110 H 112 H 113 H Respiratory Rate 18 18 14 Blood Pressure 117/88 100/68 Pulse Oximetry 97 97 Oxygen Delivery Method Room Air Room Air 10/07/24 04:50 10/07/24 04:52 10/07/24 06:00 Temperature Pulse Rate 104 H 97 Respiratory Rate 27 H 27 H 16 Blood Pressure 85/61 L 104/70 85/55 L Pulse Oximetry 98 98 98 Oxygen Delivery Method Room Air Room Air Room Air 10/07/24 06:16 10/07/24 06:41 10/07/24 08:00 Temperature 98.3 F 98.0 F Pulse Rate 86 Respiratory Rate 18 Blood Pressure 92/69 96/71 98/69 Pulse Oximetry 98 98 Oxygen Delivery Method Room Air Room Air 10/07/24 08:59 Temperature 98.0 F Pulse Rate 86 Respiratory Rate 18 Blood Pressure 98/69 Pulse Oximetry 98 Oxygen Delivery Method Room Air BMI result Body Mass Index 38.7 Const Other: The patient is a chronically ill-appearing 49-year-old. Looks considerably older than his age. He is awake and alert. He looks pale but does not seem in any respiratory difficulty or seem obviously acutely ill otherwise. HENMT Other: Face is symmetrical. Mucous membranes moist. Eyes General: appearance normal, both eyes and all related structures Neck Other: Neck is supple, no adenopathy, no JVD, moving his neck easily Chest Other: there is a sutured wound on the right chest at the lower anterior axillary line which was the site of her recent chest tube insertion. There are [address] Serous fluid was leaking from the wound. When I apply pressure around the wound additional serous fluid was expressed. Resp Effort & Inspection: normal respiratory effort Auscultation: clear to auscultation bilaterally Cardio Rate: tachycardic Rhythm: regular rhythm Heart sounds: S1 normal heart sound present and S2 normal heart sound present GI Other: Abdomen is soft nontender Skin Other: skin is pale and dry. He has a lot of ecchymotic skin changes on his arms from previous phlebotomy and IV sticks. Neuro Other: The patient is awake and alert with normal mental status. He is oriented and appropriate. Cranial nerves are grossly intact. Moves his extremities symmetrically and has no focal findings. He may be mildly deconditioned. Extrem Other: No calf swelling or tenderness. No pitting edema. No asymmetry. Medications Administered Discontinued Medications Generic Name Dose Route Start Last Admin Trade Name Freq PRN Reason Stop Dose Admin Albuterol/Ipratropium 3 ml 10/07/24 02:03 10/07/24 02:20 Albuterol/Iprat 2.5/0.5mg 3 Ml Ampul.Neb INHALE 10/07/24 02:04 3 ml ONCE ONE Administration Albuterol/Ipratropium 3 ml 10/07/24 02:14 10/07/24 02:21 Albuterol/Iprat 2.5/0.5mg 3 Ml Ampul.Neb INHALE 10/07/24 02:15 Not Given ONCE ONE Cefuroxime Axetil 500 mg 10/07/24 07:50 10/07/24 07:55 Cefuroxime Axetil 500 Mg Tablet PO 10/07/24 07:51 500 mg ONCE ONE Administration Doxycycline Monohydrate 100 mg 10/07/24 07:50 10/07/24 07:55 Doxycycline Monohydrate 100 Mg Capsule PO 10/07/24 07:51 100 mg ONCE ONE Administration Sodium Chloride 1,000 mls @ 999 mls/hr 10/07/24 05:30 10/07/24 07:13 Ns IV 10/07/24 06:30 Infused .Q1H1M CINTIA Infusion Iohexol 65 ml 10/07/24 04:03 10/07/24 04:03 Iohexol 350 Mg/Ml 100 Ml Infus..Btl IV 10/07/24 04:04 65 ml ONCE ONE Administration Medical Decision Making Medical Decision Making [facility] Narrative: The patient is a 49-year-old male who was recently hospitalized for alcohol- related problems and a large right-sided hydrothorax that was drained with a right-sided chest tube. The chest tube was removed 2 and half days ago on Monday. He was discharged from the from the hospital less than 12 hours before we presenting to the emergency room early this morning. At discharge she was discharged on cefuroxime and doxycycline.Apparently since leaving the hospital he has developed serous fluid drainage from the chest tub wound site. He has not had a fever. Here the patient is mildly tachycardic and his blood pressures are on the low side. He does not have a fever. There is no obvious source of infection on his exam. Chest x-ray did not show any worsening findings. I do not have high suspicion for acute infectious process. He has been on antibiotics and took his evening dose of doxycycline and cefuroxime. He does not have an elevated white count or left shift. Given his tachycardia and lower blood pressures and his recent hospitalization I felt that a pulmonary embolism should be ruled out. A CT pulmonary angiogram of the chest with therefore done. In addition to showing no findings of pulmonary embolism the CT also does not show any problems obviously related to the site of serous drainage from his right chest tube wound site. Patient was given IV fluids. He was observed for several hours. He seems to be stable although he continued to have mild tachycardia and lower blood pressures. I suspect that this may be related to some degree of deconditioning and possibly some poor nutrition. Ultimately I did not feel there was any indication for return to the hospital. The patient seemed comfortable with the idea of going home and so he was discharged. Lab Data 10/07/24 01:36 10/07/24 01:36 Labs: Lab Results 10/07/24 10/07/24 Range/Units 01:09 01:36 WBC 10.3 (4.8-10.8) X10*3/uL RBC 3.73 L (4.60-5.80) X10*6/uL Hgb 12.2 L (14.0-18.0) g/dl Hct 36.6 L (42.0-52.0) % MCV 98.1 H (80.0-98.0) fL MCH 32.7 (27.0-33.0) pg MCHC 33.3 (31.0-36.0) g/dl RDW 16.9 H (11.0-16.0) % Plt Count 119 L (160-400) X10*3/uL MPV 9.9 (9.4-12.4) fL Immature Gran % (Auto) 0.6 H (0.0-0.4) % Neut % (Auto) 70.3 (45-73) % Lymph % (Auto) 17.1 L (20-40) % [place] % (Auto) 9.6 (2-11) % Eos % (Auto) 2.0 (0-4) % Baso % (Auto) 0.4 (0-2) % Lymph # (Auto) 1.8 (1.2-4.9) X10*3/uL [place] # (Auto) 1.0 (0.1-1.2) X10*3/uL Eos # (Auto) 0.2 (0.0-0.4) X10*3/uL Baso # (Auto) 0.0 (0.0-0.2) X10*3/uL Abs Immat Gran (auto) 0.06 H (0.00-0.03) X10*3/uL Absolute Neuts (auto) 7.3 (2.0-8.3) x10*3/uL Absolute Nucleated RBC 0.000 (0.0-0.012) X10*3/uL Nucleated RBC % (auto) 0.0 (0.0-0.2) /100WBC APTT 34.8 (26.0-36.8) SEC Sodium 132 L (135-145) mmol/L Potassium 3.6 (3.3-5.1) mmol/L Chloride 101 (96-108) mmol/L Carbon Dioxide 19 L (22-29) mmol/L Anion Gap 16 (12-20) BUN 16 (9-16) mg/dL Creatinine 1.12 (0.5-1.4) mg/dL Estim Creat Clear Calc 90.3 Estimated GFR > 60 Random Glucose 94 (60-115) mg/dL Calcium 8.5 (8.4-10.2) mg/dL Total Bilirubin 0.9 (0.0-1.0) mg/dL AST 124 H (5-37) U/L ALT 56 H (0-40) U/L Alkaline Phosphatase 105 (39-117) U/L Total Protein 5.5 L (6.5-8.0) g/dL Albumin 3.1 L (3.5-5.0) g/dL Lipase 35 (8-78) U/L Ethyl Alcohol < 10 mg/dL Discharge Plan Discharge Clinical Impression: Drainage from wound Patient Disposition: Home, Self-Care Additional Instructions: Please continue cefuroxime and doxycycline at home. Try to eat well and drink well. Stay in touch with Dr. Iniguez regarding the wound related to your chest tube. Also plan on making a follow up appointment with Dr. Krause. Please call Sophie Grubbs for recommendations regarding maintenance of alcohol cessation. Return to the emergency room if significantly worse. Prescriptions: No Action vitamin A 2,400 mcg Capsule 2,400 mcg PO DAILY vitamin B complex Tablet 1 tab PO DAILY clonidine HCl 0.1 mg tablet 0.1 mg PO BID Qty: 180 0RF Centrum Silver Men [id number] mcg Tablet 1 tab PO DAILY magnesium oxide 400 mg magnesium Tablet 400 mg PO DAILY mirtazapine 7.5 mg tablet 7.5 mg PO BEDTIME PRN (Reason: Depression) doxycycline monohydrate 100 mg Capsule 100 mg PO BID Qty: 4 0RF omeprazole 20 mg Capsule,Delayed Release(Dr/Ec) 20 mg PO DAILY@0630 Qty: 30 0RF folic acid 1 mg Tablet 1 mg PO DAILY Qty: 30 0RF cefuroxime axetil 500 mg Tablet 500 mg PO BID Qty: 4 0RF thiamine mononitrate (vit B1) 100 mg Tablet 100 mg PO DAILY Qty: 30 0RF naltrexone 50 mg tablet 50 mg PO DAILY Qty: 30 3RF gabapentin 100 mg capsule 100 mg PO BID Qty: 60 0RF Referrals: Alex Krause MD [Primary Care Provider] - Sophie Grubbs CNP [Nurse Practitioner] - David Iniguez MD [Physician] - (Chest tube sutures) Interventions: ED Discharge Assessment Last Done: 10/07/24 08:59 Discharge Date/Time: 10/07/24 09:07 Print Language: Macanese
[2024-10-07 01:57] LABS: Alanine Aminotransferase 56 U/L (0-40); Albumin Level 3.1 g/dL (3.5-5.0); Alkaline Phosphatase 105 U/L (39-117); Anion Gap 16 (12-20); Aspartate Amino Transferase 124 U/L (5-37); Bilirubin Total 0.9 mg/dL (0.0-1.0); Blood Urea Nitrogen 16 mg/dL (9-16); Calcium 8.5 mg/dL (8.4-10.2); Carbon Dioxide 19 mmol/L (22-29); Chloride 101 mmol/L (96-108); Creatinine Clr Calc Pharmacy 90.3; Estimated Glomerular Filt Rate > 60; Ethanol < 10 mg/dL; Glucose Random 94 mg/dL (60-115); Lipase 35 U/L (8-78); Potassium 3.6 mmol/L (3.3-5.1); Sodium 132 mmol/L (135-145); Total Protein 5.5 g/dL (6.5-8.0)
[2024-10-07] MEDS: Albuterol/Iprat 2.5/0.5MG 3 ML AMPUL.NEB INHALE (02:20)
[2024-10-07] MEDS: iohexoL 350 MG/ML 100 ML INFUS..BTL 65 ML IV (04:03)
--- NOTE | 2024-10-07 05:19 | PC.NURSE ---
Pt a&o, no respiratory distress, dressing change to chest tube site, draining yellow sanguineous fluid, dressing clean and intact. Blood pressure soft on the right arm vs the left, provider is aware. Pt taken to Ct Scan awaiting deposition.
[2024-10-07] MEDS: 0.9 % Sodium Chloride 1,000 ML 999 ML IV (05:35)
--- NOTE | 2024-10-07 07:22 | PC.NURSE ---
Resumed care of pt at 0700. Pt resting quietly in stretcher, a/ox4, respirations even and unlabored, no increased wob/sob noted, tachycardic on school lunch monitor, HR- 105, abdomen soft, non-tender. call rodriguez within reach, all needs met at this time, plan of care ongoing.
[2024-10-07] MEDS: Doxycycline Monohydrate 100 MG CAPSULE PO (07:55)
[2024-10-07] MEDS: cefuroxime axetiL 500 MG TABLET PO (07:55)
== END 2024-10-07 09:07 | disposition home or self-care (01) ==
PROVIDERS: Emergency Provider Emergency Medicine; PCP Internal Medicine
DX: T81.31XA Disruption of external operation (surgical) wound, not elsewhere classified, initial encounter (principal); Y83.8 Other surgical procedures as the cause of abnormal reaction of the patient, or of later complication, without mention of misadventure at the time of the procedure; Y92.9 Unspecified place or not applicable; R06.02 Shortness of breath; R05.9 Cough, unspecified; I10 Essential (primary) hypertension; F10.90 Alcohol use, unspecified, uncomplicated; Z79.899 Other long term (current) drug therapy
CPT/HCPCS: 36415; 71045; 71275; 80053; 80307; 83690; 85025; 85730; 93005; 94640; 96360; 96361; 99285; Q9967

== ENCOUNTER → 2024-10-07 01:23 | Outpatient (BNV) | payer BC, SELFPAY | PROVIDERS: Emergency Provider Emergency Medicine; PCP Internal Medicine; Visit Provider Internal Medicine | DX: R06.02 Shortness of breath (principal); R00.0 Tachycardia, unspecified | CPT/HCPCS: 93010 ==

== ENCOUNTER 2024-10-09 14:59 | Outpatient (AMB) | payer BC, SELFPAY ==
--- NOTE | 2024-10-09 14:39 | MHC.AM.SUB ---
Intake Visit Reasons: Tele Restart Allergies Penicillins Allergy (Mild, Verified 10/14/24 09:36) hives [facility] HPI Tele Restart: Details: Patient presents for continuation of treatment via telehealth Recently medically admitted with pleural effusion and alcohol withdrawal VNA has been going to his house every other day --concerned about wound that has fluid leaking from it follow up Monday Has FMLA approved until 11/01 GI follow up to be scheduled PCP appt next week Regarding alcohol --no alcohol since September 30 Reporting trigger moment taking naltrexone 50mg daily-- would like to increase Requesting to start antidepressant trials in the past are wellbutrin and zoloft Review of Systems Const Reports as per [facility] Telehealth Telehealth Telehealth Platform: Telephone Location of provider rendering services: practice address Location of patient: address on file Patient Identification confirmed using: Name, : Yes Telehealth method: voice only Patient verbally consented to treatment: Yes Patient verbally consented to billing insurance company: Yes Minutes spent on Phone/Video with Pt.: 30 Assessment & Plan Assessment & Plan (1) Alcohol use disorder, severe, dependence: Code(s): F10.20 - Alcohol dependence, uncomplicated Category: Medical Plan: restart naltrexone trial lexapro 5mg follow up 2 weeks telehealth Medications: New escitalopram oxalate (Lexapro) 5 mg PO DAILY 30 tabs 0RF PFSH Medical History Alcohol use disorder, severe, dependence MDD (major depressive disorder) HTN (hypertension) Alcohol abuse Social History Household Members: Family Housing: House Do you presently have visiting nurse or other home services: No Alcohol intake: current Alcohol intake frequency: other Alcohol type: beer Patient Tobacco Use Status: Former Tobacco user Tobacco use type: Cigarette Cigarette Packs Per Day: 2 Cigarettes Per Day: 40.0 Years Smoked: 20 e-Cigarette/Vaping Use: Never Used Second Hand Smoke Exposure: No service: No Social History: Lives with parents, , no children, 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 Substance History: Pt reports drinking three handles of vodka a week ; denies any other substance use. Trauma History: denies
== END 2024-10-09 16:22 | disposition home or self-care (01) ==
PROVIDERS: PCP Internal Medicine; Visit Provider Nurse Practitioner Psychiatric/Mental Health
DX: F10.20 Alcohol dependence, uncomplicated (principal)
CPT/HCPCS: 98968

== ENCOUNTER 2024-10-14 09:28 | Outpatient (AMB) | payer BC, SELFPAY ==
--- NOTE | 2024-10-14 09:30 | A.OFFVIS_ITS ---
Vital Signs 10/14/24 09:38 Height 5 ft 11 in Weight 255 lb BMI 35.6 BP 116/65 Blood Pressure Location Rt brachial Position Sitting Pulse 120 H Intake Visit Reasons: suture removal Intake Note: Patient here to follow up Rt pleural effusion on 10-01-2024. Suture removal at tube site. Patient c/o: reports tube site healing well. VNA 3X wk. No drainage for the past 3d. Chest CT: 10-07-2024. Physically Impaired Teacher Required: No Accompanied by: brother Sameer Allergies Penicillins Allergy (Mild, Verified 10/14/24 09:36) hives HPI Comments Details: Patient presents with his brother. He is here for suture removal status post right chest tube placement. He states that he has not had any drainage out of the chest tube site for several days time. [facility] Medical History HTN (hypertension) Alcohol abuse Social History Household Members: Family Housing: House Do you presently have visiting nurse or other home services: No Alcohol intake: current Alcohol intake frequency: other Alcohol type: beer Patient Tobacco Use Status: Former Tobacco user Tobacco use type: Cigarette Cigarette Packs Per Day: 2 Cigarettes Per Day: 40.0 Years Smoked: 20 e-Cigarette/Vaping Use: Never Used Second Hand Smoke Exposure: No service: No Physical Exam Vital Signs: Last Vital Signs Pulse 120 H 10/14/24 09:38 BP 116/65 10/14/24 09:38 BMI result Body Mass Index 35.6 Chest Other: Chest breath sounds bilaterally very clear. Chest tube incision site healing. Sutures uneventfully removed. A gush of serous fluid was retrieved. Occlusive dressing placed. Assessment & Plan Assessment & Plan (1) Pleural effusion, right: Code(s): J90 - Pleural effusion, not elsewhere classified Category: Surgical Plan At present, patient will continue VNA services. Should the drainage recur, patient was been instructed to call the office and a new set of sutures will be placed. All questions answered. Patient will see me otherwise p.r.n.. Coding Level of Care Code Est Pt Level 4 (91259) Diagnoses Pleural effusion, right J90
[2024-10-14 09:38] VITALS: BP 116/65; PULSE 120; BMI 35.6
== END 2024-10-14 09:52 | disposition home or self-care (01) ==
PROVIDERS: PCP Internal Medicine; Visit Provider Surgery
DX: J90 Pleural effusion, not elsewhere classified (principal)
CPT/HCPCS: 99214

== ENCOUNTER → 2024-10-14 09:28 | Outpatient (BNVA) | payer BC, SELFPAY | PROVIDERS: PCP Internal Medicine; Visit Provider Surgery ==

== ENCOUNTER 2024-10-28 09:30 | Outpatient (REF) | payer BC, SELFPAY | END 2024-10-28 09:31 | disposition home or self-care (01) | LOC: HO.XRAY 09:30 | PROVIDERS: PCP Internal Medicine; Visit Provider Surgery | DX: J90 Pleural effusion, not elsewhere classified (principal) | CPT/HCPCS: 71046 ==

== ENCOUNTER 2024-10-28 09:30 | Outpatient (AMB) | payer BC, SELFPAY ==
--- NOTE | 2024-10-28 09:30 | MHC.OFFVIS ---
Intake Visit Reasons: wound check Intake Note: Patient here for 2wk follow up tube removal. Rt pleural effusion on 10-01-2024. Patient c/o: no concerns. Lithographer Helper Required: No Accompanied by: Self / Same As Patient Allergies Penicillins Allergy (Mild, Verified 10/28/24 09:31) hives Medication List - Last Reconciled 10/28/24 by David Iniguez MD clonidine HCl 0.1 mg PO BID escitalopram oxalate (Lexapro) 5 mg PO DAILY folic acid 1 mg PO DAILY gabapentin 100 mg PO BID magnesium oxide 400 mg PO DAILY mirtazapine 7.5 mg PO BEDTIME PRN [id number] mcg (Centrum Silver Men) 1 tab PO DAILY naltrexone 50 mg PO BID omeprazole 20 mg PO DAILY@0630 thiamine mononitrate (vit B1) 100 mg PO DAILY vitamin A 2,400 mcg PO DAILY vitamin B complex 1 tab PO DAILY HPI Comments Details: Patient presents with his brother for follow-up. No acute respiratory issues or complaints. He has complete healing of his chest tube site with no drainage. PFSH Medical History Alcohol use disorder, severe, dependence MDD (major depressive disorder) HTN (hypertension) Alcohol abuse Social History Household Members: Family Housing: House Do you presently have visiting nurse or other home services: No Alcohol intake: current Alcohol intake frequency: other Alcohol type: beer Patient Tobacco Use Status: Former Tobacco user Tobacco use type: Cigarette Cigarette Packs Per Day: 2 Cigarettes Per Day: 40.0 Years Smoked: 20 e-Cigarette/Vaping Use: Never Used Second Hand Smoke Exposure: No service: No Physical Exam Chest Other: Breath sounds bilaterally. Diminished right base. Chest tube incision site clean dry and intact well healed Assessment & Plan Assessment & Plan (1) Pleural effusion, right: Code(s): J90 - Pleural effusion, not elsewhere classified Category: Surgical Plan: Current plan is to obtain a follow-up chest x-ray to assess patient was right pleural effusion indirect further therapy/interventions based on these results and the patient's clinical course. Patient understands and we will contact him with x-ray results should they require further intervention. Orders: Orders XR chest 2V Today J90 - Pleural effusion, not elsewhere classified Coding Level of Care Code Est Pt Level 4 (63259) Diagnoses Pleural effusion, right J90
--- OUTSIDE RECORDS SUMMARY | 2024-10-28 09:34 | XMS_ITS | Continuity of Care Document ---
Author Organization [facility] Solo Abhay lt Address [address] [place] [address]- Care Team Providers Care Conduit Installer Name Role Phone Alex Krause MD Primary Care Physician Encounter [facility] [place] Date(s): 10/17/24 - 10/24/24 [facility] Adult [address] [place] [address]- Encounter Diagnosis Crohn disease(Discharge Diagnosis) - 10/17/24 Depression, major, in partial remission(Discharge Diagnosis) - 10/17/24 Severe obesity (BMI 35.0-39.9) with comorbidity(Discharge Diagnosis) - 10/17/24 Attending Physician: Alex Krause MD Encounter Type: Office Visit Allergies, Adverse Reactions, Alerts Substance Criticality Severity Reaction Reaction Severity Status penicillin Hives Active Immunizations Given and Recorded Vaccine Date Status Refusal Reason hepatitis B adult vaccine 1 10/17/24 Given hepatitis B adult vaccine 03/19/24 Given Hepatitis A Adult Vaccine 2 10/17/24 Given Hepatitis A Adult Vaccine 03/19/24 Given influenza virus vaccine, inactivated 3 10/17/24 Gi aj influenza virus vaccine, inactivated 07/28/22 Gino rded tetanus-diphtheria toxoids (Td) 03/13/23 Given SARS-CoV-2 (COVID-19) mRNA BNT-162b2 vac 10/30/21 Recorded SARS-CoV-2 (COVID-19) mRNA BNT-162b2 vac 01/08/21 Recorded SARS-CoV-2 (COVID-19) mRNA BNT-162b2 vac 12/18/20 Recorded diphtheria/tetanus/pertussis, acel(DTaP) 12/27/12 Recorded 1Result Comment: Hep B [facility]#:[id number] 2Result Comment: Hep A [facility]#[id number] 3Result Comment: [facility]#[id number] CHECKLIST-DONE Medications cloNIDine 0.1 mg oral tablet 0.1 mg, 1, tablet, By Mouth, 2 times a day, # 60 tablet, Refills 0, Maintenance, 03/19/24 12:11:00 PMEDT, Partial fill upon patient request if the prescription is for a schedule II opioid drug. Start Date: 03/19/24 Status: Ordered Quantity: 60.0 Unit: tablet Repeat number: 1 escitalopram 5 mg oral tablet 0 Refills, Maintenance, 10/17/24 11:40:00 AM EST, Partial fill upon patient request if the prescription is for a schedule II opioid drug. Start Date: 10/17/24 Status: Ordered Repeat number: 1 Folic Acid Daily, 0 Refills, Maintenance, 03/04/24 8:51:00 AM EDT, Partial fill upon patient request if the prescription is for a schedule II opioid drug. Start Date: 03/04/24 Status: Ordered Repeat number: 1 gabapentin 100 mg oral capsule 100 mg, 1, capsule, By Mouth, 3 times a day, # 90 capsule, Refills 11, Tot. Refills 11, Maintenance, 10/17/24 11:40:00 AM EST, Route to Pharmacy Electronically, [facility]/pharmacy #[id number], Partial fill upon patient request if the prescription is for a schedule II opioid drug., 181, cm, 10/17/24 11:17:00 EST, Height Start Date: 10/17/24 Stop Date: 10/12/25 Status: Ordered Quantity: 90.0 Unit: capsule Repeat number: 12 mirtazapine 7.5 mg oral tablet 2 tablet = 15 mg, By Mouth, Daily at bedtime, 0 Refills, Maintenance, 03/04/24 8:51:00 AM EDT, Partial fill upon patient request if the prescription is for a schedule II opioid drug. Start Date: 03/04/24 Status: Ordered Repeat number: 1 Naltrexone Daily, 0 Refills, Maintenance, 03/04/24 8:51:00 AM EDT, Partial fill upon patient request if the prescription is for a schedule II opioid drug. Start Date: 03/04/24 Status: Ordered Repeat number: 1 Problem List Condition Confirmation Course Effective Dates [...] peripheral Confirmed Active Tinea versicolor Confirmed Active Pleural effusion on right Confirmed Active Severe obesity (BMI 35.0-39.9) with comorbidity Confirmed Active Diagnosis Diagnosis Type Effective Dates Health Status Clinical Service Informant Crohn disease Discharge Diagnosis 10/17/24 Depression, major, in partial remission Discharge Diagnosis 10/17/24 Severe obesity (BMI 35.0-39.9) with comorbidity Discharge Diagnosis 10/17/24 Vital Signs Most recent to oldest [Reference Range]: 1 Height 181 cm (10/17/24 11:17 AM) Weight 116.8 kg (10/17/24 11:17 AM) Oxygen Saturation [94-100 %] 98 % (10/17/24 11:17 AM) Pulse Rate [55-90 bpm] 121 bpm *H* (10/17/24 11:17 AM) Body Mass Index [18.5-24.99 kg/m2] 35.65 kg/m2 *>HHI* (10/17/24 11:17 AM) Blood Pressure [90-138/55-84 mm Hg] 104/ 79mm Hg (10/17/24 11:17 AM) Respiratory Rate [16-30 br/min] 20 br/mi n (10/17/24 11:17 AM) Temperature [96.8-100.4 DegF] 97.6 DegF (10/17/24 11:17 AM) Mode of Delivery (Oxygen) Room air (10/17/24 11:17 AM) Blood pressure sites Arm, left (10/17/24 11:17 AM) Temperature Route Oral (10/17/24 11:17 AM) Weight Obtained Via Standing scale (10/17/24 11:17 AM) Social History Social History Type Response Smoking Status Never (less than 100 in lifetime) entered on: 03/13/23 Sex Sex Representation Male (finding) Note * Elsa Black: PERFORM Event Display: Patient Education/Instruction Authored Date: Ambulatory Adult Visit Summary [facility] Adult [facility] [address] [place] [address] Name: CANDACE DIAS : 1975?? Visit: 10/17/2024 11:12?? Ambulatory Visit Instructions ?? Your Care Team Primary Care Provider Alex Krause MD? This Visit Provider Alex Krause MD Your Diagnosis Crohn disease Pleural effusion on right Alcohol use Neuropathy, peripheral Depression, major, in partial remission Severe obesity (BMI 35.0-39.9) with comorbidity Vitals Signs Temperature: 97.6 DegF Height: 181 cm Pulse Rate:??121 bpm??High Weight: 116.8 kg Respiratory Rate: 20 br/min Body Mass Index:??35.65 kg/m2??Critical Systolic Blood Pressure: 104 mm Hg Body surface area: 2.42 Diastolic Blood Pressure: 79 mm Hg ?? Oxygen Saturation: 98 % ?? What to do next Follow-Up Appointments Follow Up with??Alex Krause MD When:??In 3 months Where: ?? Medications The list below reflects the information in our records and provided by you today along with any changes made during this visit. Please continue your medications until treatment is completed or stopped by your provider. If this is different from the information you have or there are other questions,please contact the prescribing provider. What How Much When Instructions Changed Gabapentin (gabapentin 100 mg oral capsule) 1 capsule Oral 3 times a day Duration: 30 Days Pickup at [facility]/pharmacy #[id number] Unchanged Clonidine (cloNIDine 0.1 mg oral tablet) 1 tab(s) Oral Twice a day Unchanged Escitalopram (escitalopram 5 mg oral tablet) Unchanged Folic Acid Daily Unchanged Mirtazapine (mirtazapine 7.5 mg oral tablet) 2 tab(s) Oral Daily at Bedtime Unchanged Naltrexone Daily Pharmacy Information [facility]/pharmacy #[id number]: [address], [place] [id number] [phone] ?? What How Much When Comments Stop Taking Amlodipine (amLODIPine 5 mg oral tablet) 1 tab(s) Oral Daily Stop Taking Amphetamine-Dextroamphetamine (Adderall XR 20 mg oral capsule, extended release) 1 capsule Oral Daily Stop Taking Famotidine 20 Milligram Oral Daily Stop Taking Lisinopril (lisinopril 20 mg oral tablet) 1 tab(s) Oral Daily Medications and Immunizations Administered Medications Given During Visit No medications given during this visit.?? Allergies (NKA means No Known Allergies) penicillin??(Hives) Common Emergency Awareness Tips IS IT A STROKE? Act FAST and Check for these signs: FACE Does the face look uneven? ARM Does one arm drift down? SPEECH Does their speech sound strange? TIME Call at any sign of stroke ?? Heart Attack Signs Chest discomfort: Most heart attacks involve discomfort in the center of the chest and lasts more than a few minutes, or goes away and comes back. It can feel like uncomfortable pressure, squeezing, fullness or pain. Discomfort in upper body: Symptoms can include pain or discomfort in one or both arms, back, neck, jaw or stomach. Shortness of breath: With or without discomfort. Other signs: Breaking out in a cold sweat, nausea, or lightheaded. Remember, MINUTES DO MATTER. If you experience any of these heart attack warning signs, call to get immediate medical attention! ?? Smoking can increase your chances of developing chronic health problems and can cause harmful effects to other family members in your house. If you smoke, you are strongly encouraged to quit. Please call [facility] at [phone] or [phone]) or log in to [email or web address] for referrals to smoking cessation programs. ?? The National Suicide Prevention Hotline is available 05/06 if you or someone you know needs to find a reason to keep living. By calling 2-835-948-AirPR (8370) you'll be connected to a skilled, trained counselor at a crisis center in your area. [facility] Portal You can view and manage your care through the patient portal or by using a health care summer of your choosing. [employer] is a website that allows you to securely view your medical information including your hospital discharge summary, office visit summaries, medications and follow-up visits. You can also request appointments, renew medications, and request access to your medical information using a health care summer of your choosing, or just ask a question. You can enroll at [email or web address] or register during your next office visit. [facility], in keeping with [facility] guidance, no longer requires face masks for staff, patientsor visitors in most situations. Similiar to time spent indoors at other locations, there is the chance that you were exposed to repiratory viruses during your time with us (such as flu or COVID-19). If you develop symptoms concerning for a viral respiratory infection, please seek testing (and treatment if indicated) from your medical provider or home test kit. ?? Disclaimer: The information provided is of a general nature and is intended to be used in conjunction with the recommendations and advice of your health care practitioner. Every effort has been made to ensure that the information provided is accurate and complete at the time it is provided to you however, as your needs change, or, as new information becomes available, different or additional instructions may be required. ?? If you have questions, please consult with your primary care provider or pharmacist, as appropriate. This information is not intended to serve as substitution for assessment and evaluation by a qualified health care provider. If you do not have a primary care provider, you may find a [facility] provider by calling [facility] at [phone]. Patient Care team information Care Team Personnel Name: Meseret Nguyễn RN Position: [facility] RN Supv Member Role: Primary Care Nurse Name: Keyla Craig RN Position: [facility] RN Member Role: Primary Care Nurse Name: Alex Krause MD Position: [facility] Physician - Primary Care Member Role: PCP Address: [address] [place] [address] [[email or web address] Telecom: Care Team Related Persons Name: CANDACE DIAS Name: LEXI DIAS Insurance Providers Guarantor name: [employer] Health Plan Information #: 2 Payer: PRIME Member Number: [id number] Policy Number: NA Group Number: NA Health Plan Information #: 1 Payer: [employer] ELECT Member Number: [id number] Policy Number: NA Group Number: NA
== END 2024-10-28 09:36 | disposition home or self-care (01) ==
PROVIDERS: PCP Internal Medicine; Visit Provider Surgery
DX: J90 Pleural effusion, not elsewhere classified (principal)
CPT/HCPCS: 99214

== ENCOUNTER 2024-11-05 10:44 | Day surgery (SDC) | payer BC, SELFPAY ==
--- OUTSIDE RECORDS SUMMARY | 2024-11-04 12:43 | XMS_ITS | Continuity of Care Document ---
Author Organization [facility] Banda Abhay lt Address [address] [place] [address]- Care Team Providers Care Entry Rep Name Role Phone Alex Krause MD Primary Care Physician Encounter [facility] Date(s): 10/04/24 - 11/03/24 [facility] Adult [address] [place] [address]- Encounter Type: Triage Allergies, Adverse Reactions, Alerts Substance Criticality Severity [...] acel(DTaP) 12/27/12 Recorded 1Result Comment: Hep B [facility]#:[id number] 2Result Comment: Hep A [facility]#[id number] 3Result Comment: Flu[facility]#[id number] CHECKLIST-DONE Medications cloNIDine 0.1 mg oral tablet [...] 11:40:00 AM EST, Route to Pharmacy Electronically, [facility]/pharmacy #[id number], Partial fill upon patient request if [...] Sex Sex Representation Male (finding) Note * Jaci Raza RN: PERFORM, SIGN, VERIFY, MODIFY Jaci Raza RN: MODIFY, SIGN Jaci Raza RN: SIGN Alex Krause MD: SIGN Event Display: Case Management Discharge Plan Authored Date: Patient: CANDACE DIAS Age: 49 years Sex: Male : 1975 Associated Diagnoses: None Author: Jaci Raza RN Care Management Discharge Call Note Admit date 10/01/2024 Discharge date 10/06/2024 Date of contact 10/07/2024 Diagnosis Pleural Effusion If patient went for emergency services was this patient referred? Referred by Self Discharge instructions were reviewed with the patient? Yes Medication reconciliation performed Yes Looks like you were recently discharged from the hospital (ED), how are you feeling? doing well Please tell me the problem or condition that brought you to the hospital (ED)? SOB Do you know what to do in case of an emergency? Yes Were you given any prescriptions to fill? Yes. Do you understand how to take your medication? Yes Do you have an appointment already scheduled with your PCP? Yes Is date appropriate: Yes. Are you able to get to that appointment: Yes. Appointment scheduled? Date 10/17/2024 No [facility] Services requested? [facility] Patient contacted: Yes. Have there been any changes in your condition since discharge? No Do you have someone at home that is able to help you? Yes Is there anything else that you need addressed before your follow up appointment? NO Patient Care team information Care Team Personnel Name: Meseret Nguyễn RN Position: [facility] RN Supv Member Role: Primary Care Nurse Name: Keyla Craig RN Position: [facility] RN Member Role: Primary Care Nurse Name: Alex Krause MD Position: S Physician - Primary Care Member Role: PCP Address: [address] [place] [address]- Telecom: Care Team Related Persons Name: CANDACE DIAS Name: LEXI DIAS Insurance Providers Guarantor name: [employer] Health Plan Information #: 1 Payer: [employer] Member Number: NA Policy Number: NA Group Number: NA
[2024-11-05] VITALS (10 sets, daily range): BP systolic 104–142; BP diastolic 73–94; PULSE 87–119; RESP 14–22; TEMP 36.1–36.8; O2SAT 93–96; BMI 35.6
--- NOTE | ~2024-11-05 | US_ITS ---
PROCEDURE: Ultrasound-guided right thoracentesis History: Right pleural effusion Specimen: Serous fluid Access: 5 Grenadian Yueh catheter Medications: 10 mL 1% lidocaine TECHNIQUE/FINDINGS Appropriate preprocedural clinical history and imaging studies were reviewed. The patient was brought to the department and placed in the seated position. Ultrasound images of the right thorax were obtained to localize a large pleural effusion. Permanent ultrasound images were saved. Risks and benefits and possible complications were discussed with the patient and consent form was signed. An area of the patient's right back was prepped and draped in usual sterile fashion. 10 mL of 1% lidocaine was used to obtain local anesthesia of the skin and deeper tissues. A standard small bore needle was introduced to sample pleural fluid and demonstrate a safe access route. A 5 Grenadian Yueh catheter was then used to access the pleural cavity. 2500 ml of serous fluid was removed passively. The catheter was then removed. A dressing was applied. A postprocedure chest x-ray will be performed and will be dictated separately. There were no immediate complications. US/US thoracentesis Impression: Ultrasound-guided right thoracentesis Electronically signed by: Jeffry Mandel MD 11/05/2024 03:31 PM REJI
--- NOTE | 2024-11-05 11:52 | PC.NURSE ---
report given to denise burns rn. aware to sign circled area on preop record when giving report.
[2024-11-05] MEDS: Lidocaine HCl 1 % MPF 5 ML VIAL SUBCUT (14:35)
== END 2024-11-05 14:18 | disposition home or self-care (01) ==
PROVIDERS: Student in an Organized Health Care Education/Training Program; PCP Internal Medicine; Visit Provider Surgery
DX: J90 Pleural effusion, not elsewhere classified (principal); F10.20 Alcohol dependence, uncomplicated; F32.9 Major depressive disorder, single episode, unspecified; I10 Essential (primary) hypertension; Z79.899 Other long term (current) drug therapy; Z88.0 Allergy status to penicillin; Z87.891 Personal history of nicotine dependence
CPT/HCPCS: 32555; 71045; 87070; 87073; 87205; 88112; 88305; J2003

== ENCOUNTER → 2024-11-05 11:27 | Outpatient (BNV) | payer BC, SELFPAY | PROVIDERS: PCP Internal Medicine; Visit Provider Student in an Organized Health Care Education/Training Program | DX: J90 Pleural effusion, not elsewhere classified (principal) | CPT/HCPCS: 32555 ==

== ENCOUNTER 2024-11-07 12:50 | Outpatient (AMB) | payer BC, SELFPAY ==
--- NOTE | 2024-11-07 12:48 | A.OFFVISCC_ITS ---
Intake Visit Reasons: MAT Tele Allergies Penicillins Allergy (Mild, Verified 10/28/24 09:31) hives silk tape Adverse Reaction (Uncoded 11/05/24 11:38) Redness of Skin HPI HPI MAT Tele: Details: Patient presents for follow up via telehealth Currently prescribed Naltrexone 50mg BID Finds that BID dosing is helpful with managing cravings and anxiety associated with it Follow up with thoracic surgeon chest CT showed that pleural effusion had returned had fluid drained again --feels better in terms of SOB FMLA leave extended Hoping to start with [employer] in the next week or so Discussed Escitalopram --feels may be helping with reactivity and irritability Review of Systems Const Reports as per HPI Telehealth Telehealth Telehealth Platform: Telephone Location of provider rendering services: practice address Location of patient: address on file Patient Identification confirmed using: Name, : Yes Telehealth method: voice only Patient verbally consented to treatment: Yes Patient verbally consented to billing insurance company: Yes Minutes spent on Phone/Video with Pt.: 20 Assessment & Plan Assessment & Plan (1) Alcohol use disorder, severe, dependence: Code(s): F10.20 - Alcohol dependence, uncomplicated Category: Medical Plan: * continue naltrexone 50mg BID * increase escitalopram to 10mg QD * follow up 4 weeks telehealth (due to work) Medications: New escitalopram oxalate 10 mg PO DAILY 90 tabs 0RF Discontinued escitalopram oxalate (Lexapro) Discontinued Reason: Doctor's Order 5 mg PO DAILY 30 tabs 0RF PFSH Medical History Alcohol use disorder, severe, dependence MDD (major depressive disorder) HTN (hypertension) Alcohol abuse Surgical History (Updated 11/05/24 @ 11:26 by Queta Salvador RN) Hx of wisdom tooth extraction History of surgical procedure on mouth Social History Household Members: Family Household Members Other:: lives with parents Housing: House Are you a primary resident care associate to a significant other at home: No Do you presently have visiting nurse or other home services: No Alcohol intake: current Alcohol intake frequency: former alcohol drinker Alcohol type: beer Patient Tobacco Use Status: Former Tobacco user Tobacco use type: Cigarette Cigarette Packs Per Day: 2 Cigarettes Per Day: 40.0 Years Smoked: 20 e-Cigarette/Vaping Use: Never Used Second Hand Smoke Exposure: No service: No Social History: Lives with parents, , no children, 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 Substance History: Pt reports drinking three handles of vodka a week ; denies any other substance use. Trauma History: denies
--- OUTSIDE RECORDS SUMMARY | 2024-11-07 12:52 | XMS_ITS | Continuity of Care Document ---
Author Organization [facility] Blaise Banda Abhay lt Address [address] [place] [address]- Care Team Providers Care Investigator Cash Shortage Name Role Phone Alex Krause MD Primary Care Physician Encounter [facility] Date(s): 10/07/24 - 11/06/24 [facility] Adult [address] [place] [address]- Encounter Type: Triage Allergies, Adverse Reactions, Alerts [...] acel(DTaP) 12/27/12 Recorded 1Result Comment: Hep B NDC#:[id number] 2Result Comment: Hep A [facility]#[id number] 3Result Comment: Flu[facility]#[id number] CHECKLIST-DONE Medications cloNIDine 0.1 mg oral tablet [...] 11:40:00 AM EST, Route to Pharmacy Electronically, [facility]/pharmacy #[id number], Partial fill upon patient request if [...] on: 03/13/23 Sex Sex Representation Male (finding) Patient Care team information Care Team Personnel Name: Meseret Nguyễn RN Position: [facility] RN Supv Member Role: Primary Care Nurse Name: Keyla Craig RN Position: [facility] RN Member Role: Primary Care Nurse Name: Alex Krause MD Position: [facility] Physician - Primary Care Member Role: PCP Address: [address] [place] [address]- Telecom: Care Team Related Persons Name: CANDACE DIAS Name: LEXI DIAS Insurance Providers Guarantor name: [employer] Health Plan Information #: 1 Payer: [employer] Member Number: NA Policy Number: NA Group Number: NA
== END 2024-11-07 13:42 | disposition home or self-care (01) ==
PROVIDERS: PCP Internal Medicine; Visit Provider Nurse Practitioner Psychiatric/Mental Health
DX: F10.20 Alcohol dependence, uncomplicated (principal)
CPT/HCPCS: 99214

== ENCOUNTER → 2024-11-07 12:50 | Outpatient (BNVA) | payer BC, SELFPAY | PROVIDERS: PCP Internal Medicine; Visit Provider Nurse Practitioner Psychiatric/Mental Health ==

== ENCOUNTER 2024-11-08 07:20 | Outpatient (REF) | payer BC, SELFPAY ==
[2024-11-08 08:43] LABS: MANUAL DIFF FLAG NO
[2024-11-08 09:03] LABS: Basophils Percent Auto 0.4 % (0-2); Eosinophils Absolute Auto 0.1 X10*3/uL (0.0-0.4); Eosinophils Percent Auto 1.1 % (0-4); Hematocrit 43.7 % (42.0-52.0); Hemoglobin 14.3 g/dl (14.0-18.0); Imm Gran Abs Auto 0.02 X10*3/uL (0.00-0.03); Imm Gran Pct Auto 0.3 % (0.0-0.4); Lymphocytes Percent Auto 12.5 % (20-40); Mean Corpuscular HGB Conc 32.7 g/dl (31.0-36.0); Mean Corpuscular Hemoglobin 31.4 pg (27.0-33.0); Mean Platelet Volume 9.2 fL (9.4-12.4); Monocytes Absolute Auto 0.5 X10*3/uL (0.1-1.2); Monocytes Percent Auto 6.2 % (2-11); Neutrophils Absolute Auto 6.3 x10*3/uL (2.0-8.3); Neutrophils Percent Auto 79.5 % (45-73); Platelet Count 240 X10*3/uL (160-400); Red Blood Count 4.55 X10*6/uL (4.60-5.80); Red Cell Distribution Width 14.7 % (11.0-16.0)
[2024-11-08 09:07] LABS: INTERNATIONAL NORM RATIO 1.1 (0.9-1.1); Prothrombin Time 12.3 SEC (10.9-12.4)
[2024-11-08 09:33] LABS: Alanine Aminotransferase 23 U/L (0-40); Albumin Level 3.4 g/dL (3.5-5.0); Alkaline Phosphatase 82 U/L (39-117); Anion Gap 14 (12-20); Aspartate Amino Transferase 66 U/L (5-37); Bilirubin Total 0.6 mg/dL (0.0-1.0); Blood Urea Nitrogen 9 mg/dL (9-16); Calcium 8.9 mg/dL (8.4-10.2); Carbon Dioxide 25 mmol/L (22-29); Chloride 107 mmol/L (96-108); Estimated Glomerular Filt Rate > 60; Glucose Random 99 mg/dL (60-115); Potassium 3.9 mmol/L (3.3-5.1); Sodium 142 mmol/L (135-145); Total Protein 6.6 g/dL (6.5-8.0)
[2024-11-08 09:50] LABS: Ferritin 837 ng/mL (20-250); Vitamin D 25-OH Total 40.7 ng/mL (>30)
[2024-11-08 10:11] LABS: Folate > 20.0 ng/mL (> or = 4.0); Vitamin B12 1947 pg/mL (200-900)
[2024-11-11 08:47] LABS: Zinc 37 mcg/dL (60-130)
== END 2024-11-08 07:21 | disposition home or self-care (01) ==
LOC: HO.LAB 07:20
PROVIDERS: PCP Internal Medicine; Visit Provider Internal Medicine Gastroenterology
DX: K70.30 Alcoholic cirrhosis of liver without ascites (principal); R79.89 Other specified abnormal findings of blood chemistry
CPT/HCPCS: 36415; 80053; 81256; 82306; 82607; 82728; 82746; 84630; 85025; 85610

== ENCOUNTER 2024-11-08 07:20 | Outpatient (AMB) | payer BC, SELFPAY ==
--- NOTE | 2024-11-08 07:39 | A.OFFVIS_ITS ---
Vital Signs 11/08/24 07:44 Height 5 ft 11 in Weight 255 lb BMI 35.6 BP 115/70 Blood Pressure Location Lt brachial Position Sitting Pulse 91 Intake Visit Reasons: liver disease/post hospitalization Intake Note: Patient post hospitalization follow up/liver disease. Patient cc: diarrhea, denies any other GI issues. Multimedia Services Manager Required: No Accompanied by: Self / Same As Patient Allergies Penicillins Allergy (Mild, Verified 11/08/24 13:30) hives silk tape Adverse Reaction (Uncoded 11/08/24 13:30) Redness of Skin Medication List - Last Reconciled 11/08/24 by Denise Antoine MD clonidine HCl 0.1 mg PO BID escitalopram oxalate 10 mg PO DAILY folic acid 1 mg PO DAILY gabapentin 100 mg PO BID magnesium oxide 400 mg PO DAILY mirtazapine 7.5 mg PO BEDTIME PRN [id number] mcg (Centrum Silver Men) 1 tab PO DAILY naltrexone 50 mg PO BID omeprazole 20 mg PO DAILY@0630 thiamine mononitrate (vit B1) 100 mg PO DAILY vitamin A 2,400 mcg PO DAILY vitamin B complex 1 tab PO DAILY HPI HPI liver disease/post hospitalization: Details: GI clinic visit for this 49 YM for follow-up after recent hospitalization TODAY'S VISIT: Had an episode of diarrhea yesterday, took an imodium and diarrhea has resolved. Had a thoraco-centesis on 11/05 and feels much better - was exhausted after minimal exertion. Denies fatigue or dizziness. Patient denies symptoms of heartburn, dysphagia, nausea, vomiting. Appetite has improved since he stopped drinking and has gained weight. Has diarrhea alternating with constipation. Denies recent black stools or rectal bleeding. Patient denies major cardiac problems, he admits to snoring and denies sleep apnea Denies problems with anesthesia in the past. He denies being on anticoagulation or using aspirin or nonsteroidals. He quitted smoking 21 years ago after smoking 2 PPD x 20 yrs. 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 A paternal grandfather was an alcoholic. PAST EGD/COLONOSCOPY: Pt denies having an EGD or a colonoscopy in the past. LABS IN [facility] : Reviewed IMAGING STUDIES: 10/01/[address] SCAN SHOWED: 1. Interval placement of right-sided chest tube with resolution of previously seen large pleural effusion. There is a tiny pneumothorax. 2. There is airspace disease in the reexpanded right lung which could represent reexpansion pulmonary edema. 3. Enlarged fatty liver. 4. Distended gallbladder with some minimal streaky changes in the right anterior pararenal space abutting the gallbladder and pancreatic head. Would correlate with serum lipase for pancreatitis and right upper quadrant ultrasound for gallbladder disease, although felt to be unlike ENDOSCOPIC STUDIES: None in [facility] PAST GI HISTORY BY REVIEW OF MEDICAL RECORDS: PATIENT WAS SEEN IN CONSULTATION DURING HOSPITALIZATION ON 10/03/2024 Reason for consult: Elevated LFTs 49 YM with history of alcohol use disorder, depression, hypertension, medical noncompliance admitted ICU at [facility] on 10/02/24 with nausea and vomiting. Labs on admission showed white blood cell count 12.7, creatinine 2.33, AST 157, ALT 60, total bilirubin 0.8, albumin 2.8, ethyl alcohol level 421. Chest, abdominal and pelvic CT showed right-sided large volume effusion with collapsed right lung. Thoracic surgery was consulted and pt had thoracentesis with removal of 1 0.5 L of serous fluid and placement of right-sided chest tube. Pt transferred to the medical floor 10/02 10/03 Chest tube pulled out accidentally and was not replaced since pt denied sob. o2 sat high 90s. Pt reports he was told he had elevated LFTs a few years ago. He has been drinking 1.5 litres of hard liquor every 3 days for the past 20 years He has been through an outpt treatment program to quit drinking and remained sober for a few months. Pt complains of fatihue, occasional heartburn and intermittent diarrhea. He denies dysphagia, melena or hematochezia. 49 YM with history of alcohol use disorder, depression, hypertension, medical noncompliance admitted ICU at [facility] on 10/02/24 with nausea and vomiting found to have large volume pleural effusion with collapsed right lung status post right chest tube placement admitted downgraded from the medical floor 10/02 Labs on admission showed white blood cell count 12.7, creatinine 2.33, AST 157, ALT 60, total bilirubin 0.8, albumin 2.8, ethyl alcohol level 421. Abd CT scan showed enlarged fatty liver with a distended GB Resolution of rt pleural effusion after Chest tube placement. Pleural fluid analysis was cw transudate and SAAG ratio was >1.1 Preliminary culture results - negative LFTs are improving. 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 MELD score is 10 RECOMMENDATIONS: 1. Agree with CIWA protocol and PO Omeprazole. 2. Low sodium diet and start Furosemide 20 mg and Spironolactone 50 mg daily 3. Check Hep B and C serologies, iron studies, DARRIUS - added to am labs 4. Echocardiogram to rule out cardiomyopathy related to ETOH abuse 5. Pt planning to enroll in ETOH rehab to help him quit drinking Pt advised to call the GI clinic to schedule [facility] Management of hepatic hydrothorax: Patients who are severely symptomatic should undergo a therapeutic thoracentesis followed by management with a sodium-restricted diet and diuretics (furosemide [email or web address].[employer]/contents/furo lkfsry-uyjl-kbnrujtgfso?search=hepatic+hydrothorax&gzsulDxr=1236&source=see_link ?40 mg and?spironolactone [email or web address].[employer]/contents/jfzcxynjmaxijh-cnkn-kuvvqo ation?search=hepatic+hydrothorax&luvrzFbj=1976&source=see_link ?100 mg daily to start). Patients who are mildly to moderately symptomatic can be treated initially with sodium restriction and diuretics. Management options for patients who are refractory to sodium restriction and diuretics include serial thoracenteses, transjugular intrahepatic portosystemic shunt (TIPS) placement, pleurodesis, thoracoscopic surgery to repair diaphragmatic defects, and liver transplantation PFSH Medical History Alcohol use disorder, severe, dependence MDD (major depressive disorder) HTN (hypertension) Alcohol abuse Surgical History Hx of wisdom tooth extraction History of surgical procedure on mouth Social History Household Members: Family Household Members Other:: lives with parents Housing: House Are you a primary healthcare representative to a significant other at home: No Do you presently have visiting nurse or other home services: No Alcohol intake: current Alcohol intake frequency: former alcohol drinker Alcohol type: beer Patient Tobacco Use Status: Former Tobacco user Tobacco use type: Cigarette Cigarette Packs Per Day: 2 Cigarettes Per Day: 40.0 Years Smoked: 20 e-Cigarette/Vaping Use: Never Used Second Hand Smoke Exposure: No service: No Review of Systems Const Denies fever(s), Denies headache(s) and Denies weight loss Eyes Denies eye discharge and Denies irritation ENT Reports Normal hearing present, Denies dysphagia, Denies dizziness and Denies headache(s) Card Denies chest pain, Denies leg edema and Denies dyspnea on exertion Resp Denies cough, Denies dyspnea on exertion and Denies wheezing GI Denies abdominal pain, Denies change in bowel habits, Denies dysphagia, Denies heartburn and Reports diarrhea (intermittent) Denies dysuria Musc Denies back pain and Denies arthralgias Skin/Breast Denies pruritus, Reports rash and Denies jaundice Neuro Reports Normal hearing present, Denies Abnormal speech present, Denies dizziness, Denies headache(s) and Denies seizure-like activity Psych Reports anxiety, Reports depression and Denies panic attacks Endo Denies cold intolerance, Denies flushing and Denies heat intolerance Geovanni/Lymph Denies easy bleeding and Denies easy bruising Aller/Immun Denies wheezing Physical Exam Vital Signs: Last Vital Signs Pulse 91 11/08/24 07:44 BP 115/70 11/08/24 07:44 BMI result Body Mass Index 35.6 Const General: no acute distress Nutritional Appearance: obese Orientation/consciousness: patient oriented x3 Limitations: no limitations HEENT Head: Yes normal to inspection Ears: hearing grossly normal bilaterally Eyes Sclerae: sclerae normal Pupils: Equal, round and reactive pupils present Neck Neck: Yes normal visual inspection Chest Chest palpation & inspection: normal inspection of the chest Resp Effort & Inspection: normal respiratory effort Auscultation: clear to auscultation bilaterally Cardio Palpation: normal PMI Rate: regular rate Rhythm: regular rhythm Heart sounds: S1 normal heart sound present, S2 normal heart sound present and no murmurs GI Inspection: Yes obesity Palpation (GI): Soft to palpation, nontender and No hepatosplenomegaly present Auscultation: normal bowel sounds Rectal Exam - Male: Yes deferred Skin General skin exam: no rashes or lesions noted Neuro General: patient oriented x3, gait normal and moves all extremities Cranial nerves: Yes Equal, round and reactive pupils present and Yes Normal hearing present Speech: No Abnormal speech present Psych Appearance: grossly normal Mental Status: mental status grossly normal Assessment & Plan Assessment & Plan (1) Alcoholic cirrhosis of liver without ascites: Code(s): K70.30 - Alcoholic cirrhosis of liver without ascites Category: Medical (2) Hydrothorax: Code(s): J94.8 - Other specified pleural conditions Category: Medical (3) Elevated ferritin level: Code(s): R79.89 - Other specified abnormal findings of blood chemistry Category: Medical Plan 49 YM with history of alcohol use disorder, depression, hypertension, medical noncompliance here to establish care for cirrhosis after recent hospitalization at [facility] in Sep, 2024 for right pleural effucion/hepatic hydrothorax. 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 Hepatitis B and C serologies were negative (Pt reports receiving his 1st dose of hepatitis A and hepatitis-B vaccine at his PCP's office) DARRIUS was normal, ferritin level was elevated MELD score is 10. Pt's reports his last ETOH intake was on 09/30/[address] scan showed enlarged fatty liver with a distended GB Resolution of rt pleural effusion after Chest tube placement. Pleural fluid analysis was cw transudate and SAAG ratio was >1.1 Preliminary culture results - negative Pt had recurrent hydorthorax and underwent thoracentesis by IR on 11/05/24 with removal of 2500 mL of fluid PLAN: 1. Start furosemide 40 mg and spironolactone 50 mg daily for hepatic hydrothorax. 2. High protein and low sodium diet 3. Check genetic test for hemochromatosis 4. Pt is seeing Sophie Grubbs for ETOH rehab and is on Naltrexone 50 mg PO BID 5. Advised to continue to abstain from ETOH and also work on loosing weight. Course and management of Cirrhosis was reviewed with the patient and he was given handout on cirrhosis and diet FU in 6 weeks - scheduled 12/19/24 From [facility]: Management of hepatic hydrothorax: Patients who are severely symptomatic should undergo a therapeutic thoracentesis followed by management with a sodium-restricted diet and diuretics (furosemide https://www.[employer]/contents/yfvmyefwcz-ajlk-uehzxgdvebt?search=hepatic+hyd rothorax&klpcqFgl=7248&source=see_link ?40 mg and?spironolactone https://www.[employer]/contents/bbmbytwffqytnn-zqgk-xvnbliqonbp?search=hepatic +hydrothorax&egcrdJfs=8255&source=see_link ?100 mg daily to start). Patients who are mildly to moderately symptomatic can be treated initially with sodium restriction and diuretics. Management options for patients who are refractory to sodium restriction and diuretics include serial thoracenteses, transjugular intrahepatic portosystemic shunt (TIPS) placement, pleurodesis, thoracoscopic surgery to repair diaphragmatic defects, and liver transplantation Orders: Orders Prothrombin Time INR Today K70.30 - Alcoholic cirrhosis of liver without ascites Vitamin D 25-OH Total Today K70.30 - Alcoholic cirrhosis of liver without ascites DNA Analysis Hemochromatosis Today R79.89 - Other specified abnormal findings of blood chemistry Complete Blood Count Auto Diff Today K70.30 - Alcoholic cirrhosis of liver without ascites Comprehensive Met. Panel Today K70.30 - Alcoholic cirrhosis of liver without ascites Vitamin B12 and Folate Today K70.30 - Alcoholic cirrhosis of liver without ascites Zinc Today K70.30 - Alcoholic cirrhosis of liver without ascites Ferritin Today R79.89 - Other specified abnormal findings of blood chemistry Medications: New furosemide (Lasix) 40 mg (2 x 20 mg) PO QAM 60 days 120 tabs 2RF K70.30 - Alcoholic cirrhosis of liver without ascites spironolactone 50 mg PO QAM 60 days 60 tabs 2RF J94.8 - Other specified pleural conditions Changed From omeprazole 20 mg PO DAILY@0630 30 caps 0RF To omeprazole 20 mg PO DAILY@0630 90 days 90 caps 1RF Coding Level of Care Code Est Pt Level 4 (98916) Diagnoses Alcoholic cirrhosis of liver without ascites K70.30 Hydrothorax J94.8 Elevated ferritin level R79.89 Time Spent (min) 26
[2024-11-08 07:44] VITALS: BP 115/70; PULSE 91; BMI 35.6
== END 2024-11-08 16:07 | disposition home or self-care (01) ==
PROVIDERS: PCP Internal Medicine; Visit Provider Internal Medicine Gastroenterology
DX: K70.30 Alcoholic cirrhosis of liver without ascites (principal); J94.8 Other specified pleural conditions; R79.89 Other specified abnormal findings of blood chemistry
CPT/HCPCS: 99214

== ENCOUNTER 2024-11-08 13:13 | Outpatient (AMB) | payer BC, SELFPAY ==
--- NOTE | 2024-11-08 13:26 | A.OFFVIS_ITS ---
Vital Signs 11/08/24 13:28 Height 5 ft 11 in Weight 252 lb 4 oz BMI 35.2 BP 122/74 Blood Pressure Location Rt brachial Position Sitting Pulse 83 Pulse Source Pulse Oximeter Pulse Oximetry (%) 96 Oxygen Delivery Method Room Air Intake Visit Reasons: Pleural Effusion Allergies Penicillins Allergy (Mild, Verified 11/08/24 13:30) hives silk tape Adverse Reaction (Uncoded 11/08/24 13:30) Redness of Skin HPI HPI Pleural Effusion: Details: Ricco is a pleasant 49 year old, former smoker with 40 pack year history quit 2012, with underlying alcoholism, liver cirrhosis, depression, and hypertension. He was referred by thoracic surgery for recurrent pleural effusions. He was admitted to [facility] 10/01-10/06 for large right pleural effusion. He initially presented to the ED with complaints of nausea, vomiting in the setting of being intoxicated with alcohol. In the ED, Abdominal CT showed large right-sided pleural effusion with collapsed right lung. Thoracic surgery was consulted and underwent thoracentesis with removal of 1.5 L of serous fluid with placement of right-sided chest tube. His oxygen saturation was noted to be 91% and improved after being placed on 2 L nasal cannula. WBC 12.7, creatinine 2.33, AST 157, ALT 60, total bilirubin 0.8, albumin 2.8, ethyl alcohol level 421. He was treated with 1 L of IV fluid, ceftriaxone, Dilaudid, lorazepam, phenobarbital. Although initially the patient was going to be admitted to the floor, the patient had become hypotensive and has remained in the emergency room for several hours without being able to compensate for his blood pressure, he had also become somewhat hypoxic requiring high-flow nasal cannula 40 liters/minute. Repeat chest x-ray showed worsening airspace disease in the right lung versus asymmetric pulmonary edema. Patient also became hypotensive, tachypneic, tachycardic and therefore concern for worsening pneumothorax versus post re- expansion pulmonary edema in addition to his acute alcohol intoxication and he was transferred to the ICU. Pathology negative for malignant cells, cultures negative and gram stains did not reveal any organisms. He was treated empirically with cefepime for possible PNA and discharged with doxycycyline and cefuroxime. GI was consulted in patient and he has seen recently outpatient. Recurrent pleural effusions from likely hepatic hydrothorax secondary to liver cirrhosis and started on lasix/spironolactone. He again underwent thoracentesis on 11/05,three weeks after initial thora centesis. 2500 ml of serous fluid drained and sent for pathology. Prior to thoracentesis he notes significant dyspnea with minimal exertion. He reports resolution of dyspnea on exertion, continues with productive cough with clear sputum in the morning otherwise denies wheezing or chest tightness. He denies any h/o asthma. He denies any occupational exposures. He denies any pertinent family history. [facility] Medical History Alcohol use disorder, severe, dependence MDD (major depressive disorder) HTN (hypertension) Alcohol abuse Surgical History Hx of wisdom tooth extraction History of surgical procedure on mouth Social History Household Members: Family Household Members Other:: lives with parents Housing: House Are you a primary associate director career services to a significant other at home: No Do you presently have visiting nurse or other home services: No Alcohol intake: current Alcohol intake frequency: former alcohol drinker Alcohol type: beer Patient Tobacco Use Status: Former Tobacco user Tobacco use type: Cigarette Cigarette Packs Per Day: 2 Cigarettes Per Day: 40.0 Years Smoked: 20 e-Cigarette/Vaping Use: Never Used Second Hand Smoke Exposure: No service: No Review of Systems Const Denies chills, Denies excessive sweating, Denies fever(s), Denies headache(s) and Denies night sweats Eyes Denies dry eyes, Denies irritation and Denies itchy eyes ENT Reports Normal hearing present, Denies headache(s), Denies nasal congestion, Denies nasal discharge, Denies post nasal drip and Denies sore throat Card Denies chest pain, Denies chest pain at rest, Denies chest pain with activity, Denies claudication, Denies leg edema, Denies dyspnea, Denies dyspnea on exertion, Denies orthopnea and Denies paroxysmal nocturnal dyspnea Resp Denies chest congestion, Denies excessive phlegm production, Denies pain on inspiration, Denies pain with cough, Denies dyspnea, Denies dyspnea on exertion, Denies stridor and Denies wheezing Musc Denies myalgias Neuro Reports Normal hearing present and Denies headache(s) Endo Denies excessive sweating Geovanni/Lymph Denies lymphadenopathy Aller/Immun Denies itchy eyes, Denies seasonal rhinorrhea and Denies wheezing Physical Exam Vital Signs: Last Vital Signs Pulse 83 11/08/24 13:28 BP 122/74 11/08/24 13:28 Pulse Ox 96 11/08/24 13:28 Oxygen Delivery Method Room Air 11/08/24 13:28 BMI result Body Mass Index 35.2 Const General: cooperative, healthy appearing, comfortable, no acute distress, well developed and alert Nutritional Appearance: obese Orientation/consciousness: patient oriented x3 Limitations: no limitations HEENT Head: Yes normal to inspection, Yes normocephalic and Yes atraumatic Ears: hearing grossly normal bilaterally and external ears normal Eyes General: appearance normal, both eyes and all related structures Eyelids: Yes eyelids normal Sclerae: sclerae normal EOM: EOMs intact bilaterally Neck Neck: Yes normal visual inspection and Yes no lymphadenopathy Lymphatic: no lymphadenopathy noted Chest Chest palpation & inspection: normal inspection of the chest Resp Other: decreased aeration RLL compared to LLL Effort & Inspection: normal respiratory effort, able to speak in complete sentences, no audible wheezes, no cough, no stridor, not tachypneic, no tripod positioning and no use of accessory muscles Cardio Jugular venous distension: no JVD Rate: regular rate Rhythm: regular rhythm Skin Other: warm, dry General skin exam: no rashes or lesions noted Neuro General: patient oriented x3 Cranial nerves: Yes Normal hearing present Cognition (Neuro): normal cognition Gait exam (Neuro): Normal gait present Extrem General: Yes normal to inspection, Yes capillary refill normal, Yes no clubbing, cyanosis or edema and Yes no pedal edema Psych Appearance: grossly normal and well kempt Speech and movement: Normal speech and movement present and Clear speech present Affect: normal affect Attitude: cooperative Thought process: Normal thought process present Thought content: Normal thought content present Insight: Good insight present (Psych) Judgement: Good judgement present (Psych) Assessment & Plan Assessment & Plan (1) Recurrent right pleural effusion: Code(s): J90 - Pleural effusion, not elsewhere classified Category: Medical (2) Alcoholic cirrhosis of liver without ascites: Code(s): K70.30 - Alcoholic cirrhosis of liver without ascites Category: Medical (3) Chronic cough: Code(s): R05.3 - Chronic cough Category: Medical Plan Ricco presents for evaluation of recurrent pleural effusion, likely hepatic hydrothorax secondary to liver cirrhosis and started on lasix/spironolactone by GI. On exam patient with diminished lung sounds of the RLL, however asymptomatic at this time. Will repeat CXR in one week. Discussed the likelihood of recurrent effusion requiring repeat thoracentesis. He is aware if symptoms recur to call office and if significant seek emergent care. Will also send for PFT as patient with significant smoking history and chronic cough. All questions were answered and patient is in agreement of plan. Will follow up to review results or sooner if needed. Orders: Orders XR chest 2V 11/08/24 J90 - Pleural effusion, not elsewhere classified PFT pulmonary function test 11/08/24 R06.09 - Other forms of dyspnea Coding Level of Care Code New Pt Level 4 (05374) Complex EM visit Add On G2211 Diagnoses Recurrent right pleural effusion J90 Alcoholic cirrhosis of liver without ascites K70.30 Chronic cough R05.3
[2024-11-08 13:28] VITALS: BP 122/74; PULSE 83; O2SAT 96; BMI 35.2
== END 2024-11-08 14:09 | disposition home or self-care (01) ==
PROVIDERS: PCP Internal Medicine; Referring Provider Surgery; Visit Provider Nurse Practitioner Family
DX: J90 Pleural effusion, not elsewhere classified (principal); K70.30 Alcoholic cirrhosis of liver without ascites; R05.3 Chronic cough
CPT/HCPCS: 99204

== ENCOUNTER 2024-11-15 13:08 | Outpatient (REF) | payer BC, SELFPAY ==
--- NOTE | ~2024-11-15 | XR_ITS ---
CLINICAL HISTORY: J90 - Pleural effusion, not elsewhere classified 2 view chest x-ray. Comparison: 11/05/2024: CT 10/07/2024 Findings: There is increased right lung base density due to consolidation and pleural effusion. No pneumothorax. Left lung is clear. Heart size is stable. Pulmonary vasculature approaches limits of normal. No pulmonary edema No acute fracture Impression: Chronically elevated right diaphragm Right lung base consolidation and pleural effusion not markedly changed from previous exam considering slight differences in positioning. This document has been electronically signed by: Joseph Hooper MD on 11/15/2024 15:05:35
== END 2024-11-15 13:09 | disposition home or self-care (01) ==
LOC: HO.XRAY 13:08
PROVIDERS: PCP Internal Medicine; Visit Provider Nurse Practitioner Family
DX: J90 Pleural effusion, not elsewhere classified (principal)
CPT/HCPCS: 71046

== ENCOUNTER → 2024-11-15 13:12 | Outpatient (BNV) | payer BC, SELFPAY | PROVIDERS: PCP Internal Medicine; Visit Provider Radiology Diagnostic Radiology | DX: J90 Pleural effusion, not elsewhere classified (principal) | CPT/HCPCS: 71046 ==

== ENCOUNTER 2024-11-25 11:00 | Outpatient (AMB) | payer BC, SELFPAY ==
--- NOTE | 2024-11-25 11:06 | MHC.OFFVIS ---
Vital Signs 11/25/24 11:14 Height 5 ft 11 in Weight 244 lb BMI 34.0 BP 137/74 Blood Pressure Location Rt brachial Position Sitting Pulse 95 Intake Visit Reasons: Follow up pleural effusion Intake Note: Patient scheduled to discuss txt for Rt pleural effusion. Patient c/o: no concerns. 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 Originally the plan after seeing Pulmonary and GI was to place a PleurX catheter. The current plan has changed and now GI will attempt to manage his recurrent right pleural effusion with diuretics and other maneuvers. Patient is still has occasional shortness of breath. PFSH Medical History Alcohol use disorder, severe, dependence MDD (major depressive disorder) HTN (hypertension) Alcohol abuse Surgical History Hx of wisdom tooth extraction History of surgical procedure on mouth Social History Household Members: Family Household Members Other:: lives with parents Housing: House Are you a primary youth care specialist to a significant other at home: No Do you presently have visiting nurse or other home services: No Alcohol intake: current Alcohol intake frequency: former alcohol drinker Alcohol type: beer Patient Tobacco Use Status: Former Tobacco user Tobacco use type: Cigarette Cigarette Packs Per Day: 2 Cigarettes Per Day: 40.0 Years Smoked: 20 e-Cigarette/Vaping Use: Never Used Second Hand Smoke Exposure: No service: No Physical Exam Vital Signs: Last Vital Signs Pulse 95 11/25/24 11:14 BP 137/74 11/25/24 11:14 BMI result Body Mass Index 34.0 Chest Other: Diminished right base breath sounds. Left side clear Assessment & Plan Assessment & Plan (1) Recurrent right pleural effusion: Code(s): J90 - Pleural effusion, not elsewhere classified Category: Surgical Plan A pleasant, PleurX catheter placement will be on hold. Should the patient develop recurrent shortness of breast symptoms, he should go to ER and have thoracentesis. If with maximal medical management his effusion persists/recurs consideration will again be undertaken for PleurX catheter. Patient will contact me should this be required. All questions answered. Coding Level of Care Code Est Pt Level 4 (75861) Diagnoses Recurrent right pleural effusion J90
[2024-11-25 11:14] VITALS: BP 137/74; PULSE 95; BMI 34.0
== END 2024-11-25 11:15 | disposition home or self-care (01) ==
PROVIDERS: PCP Internal Medicine; Visit Provider Surgery
DX: J90 Pleural effusion, not elsewhere classified (principal)
CPT/HCPCS: 99214

== ENCOUNTER 2024-12-19 13:34 | Outpatient (REF) | payer BC, SELFPAY ==
--- NOTE | ~2024-12-19 | XR_ITS ---
EXAMINATION: XR CHEST CLINICAL INFORMATION: J90 - Pleural effusion, not elsewhere classified COMPARISON: November 15, 2024. TECHNIQUE: 2 views of the chest were obtained. FINDINGS: Menisci shaped opacity extending from the mid to lower right hemithorax. There is no displacement of the cardiomediastinal silhouette from the midline. No pneumothorax. Cardiomediastinal silhouette margins are indistinct on the right side. No gross enlargement of the heart silhouette. Left lung demonstrated no gross airspace disease. Multilevel thoracic spondylosis. XR/XR chest 2V IMPRESSION: Right-sided pleural effusion, large volume. Concerning underlying airspace disease versus mass with questionable atelectatic component. Electronically signed by: Ravinder Cruz MD 12/19/2024 02:49 PM REJI LEPE
[2024-12-19 15:46] LABS: Hematocrit 46.1 % (42.0-52.0); Hemoglobin 15.4 g/dl (14.0-18.0); Mean Corpuscular HGB Conc 33.4 g/dl (31.0-36.0); Mean Corpuscular Hemoglobin 30.4 pg (27.0-33.0); Mean Corpuscular Volume 91.1 fL (80.0-98.0); Platelet Count 282 X10*3/uL (160-400); Red Blood Count 5.06 X10*6/uL (4.60-5.80); White Blood Count 10.8 X10*3/uL (4.8-10.8)
[2024-12-19 15:51] LABS: INTERNATIONAL NORM RATIO 1.1 (0.9-1.1); Prothrombin Time 12.8 SEC (10.9-12.4)
[2024-12-19 16:19] LABS: Alanine Aminotransferase 30 U/L (0-40); Albumin Level 4.2 g/dL (3.5-5.0); Alkaline Phosphatase 80 U/L (39-117); Anion Gap 12 (12-20); Aspartate Amino Transferase 43 U/L (5-37); Bilirubin Total 0.9 mg/dL (0.0-1.0); Blood Urea Nitrogen 8 mg/dL (9-16); Carbon Dioxide 25 mmol/L (22-29); Chloride 103 mmol/L (96-108); Estimated Glomerular Filt Rate > 60; Glucose Random 104 mg/dL (60-115); Potassium 4.4 mmol/L (3.3-5.1); Sodium 136 mmol/L (135-145); Total Protein 8.4 g/dL (6.5-8.0)
== END 2024-12-19 13:35 | disposition home or self-care (01) ==
LOC: HO.LAB 13:34
PROVIDERS: PCP Internal Medicine; Visit Provider Internal Medicine Gastroenterology
DX: K70.30 Alcoholic cirrhosis of liver without ascites (principal); J90 Pleural effusion, not elsewhere classified; F10.20 Alcohol dependence, uncomplicated
CPT/HCPCS: 36415; 71046; 80053; 85027; 85610

== ENCOUNTER 2024-12-19 13:34 | Outpatient (AMB) | payer SELFPAY ==
--- NOTE | 2024-12-19 13:38 | MHC.OFFVIS ---
Vital Signs 12/19/24 13:39 Height 5 ft 11 in Weight 234 lb 2.095 oz BMI 32.7 BP 106/72 Blood Pressure Location Rt brachial Position Sitting Pulse 86 Pulse Source Pulse Oximeter Pulse Oximetry (%) 96 Oxygen Delivery Method Room Air Intake Visit Reasons: liver disease Intake Note: ESTABLISHED PATIENT for 6 weeks follow up for Alcoholic cirrhosis of liver without ascites and lab results. Chief Complaint; No GI concerns per pt. Pt is here to review test results. 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 Required: No Accompanied by: Self / Same As Patient Allergies Penicillins Allergy (Mild, Verified 08/15/25 15:19) hives silk tape Adverse Reaction (Uncoded 08/15/25 15:19) Redness of Skin Medication List - Last Reconciled 12/19/24 by Denise Antoine MD clonidine HCl 0.1 mg PO BID escitalopram oxalate 10 mg PO DAILY folic acid 1 mg PO DAILY furosemide (Lasix) 40 mg (2 x 20 mg) PO QAM 60 days gabapentin 100 mg PO BID magnesium oxide 400 mg PO DAILY mirtazapine 7.5 mg PO BEDTIME [id number] mcg (Centrum Silver Men) 1 tab PO DAILY naltrexone 50 mg PO BID omeprazole 20 mg PO DAILY@0630 90 days spironolactone 50 mg PO QAM 60 days thiamine mononitrate (vit B1) 100 mg PO DAILY vitamin A 2,400 mcg PO DAILY vitamin B complex 1 tab PO DAILY zinc sulfate (Orazinc) 25 mg PO DAILY 90 days HPI HPI liver disease: Details: GI clinic visit for this 49 YM with history of alcohol use disorder, depression, hypertension, medical noncompliance for follow-up after recent hospitalization TODAY'S VISIT: Chief Complaint; No GI concerns per pt. Pt is here to review test results. Wt loss of 20 lbs over the past month by not drinking and eating healthier Has a bout of diarrhea every couple of weeks and takes imodium Last thoracocetesis was 11/05/24 and notes SOB on walking the stairs. Taking diuretics - not every day if he has to go out. PAST VISITS: Had an episode of diarrhea yesterday, took an imodium and diarrhea has resolved. Had a thoraco-centesis on 11/05 and feels much better - was exhausted after minimal exertion. Denies fatigue or dizziness. Patient denies symptoms of heartburn, dysphagia, nausea, vomiting. Appetite has improved since he stopped drinking and has gained weight. Has diarrhea alternating with constipation. Denies recent black stools or rectal bleeding. Patient denies major cardiac problems, he admits to snoring and denies sleep apnea Denies problems with anesthesia in the past. He denies being on anticoagulation or using aspirin or nonsteroidals. He quitted smoking 21 years ago after smoking 2 PPD x 20 yrs. 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 A paternal grandfather was an alcoholic. PAST EGD/COLONOSCOPY: Pt denies having an EGD or a colonoscopy in the past. LABS IN [facility] : Reviewed IMAGING STUDIES: 10/01/[address] SCAN SHOWED: 1. Interval placement of right-sided chest tube with resolution of previously seen large pleural effusion. There is a tiny pneumothorax. 2. There is airspace disease in the reexpanded right lung which could represent reexpansion pulmonary edema. 3. Enlarged fatty liver. 4. Distended gallbladder with some minimal streaky changes in the right anterior pararenal space abutting the gallbladder and pancreatic head. Would correlate with serum lipase for pancreatitis and right upper quadrant ultrasound for gallbladder disease, although felt to be unlike ENDOSCOPIC STUDIES: None in [facility] PAST GI HISTORY BY REVIEW OF MEDICAL RECORDS: PATIENT WAS SEEN IN CONSULTATION DURING HOSPITALIZATION ON 10/03/2024 Reason for consult: Elevated LFTs 49 YM with history of alcohol use disorder, depression, hypertension, medical noncompliance admitted ICU at [facility] on 10/02/24 with nausea and vomiting. Labs on admission showed white blood cell count 12.7, creatinine 2.33, AST 157, ALT 60, total bilirubin 0.8, albumin 2.8, ethyl alcohol level 421. Chest, abdominal and pelvic CT showed right-sided large volume effusion with collapsed right lung. Thoracic surgery was consulted and pt had thoracentesis with removal of 1 0.5 L of serous fluid and placement of right-sided chest tube. Pt transferred to the medical floor 10/02 10/03 Chest tube pulled out accidentally and was not replaced since pt denied sob. o2 sat high 90s. Pt reports he was told he had elevated LFTs a few years ago. He has been drinking 1.5 litres of hard liquor every 3 days for the past 20 years He has been through an outpt treatment program to quit drinking and remained sober for a few months. Pt complains of fatihue, occasional heartburn and intermittent diarrhea. He denies dysphagia, melena or hematochezia. 49 YM with history of alcohol use disorder, depression, hypertension, medical noncompliance admitted ICU at [facility] on 10/02/24 with nausea and vomiting found to have large volume pleural effusion with collapsed right lung status post right chest tube placement admitted downgraded from the medical floor 10/02 Labs on admission showed white blood cell count 12.7, creatinine 2.33, AST 157, ALT 60, total bilirubin 0.8, albumin 2.8, ethyl alcohol level 421. Abd CT scan showed enlarged fatty liver with a distended GB Resolution of rt pleural effusion after Chest tube placement. Pleural fluid analysis was cw transudate and SAAG ratio was >1.1 Preliminary culture results - negative LFTs are improving. 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 MELD score is 10 RECOMMENDATIONS: 1. Agree with CIWA protocol and PO Omeprazole. 2. Low sodium diet and start Furosemide 20 mg and Spironolactone 50 mg daily 3. Check Hep B and C serologies, iron studies, DARRIUS - added to am labs 4. Echocardiogram to rule out cardiomyopathy related to ETOH abuse 5. Pt planning to enroll in ETOH rehab to help him quit drinking Pt advised to call the GI clinic to [facility]: Patients who are severely symptomatic should undergo a therapeutic thoracentesis followed by management with a sodium-restricted diet and diuretics ([email or web address].[employer]/contents/fxszfjuvbg-nyuy-usggatgdiei?search=hepatic+hydrothorax&huwjsHrh=1458&source=see_link?40 mg and?[email or web address].[employer]/contents/jkmbvopxadnqty-bpes-nvncwjmhiio?search=hepatic+hydrothorax&kwgxuEhh=6527&source=see_link?100 mg daily to start). Patients who are mildly to moderately symptomatic can be treated initially with sodium restriction and diuretics. Management options for patients who are refractory to sodium restriction and diuretics include serial thoracenteses, transjugular intrahepatic portosystemic shunt (TIPS) placement, pleurodesis, thoracoscopic surgery to repair diaphragmatic defects, and liver transplantation PFSH Medical History Alcohol use disorder, severe, dependence MDD (major depressive disorder) HTN (hypertension) Alcohol abuse Surgical History Hx of wisdom tooth extraction History of surgical procedure on mouth Social History Household Members: Family Household Members Other:: lives with parents Housing: House Are you a primary child care center assistant director to a significant other at home: No Do you presently have visiting nurse or other home services: No Alcohol intake: current Alcohol intake frequency: does not drink Alcohol type: beer Patient Tobacco Use Status: Former Tobacco user Tobacco use type: Cigarette Cigarette Packs Per Day: 2 Cigarettes Per Day: 40.0 Years Smoked: 20 e-Cigarette/Vaping Use: Never Used Second Hand Smoke Exposure: No service: No Physical Exam Vital Signs: Last Vital Signs Pulse 86 12/19/24 13:39 BP 106/72 12/19/24 13:39 Pulse Ox 96 12/19/24 13:39 Oxygen Delivery Method Room Air 12/19/24 13:39 BMI result Body Mass Index 32.7 Assessment & Plan Assessment & Plan (1) Alcohol use disorder, severe, dependence: Comment: He has been doing well on naltrexone Code(s): F10.20 - Alcohol dependence, uncomplicated Category: Medical (2) Recurrent right pleural effusion: Code(s): J90 - Pleural effusion, not elsewhere classified Category: Surgical (3) Alcoholic cirrhosis of liver without ascites: Code(s): K70.30 - Alcoholic cirrhosis of liver without ascites Category: Medical Plan 49 YM with history of alcohol use disorder, depression, hypertension, medical noncompliance here to establish care for cirrhosis after recent hospitalization at [facility] in Sep, 2024 for right pleural effucion/hepatic hydrothorax. 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 Hepatitis B and C serologies were negative (Pt reports receiving his 1st dose of hepatitis A and hepatitis-B vaccine at his PCP's office) DARRIUS was normal, ferritin level was elevated MELD score is 10. Pt's reports his last ETOH intake was on 09/30/[address] scan showed enlarged fatty liver with a distended GB Resolution of rt pleural effusion after Chest tube placement. Pleural fluid analysis was cw transudate and SAAG ratio was >1.1 Preliminary culture results - negative Pt had recurrent hydorthorax and underwent thoracentesis by IR on 11/05/24 with removal of 2500 mL of fluid PLAN: 1. Start furosemide 40 mg and spironolactone 50 mg daily for hepatic hydrothorax. 2. High protein and low sodium diet 3. Check genetic test for hemochromatosis 4. Pt is seeing Sophie Grubbs for ETOH rehab and is on Naltrexone 50 mg PO BID 5. Advised to continue to abstain from ETOH and also work on loosing weight. Course and management of Cirrhosis was reviewed with the patient and he was given handout on cirrhosis and diet 12/19/24 Wt loss of 20 lbs over the past month by not drinking and eating healthier Has a bout of diarrhea every couple of weeks and takes imodium Last thoracocetesis was 11/05/24 and notes SOB on walking the stairs. Taking diuretics - not every day if he has to go out. Pt advised to have a CXR and referred for a Thoracentesis FU in 3 months From [facility]: Management of hepatic hydrothorax: Patients who are severely symptomatic should undergo a therapeutic thoracentesis followed by management with a sodium-restricted diet and diuretics ([email or web address].[employer]/contents/xgrocexrjr-dsqa-kkldggtvjya?search=hepatic+hydrothorax&ciirsWsq=9490&source=see_link?40 mg and?spironolactonehttps://www.[employer]/contents/fpprybmxvzessv-eksc-buwlfobgcyp?search=hepatic+hydrothorax&vznzcYen=6309&source=see_link?100 mg daily to start). Patients who are mildly to moderately symptomatic can be treated initially with sodium restriction and diuretics. Management options for patients who are refractory to sodium restriction and diuretics include serial thoracenteses, transjugular intrahepatic portosystemic shunt (TIPS) placement, pleurodesis, thoracoscopic surgery to repair diaphragmatic defects, and liver transplantatio Orders: Orders Comprehensive Met. Panel 12/19/24 K70.30 - Alcoholic cirrhosis of liver without ascites, J90 - Pleural effusion, not elsewhere classified XR chest 2V 12/19/24 J90 - Pleural effusion, not elsewhere classified Complete Blood Count no Diff 12/19/24 K70.30 - Alcoholic cirrhosis of liver without ascites, J90 - Pleural effusion, not elsewhere classified Prothrombin Time INR 12/19/24 K70.30 - Alcoholic cirrhosis of liver without ascites, J90 - Pleural effusion, not elsewhere classified IR Drain Thoracentesis 12/20/24 J90 - Pleural effusion, not elsewhere classified Coding Level of Care Code Est Pt Level 4 (75043) Diagnoses Alcohol use disorder, severe, dependence F10.20 Recurrent right pleural effusion J90 Alcoholic cirrhosis of liver without ascites K70.30 Time Spent (min) 20
[2024-12-19 13:39] VITALS: BP 106/72; PULSE 86; O2SAT 96; BMI 32.7
== END 2024-12-19 14:12 | disposition home or self-care (01) ==
PROVIDERS: PCP Internal Medicine; Visit Provider Internal Medicine Gastroenterology
DX: F10.20 Alcohol dependence, uncomplicated (principal); J90 Pleural effusion, not elsewhere classified; K70.30 Alcoholic cirrhosis of liver without ascites
CPT/HCPCS: 99499

== ENCOUNTER → 2024-12-19 14:35 | Outpatient (BNV) | payer BC, SELFPAY | PROVIDERS: PCP Internal Medicine; Visit Provider Radiology Diagnostic Radiology | DX: J90 Pleural effusion, not elsewhere classified (principal) | CPT/HCPCS: 71046 ==

== ENCOUNTER → 2025-02-03 08:53 | Day surgery (SDC) | payer OTHER, SELFPAY ==
[2025-02-03] VITALS (11 sets, daily range): BP systolic 99–125; BP diastolic 62–76; PULSE 61–72; RESP 11–19; TEMP 36.1–36.7; O2SAT 94–99; BMI 32.1
--- NOTE | ~2025-02-03 | US_ITS ---
PROCEDURE: Ultrasound-guided right thoracentesis History: Right pleural effusion Specimen: Serous fluid Access: 5 Fijian Yueh catheter Medications: 10 mL 1% lidocaine TECHNIQUE/FINDINGS Appropriate preprocedural clinical history and imaging studies were reviewed. The patient was brought to the department and placed in the seated position. Ultrasound images of the right thorax were obtained to localize a large pleural effusion. Permanent ultrasound images were saved. Risks and benefits and possible complications were discussed with the patient and consent form was signed. An area of the patient's right back was prepped and draped in usual sterile fashion. 10 mL of 1% lidocaine was used to obtain local anesthesia of the skin and deeper tissues. A standard small bore needle was introduced to sample pleural fluid and demonstrate a safe access route. A 5 Fijian Yueh catheter was then used to access the pleural cavity. 2000 ml of serous fluid was removed passively. The catheter was then removed. A dressing was applied. Postprocedure CT scan was subsequently performed, showing no evidence of pneumothorax. There were no immediate complications. US/US thoracentesis IMPRESSION: Uneventful Ultrasound-guided right thoracentesis, with drainage of 2000 mL serous fluid. Electronically signed by: Luca Lazcano MD 02/03/2025 12:22 PM EDT
--- NOTE | ~2025-02-03 | CT_ITS ---
EXAMINATION: CT CHEST WITH IV CONTRAST INDICATION: J90 - Pleural effusion, not elsewhere classified COMPARISON: Comparison is made with the prior examination dated 10/07/2024. Correlation is also made with PA and lateral views of the chest dated 12/19/2024. TECHNIQUE: Helical CT scan of the chest was performed following administration of intravenous contrast. Coronal and sagittal reformatted images were generated and reviewed. This CT exam was performed with one or more of the following dose reduction techniques: automated exposure control, adjustment of the mA and/or kV according to patient size, use of iterative reconstruction technique. DLP: 212 mGy-cm CHEST: THYROID: The thyroid is unremarkable. LUNGS: There is airspace opacity with air bronchograms in the right middle and lower lobes at the lung base consistent with atelectasis or pneumonia. The left lung is clear. MEDIASTINUM: There is no mediastinal lymphadenopathy. AVILA: There is no hilar lymphadenopathy. CARDIOVASCULATURE: The heart is normal in size. There is no pericardial effusion. The thoracic aorta is normal in caliber. DEGREE OF CORONARY CALCIFICATION: mild PLEURA: There is a small right pleural effusion after ultrasound-guided thoracentesis. There is no left pleural effusion. No pneumothorax. MAIN AIRWAYS: The mainstem bronchi and proximal branches are patent. AXILLA: There is no axillary lymphadenopathy. BONES AND SOFT TISSUES: Unremarkable UPPER ABDOMEN: The visualized portions of the liver, spleen, and adrenals are unremarkable. There is a small amount of free fluid around the liver. CT/CT chest w IV con IMPRESSION: 1. Small residual right pleural effusion. Airspace opacity in the right middle and lower lobes at the right lung base may represent atelectasis or pneumonia. 2. Small amount of free fluid in the upper abdomen. Electronically signed by: Tim Moreno MD 02/03/2025 12:34 PM EDT
[2025-02-03 10:17] LABS: MANUAL DIFF FLAG NO
[2025-02-03 10:21] LABS: Basophils Percent Auto 0.4 % (0-2); Eosinophils Absolute Auto 0.1 X10*3/uL (0.0-0.4); Eosinophils Percent Auto 1.1 % (0-4); Hematocrit 42.5 % (42.0-52.0); Hemoglobin 14.5 g/dl (14.0-18.0); Imm Gran Abs Auto 0.02 X10*3/uL (0.00-0.03); Imm Gran Pct Auto 0.3 % (0.0-0.4); Lymphocytes Absolute Auto 1.2 X10*3/uL (1.2-4.9); Lymphocytes Percent Auto 16.1 % (20-40); Mean Corpuscular HGB Conc 34.1 g/dl (31.0-36.0); Mean Corpuscular Hemoglobin 30.1 pg (27.0-33.0); Mean Corpuscular Volume 88.4 fL (80.0-98.0); Mean Platelet Volume 9.9 fL (9.4-12.4); Monocytes Absolute Auto 0.5 X10*3/uL (0.1-1.2); Monocytes Percent Auto 6.4 % (2-11); Neutrophils Absolute Auto 5.7 x10*3/uL (2.0-8.3); Neutrophils Percent Auto 75.7 % (45-73); Platelet Count 170 X10*3/uL (160-400); Red Blood Count 4.81 X10*6/uL (4.60-5.80); Red Cell Distribution Width 13.7 % (11.0-16.0); White Blood Count 7.5 X10*3/uL (4.8-10.8)
[2025-02-03 10:37] LABS: Prothrombin Time 12.2 SEC (10.9-12.4)
[2025-02-03] MEDS: Lidocaine HCl 1 % MPF 5 ML VIAL SUBCUT (12:02)
[2025-02-03] MEDS: iohexoL 350 MG/ML 100 ML INFUS..BTL IV (12:23)
== END | disposition home or self-care (01) ==
PROVIDERS: Radiology Diagnostic Radiology; PCP Internal Medicine; Visit Provider Internal Medicine Gastroenterology
DX: J90 Pleural effusion, not elsewhere classified (principal); J98.11 Atelectasis; K70.30 Alcoholic cirrhosis of liver without ascites; F10.20 Alcohol dependence, uncomplicated; R06.02 Shortness of breath; I10 Essential (primary) hypertension; R63.4 Abnormal weight loss; Z68.32 Body mass index [BMI] 32.0-32.9, adult; Z91.199 Patient's noncompliance with other medical treatment and regimen due to unspecified reason; F33.2 Major depressive disorder, recurrent severe without psychotic features; Z79.899 Other long term (current) drug therapy; Z88.0 Allergy status to penicillin; L23.1 Allergic contact dermatitis due to adhesives; Z87.891 Personal history of nicotine dependence
CPT/HCPCS: 32555; 36415; 71260; 85025; 85610; J2003

== ENCOUNTER → 2025-02-03 11:15 | Outpatient (BNV) | payer OTHER, SELFPAY | PROVIDERS: PCP Internal Medicine; Visit Provider Radiology Diagnostic Radiology | DX: J90 Pleural effusion, not elsewhere classified (principal) | CPT/HCPCS: 32555; 71260 ==

== ENCOUNTER 2025-02-12 15:51 | Outpatient (REF) | payer OTHER, SELFPAY ==
[2025-02-18 10:36] LABS: Codeine, Ur NEGATIVE; Hydrocodone, Ur NEGATIVE; Hydromorphone, Ur NEGATIVE; Morphine, Ur NEGATIVE; Norhydrocodone, Ur NEGATIVE; Noroxycodone, Ur NEGATIVE; Oxycodone, Ur NEGATIVE; Oxymorphone, Ur NEGATIVE
== END 2025-02-12 15:52 | disposition home or self-care (01) ==
LOC: HO.LNP 15:51
PROVIDERS: PCP Internal Medicine; Visit Provider Internal Medicine
DX: F10.20 Alcohol dependence, uncomplicated (principal); Z79.899 Other long term (current) drug therapy
CPT/HCPCS: 80365; 99212; G0480

== ENCOUNTER 2025-02-12 15:51 | Outpatient (AMB) | payer OTHER, SELFPAY ==
--- NOTE | 2025-02-12 16:21 | A.OFFVIS_ITS ---
Vital Signs 02/12/25 16:27 Height 5 ft 11 in Weight 225 lb BMI 31.4 Pulse 77 Pulse Source Pulse Oximeter Pulse Oximetry (%) 96 Oxygen Delivery Method Room Air Intake Visit Reasons: MAt Allergies Penicillins Allergy (Mild, Verified 02/12/25 16:28) hives silk tape Adverse Reaction (Uncoded 02/03/25 09:28) Redness of Skin HPI HPI MAt: Details: He is doing well. His last drink was 10/01. He has been doing well on naltrexone 50 mg bid. He sees Dr Antoine for liver care. He has pleural effusion and getting thoracentesis [facility] Medical History Alcohol use disorder, severe, dependence MDD (major depressive disorder) HTN (hypertension) Alcohol abuse Surgical History Hx of wisdom tooth extraction History of surgical procedure on mouth Social History Household Members: Family Household Members Other:: lives with parents Housing: House Are you a primary urgent care nurse practitioner to a significant other at home: No Do you presently have visiting nurse or other home services: No Alcohol intake: current Alcohol intake frequency: does not drink Alcohol type: beer Patient Tobacco Use Status: Former Tobacco user Tobacco use type: Cigarette Cigarette Packs Per Day: 2 Cigarettes Per Day: 40.0 Years Smoked: 20 e-Cigarette/Vaping Use: Never Used Second Hand Smoke Exposure: No service: No Review of Systems Const All systems reviewed & are unremarkable except as noted in HPI and below Physical Exam Vital Signs: Last Vital Signs Pulse 77 02/12/25 16:27 Pulse Ox 96 02/12/25 16:27 Oxygen Delivery Method Room Air 02/12/25 16:27 BMI result Body Mass Index 31.4 Const General: cooperative Assessment & Plan Assessment & Plan (1) Alcohol use disorder, severe, dependence: Comment: He has been doing well on Vivitrol Code(s): F10.20 - Alcohol dependence, uncomplicated Category: Medical Plan: May see 3 months. Check labs. (2) Alcoholic cirrhosis of liver without ascites: Code(s): K70.30 - Alcoholic cirrhosis of liver without ascites Category: Medical Plan: na Orders: Orders HIV Ab/Ag Today K70.30 - Alcoholic cirrhosis of liver without ascites Hepatitis C Antibody Today K70.30 - Alcoholic cirrhosis of liver without ascites Hepatitis B Surface Ab Qnt Today K70.30 - Alcoholic cirrhosis of liver without ascites Hepatitis B Surface Antigen Today K70.30 - Alcoholic cirrhosis of liver without ascites T Spot TB Today K70.30 - Alcoholic cirrhosis of liver without ascites Syphilis Screen Today K70.30 - Alcoholic cirrhosis of liver without ascites Opiates GCMS Expanded, Ur Today F10.20 - Alcohol dependence, uncomplicated Medications: New naltrexone 50 mg PO BID 30 days 60 tabs 3RF Coding Level of Care Code Est Pt Level 3 (73405) Diagnoses Alcohol use disorder, severe, dependence F10.20 Alcoholic cirrhosis of liver without ascites K70.30
[2025-02-12 16:27] VITALS: PULSE 77; O2SAT 96; BMI 31.4
== END 2025-02-12 17:11 | disposition home or self-care (01) ==
LOC: HO.HCC 15:51
PROVIDERS: PCP Internal Medicine; Visit Provider Internal Medicine
DX: F10.20 Alcohol dependence, uncomplicated (principal); K70.30 Alcoholic cirrhosis of liver without ascites
CPT/HCPCS: 99213

== ENCOUNTER 2025-02-14 15:16 | Outpatient (REF) | payer OTHER, SELFPAY ==
[2025-02-15 07:13] LABS: Hepatitis B Surface Ab Qnt <5 mIU/mL (> OR = 10)
[2025-02-15 07:38] LABS: HBsAGNum1 2.28 S/CO (0.00-0.99); HIV Num 1 1.74 S/CO (0.00-0.99); ~HepC Num1 0.15 S/CO (0.00-0.79); ~Hepatitis C Antibody Nonreactive (Nonreactive)
[2025-02-15 07:50] LABS: Syphilis Screen Nonreactive (Nonreactive)
[2025-02-15 08:37] LABS: HBsAGNum2 Nonreactive; HBsAGNum3 Nonreactive; HIV AB/AG Nonreactive (Nonreactive); HIV Num 2 0.08 S/CO; HIV Num 3 0.07 S/CO; Hepatitis B Surface Antigen NEGATIVE (Negative)
[2025-02-17 01:28] LABS: TS Negative Control Passed; TS Panel A 0; TS Panel B 1; TS Positive Control Passed; TSpotTB Negative (Negative)
== END 2025-02-14 15:17 | disposition home or self-care (01) ==
LOC: HO.LAB 15:16
PROVIDERS: PCP Internal Medicine; Visit Provider Internal Medicine
DX: K70.30 Alcoholic cirrhosis of liver without ascites (principal)
CPT/HCPCS: 36415; 86317; 86481; 86780; 86803; 87340; 87389

== ENCOUNTER 2025-02-20 12:43 | Outpatient (REF) | payer OTHER, SELFPAY ==
--- NOTE | 2025-02-20 13:09 | PFT_ITS ---
Flows: FEV1: 87 % of predicted at 3.49 L FVC: 85 % of predicted at 4.36 L FEV1/FVC: 80 % Bronchodilator response: Absent Volumes: Total lung capacity: 79 % of predicted at 5.90 L Residual volume: 77 % of predicted at 1.54 L Slow vital capacity: 79 % of predicted at 4.36 L Expiratory reserve volume: 85 % of predicted at 1.29 L Diffusion capacity: Mildly decreased, corrects to normal after adjustment for alveolar ventilation. Impression: Mild restrictive ventilatory defect with no bronchodilator response. Combination of decreased diffusion capacity and restrictive ventilatory defect suggests underlying pulmonary parenchymal disease. Clinical correlation is advised. MTDD
[2025-02-20 13:43] VITALS: PULSE 75; O2SAT 97
== END 2025-02-20 12:44 | disposition home or self-care (01) ==
LOC: HO.RESP 12:43
PROVIDERS: PCP Internal Medicine; Visit Provider Nurse Practitioner Family
DX: R06.09 Other forms of dyspnea (principal)
CPT/HCPCS: 94010; 94640; 94727; 94729

== ENCOUNTER → 2025-02-20 13:09 | Outpatient (BNV) | payer OTHER, SELFPAY | PROVIDERS: PCP Internal Medicine; Visit Provider Internal Medicine Pulmonary Disease | DX: R06.09 Other forms of dyspnea (principal) | CPT/HCPCS: 94060; 94727; 94729 ==

== ENCOUNTER 2025-03-04 11:03 | Outpatient (AMB) | payer OTHER, SELFPAY ==
--- NOTE | 2025-03-04 11:21 | A.OFFVIS_ITS ---
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 Assistant Required: No Dental Assistant Instructor: Dental Assistant Instructor offered & declined Accompanied by: Self / Same As Patient Allergies Penicillins Allergy (Mild, Verified 03/04/25 11:24) hives silk tape Adverse Reaction (Uncoded 03/04/25 11:24) Redness of Skin Medication List - Last Reconciled 03/04/25 by Carolyn Ho LPN clonidine HCl 0.1 mg PO BID escitalopram oxalate 10 mg PO DAILY folic acid 1 mg PO DAILY furosemide (Lasix) 40 mg (2 x 20 mg) PO QAM 60 days gabapentin 100 mg PO BID magnesium oxide 400 mg PO DAILY [id number] [id number] mcg (Centrum Silver Men) 1 tab PO DAILY naltrexone 50 mg PO BID naltrexone 50 mg PO BID 30 days omeprazole 20 mg PO DAILY@0630 90 days spironolactone 50 mg PO QAM 60 days thiamine mononitrate (vit B1) 100 mg PO DAILY vitamin A 2,400 mcg PO DAILY vitamin B complex 1 tab PO DAILY zinc sulfate (Orazinc) 25 mg PO DAILY 90 days HPI HPI dyspnea/ PFT FU: Details: Ricco is a pleasant 49 year old, former smoker with 40 pack year history quit 2012, with underlying alcoholism, liver cirrhosis, depression, and hypertension. 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 He has had two thoracentesis since initial pleural effusion 10/02/24 where he was found to have large volume pleural effusion with collapsed right lung status ultimately having right chest tube placement. He un derwent thoracentesis on 11/05 with 2500 ml of serous fluid drained, negative for malignant cells and again on 02/03 in which 2000 ml of serous fluid was removed. Today he presents to review PFT results. He currently denies any respiratory symptoms and states he has been compliant with diuretic regimen, lasix 40 mg QD and spironolactone 50 mg. He has upcoming GI appt in April. [facility] Medical History Alcohol use disorder, severe, dependence MDD (major depressive disorder) HTN (hypertension) Alcohol abuse Surgical History Hx of wisdom tooth extraction History of surgical procedure on mouth Social History Household Members: Family Household Members Other:: lives with parents Housing: House Are you a primary child care education coordinator to a significant other at home: No Do you presently have visiting nurse or other home services: No Alcohol intake: current Alcohol intake frequency: does not drink Alcohol type: beer Patient Tobacco Use Status: Former Tobacco user Tobacco use type: Cigarette Cigarette Packs Per Day: 2 Cigarettes Per Day: 40.0 Years Smoked: 20 e-Cigarette/Vaping Use: Never Used Second Hand Smoke Exposure: No service: No Review of Systems Const Denies chills, Denies excessive sweating, Denies fever(s), Denies headache(s) and Denies night sweats Eyes Denies dry eyes, Denies irritation and Denies itchy eyes ENT Reports Normal hearing present, Denies headache(s), Denies nasal congestion, Denies nasal discharge, Denies post nasal drip and Denies sore throat Card Denies chest pain, Denies chest pain at rest, Denies chest pain with activity, Denies claudication, Denies leg edema, Denies dyspnea, Denies dyspnea on exertion, Denies orthopnea and Denies paroxysmal nocturnal dyspnea Resp Denies chest congestion, Denies cough, Denies excessive phlegm production, Denies pain on inspiration, Denies pain with cough, Denies dyspnea, Denies dyspnea on exertion, Denies stridor and Denies wheezing Musc Denies myalgias Neuro Reports Normal hearing present and Denies headache(s) Endo Denies excessive sweating Geovanni/Lymph Denies lymphadenopathy Aller/Immun Denies itchy eyes, Denies seasonal rhinorrhea and Denies wheezing Physical Exam Vital Signs: Last Vital Signs Pulse 72 03/04/25 11:23 BP 110/60 03/04/25 11:23 Pulse Ox 97 03/04/25 11:23 Oxygen Delivery Method Room Air 03/04/25 11:23 BMI result Body Mass Index 31.7 Const General: cooperative, healthy appearing, comfortable, no acute distress, well developed and alert Nutritional Appearance: obese Orientation/consciousness: patient oriented x3 Limitations: no limitations HEENT Head: Yes normal to inspection, Yes normocephalic and Yes atraumatic Ears: hearing grossly normal bilaterally and external ears normal Eyes General: appearance normal, both eyes and all related structures Eyelids: Yes eyelids normal Sclerae: sclerae normal EOM: EOMs intact bilaterally Neck Neck: Yes normal visual inspection and Yes no lymphadenopathy Lymphatic: no lymphadenopathy noted Chest Chest palpation & inspection: normal inspection of the chest Resp Other: decreased aeration RLL compared to LLL Effort & Inspection: normal respiratory effort, able to speak in complete sentences, no audible wheezes, no cough, no stridor, not tachypneic, no tripod positioning and no use of accessory muscles Cardio Jugular venous distension: no JVD Rate: regular rate Rhythm: regular rhythm Skin Other: warm, dry General skin exam: no rashes or lesions noted Neuro General: patient oriented x3 Cranial nerves: Yes Normal hearing present Cognition (Neuro): normal cognition Gait exam (Neuro): Normal gait present Extrem General: Yes normal to inspection, Yes capillary refill normal, Yes no clubbing, cyanosis or edema and Yes no pedal edema Psych Appearance: grossly normal and well kempt Speech and movement: Normal speech and movement present and Clear speech present Affect: normal affect Attitude: cooperative Thought process: Normal thought process present Thought content: Normal thought content present Insight: Good insight present (Psych) Judgement: Good judgement present (Psych) Assessment & Plan Assessment & Plan (1) Recurrent right pleural effusion: Code(s): J90 - Pleural effusion, not elsewhere classified Category: Surgical (2) Alcoholic cirrhosis of liver without ascites: Code(s): K70.30 - Alcoholic cirrhosis of liver without ascites Category: Medical (3) Chronic cough: Code(s): R05.3 - Chronic cough Category: Medical Plan Reviewed PFT which revealed mild restrictive ventilatory defect with no bronchodilator response, except in small to medium airways. Combination of decreased diffusion capacity and restrictive ventilatory defect suggests underlying pulmonary parenchymal disease however likely related to recurrent pleural effusion. On exam patient with diminished lung sounds of the RLL, however asymptomatic at this time. Will repeat CXR in 1-2 weeks, or sooner if symptoms worsen. Discussed the likelihood of slowly developing recurrent effusion requiring repeat thoracentesis depending on size of effusion. He is aware if symptoms recur to call office and if significant seek emergent care. 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 All questions were answered and patient is in agreement of plan. Will follow up to review results or sooner if needed. Orders: Orders XR chest 2V Today J90 - Pleural effusion, not elsewhere classified Coding Level of Care Code Est Pt Level 4 (68476) Diagnoses Recurrent right pleural effusion J90 Alcoholic cirrhosis of liver without ascites K70.30 Chronic cough R05.3
[2025-03-04 11:23] VITALS: BP 110/60; PULSE 72; O2SAT 97; BMI 31.7
== END 2025-03-04 11:46 | disposition home or self-care (01) ==
LOC: HO.HPSW 11:03
PROVIDERS: PCP Internal Medicine; Visit Provider Nurse Practitioner Family
DX: J90 Pleural effusion, not elsewhere classified (principal); K70.30 Alcoholic cirrhosis of liver without ascites; R05.3 Chronic cough
CPT/HCPCS: 99214

== ENCOUNTER → 2025-03-04 11:03 | Outpatient (BNVA) | payer OTHER, SELFPAY | PROVIDERS: PCP Internal Medicine; Visit Provider Nurse Practitioner Family | DX: J90 Pleural effusion, not elsewhere classified (principal); K70.30 Alcoholic cirrhosis of liver without ascites; R05.3 Chronic cough; Z87.891 Personal history of nicotine dependence | CPT/HCPCS: 99212 ==

== ENCOUNTER 2025-03-18 15:24 | Outpatient (REF) | payer OTHER, SELFPAY ==
--- NOTE | ~2025-03-18 | XR_ITS ---
EXAMINATION: XR CHEST 2 VIEWS HISTORY: J90 - Pleural effusion, not elsewhere classified COMPARISON: Comparison is made with the prior examination dated 12/19/2024. FINDINGS: PA and lateral views of the chest are submitted. There is a small right pleural effusion which has moderately decreased in size since the prior study. There is no left pleural effusion. There is probable subsegmental atelectasis at the right lung base. The left lung is clear. There is no thorax or pulmonary vascular congestion. The heart is normal in size. The bones are intact. XR/XR chest 2V IMPRESSION: Small right pleural effusion with interval decrease in size since the prior study. Electronically signed by: Tim Moreno MD 03/18/2025 03:41 PM EDT
== END 2025-03-18 15:25 | disposition home or self-care (01) ==
LOC: HO.XRAY 15:24
PROVIDERS: PCP Internal Medicine; Visit Provider Nurse Practitioner Family
DX: J90 Pleural effusion, not elsewhere classified (principal)
CPT/HCPCS: 71046

== ENCOUNTER → 2025-03-18 15:27 | Outpatient (BNV) | payer OTHER, SELFPAY | PROVIDERS: PCP Internal Medicine; Visit Provider Radiology Diagnostic Radiology | DX: J90 Pleural effusion, not elsewhere classified (principal) | CPT/HCPCS: 71046 ==

== ENCOUNTER 2025-04-24 09:35 | Outpatient (AMB) | payer OTHER, SELFPAY ==
--- NOTE | 2025-04-24 09:49 | A.OFFVIS_ITS ---
Vital Signs 04/24/25 09:52 Height 5 ft 11 in Weight 236 lb BMI 32.9 BP 105/64 Blood Pressure Location Lt brachial Position Sitting Pulse 66 Pulse Oximetry (%) 96 Oxygen Delivery Method Room Air Intake Visit Reasons: 3 mo f/u Cirrhosis Allergies Penicillins Allergy (Mild, Verified 08/15/25 15:19) hives silk tape Adverse Reaction (Uncoded 08/15/25 15:19) Redness of Skin Medication List - Last Reconciled 04/24/25 by Denise Antoine MD clonidine HCl 0.1 mg PO BID 90 days escitalopram oxalate 10 mg PO DAILY folic acid 1 mg PO DAILY furosemide (Lasix) 40 mg (2 x 20 mg) PO QAM 60 days gabapentin 100 mg PO BID magnesium oxide 400 mg PO DAILY [id number] [id number] mcg (Centrum Silver Men) 1 tab PO DAILY naltrexone 50 mg PO BID naltrexone 50 mg PO BID 30 days omeprazole 20 mg PO DAILY spironolactone 50 mg PO QAM 60 days thiamine mononitrate (vit B1) 100 mg PO DAILY vitamin A 2,400 mcg PO DAILY vitamin B complex 1 tab PO DAILY zinc sulfate (Orazinc) 25 mg PO DAILY 90 days HPI HPI 3 mo f/u Cirrhosis: Details: GI clinic visit for this 50 YM with history of alcohol use disorder, depression, hypertension, medical noncompliance for follow-up after recent hospitalization TODAY'S VISIT: Chief Complaint; No GI concerns per pt. Pt is here to review test results. Resumed working - [employer] in [place] Has gained some weight. Denies recent diarrhea Last thoracocentesis was on 02/03/25. PAST VISITS: Wt loss of 20 lbs over the past month by not drinking and eating healthier Has a bout of diarrhea every couple of weeks and takes imodium Last thoracocetesis was 11/05/24 and notes SOB on walking the stairs. Taking diuretics - not every day if he has to go out. Had an episode of diarrhea yesterday, took an imodium and diarrhea has resolved. Had a thoraco-centesis on 11/05 and feels much better - was exhausted after minimal exertion. Denies fatigue or dizziness. Patient denies symptoms of heartburn, dysphagia, nausea, vomiting. Appetite has improved since he stopped drinking and has gained weight. Has diarrhea alternating with constipation. Denies recent black stools or rectal bleeding. Patient denies major cardiac problems, he admits to snoring and denies sleep apnea Denies problems with anesthesia in the past. He denies being on anticoagulation or using aspirin or nonsteroidals. He quitted smoking 21 years ago after smoking 2 PPD x 20 yrs. 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 A paternal grandfather was an alcoholic. PAST EGD/COLONOSCOPY: Pt denies having an EGD or a colonoscopy in the past. LABS IN [facility] : Reviewed IMAGING STUDIES: 10/01/[address] SCAN SHOWED: 1. Interval placement of right-sided chest tube with resolution of previously seen large pleural effusion. There is a tiny pneumothorax. 2. There is airspace disease in the reexpanded right lung which could represent reexpansion pulmonary edema. 3. Enlarged fatty liver. 4. Distended gallbladder with some minimal streaky changes in the right anterior pararenal space abutting the gallbladder and pancreatic head. Would correlate with serum lipase for pancreatitis and right upper quadrant ultrasound for gallbladder disease, although felt to be unlike ENDOSCOPIC STUDIES: None in [facility] PAST GI HISTORY BY REVIEW OF MEDICAL RECORDS: PATIENT WAS SEEN IN CONSULTATION DURING HOSPITALIZATION ON 10/03/2024 Reason for consult: Elevated LFTs 49 YM with history of alcohol use disorder, depression, hypertension, medical noncompliance admitted ICU at [facility] on 10/02/24 with nausea and vomiting. Labs on admission showed white blood cell count 12.7, creatinine 2.33, AST 157, ALT 60, total bilirubin 0.8, albumin 2.8, ethyl alcohol level 421. Chest, abdominal and pelvic CT showed right-sided large volume effusion with collapsed right lung. Thoracic surgery was consulted and pt had thoracentesis with removal of 1 0.5 L of serous fluid and placement of right-sided chest tube. Pt transferred to the medical floor 10/02 10/03 Chest tube pulled out accidentally and was not replaced since pt denied sob. o2 sat high 90s. Pt reports he was told he had elevated LFTs a few years ago. He has been drinking 1.5 litres of hard liquor every 3 days for the past 20 years He has been through an outpt treatment program to quit drinking and remained sober for a few months. Pt complains of fatihue, occasional heartburn and intermittent diarrhea. He denies dysphagia, melena or hematochezia. 49 YM with history of alcohol use disorder, depression, hypertension, medical noncompliance admitted ICU at [facility] on 10/02/24 with nausea and vomiting found to have large volume pleural effusion with collapsed right lung status post right chest tube placement admitted downgraded from the medical floor 10/02 Labs on admission showed white blood cell count 12.7, creatinine 2.33, AST 157, ALT 60, total bilirubin 0.8, albumin 2.8, ethyl alcohol level 421. Abd CT scan showed enlarged fatty liver with a distended GB Resolution of rt pleural effusion after Chest tube placement. Pleural fluid analysis was cw transudate and SAAG ratio was >1.1 Preliminary culture results - negative LFTs are improving. 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 MELD score is 10 RECOMMENDATIONS: 1. Agree with CIWA protocol and PO Omeprazole. 2. Low sodium diet and start Furosemide 20 mg and Spironolactone 50 mg daily 3. Check Hep B and C serologies, iron studies, DARRIUS - added to am labs 4. Echocardiogram to rule out cardiomyopathy related to ETOH abuse 5. Pt planning to enroll in ETOH rehab to help him quit drinking Pt advised to call the GI clinic to schedule a FU appt after discharge From [facility]: Management of hepatic hydrothorax: Patients who are severely symptomatic should undergo a therapeutic thoracentesis followed by management with a sodium-restricted diet and diuretics (furosemide https://www.OSIX/contents/aaflbnhxor-clmn-wfwnupsbtfa?search=hepatic+hydrothorax&topicRef=12 42&source=see_link ?40 mg and?spironolactone https://www.Tinkercad/contents/spironol jwxbxu-wfpm-hrtrqjeihux?search=hepatic+hydrothorax&ithijSir=7032&source=see_link ?100 mg daily to start). Patients who are mildly to moderately symptomatic can be treated initially with sodium restriction and diuretics. Management options for patients who are refractory to sodium restriction and diuretics include serial thoracenteses, transjugular intrahepatic portosystemic shunt (TIPS) placement, pleurodesis, thoracoscopic surgery to repair diaphragmatic defects, and liver transplantation [facility] Medical History Alcohol use disorder, severe, dependence MDD (major depressive disorder) HTN (hypertension) Alcohol abuse Surgical History Hx of wisdom tooth extraction History of surgical procedure on mouth Social History Household Members: Family Household Members Other:: lives with parents Housing: House Are you a primary healthcare translator to a significant other at home: No Do you presently have visiting nurse or other home services: No Alcohol intake: current Alcohol intake frequency: does not drink Alcohol type: beer Patient Tobacco Use Status: Former Tobacco user Tobacco use type: Cigarette Cigarette Packs Per Day: 2 Cigarettes Per Day: 40.0 Years Smoked: 20 e-Cigarette/Vaping Use: Never Used Second Hand Smoke Exposure: No service: No Review of Systems Const All systems reviewed & are unremarkable except as noted in HPI and below Physical Exam Vital Signs: Last Vital Signs Pulse 66 04/24/25 09:52 BP 105/64 04/24/25 09:52 Pulse Ox 96 04/24/25 09:52 Oxygen Delivery Method Room Air 04/24/25 09:52 BMI result Body Mass Index 32.9 Const General: healthy appearing and no acute distress Nutritional Appearance: average body habitus Orientation/consciousness: patient oriented x3 Limitations: no limitations HEENT Head: Yes normal to inspection Ears: hearing grossly normal bilaterally Mouth: Normal oral and palatal mucosa present Eyes Sclerae: sclerae normal Pupils: Equal, round and reactive pupils present Neck Neck: Yes normal visual inspection Chest Chest palpation & inspection: normal inspection of the chest Resp Effort & Inspection: normal respiratory effort Auscultation: clear to auscultation bilaterally Cardio Palpation: normal PMI Rate: regular rate Rhythm: regular rhythm Heart sounds: S1 normal heart sound present, S2 normal heart sound present and no murmurs GI Palpation (GI): Soft to palpation, nontender and No hepatosplenomegaly present Auscultation: normal bowel sounds Rectal Exam - Male: Yes deferred Skin General skin exam: no rashes or lesions noted Neuro General: patient oriented x3, gait normal and moves all extremities Cranial nerves: Yes Equal, round and reactive pupils present Psych Appearance: grossly normal Mental Status: mental status grossly normal Assessment & Plan Assessment & Plan (1) Alcohol use disorder, severe, dependence: Comment: He has been doing well on naltrexone Code(s): F10.20 - Alcohol dependence, uncomplicated Category: Medical (2) Recurrent right pleural effusion: Code(s): J90 - Pleural effusion, not elsewhere classified Category: Surgical (3) Alcoholic cirrhosis of liver without ascites: Code(s): K70.30 - Alcoholic cirrhosis of liver without ascites Category: Medical Plan 50 YM with history of alcohol use disorder, depression, hypertension, medical noncompliance here to establish care for cirrhosis after recent hospitalization at [facility] in Sep, 2024 for right pleural effucion/hepatic hydrothorax. 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 Hepatitis B and C serologies were negative (Pt reports receiving his 1st dose of hepatitis A and hepatitis-B vaccine at his PCP's office) DARRIUS was normal, ferritin level was elevated MELD score is 10. Pt's reports his last ETOH intake was on 09/30/[address] scan showed enlarged fatty liver with a distended GB Resolution of rt pleural effusion after Chest tube placement. Pleural fluid analysis was cw transudate and SAAG ratio was >1.1 Preliminary culture results - negative Pt had recurrent hydorthorax and underwent thoracentesis by IR on 11/05/24 with removal of 2500 mL of fluid PLAN: 1. Start furosemide 40 mg and spironolactone 50 mg daily for hepatic hydrothorax. 2. High protein and low sodium diet 3. Check genetic test for hemochromatosis 4. Pt is seeing Sophie Grubbs for ETOH rehab and is on Naltrexone 50 mg PO BID 5. Advised to continue to abstain from ETOH and also work on loosing weight. Course and management of Cirrhosis was reviewed with the patient and he was given handout on cirrhosis and diet 12/19/24 Wt loss of 20 lbs over the past month by not drinking and eating healthier Has a bout of diarrhea every couple of weeks and takes imodium Last thoracocetesis was 11/05/24 and notes SOB on walking the stairs. Taking diuretics - not every day if he has to go out. Pt advised to have a CXR and referred for a Thoracentesis 04/24/25 Resumed working - [employer] in [place] Has gained some weight. Denies recent diarrhea Last thoracocentesis was on 02/03/25. Pt advised to schedule an Abd US FU in 3 months From [facility]: Management of hepatic hydrothorax: Patients who are severely symptomatic should undergo a therapeutic thoracentesis followed by management with a sodium-restricted diet and diuretics (furosemide https://www.Tinkercad/contents/aajpqxludi-edjb-nyagcaydych?search=hepatic+hyd rothorax&bgiokEwf=1836&source=see_link ?40 mg and?spironolactone https://www.Tinkercad/contents/rkjuvzwzabktpv-lqgy-tsbngvtdqhz?search=hepatic +hydrothorax&ajqxtUgv=2513&source=see_link ?100 mg daily to start). Patients who are mildly to moderately symptomatic can be treated initially with sodium restriction and diuretics. Management options for patients who are refractory to sodium restriction and diuretics include serial thoracenteses, transjugular intrahepatic portosystemic shunt (TIPS) placement, pleurodesis, thoracoscopic surgery to repair diaphra gmatic defects, and liver transplantati Orders: Orders Hepatitis A IgG 04/24/25 K70.30 - Alcoholic cirrhosis of liver without ascites Complete Blood Count no Diff 04/24/25 K70.30 - Alcoholic cirrhosis of liver without ascites Comprehensive Met. Panel 04/24/25 K70.30 - Alcoholic cirrhosis of liver without ascites US abdomen limited 04/24/25 K70.30 - Alcoholic cirrhosis of liver without ascites Coding Level of Care Code Est Pt Level 4 (62511) Diagnoses Alcohol use disorder, severe, dependence F10.20 Recurrent right pleural effusion J90 Alcoholic cirrhosis of liver without ascites K70.30 Time Spent (min) 19
--- NOTE | 2025-04-24 09:49 | MHC.OFFVIS ---
Vital Signs 04/24/25 09:52 Height 5 ft 11 in Weight 236 lb BMI 32.9 BP 105/64 Blood Pressure Location Lt brachial Position Sitting Pulse 66 Pulse Oximetry (%) 96 Oxygen Delivery Method Room Air Intake Visit Reasons: 3 mo f/u Cirrhosis Intake Note: Patient 3 mo f/u Cirrhosis, lab and chest x-ray results. Patient denies any GI issues for today visit. 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 Accompanied by: Self / Same As Patient Allergies Penicillins Allergy (Mild, Verified 04/24/25 09:48) hives silk tape Adverse Reaction (Uncoded 03/04/25 11:24) Redness of Skin PFSH Medical History Alcohol use disorder, severe, dependence MDD (major depressive disorder) HTN (hypertension) Alcohol abuse Surgical History Hx of wisdom tooth extraction History of surgical procedure on mouth Social History Household Members: Family Household Members Other:: lives with parents Housing: House Are you a primary career development consultant to a significant other at home: No Do you presently have visiting nurse or other home services: No Alcohol intake: current Alcohol intake frequency: does not drink Alcohol type: beer Patient Tobacco Use Status: Former Tobacco user Tobacco use type: Cigarette Cigarette Packs Per Day: 2 Cigarettes Per Day: 40.0 Years Smoked: 20 e-Cigarette/Vaping Use: Never Used Second Hand Smoke Exposure: No service: No Assessment & Plan Assessment & Plan (1) Alcoholic cirrhosis of liver without ascites: Code(s): K70.30 - Alcoholic cirrhosis of liver without ascites Category: Medical (2) Recurrent right pleural effusion: Code(s): J90 - Pleural effusion, not elsewhere classified Category: Surgical (3) Alcohol use disorder, severe, dependence: Comment: He has been doing well on Vivitrol Code(s): F10.20 - Alcohol dependence, uncomplicated Category: Medical Coding Diagnoses Alcoholic cirrhosis of liver without ascites K70.30 Recurrent right pleural effusion J90 Alcohol use disorder, severe, dependence F10.20
[2025-04-24 09:52] VITALS: BP 105/64; PULSE 66; O2SAT 96; BMI 32.9
== END 2025-04-24 10:13 | disposition home or self-care (01) ==
LOC: HO.HGI 09:36
PROVIDERS: PCP Internal Medicine; Visit Provider Internal Medicine Gastroenterology
DX: F10.20 Alcohol dependence, uncomplicated (principal); J90 Pleural effusion, not elsewhere classified; K70.30 Alcoholic cirrhosis of liver without ascites
CPT/HCPCS: 99499

== ENCOUNTER 2025-04-24 09:35 | Outpatient (REF) | payer OTHER, SELFPAY ==
[2025-04-24 10:53] LABS: Hematocrit 41.2 % (42.0-52.0); Mean Corpuscular Hemoglobin 30.3 pg (27.0-33.0); Mean Corpuscular Volume 89.2 fL (80.0-98.0); Mean Platelet Volume 9.4 fL (9.4-12.4); Platelet Count 206 X10*3/uL (160-400); Red Blood Count 4.62 X10*6/uL (4.60-5.80); Red Cell Distribution Width 14.3 % (11.0-16.0)
[2025-04-24 11:45] LABS: Alanine Aminotransferase 21 U/L (0-40); Albumin Level 4.5 g/dL (3.5-5.0); Alkaline Phosphatase 78 U/L (39-117); Anion Gap 10 (12-20); Aspartate Amino Transferase 30 U/L (5-37); Bilirubin Total 1.1 mg/dL (0.0-1.0); Blood Urea Nitrogen 14 mg/dL (9-16); Calcium 9.6 mg/dL (8.4-10.2); Carbon Dioxide 29 mmol/L (22-29); Chloride 103 mmol/L (96-108); Estimated Glomerular Filt Rate > 60; Glucose Random 91 mg/dL (60-115); Potassium 4.3 mmol/L (3.3-5.1); Sodium 138 mmol/L (135-145); Total Protein 7.6 g/dL (6.5-8.0)
[2025-04-25 08:17] LABS: Hepatitis A Antibody IgG REACTIVE (Nonreactive); ~Hepatitis A Antibody IgG 1.57 S/CO (0.00-0.99)
== END 2025-04-24 09:36 | disposition home or self-care (01) ==
LOC: HO.LAB 09:35
PROVIDERS: PCP Internal Medicine; Visit Provider Internal Medicine Gastroenterology
DX: K70.30 Alcoholic cirrhosis of liver without ascites (principal); F10.20 Alcohol dependence, uncomplicated; J90 Pleural effusion, not elsewhere classified
CPT/HCPCS: 36415; 80053; 85027; 86708

== ENCOUNTER 2025-05-14 14:51 | Outpatient (AMB) | payer OTHER, SELFPAY ==
--- OUTSIDE RECORDS SUMMARY | 2025-05-09 23:59 | XMS_ITS | Continuity of Care Document ---
Author Organization [facility] Solo Abhay lt Address [address] [place] [address]- Care Team Providers Care Automated Logistics Specialist Name Role Phone Alex Krause MD Primary Care Physician Encounter [facility] [place] Date(s): 05/02/25 - 05/09/25 [facility] Adult [address] [place] [address]- Encounter Diagnosis Neuropathy, peripheral(Discharge Diagnosis) - 05/02/25 Depression, major, in partial remission(Discharge Diagnosis) - 05/02/25 Attending Physician: Alex Krause MD Encounter Type: Office Visit Allergies, Adverse Reactions, Alerts Substance Criticality Severity Reaction Reaction Severity Status penicillin Hives Active Immunizations Given and Recorded Vaccine Date Status Refusal Reason hepatitis B adult vaccine 01/29/25 Given hepatitis B adult vaccine 1 10/17/24 Given [...] acel(DTaP) 12/27/12 Recorded 1Result Comment: Hep B ND#:[id number] 2Result Comment: Hep A ND#[id number] 3Result Comment: [facility]#[id number] CHECKLIST-DONE Medications cloNIDine 0.1 mg oral tablet [...] Date: 03/04/24 Status: Ordered Repeat number: 1 furosemide 20 mg oral tablet 40 mg, 2, tablet, By Mouth, Daily, Refills 0, Maintenance, 01/27/25 8:44:00 AM EDT, Partial fill upon patient request if the prescription is for a schedule II opioid drug. Start Date: 01/27/25 Status: Ordered Repeat number: 1 gabapentin 100 mg oral capsule 100 mg, 1, capsule, By Mouth, 3 times a day, # 90 capsule, Refills 11, Tot. Refills 11, Maintenance, 10/17/24 11:40:00 AM EST, Route to Pharmacy Electronically, [facility]/pharmacy #[id number], Partial fill upon patient request if the prescription is for a schedule II opioid drug., 181, cm, 10/17/24 11:17:00 EST, Height Start Date: 10/17/24 Stop Date: 10/12/25 Status: Ordered Quantity: 90.0 Unit: capsule Repeat number: 12 Naltrexone Daily, 0 Refills, Maintenance, 03/04/24 8:51:00 AM EDT, Partial fill upon patient request if the prescription is for a schedule II opioid drug. Start Date: 03/04/24 Status: Ordered Repeat number: 1 spironolactone 50 mg oral tablet 1 tablet = 50 mg, By Mouth, Daily, 0 Refills, Maintenance, 01/27/25 8:44:00 AM EDT, Partial fill upon patient request if the prescription is for a schedule II opioid drug. Start Date: 01/27/25 Status: Ordered Repeat number: 1 Problem List Condition Confirmation Course Effective Dates Status Health St atus Informant Alcoholic cirrhosis of liver Confirmed Active Anxiety Confirmed Active ADD (attention deficit disorder) Confirmed Active Crohn disease Confirmed Active Alcohol use Confirmed Active Primary hypertension Confirmed Active History of tobacco abuse Confirmed Active GERD without esophagitis Confirmed Active Hx of insomnia Confirmed Active Elevated LFTs Confirmed Active Bilateral low back pain with right-sided sciatica Confirmed Active Depression, major, in partial remission Confirmed Active Hyperlipemia, mixed Confirmed Active Obese class I Confirmed Active Neuropathy, peripheral Confirmed Active Tinea versicolor Confirmed Active Pleural effusion on right Confirmed Active Diagnosis Diagnosis Type Effective Dates Health Status Clinical Service Informant Neuropathy, peripheral Discharge Diagnosis 05/02/25 Depression, major, in partial remission Discharge Diagnosis 05/02/25 Social History Social History Type Response Smoking Status Never (less than 100 in lifetime) entered on: 03/13/23 Sex Sex Representation Male (finding) Patient Care team information Care Team Personnel Name: Meseret Nguyễn RN Position: [facility] RN Supv Member Role: Primary Care Nurse Name: Keyla Craig RN Position: [facility] RN Member Role: Primary Care Nurse Name: Alex Krause MD Position: [facility] Physician - Primary Care Member Role: PCP Address: [address] [place] [id number] Telecom: Care Team Related Persons Name: CANDACE DIAS Name: LEXI DIAS Insurance Providers Guarantor name: [employer] Health Plan Information #: 1 [facility] Payer Identifier: [employer] Member Number: [id number] Group Number: [id number] Subscriber Identifier: [id number] Relationship to Subscriber: self Coverage Type: Managed Care (Private) Coverage Verification Date: [employer]IN Telecom: Address:
[2025-05-14 16:42] VITALS: BP 126/73; PULSE 59; O2SAT 98
--- NOTE | 2025-05-14 16:42 | A.OFFVISCC_ITS ---
Vital Signs 05/14/25 16:42 BP 126/73 Blood Pressure Location Lt brachial Position Sitting Pulse 59 Pulse Source Pulse Oximeter Pulse Oximetry (%) 98 Oxygen Delivery Method Room Air Intake Visit Reasons: mat Allergies Penicillins Allergy (Mild, Verified 04/24/25 09:48) hives silk tape Adverse Reaction (Uncoded 03/04/25 11:24) Redness of Skin HPI HPI mat: Details: He has no complaints. He is not drinking at this time. Review of Systems Const All systems reviewed & are unremarkable except as noted in HPI and below Physical Exam Vital Signs: Last Vital Signs Pulse 59 05/14/25 16:42 BP 126/73 05/14/25 16:42 Pulse Ox 98 05/14/25 16:42 Oxygen Delivery Method Room Air 05/14/25 16:42 Const General: cooperative [facility] Medical History Alcohol use disorder, severe, dependence MDD (major depressive disorder) HTN (hypertension) Alcohol abuse Surgical History Hx of wisdom tooth extraction History of surgical procedure on mouth Social History Household Members: Family Household Members Other:: lives with parents Housing: House Are you a primary medicare nurse to a significant other at home: No Do you presently have visiting nurse or other home services: No Alcohol intake: current Alcohol intake frequency: does not drink Alcohol type: beer Patient Tobacco Use Status: Former Tobacco user Tobacco use type: Cigarette Cigarette Packs Per Day: 2 Cigarettes Per Day: 40.0 Years Smoked: 20 e-Cigarette/Vaping Use: Never Used Second Hand Smoke Exposure: No service: No Social History: Lives with parents, , no children, 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 Substance History: Pt reports drinking three handles of vodka a week ; denies any other substance use. Trauma History: denies Assessment & Plan Assessment & Plan (1) Alcohol use disorder, severe, dependence: Comment: He has been doing well on naltrexone Code(s): F10.20 - Alcohol dependence, uncomplicated Category: Medical Plan: Continue Naltrexon po See as scheduled. Medications: Refilled naltrexone 50 mg PO BID 60 tabs 3RF 30 days folic acid 1 mg PO DAILY 90 tabs 1RF
== END 2025-05-14 15:52 | disposition home or self-care (01) ==
LOC: HO.HCC 14:51
PROVIDERS: PCP Internal Medicine; Visit Provider Internal Medicine
DX: F10.20 Alcohol dependence, uncomplicated (principal)
CPT/HCPCS: 99213

== ENCOUNTER 2025-06-11 07:45 | Outpatient (REF) | payer OTHER, SELFPAY ==
--- NOTE | ~2025-06-11 | US_ITS ---
CLINICAL HISTORY: K70.30 - Alcoholic cirrhosis of liver without ascites --- Additional Notes or Special Instructions: screen for HCC ascites US abdomen limited Comparison: None provided Findings: Suboptimal exam due to body habitus and limited acoustic window. The visualized pancreatic head, aorta, and inferior vena cava are unremarkable. Remaining pancreas is obscured by bowel gas. The liver is not well seen, normal in size, right lobe length is 16.6 cm. Diffusely echogenic liver parenchyma with coarsened echotexture, geographic avascular hypoechogenicity near gallbladder fossa, no additional focal lesion is seen. No bile duct dilatation. Common duct 5 mm diameter. Normal gallbladder. Negative sonographic Langford sign. Main portal vein shows antegrade flow. Right kidney normal, 11.1 cm in length. Small perihepatic ascites. Small right pleural effusion is also seen. Impression: Echogenic liver parenchyma with coarsened echotexture, likely related to parenchymal liver disease or steatosis, geographic avascular hypoechogenicity near gallbladder fossa may reflect focal fatty sparing, no additional hepatic lesion is seen but liver is not well visualized, recommend considering alternative imaging modality suggests liver CT or MRI for further evaluation. This document has been electronically signed by: Mckenna Anthony MD on 06/11/2025 12:33:25
--- OUTSIDE RECORDS SUMMARY | 2025-06-11 07:48 | XMS_ITS | Clinical Summary ---
Author Organization [facility] Address [address] [place] [address] Phone Care Team Providers Care Senior Hr Generalist Name Role Phone Edenilson Simpson MD Unavailable [phone] Pcp, Unknown Primary Care Provider Unavailabl e Allergies Active Allergy Reactions Criticality Noted Date Comments Penicillin V Potassium Rash Low 08/31/2017 Medications chlorthalidone (HYGROTON) 25 MG tabletIndications :Primary hypertension Take 0.5 tablets (12.5 mg total) by mouth daily. 1/2 tab daily 45 tablet 1 2 Active gabapentin (NEURONTIN) 100 MG capsuleIndication s:Alcohol use Take 2 tabs at night, 1 PRN anxiety 90 capsule 2 2 Active Additional Information Patient taking differently: 100 mg Oral, One tab as needed, Reported on 02/18/2022 fluconazole (DIFLUCAN) 150 MG tablet Take 1 tab 3x/week 10 tablet 1 2 Active sertraline (ZOLOFT) 50 MG tabletIndications :Anxiety and depression Take 1 tablet (50 mg total) by mouth daily. 90 tablet 3 2 Active dextroamphetamine -amphetamine (ADDERALL XR) 20 MG 24 hr capsuleIndication s:Attention deficit hyperactivity disorder (ADHD), unspecified ADHD type Take 1 capsule (20 mg total) by mouth every morning. 28 capsule 2 Active lisinopril (PRINIVIL,ZESTRIL ) 20 MG tabletIndications :Hypertension Take 1 tablet (20 mg total) by mouth daily. 90 tablet 3 3 Active Active Problems Problem Noted Date Diagnosed Date Elevated LFTs 02/18/2022 Assessment & Plan (04/08/2022 5:30 PM EDT): Reiterated importance of getting labs done Assessment & Plan (02/19/2022 12:06 AM EDT): Likely due to EtOH abuse but eeds further eval, labs ordered by Dr. Martinez and expanded labs today W/ Crohns some increase for risk autiimmune hepatitis/cholangitis Crohn's disease of colon with complication 11/11 Overview (11/11/2021): Dx 10/2021 with acute abdominal pain Has GI follow up in january 2022 Assessment & Plan (02/19/2022 12:03 AM EDT): No current meds Strongly encouraged GI f/u [facility], will schedule Alcohol use 07/04/2019 Overview (02/02/2022): Has been a problem for him in the past He has elevated LFTs He has seen Dr Fairbanks in the past and tried gabapentin for withdrawal 09/2021 he would like to try gabapentin again. He is motivated to stop drinking. He will start 200 mg at night and an extra 100 as needed as needed. In the past had some drowsiness in the morning so we will watch for this. We will taper down by about 1 beer every 3 days. Declines referral to outpatient rehab facility. 10/2021 he has been in the hospital and he has stopped drinking for now. Gabapentin 200 mg working at night. 01/2022 - prn gabapentin for sleep, using social alcohol again. Assessment & Plan (04/08/2022 5:29 PM EDT): Still drinking socially, some binge drinking Reiterated abnormal LFTs, concern EtOH is causing or exacerbating Discussed naltrexone, encouraged trial to help limit binge drinking Assessment & Plan (02/19/2022 12:05 AM EDT): Doing well w/ cutting back, about 50% reduction since last visit Tolerating well Cont to step down EtOH Ok gabapentin PRN as this has been helpful in past Discussed medication for EtOH, interested in naltrexone for craving reduction, will start today F/u 1 mo Attention deficit hyperactivity disorder (ADHD) 11/27/2017 Overview (02/02/2022): Has been on stimulants adderall from this office Assessment & Plan (04/08/2022 5:29 PM EDT): Doing well w/ current dose, no concerns, will continue Assessment & Plan (02/19/2022 12:03 AM EDT): Dx w. Psych, manitainted on adderall CSA and utox today Cont adderall - recent RF. q3m visits Anxiety and depression 11/27/2017 Overview (02/02/2022): He has struggles with this for a while but more in 2020 No SI Zoloft added 25 mg 09/23/2021 - stopped this. We will try again 01/2022. Assessment & Plan (04/08/2022 5:30 PM EDT): Discussed zoloft Concerned no effect Mood feels stable Ok to d/c if he desires. I would encourage continuation Assessment & Plan (02/19/2022 12:04 AM EDT): Doing well w/ zoloft 50 mg daily Wishes to continue current dose GERD (gastroesophageal reflux disease) 8 Overview (02/02/2022): Occasional and takes famotadine Hyperlipidemia 11/27/2017 Overview (02/02/2022): Not on any medications F/u with new pcp Primary hypertension 11/27/2017 Overview (02/02/2022): Needs EKG next visit A bit low now on chlorthalidone 25. We will split the pill in half. Taking this along with lisinopril and atenolol. They are good on lisinopril and 1/2 chlorthalidone without the atenolol. The atenolol did make his legs swell. Assessment & Plan (04/08/2022 5:28 PM EDT): Doing well w/ current regimen Home bp at goal No hypotension Assessment & Plan (02/19/2022 12:02 AM EDT): BP slightly low today, asymptomatic Continue current regimen, consider cutting back if sxs develop to indicate more consistent hypotension. Normal EKG today Assessment & Plan (11/11/2021 12:04 PM EST): All meds were stopped in the hospital. He will re start his lisinopril and chlorthalidone for now and will hold off on his atenolol for now until we see him in the office and take and bp and get labs. Insomnia 11/27/2017 Overview (02/02/2022): Prn gabapentin use Tinea versicolor 11/27/2017 Assessment & Plan (04/08/2022 5:30 PM EDT): Rf difluca Advised selsun blue in shower- daily x 2 weeks then 3x/week maintennce Resolved Problems Problem Noted Date Diagnosed Date Resolved Date Stress reaction 08/26/2021 02/02/2022 Overview (09/23/2021): Leave of absence from work starting August. We will ask for another 4 weeks off. Dealing with a lot of stress, anxiety, depression. Trying to get his alcoholism under control. Paperwork filled out for anxiety/depression. Anemia 11/27/2017 05/30/2018 Immunizations Immunization Administration Dates Next Due COVID-19 (Pre-09/04) Pfizer Vaccine, mRNA, PF ,12/18/2020 Influenza trivalent preservative free intraderma l 08/22/2013 Tdap 12/27/2012 Family History Medical History Relation Comments Hypertension Father CV disease Mother CV disease Paternal Grandfather CV disease Paternal Grandmother Colon cancer Neg Hx Prostate cancer Neg Hx Relation Status Comments Father Mother Paternal Grandfather Paternal Grandmother Social History Tobacco Use Types Packs/Day Years Used Date Smoking Tobacco: Former Cigarettes 2 18 0 07/05/1995 - 07/05/2013 Smokeless Tobacco: Never Alcohol Use Standard Drinks/Week Comments Yes 0 (1 standard drink = 0.6 oz pur e alcohol) 2 drinks 2-3x/week Education Answer Date Recorded Are you interested in more education? Not on екатерина e 03/10/2023 Are you concerned about learning? Not on file 03/10/2023 No 03/10/2023 No 03/10/2023 Digital Access Answer Date Recorded No 04/08/2023 No 04/08/2023 Reliable internet access at home? Not on file 04/08/2023 Device with a working camera? Not on file Sex and Gender Information Value Date Recorded Sex Assigned at Male 06/05/2019 7:20 PM EDT Legal Sex Male 9:32 PM EDT Gender Identity Male 06/05/2019 7:20 PM EDT Sexual Orientation Straight 06/05/2019 7: 20 PM EDT Last Filed Vital Signs Vital Sign Reading Time Taken Comments Blood Pressure 125/80 04/08/2022 4:23 PM EDT pt reported Pulse 102 02/18/2022 3:56 PM EDT Temperature 36.1 C (97 F) 02/18/2022 3:33 PM EDT Respiratory Rate - - Oxygen Saturation 97% 02/02/2022 11:24 AM EDT Inhaled Oxygen Concentration - - Weight 104.3 kg (230 lb) 04/08/2022 4:23 PM EDT pt reported Height 177.8 cm (5' 10 ) 04/08/2022 4:23 PM EDT Body Mass Index 33 04/08/2022 4:23 PM EDT Plan of Treatment Health Maintenance Due Date Last Done Comments BLOOD PRESSURE 1973 SMOKING Hx and SMOKELESS TOBACCO SCREENING 1986 HEPATITIS C SCREENING 1991 COLOGUARD 2018 COLONOSCOPY 2018 COLORECTAL CANCER SCREENING 2018 FIT TEST 2018 FOBT 2018 SIGMOIDOSCOPY 2018 VIRTUAL COLONOSCOPY 2018 CREATININE LEVEL 08/26/2022 08/26/2021, 07/19/2018, 02/20/2018 LIPID PANEL 08/26/2022 08/26/2021, 07/19/2018 POTASSIUM LEVEL 08/26/2022 08/26/2021, 07/19/2018, 02/20/2018 Adult Td,Tdap Booster 12/27/2022 12/27/2012 DEPRESSION SCREENING 02/18/2023 02/18/2022 PNEUMOCOCCAL VACCINES (50+ years) (1 of 1 - PCV) 2023 ZOSTER VACCINES (1 of 2) 2023 COVID-19 VACCINE (4 - 2023-2 5 season) 2024 10/30/2021, 01/08/2021, 12/18/2020 HEPATITIS A VACCINES Aged Out No long er eligible based on patient's age to complete this topic HIB VACCINES Aged Out No longer eligi ble based on patient's age to complete this topic MENINGOCOCCAL VACCINES (ACWY) Aged Out No longer eligible based on patient's age to complete this topic MENINGOCOCCAL VACCINES (B) Aged Out N o longer eligible based on patient's age to complete this topic Medical Devices Not on file Procedures Procedure Name Priority Date/Time Associated Diagnosis Comments LIPID PANEL Routine 08/26/2021 12:53 PM EDT Other hyperlipidemia COMPREHENSIVE METABOLIC PANEL Routine 08/26/2021 12:53 PM EDT Primary hypertension from Last 3 Months or Most Recently Relevant to Health Maintenance Results * (ABNORMAL) Comprehensive metabolic panel (08/26/2021 12:53 PM EDT) SODIUM 134 133 - 146 mmol/L [facility] POTASSIUM 4.2 3.3 - 5.1 mmol/L [facility] CHLORIDE 96 96 - 108 mmol/L [facility] CO2 24 21 - 35 mmol/L [facility] BUN 8 6 - 19 mg/dL [facility] CREATININE 0.70 0.5 - 1.5 mg/dL [facility] GLUCOSE 88 70 - 99 mg/dL [facility] ALBUMIN 4.6 3.9 - 4.8 g/dL [facility] TOTAL PROTEIN 8.4(H) 6.5 - 8.0 g/dL [facility] CALCIUM 9.7 8.4 - 10.3 mg/dL [facility] ALKALINE PHOSPHATASE 118(H) 39 - 117 U/L [facility] TOTAL BILIRUBIN 1.6(H) 0.0 - 1.2 mg/dL [facility] AST 58(H) 0 - 37 U/L [facility] ALT 64(H) 0 - 40 U/L [facility] GLOBULIN 3.8 1 - 4.8 g/dL [facility] EGFR 112 >59 mL/min/1.7 3m2 [facility] Comment:Estimated glomerular filtration rate calculated using the CKD-EPI equation. ANION GAP 18 10 - 20 mmol/L [facility] Blood 08/26/2021 12:5 3 PM EDT 08/26/2021 12:55 PM EDT us Caprice Jalloh MD LAB BLOOD ORDERABLES Final R [employer] Companies[employer] Performing Organization Address City[facility] Co de Phone Number [address] [address] * (ABNORMAL) Lipid panel (08/26/2021 12:53 PM EDT) HDL 68 mg/dL [facility] Comment: Interpretation <40 mg/dL: Low HDL cholesterol (major risk factor for CHD) Greater than or equal to 60 mg/dL: High HDL cholesterol ( negative risk factor for CHD) HDL - cholesterol is affected by a number of factors, e.g. smoking, excerise, hormones, sex and age. CHOLESTEROL 258(H) 0 - 240 mg/dL [facility] TRIGLYCERIDES 156 30 - 160 mg/dL [facility] LDL 159(H) 50 - 129 mg/dL [facility] Comment: LDL levels in terms of risk for coronary heart disease: <100 mg/dL: Optimal 100-129 mg/dL: Near or above optimal 130-159 mg/dL: Borderline high 160-189 mg/dL: High >190 mg/dL: Very High CARDIAC RISK RATIO 3.8 3.4 - 5.0 C [facility] Blood 08/26/2021 12:5 3 PM EDT 08/26/2021 12:55 PM EDT us Caprice Jalloh MD LAB BLOOD ORDERABLES Final R esult [address] [address] from Last 3 Months or Most Recently Relevant to Health Maintenance Insurance [facility] H[facility] Member Subscriber Plan / Payer (Ef fective 2022-Present) Name:Ricco Mendez Relation to Subscriber:Self Name:Ricco Mendez Payer ID:Not on file Type:HMO Address: [place] [id number] [facility] Care Teams Senior Hr Generalist Relationship Specialty Start Date End Date Pcp, Unknown PCP - General 05/03/23 Edenilson Simpson MD [address] [place], [place] [address] [place] [address] [email or web address] LMR Provider 09/03/17 Additional Source Comments The information contained in this document represents components of the legal health record. It is not the complete legal health record.[facility]
== END 2025-06-11 07:46 | disposition home or self-care (01) ==
LOC: HO.US 07:45
PROVIDERS: PCP Internal Medicine; Visit Provider Internal Medicine Gastroenterology
DX: K70.30 Alcoholic cirrhosis of liver without ascites (principal)
CPT/HCPCS: 76705

== ENCOUNTER → 2025-06-11 07:47 | Outpatient (BNV) | payer OTHER, SELFPAY | PROVIDERS: PCP Internal Medicine; Visit Provider Radiology Diagnostic Radiology | DX: K70.31 Alcoholic cirrhosis of liver with ascites (principal) | CPT/HCPCS: 76705 ==

== ENCOUNTER 2025-08-15 14:58 | Outpatient (AMB) | payer BC, SELFPAY ==
--- OUTSIDE RECORDS SUMMARY | 2025-08-15 15:00 | XMS_ITS | Clinical Summary ---
Author Organization [facility] Address [address] [place] [address] Phone Care Team Providers Care Farm Mechanic Apprentice Name Role Phone Edenilson Simpson MD Unavailable [phone] Pcp, Unknown Primary Care Provider Unavailabl e [...] 2023 ZOSTER VACCINES (1 of 2) 2023 INFLUENZA VACCINE (#1) 2025 08/22/2013 COVID-19 VACCINE (4 - 2024-2 6 season) 2025 10/30/2021, 01/08/2021, 12/18/2020 HEPATITIS A VACCINES Aged [...] EDT) SODIUM 134 133 - 146 mmol/L [facility] POTASSIUM 4.2 3.3 - 5.1 mmol/L [facility] CHLORIDE 96 96 - 108 mmol/L [facility] CO2 24 21 - 35 mmol/L [facility] BUN 8 6 - 19 mg/dL [facility] CREATININE 0.70 0.5 - 1.5 mg/dL [facility] GLUCOSE 88 70 - 99 mg/dL [facility] ALBUMIN 4.6 3.9 - 4.8 g/dL [facility] TOTAL PROTEIN 8.4(H) 6.5 - 8.0 g/dL [facility] CALCIUM 9.7 8.4 - 10.3 mg/dL [facility] ALKALINE PHOSPHATASE 118(H) 39 - 117 U/L [facility] TOTAL BILIRUBIN 1.6(H) 0.0 - 1.2 mg/dL [facility] AST 58(H) 0 - 37 U/L [facility] ALT 64(H) 0 - 40 U/L [facility] GLOBULIN 3.8 1 - 4.8 g/dL [facility] EGFR 112 >59 mL/min/1.7 3m2 [facility] Comment:Estimated glomerular filtration rate calculated using the CKD-EPI equation. ANION GAP 18 10 - 20 mmol/L [facility] Blood 08/26/2021 12:5 3 PM EDT 08/26/2021 12:55 PM EDT us Caprice Jalloh MD LAB BLOOD ORDERABLES Final R esult [address] [address] * (ABNORMAL) Lipid panel (08/26/2021 12:53 PM EDT) HDL 68 mg/dL [facility] Comment: Interpretation <40 mg/dL: Low HDL cholesterol (major risk factor for CHD) Greater than or equal to 60 mg/dL: High HDL cholesterol ( negative risk factor for CHD) HDL - cholesterol is affected by a number of factors, e.g. smoking, excerise, hormones, sex and age. CHOLESTEROL 258(H) 0 - 240 mg/dL [facility] TRIGLYCERIDES 156 30 - 160 mg/dL [facility] LDL 159(H) 50 - 129 mg/dL [facility] Comment: LDL levels in terms of risk for coronary heart disease: <100 mg/dL: Optimal 100-129 mg/dL: Near or above optimal 130-159 mg/dL: Borderline high 160-189 mg/dL: High >190 mg/dL: Very High CARDIAC RISK RATIO 3.8 3.4 - 5.0 C [facility] Blood 08/26/2021 12:5 3 PM EDT 08/26/2021 12:55 PM EDT us Caprice Jalloh MD LAB BLOOD ORDERABLES Final R esult [address] [address] from Last 3 Months or Most Recently Relevant to Health Maintenance Insurance [facility] H[facility] Care Teams Farm Mechanic Apprentice Relationship Specialty Start Date End Date Pcp, Unknown PCP - General 05/03/23 Edenilson Simpson MD [address] [place], [place] [phone] [place] [phone] [email or web address] LMR Provider 09/03/17 Additional Source Comments The information contained in this document represents components of the legal health record. It is not the complete legal health record.[facility]
[2025-08-15 15:18] VITALS: BP 110/70; PULSE 78; O2SAT 97
--- NOTE | 2025-08-15 15:18 | A.OFFVIS_ITS ---
Vital Signs 08/15/25 15:18 Height 5 ft 11 in BP 110/70 Pulse 78 Pulse Oximetry (%) 97 Intake Visit Reasons: MAT Allergies Penicillins Allergy (Mild, Verified 08/15/25 15:19) hives silk tape Adverse Reaction (Uncoded 08/15/25 15:19) Redness of Skin HPI Comments Details: History of Present Illness The patient is a 50-year-old male presenting with Alcohol Use Disorder. The patient has been effectively managing this condition using naltrexone 50 mg twice daily, a dosing regimen that he finds adequate for maintaining his current stability. He has communicated satisfaction with the current therapeutic approach and denies any use of alcohol presently. There are no concerns or issues noted by the patient, and he reports compliance with his medication regimen. Current assessment shows that the patient?s condition is stable, with no acute symptoms or complications reported. Continued monitoring and medication adherence have helped maintain his stable status. Review of Systems - Neurological: Denies symptoms. - Psychiatric: Reports no concerns. - Substance use: Denies alcohol use. Physical Exam - Vitals- Stable Results Plan Patient was informed and verbally consented to the use of an ambient scribe for clinic note documentation during this visit. 1. Alcohol use, unspecified, uncomplicated F10.90 The current treatment plan of naltrexone 50 mg BID is effective as per the patient?s feedback. I will continue this prescription, as the patient confirms stability and efficacy of the treatment. Regular follow-up will be maintained to monitor progress and reassess treatment goals as needed. Discussion Notes Today, I discussed with the patient the management of his Alcohol Use Disorder with the use of naltrexone 50 mg BID. The patient acknowledges the effectiveness of this regimen and has no current concerns. We talked about the importance of adherence to the medication to maintain stability and avoid potential relapse. The patient is satisfied with the treatment, and we confirmed the continuation of this plan. Regular follow-ups are essential to monitor the patient?s progress and make any necessary adjustments to the management plan if needed in the future. Medical Decision Making In managing this patient?s Alcohol Use Disorder, the complexity lies in ensuring adherence and preventing relapse. Given the patient's stable vital signs and satisfaction with the current naltrexone regimen, continuation of the current schedule is optimal. The therapy with naltrexone provides a blockade effect against the euphoric effects of alcohol, thereby reducing both craving and relapse risk. Regular follow-up appointments will solidify adherence and allow us to monitor the patient for any signs of alcohol consumption or side effects from treatment. The goal remains to maintain abstinence and provide ongoing support and adjustments as required to sustain the patient?s abstinence and minimize relapse risk. Patient Instructions - Continue taking naltrexone 50 mg twice daily as prescribed. - Do not consume any alcohol. - Follow up as scheduled for continued monitoring of your condition. - Contact the office if any new concerns or symptoms arise. PFSH Medical History Alcohol use disorder, severe, dependence MDD (major depressive disorder) HTN (hypertension) Alcohol abuse Surgical History Hx of wisdom tooth extraction History of surgical procedure on mouth Social History Household Members: Family Household Members Other:: lives with parents Housing: House Are you a primary memory care program resident to a significant other at home: No Do you presently have visiting nurse or other home services: No Alcohol intake: current Alcohol intake frequency: does not drink Alcohol type: beer Patient Tobacco Use Status: Former Tobacco user Tobacco use type: Cigarette Cigarette Packs Per Day: 2 Cigarettes Per Day: 40.0 Years Smoked: 20 e-Cigarette/Vaping Use: Never Used Second Hand Smoke Exposure: No service: No Physical Exam Vital Signs: Last Vital Signs Pulse 78 08/15/25 15:18 BP 110/70 08/15/25 15:18 Pulse Ox 97 08/15/25 15:18 Assessment & Plan Assessment & Plan (1) Alcohol use disorder, severe, dependence: Comment: He has been doing well on naltrexone Code(s): F10.20 - Alcohol dependence, uncomplicated Category: Medical Plan per note Medications: Refilled naltrexone 50 mg PO BID 60 tabs 3RF 30 days Coding Level of Care Code Est Pt Level 3 (56215) Diagnoses Alcohol use disorder, severe, dependence F10.20
== END 2025-08-15 15:55 | disposition home or self-care (01) ==
PROVIDERS: PCP Internal Medicine; Visit Provider Internal Medicine
DX: F10.20 Alcohol dependence, uncomplicated (principal)
CPT/HCPCS: 99213

== ENCOUNTER 2025-08-21 09:15 | Outpatient (REF) | payer OTHER, SELFPAY ==
--- NOTE | ~2025-08-21 | XR_ITS ---
EXAMINATION: XR CHEST CLINICAL INFORMATION: J90 - Pleural effusion, not elsewhere classified COMPARISON: March 18, 2025 TECHNIQUE: 2 views of the chest were obtained. FINDINGS: There has been interval resolution of a right pleural effusion. There is reexpansion of associated atelectasis. There is new oblique linear density in the left lung base consistent with atelectasis. XR/XR chest 2V IMPRESSION: Interval resolution of a small right pleural effusion. Minimal subsegmental atelectasis in the left lung base. Electronically signed by: Adelfo Ellis MD 08/21/2025 11:36 AM EDT
== END 2025-08-21 09:16 | disposition home or self-care (01) ==
LOC: HO.XRAY 09:15
PROVIDERS: PCP Internal Medicine; Visit Provider Internal Medicine Gastroenterology
DX: K70.30 Alcoholic cirrhosis of liver without ascites (principal); F10.20 Alcohol dependence, uncomplicated; J90 Pleural effusion, not elsewhere classified; E66.9 Obesity, unspecified; K76.6 Portal hypertension; D69.6 Thrombocytopenia, unspecified
CPT/HCPCS: 71046

== ENCOUNTER 2025-08-21 09:15 | Outpatient (AMB) | payer OTHER, SELFPAY ==
--- NOTE | 2025-08-21 09:18 | A.OFFVIS_ITS ---
Vital Signs 08/21/25 09:19 Height 5 ft 11 in Weight 241 lb BMI 33.6 BP 113/64 Blood Pressure Location Lt brachial Position Sitting Pulse 69 Pulse Oximetry (%) 96 Oxygen Delivery Method Room Air Intake Visit Reasons: 4m Intake Note: Patient follow up for Alcohol use disorder, severe, dependence Patient cc: constipation on and off, denies any other GI issues for today visit. Commercial Pest Control Technician Required: No Accompanied by: Self / Same As Patient Allergies Penicillins Allergy (Mild, Verified 08/15/25 15:19) hives silk tape Adverse Reaction (Uncoded 08/15/25 15:19) Redness of Skin Medication List - Last Reconciled 08/21/25 by Denise Antoine MD clonidine HCl 0.1 mg PO BID 90 days escitalopram oxalate 10 mg PO DAILY 30 days folic acid 1 mg PO DAILY furosemide (Lasix) 40 mg (2 x 20 mg) PO QAM 60 days gabapentin 100 mg PO BID magnesium oxide 400 mg PO DAILY [id number] mcg (Centrum Silver Men) 1 tab PO DAILY naltrexone 50 mg PO BID 30 days naltrexone 50 mg PO BID omeprazole 20 mg PO DAILY spironolactone 50 mg PO QAM 60 days thiamine mononitrate (vit B1) 100 mg PO DAILY vitamin A 2,400 mcg PO DAILY vitamin B complex 1 tab PO DAILY HPI HPI 4m: Details: GI clinic visit for this 50 YM with history of alcohol use disorder, depression, hypertension, medical noncompliance for follow-up of cirrhosis and hepatic hydrothorax TODAY'S VISIT: Chief Complaint; constipation on and off, 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 Brother had a colonoscopy recently and had a polyp removed PAST VISITS: Resumed working - [employer] in [place] Has gained some weight. Denies recent diarrhea Last thoracocentesis was on 02/03/25. Wt loss of 20 lbs over the past month by not drinking and eating healthier Has a bout of diarrhea every couple of weeks and takes imodium Last thoracocetesis was 11/05/24 and notes SOB on walking the stairs. Taking diuretics - not every day if he has to go out. Had an episode of diarrhea yesterday, took an imodium and diarrhea has resolved. Had a thoraco-centesis on 11/05 and feels much better - was exhausted after minimal exertion. Denies fatigue or dizziness. Patient denies symptoms of heartburn, dysphagia, nausea, vomiting. Appetite has improved since he stopped drinking and has gained weight. Has diarrhea alternating with constipation. Denies recent black stools or rectal bleeding. Patient denies major cardiac problems, he admits to snoring and denies sleep apnea Denies problems with anesthesia in the past. He denies being on anticoagulation or using aspirin or nonsteroidals. He quitted smoking 21 years ago after smoking 2 PPD x 20 yrs. 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 A paternal grandfather was an alcoholic. PAST EGD/COLONOSCOPY: Pt denies having an EGD or a colonoscopy in the past. LABS IN [facility] : Reviewed IMAGING STUDIES: 10/01/[address] SCAN SHOWED: 1. Interval placement of right-sided chest tube with resolution of previously seen large pleural effusion. There is a tiny pneumothorax. 2. There is airspace disease in the reexpanded right lung which could represent reexpansion pulmonary edema. 3. Enlarged fatty liver. 4. Distended gallbladder with some minimal streaky changes in the right anterior pararenal space abutting the gallbladder and pancreatic head. Would correlate with serum lipase for pancreatitis and right upper quadrant ultrasound for gallbladder disease, although felt to be unlike ENDOSCOPIC STUDIES: None in [facility] PAST GI HISTORY BY REVIEW OF MEDICAL RECORDS: PATIENT WAS SEEN IN CONSULTATION DURING HOSPITALIZATION ON 10/03/2024 Reason for consult: Elevated LFTs 49 YM with history of alcohol use disorder, depression, hypertension, medical noncompliance admitted ICU at [facility] on 10/02/24 with nausea and vomiting. Labs on admission showed white blood cell count 12.7, creatinine 2.33, AST 157, ALT 60, total bilirubin 0.8, albumin 2.8, ethyl alcohol level 421. Chest, abdominal and pelvic CT showed right-sided large volume effusion with collapsed right lung. Thoracic surgery was consulted and pt had thoracentesis with removal of 1 0.5 L of serous fluid and placement of right-sided chest tube. Pt transferred to the medical floor 10/02 10/03 Chest tube pulled out accidentally and was not replaced since pt denied sob. o2 sat high 90s. Pt reports he was told he had elevated LFTs a few years ago. He has been drinking 1.5 litres of hard liquor every 3 days for the past 20 years He has been through an outpt treatment program to quit drinking and remained sober for a few months. Pt complains of fatihue, occasional heartburn and intermittent diarrhea. He denies dysphagia, melena or hematochezia. 49 YM with history of alcohol use disorder, depression, hypertension, medical noncompliance admitted ICU at [facility] on 10/02/24 with nausea and vomiting found to have large volume pleural effusion with collapsed right lung status post right chest tube placement admitted downgraded from the medical floor 10/02 Labs on admission showed white blood cell count 12.7, creatinine 2.33, AST 157, ALT 60, total bilirubin 0.8, albumin 2.8, ethyl alcohol level 421. Abd CT scan showed enlarged fatty liver with a distended GB Resolution of rt pleural effusion after Chest tube placement. Pleural fluid analysis was cw transudate and SAAG ratio was >1.1 Preliminary culture results - negative LFTs are improving. 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 MELD score is 10 RECOMMENDATIONS: 1. Agree with CIWA protocol and PO Omeprazole. 2. Low sodium diet and start Furosemide 20 mg and Spironolactone 50 mg daily 3. Check Hep B and C serologies, iron studies, DARRIUS - added to am labs 4. Echocardiogram to rule out cardiomyopathy related to ETOH abuse 5. Pt planning to enroll in ETOH rehab to help him quit drinking Pt advised to call the GI clinic to schedule [facility]: Patients who are severely symptomatic should undergo a therapeutic thoracentesis followed by management with a sodium-restricted diet and diuretics (furosemide [email or web address] [email or web address]&[email or web address]&source=see_link ?40 mg and?spironolactone [email or web address] +hydrothorax&[email or web address]&source=see_link ?100 mg daily to start). Patients who are mildly to moderately symptomatic can be treated initially with sodium restriction and diuretics. Management options for patients who are refractory to sodium restriction and diuretics include serial thoracenteses, transjugular intrahepatic portosystemic shunt (TIPS) placement, pleurodesis, thoracoscopic surgery to repair diaphragmatic defects, and [facility] Medical History Alcohol use disorder, severe, dependence MDD (major depressive disorder) HTN (hypertension) Alcohol abuse Surgical History Hx of wisdom tooth extraction History of surgical procedure on mouth Social History Household Members: Family Household Members Other:: lives with parents Housing: House Are you a primary rn intensive care unit to a significant other at home: No Do you presently have visiting nurse or other home services: No Alcohol intake: current Alcohol intake frequency: does not drink Alcohol type: beer Patient Tobacco Use Status: Former Tobacco user Tobacco use type: Cigarette Cigarette Packs Per Day: 2 Cigarettes Per Day: 40.0 Years Smoked: 20 e-Cigarette/Vaping Use: Never Used Second Hand Smoke Exposure: No service: No Review of Systems Const All systems reviewed & are unremarkable except as noted in HPI and below Physical Exam Vital Signs: Last Vital Signs Pulse 69 08/21/25 09:19 BP 113/64 08/21/25 09:19 Pulse Ox 96 08/21/25 09:19 Oxygen Delivery Method Room Air 08/21/25 09:19 BMI result Body Mass Index 33.6 Const General: healthy appearing and no acute distress Nutritional Appearance: obese Orientation/consciousness: patient oriented x3 Limitations: no limitations HEENT Head: Yes normal to inspection Ears: hearing grossly normal bilaterally Eyes Sclerae: sclerae normal Pupils: Equal, round and reactive pupils present Neck Neck: Yes normal visual inspection Chest Chest palpation & inspection: normal inspection of the chest Resp Effort & Inspection: normal respiratory effort Auscultation: clear to auscultation bilaterally Cardio Palpation: normal PMI Rate: regular rate Rhythm: regular rhythm Heart sounds: S1 normal heart sound present, S2 normal heart sound present and no murmurs GI Palpation (GI): Soft to palpation, nontender and No hepatosplenomegaly present Auscultation: normal bowel sounds Rectal Exam - Male: Yes deferred Skin General skin exam: no rashes or lesions noted Neuro General: patient oriented x3, gait normal and moves all extremities Cranial nerves: Yes Equal, round and reactive pupils present Psych Appearance: grossly normal Mental Status: mental status grossly normal Assessment & Plan Assessment & Plan (1) Alcoholic cirrhosis of liver without ascites: Code(s): K70.30 - Alcoholic cirrhosis of liver without ascites Category: Medical (2) Pleural effusion, right: Code(s): J90 - Pleural effusion, not elsewhere classified Category: Surgical (3) Colon cancer screening: Code(s): Z12.11 - Encounter for screening for malignant neoplasm of colon Category: Medical Plan 50 YM with history of alcohol use disorder, depression, hypertension, medical noncompliance here to establish care for cirrhosis after recent hospitalization at [facility] in Sep, 2024 for right pleural effucion/hepatic hydrothorax. 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 Hepatitis B and C serologies were negative (Pt reports receiving his 1st dose of hepatitis A and hepatitis-B vaccine at his PCP's office) DARRIUS was normal, ferritin level was elevated and genetic testing for hemochromatosis was negative. MELD score is 10. Pt's reports his last ETOH intake was on 09/30/[address] scan showed enlarged fatty liver with a distended GB Resolution of Rt pleural effusion after Chest tube placement. Pleural fluid analysis was cw transudate and SAAG ratio was >1.1 Preliminary culture results - negative Pt had recurrent hydorthorax and underwent thoracentesis by IR on 11/05/24 with removal of 2500 mL of fluid PLAN: 1. Start furosemide 40 mg and spironolactone 50 mg daily for hepatic hydrothorax. 2. High protein and low sodium diet 3. Check genetic test for hemochromatosis 4. Pt is seeing Sophie Grubbs for ETOH rehab and is on Naltrexone 50 mg PO BID 5. Advised to continue to abstain from ETOH and also work on loosing weight. Course and management of Cirrhosis was reviewed with the patient and he was given handout on cirrhosis and diet 12/19/24 Wt loss of 20 lbs over the past month by not drinking and eating healthier Has a bout of diarrhea every couple of weeks and takes imodium Last thoracocetesis was 11/05/24 and notes SOB on walking the stairs. Taking diuretics - not every day if he has to go out. Pt advised to have a CXR and referred for a Thoracentesis 04/24/25 Resumed working - [employer] in [place] Has gained some weight. Denies recent diarrhea Last thoracocentesis was on 02/03/25. Pt advised to schedule an Abd US 08/21/25 Denies SOB or lower extremity edema - takes Lasix occasionally if he feels he is retaining water. 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 Patient was advised to schedule an upper endoscopy (screen for varices) and a colonoscopy (screening and family history of colon polyps) - scheduled 11/21/25 Both procedures, prep instructions and complications were reviewed with the patient FU in 4 months - scheduled 12/18/25 From [facility]: Management of hepatic hydrothorax: Patients who are severely symptomatic should undergo a therapeutic thoracentesis followed by management with a sodium-restricted diet and diuretics (furosemide [email or web address] [email or web address]&[email or web address]&sourc e=see_link ?40 mg and?spironolactone [email or web address]-drug- information?search=hepatic+hydrothorax&xmnhkVta=0183&source=see_link ?100 mg daily to start). Patients who are mildly to moderately symptomatic can be treated initially with sodium restriction and diuretics. Management options for patients who are refractory to sodium restriction and diuretics include serial thoracenteses, transjugular intrahepatic portosystemic shunt (TIPS) placement, pleurodesis, thoracoscopic surgery to repair diaphragmatic defects, and liver transplantation Orders: Orders MR abdomen wo/w con 08/21/25 K70.30 - Alcoholic cirrhosis of liver without ascites Complete Blood Count no Diff 10/13/25 K70.30 - Alcoholic cirrhosis of liver without ascites Zinc 10/13/25 K70.30 - Alcoholic cirrhosis of liver without ascites XR chest 2V 08/21/25 J90 - Pleural effusion, not elsewhere classified Comprehensive Met. Panel 10/13/25 K70.30 - Alcoholic cirrhosis of liver without ascites Referrals GI Procedure Notification Z12.11 - Encounter for screening for malignant neoplasm of colon Medications: Refilled naltrexone 50 mg PO BID 60 tabs 3RF Coding Level of Care Code Est Pt Level 4 (32915) Add On Problem Visit Only Diagnoses Alcoholic cirrhosis of liver without ascites K70.30 Pleural effusion, right J90 Colon cancer screening Z12.11 Time Spent (min) 25
[2025-08-21 09:19] VITALS: BP 113/64; PULSE 69; O2SAT 96; BMI 33.6
== END 2025-08-21 10:05 | disposition home or self-care (01) ==
LOC: HO.HGI 09:15
PROVIDERS: PCP Internal Medicine; Visit Provider Internal Medicine Gastroenterology
DX: K70.30 Alcoholic cirrhosis of liver without ascites (principal); J90 Pleural effusion, not elsewhere classified; Z12.11 Encounter for screening for malignant neoplasm of colon
CPT/HCPCS: 99499

== ENCOUNTER → 2025-08-21 10:09 | Outpatient (BNV) | payer OTHER, SELFPAY | PROVIDERS: PCP Internal Medicine; Visit Provider Radiology Diagnostic Radiology | DX: J90 Pleural effusion, not elsewhere classified (principal) | CPT/HCPCS: 71046 ==